=== PATIENT | female | born 1935 | race Caucasian/White ===

== ENCOUNTER → 2021-01-12 | Outpatient (CLI) | payer MEDICARE ==
--- NOTE | 2021-01-12 16:05 | NM ---
EXAMINATION TYPE: NM bone scan whole body DATE OF EXAM: 01/12/2021 COMPARISON: NONE HISTORY: 85-year-old female M2 5.551, right hip pain. TECHNIQUE: Delayed whole-body scanning was performed following the injection of 22.5 mCi Tc 99m MDP. Whole-body anterior and posterior images acquired 3 hours post injection. FINDINGS: Foci of increased tracer activity involving the left superior pubic ramus as well as the right superi or and inferior pubic ramus. Degenerated levoconvex scoliosis of the lumbar spine. Scattered degenera tive tracer activity is present. Slight asymmetric increased activity involving the left sacral alar region on the posterior images. Photopenia related to bilateral total knee arthroplasties. Degenerative tracer activity at the shoulders. Focal activity at the left antecubital fossa likely re lates to injection site. IMPRESSION: 1. Abnormal foci of increased tracer activity within the bilateral pubic rami. These could represent posttraumatic or insufficiency fractures or metastatic disease. Further radiographic or CT assessment recommended. 2. Slight asymmetric increased activity within the right sacral ala may be projectional or could repr esent additional subtle insufficiency fracture or underlying lesion. 3. Degenerative levoconvex scoliosis of the lumbar spine.
== END | disposition home or self-care (01) ==
LOC: RADNMMAIN 10:43
PROVIDERS: ATTEND Orthopaedic Surgery
DX: M41.86 Other forms of scoliosis, lumbar region (principal); R93.7 Abnormal findings on diagnostic imaging of other parts of musculoskeletal system
CPT/HCPCS: 78306; A9503

== ENCOUNTER → 2021-02-13 | Outpatient (CLI) | payer MEDICARE ==
--- NOTE | 2021-02-16 13:22 | PE ---
Nuclear medicine PET/CT HISTORY: Myeloma, initial Patient received 10.6 mCi F-18 FDG intravenously and delayed scanning was performed from the top of t he skull to the knees. An attenuation correction, localization CT scan was also performed. Correlation to nuclear medicine bone scan 01/12/2021 Chest and neck: There is no evident lung mass, no pleural or pericardial effusion. No mediastinal, ax illary, or hilar adenopathy. No cervical or supraclavicular adenopathy, no suspicious uptake. There a re coronary artery calcifications present. ABDOMEN: No evident liver mass. No retroperitoneal adenopathy or suspicious uptake. There is no ascit es. Diverticular change noted in the sigmoid colon. Proximal lower extremity shows a lipoma medially along the thigh. Osseous structures: There are innumerable lytic small foci present to include the calvarium, appendic ular, axial skeleton. There is a larger lytic lesion involving the seventh thoracic vertebral body me asuring approximately 15 mm, sixth thoracic vertebral body measuring 9 mm 10th thoracic vertebral bod y measuring 2.8 cm but without significant associated uptake. The midthoracic spine shows a vertebral body with some uptake, SUV 2.6. There are superior and inferior pubic ramus fractures on the right w hich are obscured on the PET scan due to urinary uptake. IMPRESSION: Findings compatible with multiple myeloma. There are limitations to the PET/CT as describ ed.
== END | disposition home or self-care (01) ==
LOC: RADPETMAIN 16:55
PROVIDERS: ATTEND Internal Medicine Hematology & Oncology
DX: C90.00 Multiple myeloma not having achieved remission (principal)
CPT/HCPCS: 78815; A9552

== ENCOUNTER 2021-03-04 11:06 | Day surgery (SDC) | payer MEDICARE ==
[2021-02-26 14:06] VITALS: BMI 20.9
[2021-03-04] MEDS ORDERED: LIDOCAINE 1% (10MG/ML) FOR IV START INTRADERMA PRN (11:31)
[2021-03-04] MEDS ORDERED: LACTATED RINGERS 1,000 ML IV SCH (11:31)
[2021-03-04 11:37] VITALS: RESP 16; TEMP 97.6
[2021-03-04] MEDS ORDERED: LIDOCAINE 1% INJ 10MG/ML (20 ML MDV) ONE (12:22)
[2021-03-04] MEDS ORDERED: PROPOFOL 10 MG/ML 20 ML VIAL IV ONE (12:22)
[2021-03-04 13:01] VITALS: BP 159/52; PULSE 67
[2021-03-04 13:12] LABS: Basophils % (A) 1 %; Eosinophils % (A) 1 %; HCT 35.5 % (34.0-46.0); HGB 11.8 gm/dL (11.4-16.0); Lymphocytes # (A) 1.8 k/uL (1.0-4.8); Lymphocytes % (A) 42 %; MCH 32.2 pg (25.0-35.0); MCHC 33.2 g/dL (31.0-37.0); Mean Platelet Volume 7.5; Monocytes # (A) 0.3 k/uL (0-1.0); Monocytes % (A) 7 %; Neutrophils % (A) 47 %; Platelet Count 329 k/uL (150-450); RBC 3.66 m/uL (3.80-5.40); RDW 15.7 % (11.5-15.5); WBC 4.3 k/uL (3.8-10.6)
--- NOTE | 2021-03-04 23:46 | PCN ---
PROCEDURE NOTE DATE OF SERVICE: March 04, 2021. PROCEDURE: Bone marrow aspirate and biopsy. INDICATION: Suspected multiple myeloma. DESCRIPTION OF PROCEDURE: After obtaining consent from the patient, the procedure was performed in the endoscopy suite under general anesthesia performed by the Anesthesia Team. The patient was put in the left lateral decubitus position. The right posterior superior iliac crest was localized. Skin was prepped with ChloraPrep. All sterile procedures were followed. 1.1 mL of 1% Xylocaine was used for local anesthetic. Monoject needle was inserted, about 15 mL of aspirate and 1 cm core biopsy was obtained without any difficulties. Pressure applied afterwards. There was negligible blood loss. Patient tolerated procedure very well without any immediate complications. MMODL / IJN: [id number] /
== END 2021-03-04 13:31 | disposition home or self-care (01) ==
LOC: OR 11:06
PROVIDERS: ATTEND Internal Medicine Hematology & Oncology
DX: C90.10 Plasma cell leukemia not having achieved remission (principal); R71.8 Other abnormality of red blood cells; I10 Essential (primary) hypertension; M19.90 Unspecified osteoarthritis, unspecified site; K21.9 Gastro-esophageal reflux disease without esophagitis; E03.9 Hypothyroidism, unspecified; R63.4 Abnormal weight loss; Z97.2 Presence of dental prosthetic device (complete) (partial); Z90.89 Acquired absence of other organs; Z96.653 Presence of artificial knee joint, bilateral; Z98.890 Other specified postprocedural states; E89.0 Postprocedural hypothyroidism; Z80.1 Family history of malignant neoplasm of trachea, bronchus and lung; Z86.19 Personal history of other infectious and parasitic diseases; Z87.891 Personal history of nicotine dependence; Z79.890 Hormone replacement therapy; Z79.899 Other long term (current) drug therapy; Z79.1 Long term (current) use of non-steroidal anti-inflammatories (NSAID); Z88.0 Allergy status to penicillin
CPT/HCPCS: 85025; 85045; 38222; J2001; J2704

== ENCOUNTER 2021-03-22 20:08 | Inpatient (IN) | payer MEDICARE ==
--- NOTE | 2021-03-22 20:18 | ED ---
General Adult HPI - General Chief complaint: Shortness of Breath Stated complaint: Respiratory Distress Time Seen by Provider: 03/22/21 20:12 Source: patient, EMS, RN notes reviewed Mode of arrival: EMS Limitations: no limitations - History of Present Illness Initial comments: Patient is a pleasant 85-year-old female presenting to the emergency Department with respiratory distress. Onset of symptoms was around an hour ago. Patient has been worked up recently for possible congestive heart failure. No history of similar symptoms previously. Patient does have some leg edema, no calf pain. No fevers. No cough. No chest pain. Patient had low oxygen by EMS. Patient did not tolerate CPAP. - Related Data Home Medications Medication Instructions Recorded Confirmed Back And Body 2 tab PO DAILY 02/26/21 03/22/21 Enalapril/Hydrochlorothiazide 2 tab PO DAILY 02/26/21 03/22/21 [Vaseretic 10-25 mg] Levothyroxine Sodium [Synthroid] 50 mcg PO DAILY 02/26/21 03/22/21 Metoprolol Tartrate [Lopressor] 25 mg PO DAILY 02/26/21 03/22/21 Naproxen Sodium [Aleve] 220 mg PO DAILY 02/26/21 03/22/21 Omeprazole 20 mg PO DAILY 02/26/21 03/22/21 amLODIPine [Norvasc] 5 mg PO BID 02/26/21 03/22/21 Multivitamins, Thera [Multivitamin 1 tab PO DAILY 03/22/21 03/22/21 (formulary)] Potassium Chloride ER [K-Dur 20] 20 meq PO DAILY 03/22/21 03/22/21 traMADol HCL 50 mg PO Q6H PRN 03/22/21 03/22/21 Allergies Allergy/AdvReac Type Severity Reaction Status Date / Time Penicillins Allergy Swelling Verified 03/22/21 21:12 Review of Systems ROS Statement: Those systems with pertinent positive or pertinent negative responses have been documented in the HPI. ROS Other: All systems not noted in ROS Statement are negative. Constitutional: Denies: fever Eyes: Denies: eye pain ENT: Denies: ear pain Respiratory: Reports: as per HPI, dyspnea Cardiovascular: Denies: chest pain Endocrine: Denies: fatigue Gastrointestinal: Denies: abdominal pain Genitourinary: Denies: dysuria Musculoskeletal: Denies: back pain Skin: Denies: rash Neurological: Denies: weakness Past Medical History Past Medical History: GERD/Reflux, Hypertension, Osteoarthritis (OA), Thyroid Disorder Additional Past Medical History / Comment(s): UNEXPLAINED WEIGHT LOSS. MULTIPLE MYELOMA- no treatment yet(dr Aden- 03/2021) History of Any Multi-Drug Resistant Organisms: None Reported Past Surgical History: Appendectomy, Joint Replacement, Tonsillectomy Additional Past Surgical History / Comment(s): BILAT TKA. BILAT CARARACTS REMOVED WITH LENS IMPLANTS. 1/2 OF THYROID REMOVED. FATTY TUMOR REMOVED FROM KNEE. COLONOSCOPY Past Anesthesia/Blood Transfusion Reactions: No Reported Reaction Past Psychological History: No Psychological Hx Reported Smoking Status: Former smoker Past Alcohol Use History: None Reported Past Drug Use History: None Reported - Past Family History Mother Family Medical History: Cancer General Exam Limitations: no limitations General appearance: alert Head exam: Present: normocephalic Eye exam: Present: normal appearance Neck exam: Present: normal inspection Respiratory exam: Present: respiratory distress, rales Cardiovascular Exam: Present: tachycardia GI/Abdominal exam: Present: soft. Absent: tenderness Extremities exam: Present: pedal edema. Absent: calf tenderness Neurological exam: Present: alert Psychiatric exam: Present: normal affect, normal mood Skin exam: Present: normal color Course Vital Signs 03/22/21 03/22/21 03/22/21 20:14 20:22 20:31 Temperature 97.5 F L Pulse Rate 109 H 99 96 Respiratory 30 H 24 24 Rate Blood Pressure 164/98 152/86 150/95 O2 Sat by Pulse 86 L 92 L 91 L Oximetry 03/22/21 03/22/21 20:58 21:19 Temperature Pulse Rate 93 93 Respiratory 27 H 25 H Rate Blood Pressure 147/82 151/88 O2 Sat by Pulse 91 L 98 Oximetry - Reevaluation(s) Reevaluation #1: 03/22/21 22:05 Questionable infiltrate. Patient will be covered with antibiotics. Blood culture and lactic acid will also be ordered. EKG Findings - EKG Comments: EKG Findings:: Sinus tachycardia with rate of 108. Her 156. QRS 150. QT 352. QTC 471. Left axis. Left bundle branch block. Nonspecific ST-T. Medical Decision Making - Medical Decision Making Patient reevaluated and significantly improved with BiPAP. Patient family updated on results and plan. Dr. Israel has been paged for admission, covering for Dr. Davalos Juan Case was discussed with Dr. Burton, who will admit - Lab Data Result diagrams: 03/22/21 20:18 03/22/21 20:18 Lab Results 03/22/21 03/22/21 03/22/21 Range/Units 20:18 20:18 20:18 WBC 7.9 (3.8-10.6) k/uL RBC 3.61 L (3.80-5.40) m/uL Hgb 11.8 (11.4-16.0) gm/dL Hct 35.9 (34.0-46.0) % MCV 99.3 (80.0-100.0) fL MCH 32.7 (25.0-35.0) pg MCHC 33.0 (31.0-37.0) g/dL RDW 15.7 H (11.5-15.5) % Plt Count 290 (150-450) k/uL MPV 7.5 Neutrophils % 55 % Lymphocytes % 34 % Monocytes % 5 % Eosinophils % 3 % Basophils % 1 % Neutrophils # 4.3 (1.3-7.7) k/uL Lymphocytes # 2.7 (1.0-4.8) k/uL Monocytes # 0.4 (0-1.0) k/uL Eosinophils # 0.2 (0-0.7) k/uL Basophils # 0.1 (0-0.2) k/uL Macrocytosis Slight PT 10.5 (9.0-12.0) sec INR 1.0 (<1.2) APTT 19.1 L (22.0-30.0) sec Sodium 138 (137-145) mmol/L Potassium 4.5 (3.5-5.1) mmol/L Chloride 104 (98-107) mmol/L Carbon Dioxide 26 (22-30) mmol/L Anion Gap 8 mmol/L BUN 20 H (7-17) mg/dL Creatinine 0.66 (0.52-1.04) mg/dL Est GFR (CKD-EPI)AfAm >90 (>60 ml/min/1.73 sqM) Est GFR (CKD-EPI)NonAf 82 (>60 ml/min/1.73 sqM) Glucose 198 H (74-99) mg/dL POC Glucose (mg/dL) (75-99) mg/dL POC Glu Supplier Development Manager ID Plasma Lactic Acid Mart (0.7-2.0) mmol/L Calcium 10.3 H (8.4-10.2) mg/dL Total Bilirubin 0.5 (0.2-1.3) mg/dL AST 38 H (14-36) U/L ALT 17 (4-34) U/L Alkaline Phosphatase 86 (38-126) U/L Troponin I (0.000-0.034) ng/mL NT-Pro-B Natriuret Pep pg/mL Total Protein 8.6 H (6.3-8.2) g/dL Albumin 4.2 (3.5-5.0) g/dL Coronavirus (PCR) (Not Detectd) 03/22/21 03/22/21 03/22/21 Range/Units 20:18 20:18 20:18 WBC (3.8-10.6) k/uL RBC (3.80-5.40) m/uL Hgb (11.4-16.0) gm/dL Hct (34.0-46.0) % MCV (80.0-100.0) fL MCH (25.0-35.0) pg MCHC (31.0-37.0) g/dL RDW (11.5-15.5) % Plt Count (150-450) k/uL MPV Neutrophils % % Lymphocytes % % Monocytes % % Eosinophils % % Basophils % % Neutrophils # (1.3-7.7) k/uL Lymphocytes # (1.0-4.8) k/uL Monocytes # (0-1.0) k/uL Eosinophils # (0-0.7) k/uL Basophils # (0-0.2) k/uL Macrocytosis PT (9.0-12.0) sec INR (<1.2) APTT (22.0-30.0) sec Sodium (137-145) mmol/L Potassium (3.5-5.1) mmol/L Chloride (98-107) mmol/L Carbon Dioxide (22-30) mmol/L Anion Gap mmol/L BUN (7-17) mg/dL Creatinine (0.52-1.04) mg/dL Est GFR (CKD-EPI)AfAm (>60 ml/min/1.73 sqM) Est GFR (CKD-EPI)NonAf (>60 ml/min/1.73 sqM) Glucose (74-99) mg/dL POC Glucose (mg/dL) (75-99) mg/dL POC Glu Supplier Development Manager ID Plasma Lactic Acid Mart 2.8 H* (0.7-2.0) mmol/L Calcium (8.4-10.2) mg/dL Total Bilirubin (0.2-1.3) mg/dL AST (14-36) U/L ALT (4-34) U/L Alkaline Phosphatase (38-126) U/L Troponin I 0.031 (0.000-0.034) ng/mL NT-Pro-B Natriuret Pep 6370 pg/mL Total Protein (6.3-8.2) g/dL Albumin (3.5-5.0) g/dL Coronavirus (PCR) (Not Detectd) 03/22/21 03/22/21 Range/Units 20:21 20:28 WBC (3.8-10.6) k/uL RBC (3.80-5.40) m/uL Hgb (11.4-16.0) gm/dL Hct (34.0-46.0) % MCV (80.0-100.0) fL MCH (25.0-35.0) pg MCHC (31.0-37.0) g/dL RDW (11.5-15.5) % Plt Count (150-450) k/uL MPV Neutrophils % % Lymphocytes % % Monocytes % % Eosinophils % % Basophils % % Neutrophils # (1.3-7.7) k/uL Lymphocytes # (1.0-4.8) k/uL Monocytes # (0-1.0) k/uL Eosinophils # (0-0.7) k/uL Basophils # (0-0.2) k/uL Macrocytosis PT (9.0-12.0) sec INR (<1.2) APTT (22.0-30.0) sec Sodium (137-145) mmol/L Potassium (3.5-5.1) mmol/L Chloride (98-107) mmol/L Carbon Dioxide (22-30) mmol/L Anion Gap mmol/L BUN (7-17) mg/dL Creatinine (0.52-1.04) mg/dL Est GFR (CKD-EPI)AfAm (>60 ml/min/1.73 sqM) Est GFR (CKD-EPI)NonAf (>60 ml/min/1.73 sqM) Glucose (74-99) mg/dL POC Glucose (mg/dL) 174 H (75-99) mg/dL POC Glu Supplier Development Manager ID Robbie, Juan Plasma Lactic Acid Mart (0.7-2.0) mmol/L Calcium (8.4-10.2) mg/dL Total Bilirubin (0.2-1.3) mg/dL AST (14-36) U/L ALT (4-34) U/L Alkaline Phosphatase (38-126) U/L Troponin I (0.000-0.034) ng/mL NT-Pro-B Natriuret Pep pg/mL Total Protein (6.3-8.2) g/dL Albumin (3.5-5.0) g/dL Coronavirus (PCR) Not Detected (Not Detectd) - Radiology Data Radiology results: image reviewed (Chest x-ray shows pulmonary edema. Cannot exclude infiltrate.) Critical Care Time Critical Care Time: Yes Total Critical Care Time: 33 Disposition Clinical Impression: Congestive heart failure, Acute respiratory failure Disposition: ADMITTED IP TO THIS [facility] Condition: Serious Is patient prescribed a controlled substance at d/c from ED?: No Referrals: None,Stated [REFERRING] - 1-2 days Decision Time: 22:02
[2021-03-22 20:25] LABS: Glucose,Whole Blood 174 mg/dL (75-99)
[2021-03-22 20:30] LABS: Basophils # (A) 0.1 k/uL (0-0.2); Basophils % (A) 1 %; Eosinophils # (A) 0.2 k/uL (0-0.7); Eosinophils % (A) 3 %; HCT 35.9 % (34.0-46.0); HGB 11.8 gm/dL (11.4-16.0); Lymphocytes # (A) 2.7 k/uL (1.0-4.8); Lymphocytes % (A) 34 %; MCH 32.7 pg (25.0-35.0); MCV 99.3 fL (80.0-100.0); Macrocytosis Slight; Mean Platelet Volume 7.5; Monocytes # (A) 0.4 k/uL (0-1.0); Monocytes % (A) 5 %; Neutrophils # (A) 4.3 k/uL (1.3-7.7); Neutrophils % (A) 55 %; Platelet Count 290 k/uL (150-450); RBC 3.61 m/uL (3.80-5.40); RDW 15.7 % (11.5-15.5); WBC 7.9 k/uL (3.8-10.6)
--- NOTE | 2021-03-22 20:30 | XR ---
EXAMINATION TYPE: XR chest 1V portable DATE OF EXAM: 03/22/2021 COMPARISON: NONE HISTORY: Shortness of breath. TECHNIQUE: Single frontal view of the chest is obtained. FINDINGS: There is moderate pulmonary edema bilateral diffuse hazy opacities. No significant pleural effusion, or pneumothorax seen. The cardiac silhouette size is enlarged. The osseous structures a re intact. IMPRESSION: Pulmonary edema with superimposed infiltrates not excluded.
[2021-03-22] MEDS ORDERED: NITROGLYCERIN OINT 1 INCH/GM PACKET TOPICAL STA (20:38)
[2021-03-22] MEDS ORDERED: FUROSEMIDE 10 MG/ML 4 ML VIAL IV STA (20:38)
[2021-03-22 20:47] LABS: ALT 17 U/L (4-34); AST 38 U/L (14-36); African American GFR (CKD) >90 (>60 ml/min/1.73 sqM); Albumin 4.2 g/dL (3.5-5.0); Alkaline Phosphatase 86 U/L (38-126); Anion Gap 8 mmol/L; Blood Urea Nitrogen 20 mg/dL (7-17); Calcium 10.3 mg/dL (8.4-10.2); Carbon Dioxide 26 mmol/L (22-30); Chloride 104 mmol/L (98-107); Glucose 198 mg/dL (74-99); Non-African American GFR(CKD) 82 (>60 ml/min/1.73 sqM); Sodium 138 mmol/L (137-145); Total Bilirubin 0.5 mg/dL (0.2-1.3); Total Protein 8.6 g/dL (6.3-8.2)
[2021-03-22 20:48] LABS: Prothrombin Time 10.5 sec (9.0-12.0)
[2021-03-22 20:55] LABS: Potassium 4.5 mmol/L (3.5-5.1)
[2021-03-22 20:57] LABS: Partial Thromboplastin Time 19.1 sec (22.0-30.0)
[2021-03-22] MEDS ORDERED: ASPIRIN 325 MG TAB PO STA (22:02)
[2021-03-22] MEDS ORDERED: LEVOFLOXACIN 750MG-D5W PMX 750 MG in DEXTROSE/WATER 1 150ML.BAG IVPB STA (22:05)
[2021-03-22] MEDS ORDERED: PNEUMONIA PROTOCOL UTILIZED 1 EACH MISC PO PRN (22:05)
[2021-03-22] MEDS: FUROSEMIDE 10 MG/ML 4 ML VIAL IV SCH (22:31)
[2021-03-23] MEDS ORDERED: traMADol 50 MG TAB PO PRN (00:12)
[2021-03-23] MEDS ORDERED: HEPARIN SOD,PORK IN 0.45% NACL 25,000 UNIT in 0.45% NACL 1 250ML.BAG IV SCH (02:00)
[2021-03-23] MEDS ORDERED: HEPARIN SODIUM 1,000 UN/ML (10ML VL) IV PRN (02:00)
[2021-03-23 02:52] LABS: Partial Thromboplastin Time 20.9 sec (22.0-30.0); Prothrombin Time 10.7 sec (9.0-12.0)
[2021-03-23] MEDS: FUROSEMIDE 10 MG/ML 4 ML VIAL IV SCH (06:10)
--- NOTE | 2021-03-23 08:22 | XR ---
EXAMINATION TYPE: XR chest 1V portable DATE OF EXAM: 03/23/2021 Comparison: 03/22/2021 Clinical History: 85-year-old female CHF Findings: Heart is enlarged. Similar elongation/ectasia of the thoracic aorta. Bony vasculature within normal l imits. Hyperinflation. Minimal patchy density remains at the left base. Otherwise, bilateral airspace opacities have significantly improved. Chronic to subacute left upper rib fracture deformity. Multip le skin folds project over both sides of the chest. Impression: Cardiomegaly, COPD, and near complete resolution of previous pulmonary edema. Minimal patchy changes remain at the left base.
[2021-03-23] MEDS ORDERED: ASPIRIN 325 MG TAB PO SCH (09:00)
[2021-03-23] MEDS: NITROGLYCERIN OINT 1 INCH/GM PACKET TOPICAL SCH ×3 (09:17→18:15)
[2021-03-23] MEDS ORDERED: METOPROLOL TARTRATE 25 MG TAB PO SCH (10:15)
[2021-03-23] MEDS ORDERED: amLODIPine 5 MG TAB PO SCH (10:15)
[2021-03-23] MEDS ORDERED: LISINOPRIL-HCTZ 20-25 MG 1 EACH TAB PO SCH (10:15)
[2021-03-23] MEDS: LEVOTHYROXINE 50 MCG TAB PO SCH (11:18)
[2021-03-23] MEDS: POTASSIUM CHLORIDE ER 20 MEQ TAB.ER PO SCH (11:18)
[2021-03-23] MEDS ORDERED: ATORVASTATIN 80 MG TAB PO STA (11:50)
[2021-03-23] MEDS ORDERED: ALPRAZolam 0.25 MG TAB PO PRN (11:50)
[2021-03-23] MEDS ORDERED: SODIUM CHLORIDE 0.9% 1,000 ML in EMPTY BAG 1 BAG IV ONE (11:50)
[2021-03-23] MEDS ORDERED: ALPRAZolam 0.5 MG TAB PO PRN (11:50)
--- NOTE | 2021-03-23 12:00 | ECHOF ---
Referral Reason:chf MEASUREMENTS -------- HEIGHT: 152.4 cm WEIGHT: 49.9 kg BP: IVSd: 1.1 cm (0.6 - 1.1) LVIDd: 5.6 cm (3.9 - 5.3) LVPWd: 1.1 cm (0.6 - 1.1) IVSs: 1.6 cm LVIDs: 4.4 cm LVPWs: 1.8 cm LA Diam: 3.8 cm (2.7 - 3.8) LAESV Index (A-L): 60.91 ml/m MV EXCURSION: 19.436 mm (> 18.000) MV EF SLOPE: 72 mm/s (70 - 150) EPSS: 2.4 cm AR PHT: 390 ms RAP: 5.00 mmHg RVSP: 34.73 mmHg FINDINGS -------- Sinus rhythm. This was a technically good study. The left ventricular size is normal. There is severe global hypokinesis of LV . Overall left vent ricular systolic function is severely impaired with, an EF between 20 - 25 %. The right ventricle is normal in size. LA is severely dilated >40 ml/m2 The right atrial size is normal. There is mild aortic valve sclerosis. There is mild aortic regurgitation. Mild mitral annular calcification present. Severe mitral regurgitation is present. Mild tricuspid regurgitation present. There is mild pulmonary hypertension. The right ventricular systolic pressure, as measured by Doppler, is 34.73mmHg. Trace/mild (physiologic) pulmonic regurgitation. The aortic root size is normal. There is no pericardial effusion. CONCLUSIONS -------- 1. The left ventricular size is normal. 2. There is severe global hypokinesis of LV . 3. Overall left ventricular systolic function is severely impaired with, an EF between 20 - 25 %. 4. The right ventricle is normal in size. 5. LA is severely dilated >40 ml/m2 6. The right atrial size is normal. 7. There is mild aortic valve sclerosis. 8. There is mild aortic regurgitation. 9. Mild mitral annular calcification present. 10. Severe mitral regurgitation is present. 11. Mild tricuspid regurgitation present. 12. There is mild pulmonary hypertension. 13. The right ventricular systolic pressure, as measured by Doppler, is 34.73mmHg. 14. Trace/mild (physiologic) pulmonic regurgitation. 15. The aortic root size is normal. 16. There is no pericardial effusion. STENCILER: Gabrielle Finch RDCS
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
[2021-03-23] MEDS: ASPIRIN 81 MG PO SCH (12:35)
[2021-03-23] MEDS ORDERED: VERAPAMIL 2.5 MG/ML 2 ML AMP ONE (12:59)
[2021-03-23] MEDS ORDERED: LIDOCAINE 1% INJ 10MG/ML (20 ML MDV) ONE (12:59)
[2021-03-23] MEDS ORDERED: SODIUM CHLORIDE 0.9% 1,000 ML IV ONE (13:11)
[2021-03-23] MEDS ORDERED: MIDAZOLAM 2 MG/2 ML VIAL IV ONE (13:20)
[2021-03-23] MEDS ORDERED: LIDOCAINE 1% INJ 10MG/ML (20 ML MDV) SQ ONE (13:23)
[2021-03-23] MEDS ORDERED: HEPARIN SODIUM 1,000 UN/ML (10ML VL) ONE (13:33)
[2021-03-23] MEDS: VERAPAMIL SYRINGE (5 MG/10 ML) INTRAARTER ONE ×2 (13:35→14:23)
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
[2021-03-23] MEDS ORDERED: IOPAMIDOL-370 100ML BTL INJ ONE ×2 (13:59→14:25)
[2021-03-23] MEDS ORDERED: BIVALIRUDIN BOLUS 250 MG/50 ML IV ONE (14:08)
[2021-03-23] MEDS ORDERED: BIVALIRUDIN 250 MG in SODIUM CHLORIDE 0.9% 50 ML IV ONE (14:09)
[2021-03-23] MEDS ORDERED: NITROGLYCERIN 1000MCG/10ML SYRINGE INTRACORON ONE (14:20)
[2021-03-23] MEDS ORDERED: CLOPIDOGREL 75 MG TAB ONE (14:22)
[2021-03-23] MEDS ORDERED: CLOPIDOGREL 75 MG TAB PO ONE (14:24)
--- NOTE | 2021-03-23 14:38 | P.CONS ---
History of Present Illness - Reason for Consult Consult date: 03/23/21 Multiple Myeloma Requesting physician: Cait Longo - Chief Complaint NSTEMI - History of Present Illness This is a very nice lady who initially presented with left arm pain and weakness,and then developed right hip pain,she was seen by ortho in January/2021,had xray of left shoulder,arm and righ hip which showed mottled appearance and small lesions of her bone. On 01/12/2021,she had a bone scan which showed few sclerotic lesions in pelvic bone. On 01/19/2021,CBC revealed mild leukopenia (total wbc 4.3K),hemoglobin 12.1 gm/dl,platelets counts 309K,CMP revealed globulin of 4 gm/dl,normal serum calcium and creatinine,SPEP revealed M-spike of 1.8gm/dl,serum IgG 2642.1 mg/dl,low serum IgA and IgM levels,urine protein electrophoresis small monoclonal band. On 02/04/2021,SPEP and immunofixation revealed IgGK M-protein 2.35 gm/dl,IgG 2960 mg/dl, On 02/13/2021,PET scan revealed multiple lytic lesions. On 03/04/2021,bone marrow biopsy revealed 60% plasma cells,FISH revealed trisomy 11.Normal cytogenetics. She feels very tired,continues to have significant pain in right hip,lost about 60 pounds within a year,no dysphagia,no cough,no nausea/vomiting,her last leonel mograms were [address] Aden on 03/18/21 had a discussion with the patient and her daughter today. We discussed her diagnosis,prognosis and treatment options. She is not a transplant candidate. We discussed treatment options: We discussed Rd regimen,Lisa+Rd,we also discussed modified RVd regimen. The decided to proceed with RVd lite regimen. We also discussed adding zometa,in view of multiple bone lesions,they agreed to it. She has not started treatment yet, teach is on 04/01/2021. Aida Contacted via [email or web address] however unable to reach her as the message was discontinued and there was no phone number to return call. She was seen and evaluated and recovering from Cath with stent placement. She has not started Regimen yet for new multiple myeloma diagnosis. Will allow recovery and begin within the next 10 to 14 days. Review of Systems All systems: negative Constitutional: Reports as per HPI Past Medical History Past Medical History: GERD/Reflux, Hypertension, Osteoarthritis (OA), Thyroid Disorder Additional Past Medical History / Comment(s): MULTIPLE MYELOMA- no treatment yet(dr Aden- 03/2021) History of Any Multi-Drug Resistant Organisms: None Reported Past Surgical History: Appendectomy, Joint Replacement, Tonsillectomy Additional Past Surgical History / Comment(s): BILAT TKA. BILAT CARARACTS REMOVED WITH LENS IMPLANTS. 1/2 OF THYROID REMOVED. FATTY TUMOR REMOVED FROM KNEE. COLONOSCOPY Past Anesthesia/Blood Transfusion Reactions: No Reported Reaction Past Psychological History: No Psychological Hx Reported Smoking Status: Former smoker Past Alcohol Use History: None Reported Additional Past Alcohol Use History / Comment(s): QUIT SMOKING 1964 Past Drug Use History: None Reported - Past Family History Mother Family Medical History: Cancer Medications and Allergies Home Medications Medication Instructions Recorded Confirmed Type Back And Body 2 tab PO DAILY 02/26/21 03/22/21 History Enalapril/Hydrochlorothiazide 2 tab PO DAILY 02/26/21 03/22/21 History [Vaseretic 10-25 mg] Levothyroxine Sodium [Synthroid] 50 mcg PO DAILY 02/26/21 03/22/21 History Metoprolol Tartrate [Lopressor] 25 mg PO DAILY 02/26/21 03/22/21 History Naproxen Sodium [Aleve] 220 mg PO DAILY 02/26/21 03/22/21 History Omeprazole 20 mg PO DAILY 02/26/21 03/22/21 History amLODIPine [Norvasc] 5 mg PO BID 02/26/21 03/22/21 History Multivitamins, Thera [Multivitamin 1 tab PO DAILY 03/22/21 03/22/21 History (formulary)] Potassium Chloride ER [K-Dur 20] 20 meq PO DAILY 03/22/21 03/22/21 History traMADol HCL 50 mg PO Q6H PRN 03/22/21 03/22/21 History Allergies Allergy/AdvReac Type Severity Reaction Status Date / Time Penicillins Allergy Swelling Verified 03/22/21 21:12 Physical Exam Vitals: Vital Signs Temp Pulse Pulse Resp BP BP Pulse Ox 03/23/21 12:00 97.7 F 74 16 140/71 94 L 03/23/21 08:00 97.1 F L 75 18 131/67 95 03/23/21 03:23 97.5 F L 81 17 139/63 97 03/23/21 02:00 88 18 03/23/21 00:00 97.4 F L 88 18 151/72 97 03/22/21 23:46 87 21 03/22/21 23:28 96.2 F L 87 21 168/74 97 03/22/21 23:01 97.5 F L 03/22/21 22:41 97.6 F 83 20 139/72 96 03/22/21 21:19 93 25 H 151/88 98 03/22/21 20:58 93 27 H 147/82 91 L 03/22/21 20:31 97.5 F L 96 24 150/95 91 L 03/22/21 20:22 99 24 152/86 92 L 03/22/21 20:14 109 H 30 H 164/98 86 L Intake and Output 03/22/21 03/23/21 03/23/21 22:59 06:59 14:59 Intake Total 5.044 58.2 Output Total 700 300 Balance -694.956 -241.8 Intake: Intake, IV Titration 5.044 58.2 Amount Heparin Sod,Pork in 0.45% 5.044 58.2 NaCl 25,000 unit In 0.45 % NaCl 1 250ml.bag @ 12 UNITS/KG/HR 5.82 mls/hr IV .Q24H [facility] Rx#: [id number] Oral 0 Output: Urine 700 300 Other: Voiding Method Bedside Commode # Voids 1 1 Weight 4.536 kg 50 kg - Constitutional General appearance: cooperative, no acute distress - EENT Eyes: EOMI ENT: hard of hearing, NA/AT - Neck Neck: normal ROM - Respiratory Respiratory: bilateral: CTA - Cardiovascular Rhythm: regularly irregular - Gastrointestinal General gastrointestinal: soft - Integumentary Integumentary: pale - Neurologic Neurologic: CNII-XII intact - Musculoskeletal Musculoskeletal: generalized weakness - Psychiatric Psychiatric: A&O x's 3, appropriate affect Results CBC & Chem 7: 03/23/21 15:20 03/23/21 15:20 Labs: Abnormal Lab Results - Last 24 Hours (Table) 03/22/21 03/22/21 03/22/21 Range/Units 20:18 20:18 20:18 RBC 3.61 L (3.80-5.40) m/uL RDW 15.7 H (11.5-15.5) % APTT 19.1 L (22.0-30.0) sec BUN 20 H (7-17) mg/dL Glucose 198 H (74-99) mg/dL POC Glucose (mg/dL) (75-99) mg/dL Plasma Lactic Acid Mart (0.7-2.0) mmol/L Calcium 10.3 H (8.4-10.2) mg/dL AST 38 H (14-36) U/L Troponin I (0.000-0.034) ng/mL Total Protein 8.6 H (6.3-8.2) g/dL TSH (0.350-5.500) uIU/mL 03/22/21 03/22/21 03/22/21 Range/Units 20:18 20:21 23:46 RBC (3.80-5.40) m/uL RDW (11.5-15.5) % APTT (22.0-30.0) sec BUN (7-17) mg/dL Glucose (74-99) mg/dL POC Glucose (mg/dL) 174 H (75-99) mg/dL Plasma Lactic Acid Mart 2.8 H* (0.7-2.0) mmol/L Calcium (8.4-10.2) mg/dL AST (14-36) U/L Troponin I 0.073 H* (0.000-0.034) ng/mL Total Protein (6.3-8.2) g/dL TSH (0.350-5.500) uIU/mL 03/23/21 03/23/21 03/23/21 Range/Units 02:23 02:23 08:23 RBC (3.80-5.40) m/uL RDW (11.5-15.5) % APTT 20.9 L (22.0-30.0) sec BUN (7-17) mg/dL Glucose (74-99) mg/dL POC Glucose (mg/dL) (75-99) mg/dL Plasma Lactic Acid Mart (0.7-2.0) mmol/L Calcium (8.4-10.2) mg/dL AST (14-36) U/L Troponin I 0.116 H* (0.000-0.034) ng/mL Total Protein (6.3-8.2) g/dL TSH 5.540 H (0.350-5.500) uIU/mL Assessment and Plan (1) Multiple myeloma Current Visit: Yes Status: Acute Code(s): C90.00 - MULTIPLE MYELOMA NOT HAVING ACHIEVED REMISSION SNOMED Code(s): 626225109 Plan: Assessment and Recommendations: Multiple Myeloma: - New Diagnosis - PLan to begin triplet therapy under care of Dr. Aden - LEONEL and [place] planned to begin once acute problems and cardiac procedures completed. Admitted with possible NSTEMI: - Cardiac Cath today with stent placement
[2021-03-23] MEDS: SODIUM CHLORIDE 0.9% 1,000 ML IV SCH (15:00)
--- NOTE | 2021-03-23 15:13 | CC ---
CARDIAC CATHETERIZATION REPORT DATE OF SERVICE: 03/23/2021. PROCEDURE: 1. Left heart catheterization and coronary angiography. 2. PTCA and stenting of a mid LAD lesion with a drug-eluting stent. PERFORMED BY: Dr. Grisel Copeland. SEDATION: Moderate conscious sedation time was 60 minutes. Patient was administered Versed. Oxygen saturation, hemodynamics and EKG were monitored closely. CLINICAL INFORMATION: Mrs. Liberty Coles is an 85-year-old frail elderly lady who was admitted to the hospital with chest pain and shortness of breath, was found to be in heart failure. She had a troponin elevation suggestive of non-ST elevation WA. She was comfortable and resting at the time of my evaluation, but she did complain of chest heaviness, pressure, and shortness of breath which seems to have resolved with control of blood pressure and administration of Lasix. She was advised cardiac cath after due discussion. She had a recent diagnosis of multiple myeloma. PROCEDURE NOTE: Under local anesthesia and strict aseptic precautions, a 6-Ukrainian introducer was placed in the right radial artery. I had difficulty with the access and had to advance the wires. Had made 2 punctures. However, good access was secured. Using a JL3.5 and JR4 catheters, I performed coronary angiography. I did not get a good picture of the LAD and there was a very short left main. I used an XB LAD 3.5 guide catheter. With this, I had better visualization. I then proceeded to perform PCI of mid LAD which had a long 70-80 percent lesion. LV pressures were obtained but LV gram was not performed. CARDIAC CATHETERIZATION FINDINGS: Left ventricular end-diastolic pressure was 17 mmHg without any gradient across aortic valve. CORONARY ANGIOGRAPHY FINDINGS: RIGHT CORONARY ARTERY: This is a nondominant vessel, small in caliber and distribution, has minor irregularities and no significant disease. LEFT MAIN CORONARY ARTERY: A very short vessel that immediately bifurcates and best seen when I did injections with XB LAD catheter. No significant disease in the left main. LEFT ANTERIOR DESCENDING CORONARY ARTERY: Good caliber vessel, gives off a small septal and a large diagonal branch and immediately after the large diagonal branch, there is a long area of narrowing of about 70-80 percent, which I believe is a significant lesion and beyond this, the caliber of the vessel improves and it runs all the way to the apex supplying a sizable amount of myocardium. The diagonal vessel at its origin has no significant disease. In the midportion, there is about a 40-50% narrowing supplies a fair amount of myocardium. CIRCUMFLEX CORONARY ARTERY: This is a very dominant vessel, gives off 2 obtuse marginals proximally, the 3rd obtuse marginal and then distally divides into a PDA and PLV, both of which supply a fair amount of myocardium. No significant disease in the dominant circumflex system. LEFT VENTRICULOGRAM was not performed. FINAL IMPRESSION: This patient has a left dominant system. No significant disease in the nondominant RCA or the dominant circumflex, but there is a long lesion in the mid LAD of 70-80 percent. LAD is a good caliber vessel. The lesion is located after the diagonal branch. RECOMMENDATIONS: I recommended PCI of LAD and proceeded to perform this in the same setting. PCI PROCEDURE DETAILS: I had a lot of difficulty getting a good guide catheter to sit in the left main. However, with an XB LAD 3.5, and some manipulation, I got a decent seating. A run- through wire was used to cross the lesion in the LAD. Without predilatation, I deployed a 28 mm long 3.25 caliber Xience stent. Excellent angiographic result was achieved. Patient had mild chest discomfort and significant anterior ST elevation. Excellent angiographic result without complication was achieved. The sheath was then taken out and TR band applied as per protocol. Patient still had some oozing. The distal saturation in the fingers of the right hand was about 90%. Good hemostasis was secured. She was sent to the room in a stable condition. Results were discussed with the patient as well as her family members. Excellent angiographic result without complication was achieved of the LAD. A drug- eluting stent was deployed. I expect the patient to be discharged in the next 48 hours if she remains stable. Heart failure issue also has to be addressed. LV dysfunction is noted and mitral regurgitation is also noted. Results were discussed in detail with the patient as well as her daughter. MMODL / IJN: [id number] /
[2021-03-23 15:52] LABS: Basophils % (A) 1 %; Eosinophils % (A) 1 %; HCT 29.4 % (34.0-46.0); HGB 10.1 gm/dL (11.4-16.0); Lymphocytes # (A) 1.6 k/uL (1.0-4.8); Lymphocytes % (A) 32 %; MCH 33.4 pg (25.0-35.0); MCHC 34.3 g/dL (31.0-37.0); MCV 97.5 fL (80.0-100.0); Mean Platelet Volume 7.2; Monocytes # (A) 0.3 k/uL (0-1.0); Monocytes % (A) 6 %; Neutrophils % (A) 60 %; Platelet Count 194 k/uL (150-450); RBC 3.02 m/uL (3.80-5.40); RDW 15.7 % (11.5-15.5); WBC 5.1 k/uL (3.8-10.6)
[2021-03-23 16:40] LABS: Chol/HDL Ratio 2.4; LDL Cholesterol,Calculated 74.4 mg/dL (0.0-131.0); VLDL Calculation 12.6 mg/dL (5.00-40.00)
[2021-03-23 16:57] LABS: ALT 11 U/L (4-34); AST 25 U/L (14-36); African American GFR (CKD) >90 (>60 ml/min/1.73 sqM); Albumin 3.4 g/dL (3.5-5.0); Alkaline Phosphatase 64 U/L (38-126); Anion Gap 6 mmol/L; Blood Urea Nitrogen 18 mg/dL (7-17); Calcium 10.3 mg/dL (8.4-10.2); Carbon Dioxide 32 mmol/L (22-30); Chloride 99 mmol/L (98-107); Glucose 84 mg/dL (74-99); Magnesium 1.5 mg/dL (1.6-2.3); Non-African American GFR(CKD) 84 (>60 ml/min/1.73 sqM); Potassium 3.4 mmol/L (3.5-5.1); Sodium 137 mmol/L (137-145); Total Bilirubin 0.3 mg/dL (0.2-1.3); Total Protein 6.9 g/dL (6.3-8.2)
[2021-03-23] MEDS: INSULIN ASPART (NovoLOG) 100 UNIT/ML VIAL SQ SCH ×2 (18:14→20:08)
[2021-03-23 20:01] LABS: Glucose,Whole Blood 102 mg/dL (75-99)
[2021-03-23] MEDS: METOPROLOL TARTRATE 25 MG TAB PO SCH (20:47)
[2021-03-23] MEDS ORDERED: LOSARTAN 50 MG TAB PO SCH (21:00)
[2021-03-23] MEDS ORDERED: LEVOFLOXACIN 750 MG TAB PO SCH (21:00)
[2021-03-24 00:57] LABS: Hemoglobin A1C 5.6 % (4.0-6.0)
[2021-03-24 01:02] LABS: Folate, Serum 18.6 ng/mL
[2021-03-24 01:19] LABS: Protein, Total 7.1 g/dL (6.2-8.2)
[2021-03-24 06:14] LABS: Glucose,Whole Blood 86 mg/dL (75-99)
[2021-03-24] MEDS: SODIUM CHLORIDE 0.9% 1,000 ML IV SCH (06:20)
[2021-03-24] MEDS: INSULIN ASPART (NovoLOG) 100 UNIT/ML VIAL SQ SCH ×4 (06:20→21:09)
[2021-03-24] MEDS: PANTOPRAZOLE 40 MG TABLET PO SCH (06:22)
[2021-03-24] MEDS: LEVOTHYROXINE 50 MCG TAB PO SCH (06:22)
[2021-03-24] MEDS ORDERED: HEPARIN SODIUM,PORCINE 2,500 UNIT in SODIUM CHLORIDE 0.9% 250 ML IRRIGATION PRN (07:00)
[2021-03-24] MEDS ORDERED: HEPARIN SODIUM,PORCINE 10,000 UNIT in SODIUM CHLORIDE 0.9% 1,000 ML IRRIGATION PRN (07:00)
[2021-03-24 07:21] LABS: Basophils % (A) 0 %; Eosinophils % (A) 1 %; HCT 29.2 % (34.0-46.0); HGB 9.9 gm/dL (11.4-16.0); Lymphocytes # (A) 1.3 k/uL (1.0-4.8); Lymphocytes % (A) 25 %; MCHC 33.9 g/dL (31.0-37.0); MCV 97.4 fL (80.0-100.0); Mean Platelet Volume 7.4; Monocytes # (A) 0.3 k/uL (0-1.0); Monocytes % (A) 6 %; Neutrophils # (A) 3.5 k/uL (1.3-7.7); Neutrophils % (A) 67 %; Platelet Count 207 k/uL (150-450); RDW 15.7 % (11.5-15.5); WBC 5.3 k/uL (3.8-10.6)
[2021-03-24 07:39] LABS: Prothrombin Time 10.8 sec (9.0-12.0)
[2021-03-24 07:44] LABS: ALT 12 U/L (4-34); AST 26 U/L (14-36); African American GFR (CKD) >90 (>60 ml/min/1.73 sqM); Albumin 3.5 g/dL (3.5-5.0); Alkaline Phosphatase 62 U/L (38-126); Anion Gap 3 mmol/L; Blood Urea Nitrogen 12 mg/dL (7-17); Calcium 10.7 mg/dL (8.4-10.2); Carbon Dioxide 33 mmol/L (22-30); Chloride 103 mmol/L (98-107); Glucose 86 mg/dL (74-99); Non-African American GFR(CKD) 83 (>60 ml/min/1.73 sqM); Potassium 3.3 mmol/L (3.5-5.1); Sodium 139 mmol/L (137-145); Total Bilirubin 0.3 mg/dL (0.2-1.3); Total Protein 7.3 g/dL (6.3-8.2)
[2021-03-24] MEDS: ASPIRIN 81 MG PO SCH (08:40)
[2021-03-24] MEDS: CLOPIDOGREL 75 MG TAB PO SCH (08:40)
[2021-03-24] MEDS: ATORVASTATIN 40 MG TAB PO SCH (08:40)
[2021-03-24] MEDS: FUROSEMIDE 40 MG TAB PO SCH (08:41)
[2021-03-24] MEDS: METOPROLOL TARTRATE 25 MG TAB PO SCH ×2 (08:41→21:37)
[2021-03-24] MEDS: POTASSIUM CHLORIDE ER 20 MEQ TAB.ER PO SCH (08:42)
[2021-03-24] MEDS ORDERED: ASPIRIN 81 MG PO SCH (09:00)
[2021-03-24] MEDS ORDERED: ATORVASTATIN 40 MG TAB PO SCH (09:00)
[2021-03-24] MEDS: LOSARTAN-HCTZ 50-12.5 MG 1 EACH TAB PO SCH (09:43)
[2021-03-24] MEDS ORDERED: Potassium Replacement Protocol 1 EACH MISC MISCELLANE PRN (11:37)
[2021-03-24] MEDS ORDERED: POTASSIUM CHLORIDE ER 20 MEQ TAB.ER PO STA ×2 (11:38→13:48)
[2021-03-24 12:03] LABS: Glucose,Whole Blood 94 mg/dL (75-99)
[2021-03-24 12:37] LABS: Albumin 3.02 g/dL (3.80-4.90); Gamma Globulin 2.46 g/dL (0.70-1.50)
[2021-03-24 13:09] LABS: Immunoglobulin A <25.5 mg/dL (60.0-350.0); Immunoglobulin M <16.9 mg/dL (40.0-280.0)
--- NOTE | 2021-03-24 13:50 | P.PN ---
Subjective This is a pleasant 85-year-old female past medical history significant for hypertension,osteoarthritis, hypothyroidism, recent diagnosis of multiple myeloma follows with Dr. Aden. She does not follow a crm dynamics developer. We have been asked to see in consultation for elevated troponin. Patient presented to the emergency department with shortness of breath and previous episodes of chest pain. Troponin [id number]. EKG reveals sinus tachycardia, heart rate 108, new left bundle branch block. EKG this morning revealed sinus rhythm, heart rate 75, frequent PVCs, new left bundle branch block. No prior EKG to compare Cardiac catheterization was recommended. 03/23: Echocardiogram EF 20-25%, LA severely dilated, mild aortic valve sclerosis, mild aortic regurgitation, severe mitral regurgitation, mild tricuspid regurgitation, mild pulmonary hypertension, RVSP 34mmHg. Patient underwent cardiac catheterization with Dr. Copeland with successful sten ting of the mid LAD. 03/24: Patient seen and examined at bedside, up in the bedside chair, no acute distress. Denies chest pain, shortness of breath, palpitations, leg dizziness, lightheadedness. She is feeling well, has been weaned to room air. She states her breathing is much better. Telemetry tracings indicate sinus mechanism HR 70- 80s. Laboratory reviewed,, WBC 5.3, hemoglobin 9.9, platelets 207, sodium 139, potassium 3.3, BUN 12, serum creatinine 0.6. Patient is currently being maintained on aspirin 81 mg daily, Plavix 75 mg daily, Lasix 40 mg daily, metoprolol tartrate 25 mg twice a day, potassium chloride 20 mEq daily. PHYSICAL EXAMINATION Blood pressure 166/77 heart rate 83 afebrile and maintaining oxygen saturation 95% on room air CONSTITUTIONAL: No apparent distress. States her shortness of breath has improved. HEENT: Head is normocephalic. No JVD. No carotid bruit. CHEST EXAMINATION: Lungs are clear to auscultation. HEART EXAMINATION: Regular rate and rhythm. S1, S2 heard. Systolic ejection murmur at apex noted ABDOMEN: Soft, nontender. Positive bowel sounds. EXTREMITIES: 2+ peripheral pulses, trace bilateral lower extremity edema and no calf tenderness. SKIN: Right radial site clean dry intact 2+ pulses NEUROLOGIC EXAMINATION: Patient is awake, alert and oriented x3. ASSESSMENT Acute hypoxic respiratory failure NSTEMI Ischemic cardiomyopathhy Coronary artery disease s/p PCI mid LAD on 03/23 Hypertension Hypothyroidism Recent diagnosis of multiple myeloma PLAN Replace potassium with K-Dur 20meq x 3 doses today Recheck BMP tonight and repeat BMP tomorrow morning Continue dual antiplatelet therapy with aspirin and plavix Continue atorvastatin 40mg daily, Lasix 40mg daily, metoprolol tartrate 25mg BID We would like to monitor patient for another 24 hours. Further recommendations based on clinical course Nurse Practitioner note has been reviewed, I agree with a documented findings and plan of care. Patient was seen and examined. Objective - Vital Signs Vital signs: Vital Signs Temp 97.8 F 03/24/21 08:29 Pulse 83 03/24/21 08:29 Resp 18 03/24/21 08:29 BP 166/77 03/24/21 08:29 Pulse Ox 93 L 03/24/21 08:29 Intake & Output 03/23/21 03/24/21 03/24/21 18:59 06:59 18:59 Intake Total 501.2 120 Output Total 300 1100 Balance 201.2 -1100 120 Weight 50 kg 45.6 kg Intake: IV 263 Intake, IV Titration 58.2 Amount Heparin Sod,Pork in 0.45% 58.2 NaCl 25,000 unit In 0.45 % NaCl 1 250ml.bag @ 12 UNITS/KG/HR 5.82 mls/hr IV .Q24H [facility] Rx#: [id number] Oral 180 120 Output: Urine 300 1100 Other: Voiding Method Bedside Commode # Voids 2 - Labs CBC & Chem 7: 03/24/21 06:49 03/24/21 06:49 Labs: Abnormal Lab Results - Last 24 Hours (Table) 03/23/21 03/23/21 03/23/21 Range/Units 08:23 08:23 15:20 RBC 3.02 L (3.80-5.40) m/uL Hgb 10.1 L (11.4-16.0) gm/dL Hct 29.4 L (34.0-46.0) % RDW 15.7 H (11.5-15.5) % Potassium (3.5-5.1) mmol/L Carbon Dioxide (22-30) mmol/L BUN (7-17) mg/dL POC Glucose (mg/dL) (75-99) mg/dL Calcium (8.4-10.2) mg/dL Magnesium (1.6-2.3) mg/dL Albumin (3.5-5.0) g/dL HDL Cholesterol 62.0 H (40.0-60.0) mg/dL Homocysteine (4.00-14.00) umol/L TSH 5.540 H (0.350-5.500) uIU/mL 03/23/21 03/23/21 03/23/21 Range/Units 15:20 15:20 20:00 RBC (3.80-5.40) m/uL Hgb (11.4-16.0) gm/dL Hct (34.0-46.0) % RDW (11.5-15.5) % Potassium 3.4 L (3.5-5.1) mmol/L Carbon Dioxide 32 H (22-30) mmol/L BUN 18 H (7-17) mg/dL POC Glucose (mg/dL) 102 H (75-99) mg/dL Calcium 10.3 H (8.4-10.2) mg/dL Magnesium 1.5 L (1.6-2.3) mg/dL Albumin 3.4 L (3.5-5.0) g/dL HDL Cholesterol (40.0-60.0) mg/dL Homocysteine 3.95 L (4.00-14.00) umol/L TSH (0.350-5.500) uIU/mL 03/24/21 03/24/21 Range/Units 06:49 06:49 RBC 3.00 L (3.80-5.40) m/uL Hgb 9.9 L (11.4-16.0) gm/dL Hct 29.2 L (34.0-46.0) % RDW 15.7 H (11.5-15.5) % Potassium 3.3 L (3.5-5.1) mmol/L Carbon Dioxide 33 H (22-30) mmol/L BUN (7-17) mg/dL POC Glucose (mg/dL) (75-99) mg/dL Calcium 10.7 H (8.4-10.2) mg/dL Magnesium (1.6-2.3) mg/dL Albumin (3.5-5.0) g/dL HDL Cholesterol (40.0-60.0) mg/dL Homocysteine (4.00-14.00) umol/L TSH (0.350-5.500) uIU/mL Microbiology - Last 24 Hours (Table) 03/22/21 22:46 Blood Culture - Preliminary Blood No Growth after 24 hours 03/22/21 22:40 Blood Culture - Preliminary Blood No Growth after 24 hours
--- NOTE | 2021-03-24 14:45 | P.PN ---
Subjective Progress Note Date: 03/24/21 HISTORY OF PRESENT ILLNESS This is an 85-year-old female patient of Dr. Zion Davalos with past medical history of hypertension, hypothyroidism, generalized osteoarthritis. Patient was recently diagnosed with multiple myeloma under the care of Dr. Aden. Patient states that since January she has had x-rays, bone scan, PET scan and bone marrow biopsy. She states she is tired all the time was recently diagnosed with anemia and has had weight loss of 50 pounds over the past 6-8 months. She denies having any treatment started for multiple myeloma at this point. Patient states that over the past few months she has had tightness across her chest and stabbing type pains. She was ordered for pain pill from Dr. Cervantes that didn't seem to work. This appears to be tramadol. She states that she has pain and shortness of breath when she goes down to the basement and back up the stairs. She normally has to sit down and rest. She states she occasionally has lower extremity edema in her ankles at the end of the day. Yesterday, patient states that she was in a disagreement with her daughter and B came upset. She states she has episodes where she becomes upset and her heart pounds and she feels short of breath. She was sit down and will go away after 2-3 minutes. Patient presented to [facility] emergency center for evaluation. EKG is a sinus tachycardia with heart rate of 108. She was afebrile, heart rate 109, respiratory rate 30, blood pressure 164/98, pulse ox 86% on 15 L nasal cannula. She continues to be afebrile current heart rate 74, respiratory rate 16, blood pressure 140/71 and pulse ox 94% on 2 L. CBC was unremarkable. INR 1.0. Electrolytes normal. BUN 20 and creatinine 0.66. Blood sugar 198 with no history of diabetes. Lactic acid 2.8 with repeat of 1.0. Calcium 10.3. Total bilirubin 0.5, AST 38, ALT 17, alkaline phosphatase 86. Troponins were 0.031, 0.073 and 0.116. Albumin 4.2. Coronavirus PCR not detected. Pro-calcitonin 0.04. Chest x-ray revealed pulmonary edema with superimposed infiltrates not excluded. Repeat chest x-ray this morning reveals cardiomegaly, COPD and near complete resolution of previous pulmonary edema. Minimal patchy changes remain at the left base. Echocardiogram reveals EF of 2 0-25%, LA is severely dilated greater than 40 mL/M2, mild aortic valve sclerosis, mild aortic regurgitation, severe mitral regurgitation, mild tricuspid regurgitation, mild pulmonary hypertension. Patient admitted to the cardiac stepdown unit, cardiology consult requested with recommendations for h eart catheterization. Patient is requesting that Dr. Aden be involved in her hospitalization. 03/24: Yesterday, patient underwent heart catheterization with Dr. Benitez rate status post stenting of the mid LAD. She is also been seen by oncology with plan for follow-up appointment for education regarding her disease process and start treatment. She has been afebrile, heart rate 67, blood pressure 168/77, pulse ox 91% on room air. Repeat blood work reveals hemoglobin of 9.9, platelet count 207, WBC 5.3. Potassium is 3.3 and has been replaced. Sodium 139, chloride 103, CO2 33, BUN 12 and creatinine 0.65. Hemoglobin A1c 5.6. Patient denies having any chest pain, shortness of breath, lightheadedness or dizziness. Anticipate discharge home tomorrow. REVIEW OF SYSTEMS Constitutional: No fever, no chills, no night sweats. No weight change. No weakness, fatigue or lethargy. No daytime sleepiness. EENT: No headache. No blurred vision or double vision, no loss of vision. No loss of Hearing, no ringing in the ears, no dizziness. No nasal drainage or congestion. No epistaxis. No sore throat. Lungs: Denies shortness of breath, no cough, no sputum production. No wheezing.Reports exertional dyspnea. Cardiovascular: Denies chest pain, no lower extremity edema. No palpitations. No paroxysmal nocturnal dyspnea. No orthopnea. No lightheadedness or dizziness. No syncopal episodes. Abdominal: No abdominal pain. No nausea, vomiting. No diarrhea. No constipation. No bloody or tarry stools.. No loss of appetite. Genitourinary: No dysuria, increased frequency, urgency. No urinary retention. Musculoskeletal: No myalgias. No muscle weakness, no gait dysfunction, no frequent falls. No back pain. No neck pain. Integumentary: No wounds, no lesions. No rash or pruritus. No unusual bruising. No change in hair or nails. Neurologic: No aphasia. No facial droop. No change in mentation. No head injury. No headache. No paralysis. No paresthesia. Psychiatric: No depression. No anxiety. Endocrine: Noted abnormal blood sugars. PHYSICAL EXAMINATION Gen: This is this is an 85-year-old female. Patient is resting in bed and appears to be comfortable and in no acute distress. HEENT: Head is atraumatic, normocephalic. Pupils equal, round. Sclerae is anicteric. NECK: Supple. No JVD. No lymphadenopathy. No thyromegaly. LUNGS: Clear to auscultation. No wheezes or rhonchi. No intercostal retrac tions. HEART: Regular rate and rhythm. Systolic murmur. ABDOMEN: Soft. Bowel sounds are present. No masses. No tenderness. EXTREMITIES:Trace bilateral pedal edema. No calf tenderness. Dorsalis pedis +2 bilaterally. NEUROLOGICAL: Patient is awake, alert and oriented x3. Cranial nerves 2 through 12 are grossly intact. ASSESSMENT AND PLAN 1. Acute hypoxic respiratory failure most likely secondary to coronary artery disease with exertional dyspnea and chest pain. Continue oxygen therapy and as needed. 2. Non-ST elevated myocardial infarction status post heart catheterization and stenting of the LAD. Continue aspirin 81 mg daily, Lipitor 40 mg daily, Plavix 75 mg daily, Lopressor 25 mg twice daily. Consult with cardiology appreciated. 3. Hyperglycemia with no previous legof diabetes. Patient will be placed on NovoLog scale and hemoglobin A1c 5.6. 4. Lactic acidosis most likely secondary to acute respiratory failure. No sign of pneumonia. Levaquin will be discontinued 5. 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 6. Recent diagnosis of multiple myeloma. Consult with oncology appreciated. 7. Hypertension. Amlodipine has been discontinued. Continue Hyzaar 5012 0.5 daily, Lopressor 25 mg daily. 8. Hypothyroidism. Continue levothyroxine 50 g daily. 9. Generalized osteoarthritis, stable. 10. GI prophylaxis. Protonix 40 mg daily. 11. DVT prophylaxis. Patient is on heparin drip. CODE STATUS: NO CODE DISCHARGE PLAN Home on Tuesday. Impression and plan of care have been directed as dictated by the signing physician. Cait Longo nurse practitioner acting as scribe for signing physician. Objective - Vital Signs Vital signs: Vital Signs Temp 97.8 F 03/24/21 08:29 Pulse 83 03/24/21 08:29 Resp 18 03/24/21 08:29 BP 166/77 03/24/21 08:29 Pulse Ox 93 L 03/24/21 08:29 Intake & Output 03/23/21 03/24/21 03/24/21 18:59 06:59 18:59 Intake Total 501.2 120 Output Total 300 1100 Balance 201.2 -1100 120 Weight 50 kg 45.6 kg Intake: IV 263 Intake, IV Titration 58.2 Amount Heparin Sod,Pork in 0.45% 58.2 NaCl 25,000 unit In 0.45 % NaCl 1 250ml.bag @ 12 UNITS/KG/HR 5.82 mls/hr IV .Q24H [facility] Rx#: [id number] Oral 180 120 Output: Urine 300 1100 Other: Voiding Method Bedside Commode # Voids 2 - Labs CBC & Chem 7: 03/24/21 06:49 03/24/21 06:49 Labs: Abnormal Lab Results - Last 24 Hours (Table) 03/23/21 03/23/21 03/23/21 Range/Units 08:23 08:23 15:20 RBC 3.02 L (3.80-5.40) m/uL Hgb 10.1 L (11.4-16.0) gm/dL Hct 29.4 L (34.0-46.0) % RDW 15.7 H (11.5-15.5) % Potassium (3.5-5.1) mmol/L Carbon Dioxide (22-30) mmol/L BUN (7-17) mg/dL POC Glucose (mg/dL) (75-99) mg/dL Calcium (8.4-10.2) mg/dL Magnesium (1.6-2.3) mg/dL Albumin (3.5-5.0) g/dL HDL Cholesterol 62.0 H (40.0-60.0) mg/dL Homocysteine (4.00-14.00) umol/L TSH 5.540 H (0.350-5.500) uIU/mL 03/23/21 03/23/21 03/23/21 Range/Units 15:20 15:20 20:00 RBC (3.80-5.40) m/uL Hgb (11.4-16.0) gm/dL Hct (34.0-46.0) % RDW (11.5-15.5) % Potassium 3.4 L (3.5-5.1) mmol/L Carbon Dioxide 32 H (22-30) mmol/L BUN 18 H (7-17) mg/dL POC Glucose (mg/dL) 102 H (75-99) mg/dL Calcium 10.3 H (8.4-10.2) mg/dL Magnesium 1.5 L (1.6-2.3) mg/dL Albumin 3.4 L (3.5-5.0) g/dL HDL Cholesterol (40.0-60.0) mg/dL Homocysteine 3.95 L (4.00-14.00) umol/L TSH (0.350-5.500) uIU/mL 03/24/21 03/24/21 Range/Units 06:49 06:49 RBC 3.00 L (3.80-5.40) m/uL Hgb 9.9 L (11.4-16.0) gm/dL Hct 29.2 L (34.0-46.0) % RDW 15.7 H (11.5-15.5) % Potassium 3.3 L (3.5-5.1) mmol/L Carbon Dioxide 33 H (22-30) mmol/L BUN (7-17) mg/dL POC Glucose (mg/dL) (75-99) mg/dL Calcium 10.7 H (8.4-10.2) mg/dL Magnesium (1.6-2.3) mg/dL Albumin (3.5-5.0) g/dL HDL Cholesterol (40.0-60.0) mg/dL Homocysteine (4.00-14.00) umol/L TSH (0.350-5.500) uIU/mL Microbiology - Last 24 Hours (Table) 03/22/21 22:46 Blood Culture - Preliminary Blood No Growth after 24 hours 03/22/21 22:40 Blood Culture - Preliminary Blood No Growth after 24 hours
[2021-03-24] MEDS: NITROGLYCERIN SL TABS 0.4 MG TAB SUBLINGUAL PRN ×2 (14:52→14:57)
[2021-03-24 16:50] LABS: Glucose,Whole Blood 86 mg/dL (75-99)
--- NOTE | 2021-03-24 18:44 | P.PN ---
Subjective Progress Note Date: 03/24/21 Principal diagnosis: NSTEMI, Status Post Cath and Stent She is recovering from cardiac stent. Her myeloma panel has worsened and would like to begin a pulse dose steroid, however would need to ensure ok with cardiology. this would be dexamethasone 40mg daily x4 days Objective - Vital Signs Vital signs: Vital Signs Temp 97.6 F 03/24/21 14:49 Pulse 78 03/24/21 14:59 Resp 22 03/24/21 14:49 BP 149/72 03/24/21 14:59 Pulse Ox 96 03/24/21 14:59 Intake & Output 03/23/21 03/24/21 03/24/21 18:59 06:59 18:59 Intake Total 501.2 640 Output Total 300 1100 550 Balance 201.2 -1100 90 Weight 50 kg 45.6 kg Intake: IV 263 Intake, IV Titration 58.2 Amount Heparin Sod,Pork in 0.45% 58.2 NaCl 25,000 unit In 0.45 % NaCl 1 250ml.bag @ 12 UNITS/KG/HR 5.82 mls/hr IV .Q24H [facility] Rx#: [id number] Oral 180 640 Output: Urine 300 1100 550 Other: Voiding Method Bedside Commode # Voids 2 1 - Exam - Constitutional General appearance: Present: average body habitus, cooperative, no acute distress - EENT EENT Comment(s): dry mucus membranes, no thrush or ulcers Eyes: Present: abnormal pupil, edentulous ENT: Present: hearing grossly normal - Respiratory Respiratory: bilateral: CTA - Cardiovascular Rhythm: regular Heart sounds: normal: S1, S2 Abnormal Heart Sounds: Absent: systolic murmur, diastolic murmur, rub, S3 Gallop, S4 Gallop, click, other - Peripheral edema leg Peripheral Edema: bilateral: None - Gastrointestinal General gastrointestinal: Present: normal bowel sounds, soft - Integumentary Integumentary Comment(s): mandible malignant lesion looks less red and swollen today, the ulceration is drying up and scabbing over - Neurologic Neurologic: Present: CNII-XII intact - Musculoskeletal Musculoskeletal: Present: strength equal bilaterally - Psychiatric Psychiatric: Present: A&O x's 3, appropriate affect, intact judgment & insight - Labs CBC & Chem 7: 03/24/21 06:49 03/24/21 06:49 Labs: Abnormal Lab Results - Last 24 Hours (Table) 03/23/21 03/23/21 03/23/21 Range/Units 15:20 15:20 20:00 RBC (3.80-5.40) m/uL Hgb (11.4-16.0) gm/dL Hct (34.0-46.0) % RDW (11.5-15.5) % Potassium (3.5-5.1) mmol/L Carbon Dioxide (22-30) mmol/L POC Glucose (mg/dL) 102 H (75-99) mg/dL Calcium (8.4-10.2) mg/dL Albumin (PEP) 3.02 L (3.80-4.90) g/dL Vsuew-9-Lpayixpiy 0.57 L (0.60-1.00) g/dL Gamma Globulins 2.46 H (0.70-1.50) g/dL Homocysteine 3.95 L (4.00-14.00) umol/L IgG 2700.0 H (700.0-1600.0) mg/dL IgA <25.5 L (60.0-350.0) mg/dL IgM <16.9 L (40.0-280.0) mg/dL Free [place] LC, Quant 51.70 H (0.33-1.94) mg/dL Free Lambda LC, Quant 0.13 L (0.57-2.63) mg/dL 03/24/21 03/24/21 Range/Units 06:49 06:49 RBC 3.00 L (3.80-5.40) m/uL Hgb 9.9 L (11.4-16.0) gm/dL Hct 29.2 L (34.0-46.0) % RDW 15.7 H (11.5-15.5) % Potassium 3.3 L (3.5-5.1) mmol/L Carbon Dioxide 33 H (22-30) mmol/L POC Glucose (mg/dL) (75-99) mg/dL Calcium 10.7 H (8.4-10.2) mg/dL Albumin (PEP) (3.80-4.90) g/dL Fedxw-5-Dpnoxoqpy (0.60-1.00) g/dL Gamma Globulins (0.70-1.50) g/dL Homocysteine (4.00-14.00) umol/L IgG (700.0-1600.0) mg/dL IgA (60.0-350.0) mg/dL IgM (40.0-280.0) mg/dL Free [place] LC, Quant (0.33-1.94) mg/dL Free Lambda LC, Quant (0.57-2.63) mg/dL Microbiology - Last 24 Hours (Table) 03/22/21 22:46 Blood Culture - Preliminary Blood No Growth after 24 hours 03/22/21 22:40 Blood Culture - Preliminary Blood No Growth after 24 hours Assessment and Plan (1) Multiple myeloma Current Visit: Yes Status: Acute Code(s): C90.00 - MULTIPLE MYELOMA NOT HAVING ACHIEVED REMISSION SNOMED Code(s): 470934437 Plan: Assessment and Recommendations: Multiple Myeloma: - New Diagnosis - PLan to begin triplet therapy under care of Dr. Aden - LEONEL and Zometa planned to begin once acute problems and cardiac procedures completed. Admitted with possible NSTEMI: - Status Post Cardiac Cath today with stent placement Plan: - Myeloma markers increasing and treatment has not began. Would like to give pulse dose dexamthasone if ok with cardiology. This would be 40mg po daily x4 days only. - Follow-up within one week of discharge. Will monitor CBC closely
[2021-03-24 19:14] LABS: African American GFR (CKD) >90 (>60 ml/min/1.73 sqM); Anion Gap 3 mmol/L; Blood Urea Nitrogen 14 mg/dL (7-17); Calcium 11.3 mg/dL (8.4-10.2); Carbon Dioxide 34 mmol/L (22-30); Chloride 103 mmol/L (98-107); Glucose 121 mg/dL (74-99); Non-African American GFR(CKD) 82 (>60 ml/min/1.73 sqM); Potassium 3.3 mmol/L (3.5-5.1); Sodium 140 mmol/L (137-145)
[2021-03-24 19:58] LABS: Glucose,Whole Blood 97 mg/dL (75-99)
[2021-03-25 06:11] LABS: Glucose,Whole Blood 90 mg/dL (75-99)
[2021-03-25] MEDS: INSULIN ASPART (NovoLOG) 100 UNIT/ML VIAL SQ SCH ×4 (06:36→20:27)
[2021-03-25] MEDS: LEVOTHYROXINE 50 MCG TAB PO SCH (06:37)
[2021-03-25] MEDS: PANTOPRAZOLE 40 MG TABLET PO SCH (06:37)
[2021-03-25 07:13] LABS: Basophils % (A) 1 %; Eosinophils % (A) 0 %; HCT 31.5 % (34.0-46.0); HGB 10.2 gm/dL (11.4-16.0); Lymphocytes # (A) 1.6 k/uL (1.0-4.8); Lymphocytes % (A) 28 %; MCH 32.1 pg (25.0-35.0); MCHC 32.4 g/dL (31.0-37.0); MCV 99.2 fL (80.0-100.0); Macrocytosis Slight; Mean Platelet Volume 7.1; Monocytes # (A) 0.3 k/uL (0-1.0); Monocytes % (A) 6 %; Neutrophils # (A) 3.5 k/uL (1.3-7.7); Neutrophils % (A) 63 %; Platelet Count 215 k/uL (150-450); RBC 3.17 m/uL (3.80-5.40); RDW 15.9 % (11.5-15.5); WBC 5.6 k/uL (3.8-10.6)
[2021-03-25 07:34] LABS: ALT 12 U/L (4-34); AST 25 U/L (14-36); African American GFR (CKD) >90 (>60 ml/min/1.73 sqM); Albumin 3.4 g/dL (3.5-5.0); Alkaline Phosphatase 61 U/L (38-126); Anion Gap 4 mmol/L; Blood Urea Nitrogen 14 mg/dL (7-17); Calcium 11.2 mg/dL (8.4-10.2); Carbon Dioxide 35 mmol/L (22-30); Chloride 103 mmol/L (98-107); Glucose 88 mg/dL (74-99); Magnesium 1.6 mg/dL (1.6-2.3); Non-African American GFR(CKD) 81 (>60 ml/min/1.73 sqM); Potassium 3.5 mmol/L (3.5-5.1); Sodium 142 mmol/L (137-145); Total Bilirubin 0.2 mg/dL (0.2-1.3); Total Protein 7.2 g/dL (6.3-8.2)
[2021-03-25] MEDS: LOSARTAN-HCTZ 50-12.5 MG 1 EACH TAB PO SCH (07:59)
[2021-03-25] MEDS: ATORVASTATIN 40 MG TAB PO SCH (07:59)
[2021-03-25] MEDS: CLOPIDOGREL 75 MG TAB PO SCH (07:59)
[2021-03-25] MEDS: ASPIRIN 81 MG PO SCH (07:59)
[2021-03-25] MEDS: POTASSIUM CHLORIDE ER 20 MEQ TAB.ER PO SCH (07:59)
[2021-03-25] MEDS: METOPROLOL TARTRATE 25 MG TAB PO SCH ×2 (07:59→20:27)
[2021-03-25] MEDS: FUROSEMIDE 40 MG TAB PO SCH (08:00)
--- NOTE | 2021-03-25 10:50 | P.PN ---
Subjective This is a pleasant 85-year-old female past medical history significant for hypertension,osteoarthritis, hypothyroidism, recent diagnosis of multiple myeloma follows with Dr. Aden. She does not follow a extract wringer. We have been asked to see in consultation for elevated troponin. Patient presented to the emergency department with shortness of breath and previous episodes of chest pain. Troponin [id number]. EKG reveals sinus tachycardia, heart rate 108, new left bundle branch block. EKG this morning revealed sinus rhythm, heart rate 75, frequent PVCs, new left bundle branch block. No prior EKG to compare Cardiac catheterization was recommended. 03/23: Echocardiogram EF 20-25%, LA severely dilated, mild aortic valve sclerosis, mild aortic regurgitation, severe mitral regurgitation, mild tricuspid regurgitation, mild pulmonary hypertension, RVSP 34mmHg. Patient underwent cardiac catheterization with Dr. Copeland with successful sten ting of the mid LAD. 03/25: Patient seen and examined at bedside, up in the bedside chair, no acute distress. Yesterday around 3:00 PM patient episode of chest pain, EKG was obtained which revealed sinus rhythm, heart rate 75, PVCs, left bundle branch block, no significant changes. She was given Nitro and supplemental oxygen and her symptoms improved. Currently at bedside she denies chest pain at this time. Denies shortness of breath, palpitations, leg dizziness, lightheadedness. She is feeling well, no further chest pain. She states her breathing is much better. Telemetry tracings indicate sinus mechanism HR 70-80s. Laboratory reviewed, WBC 5.6, hemoglobin 10.2, platelets 2:15, sodium 142, potassium 3.5, BUN 14, serum creatinine 0.68, magnesium 1.6, repeat troponin 0.3 Patient is currently being maintained on aspirin 81 mg daily, atorvastatin 40 mg daily, Plavix 75 mg daily, Lasix 40 mg daily, metoprolol tartrate 25 mg twice a day, potassium chloride 20 mEq daily. PHYSICAL EXAMINATION Blood pressure 160/74 heart rate 70 afebrile and maintaining oxygen saturation 98% on 2 L nasal cannula CONSTITUTIONAL: No apparent distress. States her shortness of breath has improved. HEENT: Head is normocephalic. No JVD. No carotid bruit. CHEST EXAMINATION: Lungs are clear to auscultation. HEART EXAMINATION: Regular rate and rhythm. S1, S2 heard. Systolic ejection murmur at apex noted ABDOMEN: Soft, nontender. Positive bowel sounds. EXTREMITIES: 2+ peripheral pulses, No bilateral lower extremity edema and no calf tenderness. SKIN: Right radial site clean dry intact 2+ pulses NEUROLOGIC EXAMINATION: Patient is awake, alert and oriented x3. ASSESSMENT Acute hypoxic respiratory failure NSTEMI Ischemic cardiomyopathhy Coronary artery disease s/p PCI mid LAD on 03/23 Hypertension Hypothyroidism Recent diagnosis of multiple myeloma PLAN Repeat troponin elevated 0.33 Continue dual antiplatelet therapy with aspirin and plavix Continue atorvastatin 40mg daily, Lasix 40mg daily, metoprolol tartrate 25mg BID We would like to monitor patient for another 24 hours. This was discussed with the patient. Further recommendations based on clinical course Nurse Practitioner note has been reviewed, I agree with a documented findings and plan of care. Patient was seen and examined. Objective - Vital Signs Vital signs: Vital Signs Temp 98.1 F 03/25/21 07:57 Pulse 78 03/25/21 07:57 Resp 18 03/25/21 08:00 BP 160/74 03/25/21 07:57 Pulse Ox 98 03/25/21 07:57 Intake & Output 03/24/21 03/25/21 03/25/21 18:59 06:59 18:59 Intake Total 640 20 Output Total 550 450 Balance 90 -430 Weight 43.6 kg Intake: IV 20 Invasive Line 1 10 Invasive Line 2 10 Oral 640 Output: Urine 550 450 Other: Voiding Method Toilet # Voids 1 - Labs CBC & Chem 7: 03/25/21 06:31 03/25/21 06:31 Labs: Abnormal Lab Results - Last 24 Hours (Table) 03/23/21 03/23/21 03/23/21 Range/Units 15:20 15:20 15:20 RBC (3.80-5.40) m/uL Hgb (11.4-16.0) gm/dL Hct (34.0-46.0) % RDW (11.5-15.5) % Potassium (3.5-5.1) mmol/L Carbon Dioxide (22-30) mmol/L Glucose (74-99) mg/dL Calcium (8.4-10.2) mg/dL Troponin I (0.000-0.034) ng/mL Albumin (3.5-5.0) g/dL Albumin (PEP) 3.02 L (3.80-4.90) g/dL Bewyl-3-Eifxawini 0.57 L (0.60-1.00) g/dL Gamma Globulins 2.46 H (0.70-1.50) g/dL Methylmalonic Acid 0.74 H (<0.40) umol/L IgG 2700.0 H (700.0-1600.0) mg/dL IgA <25.5 L (60.0-350.0) mg/dL IgM <16.9 L (40.0-280.0) mg/dL Free [place]vin LC, Quant 51.70 H (0.33-1.94) mg/dL Free Lambda LC, Quant 0.13 L (0.57-2.63) mg/dL 03/24/21 03/25/21 03/25/21 Range/Units 18:33 06:31 06:31 RBC 3.17 L (3.80-5.40) m/uL Hgb 10.2 L (11.4-16.0) gm/dL Hct 31.5 L (34.0-46.0) % RDW 15.9 H (11.5-15.5) % Potassium 3.3 L (3.5-5.1) mmol/L Carbon Dioxide 34 H 35 H (22-30) mmol/L Glucose 121 H (74-99) mg/dL Calcium 11.3 H 11.2 H (8.4-10.2) mg/dL Troponin I (0.000-0.034) ng/mL Albumin 3.4 L (3.5-5.0) g/dL Albumin (PEP) (3.80-4.90) g/dL Awgkm-3-Tirsocclc (0.60-1.00) g/dL Gamma Globulins (0.70-1.50) g/dL Methylmalonic Acid (<0.40) umol/L IgG (700.0-1600.0) mg/dL IgA (60.0-350.0) mg/dL IgM (40.0-280.0) mg/dL Free Garvin LC, Quant (0.33-1.94) mg/dL Free Lambda LC, Quant (0.57-2.63) mg/dL 03/25/21 Range/Units 06:31 RBC (3.80-5.40) m/uL Hgb (11.4-16.0) gm/dL Hct (34.0-46.0) % RDW (11.5-15.5) % Potassium (3.5-5.1) mmol/L Carbon Dioxide (22-30) mmol/L Glucose (74-99) mg/dL Calcium (8.4-10.2) mg/dL Troponin I 0.338 H* (0.000-0.034) ng/mL Albumin (3.5-5.0) g/dL Albumin (PEP) (3.80-4.90) g/dL Aiopk-3-Unakhhwaj (0.60-1.00) g/dL Gamma Globulins (0.70-1.50) g/dL Methylmalonic Acid (<0.40) umol/L IgG (700.0-1600.0) mg/dL IgA (60.0-350.0) mg/dL IgM (40.0-280.0) mg/dL Free [place]vin LC, Quant (0.33-1.94) mg/dL Free Lambda LC, Quant (0.57-2.63) mg/dL Microbiology - Last 24 Hours (Table) 03/22/21 22:40 Blood Culture - Preliminary Blood No Growth after 48 hours 03/22/21 22:46 Blood Culture - Preliminary Blood No Growth after 48 hours
[2021-03-25 11:54] LABS: Glucose,Whole Blood 104 mg/dL (75-99)
[2021-03-25] MEDS ORDERED: dexAMETHasone 4 MG TAB PO SCH (12:30)
--- NOTE | 2021-03-25 12:42 | P.PN ---
Subjective Progress Note Date: 03/25/21 Principal diagnosis: NSTEMI, Status Post Cath and Stent Discussed with cardiology who is ok with a round of pulse/tx dex Objective - Vital Signs Vital signs: Vital Signs Temp 98.1 F 03/25/21 07:57 Pulse 78 03/25/21 07:57 Resp 18 03/25/21 08:00 BP 160/74 03/25/21 07:57 Pulse Ox 98 03/25/21 07:57 Intake & Output 03/24/21 03/25/21 03/25/21 18:59 06:59 18:59 Intake Total 640 20 Output Total 550 450 Balance 90 -430 Weight 43.6 kg Intake: IV 20 Invasive Line 1 10 Invasive Line 2 10 Oral 640 Output: Urine 550 450 Other: Voiding Method Toilet # Voids 1 - Exam - Constitutional General appearance: Present: average body habitus, cooperative, no acute distress - EENT EENT Comment(s): dry mucus membranes, no thrush or ulcers Eyes: Present: abnormal pupil, edentulous ENT: Present: hearing grossly normal - Respiratory Respiratory: bilateral: CTA - Cardiovascular Rhythm: regular Heart sounds: normal: S1, S2 Abnormal Heart Sounds: Absent: systolic murmur, diastolic murmur, rub, S3 Gallop, S4 Gallop, click, other - Peripheral edema leg Peripheral Edema: bilateral: None - Gastrointestinal General gastrointestinal: Present: normal bowel sounds, soft - Integumentary Integumentary Comment(s): mandible malignant lesion looks less red and swollen today, the ulceration is drying up and scabbing over - Neurologic Neurologic: Present: CNII-XII intact - Musculoskeletal Musculoskeletal: Present: strength equal bilaterally - Psychiatric Psychiatric: Present: A&O x's 3, appropriate affect, intact judgment & insight - Labs CBC & Chem 7: 03/25/21 06:31 03/25/21 06:31 Labs: Abnormal Lab Results - Last 24 Hours (Table) 03/23/21 03/23/21 03/23/21 Range/Units 15:20 15:20 15:20 RBC (3.80-5.40) m/uL Hgb (11.4-16.0) gm/dL Hct (34.0-46.0) % RDW (11.5-15.5) % Potassium (3.5-5.1) mmol/L Carbon Dioxide (22-30) mmol/L Glucose (74-99) mg/dL POC Glucose (mg/dL) (75-99) mg/dL Calcium (8.4-10.2) mg/dL Troponin I (0.000-0.034) ng/mL Albumin (3.5-5.0) g/dL Albumin (PEP) 3.02 L (3.80-4.90) g/dL Abozo-7-Tavsqaeyd 0.57 L (0.60-1.00) g/dL Gamma Globulins 2.46 H (0.70-1.50) g/dL Methylmalonic Acid 0.74 H (<0.40) umol/L IgG 2700.0 H (700.0-1600.0) mg/dL IgA <25.5 L (60.0-350.0) mg/dL IgM <16.9 L (40.0-280.0) mg/dL 03/24/21 03/25/21 03/25/21 Range/Units 18:33 06:31 06:31 RBC 3.17 L (3.80-5.40) m/uL Hgb 10.2 L (11.4-16.0) gm/dL Hct 31.5 L (34.0-46.0) % RDW 15.9 H (11.5-15.5) % Potassium 3.3 L (3.5-5.1) mmol/L Carbon Dioxide 34 H 35 H (22-30) mmol/L Glucose 121 H (74-99) mg/dL POC Glucose (mg/dL) (75-99) mg/dL Calcium 11.3 H 11.2 H (8.4-10.2) mg/dL Troponin I (0.000-0.034) ng/mL Albumin 3.4 L (3.5-5.0) g/dL Albumin (PEP) (3.80-4.90) g/dL Uifau-2-Pjdrrcliq (0.60-1.00) g/dL Gamma Globulins (0.70-1.50) g/dL Methylmalonic Acid (<0.40) umol/L IgG (700.0-1600.0) mg/dL IgA (60.0-350.0) mg/dL IgM (40.0-280.0) mg/dL 03/25/21 03/25/21 Range/Units 06:31 11:52 RBC (3.80-5.40) m/uL Hgb (11.4-16.0) gm/dL Hct (34.0-46.0) % RDW (11.5-15.5) % Potassium (3.5-5.1) mmol/L Carbon Dioxide (22-30) mmol/L Glucose (74-99) mg/dL POC Glucose (mg/dL) 104 H (75-99) mg/dL Calcium (8.4-10.2) mg/dL Troponin I 0.338 H* (0.000-0.034) ng/mL Albumin (3.5-5.0) g/dL Albumin (PEP) (3.80-4.90) g/dL Lzwox-6-Jgiqpvmho (0.60-1.00) g/dL Gamma Globulins (0.70-1.50) g/dL Methylmalonic Acid (<0.40) umol/L IgG (700.0-1600.0) mg/dL IgA (60.0-350.0) mg/dL IgM (40.0-280.0) mg/dL Microbiology - Last 24 Hours (Table) 03/22/21 22:40 Blood Culture - Preliminary Blood No Growth after 48 hours 03/22/21 22:46 Blood Culture - Preliminary Blood No Growth after 48 hours Assessment and Plan (1) Multiple myeloma Current Visit: Yes Status: Acute Code(s): C90.00 - MULTIPLE MYELOMA NOT HAVING ACHIEVED REMISSION SNOMED Code(s): 772870110 Plan: Assessment and Recommendations: Multiple Myeloma: - New Diagnosis - PLan to begin triplet therapy under care of Dr. Aden - LEONEL and Zorebekah planned to begin once acute problems and cardiac procedures completed. Admitted with possible NSTEMI: - Status Post Cardiac Cath today with stent placement Plan: - Myeloma markers increasing and treatment has not began. Would like to give pulse dose dexamthasone if ok with cardiology. This would be 40mg po daily x4 days only. - Follow-up within one week of discharge. Will monitor CBC closely - Discussed with Cardiology and ok for dexamethasone 20mg po daily x4 days (dose lowered due to patients size, baseline shakey) - Chest xray to assess rib fractures
[2021-03-25] MEDS: FERROUS SULFATE 325 MG TAB PO SCH (16:12)
[2021-03-25] MEDS: dexAMETHasone 4 MG TAB PO SCH (16:19)
[2021-03-25 17:00] LABS: Glucose,Whole Blood 94 mg/dL (75-99)
--- NOTE | 2021-03-25 18:25 | XR ---
EXAMINATION TYPE: XR chest 2V DATE OF EXAM: 03/25/2021 COMPARISON: 03/23/2021 HISTORY: Possible rib fracture. Chest pain TECHNIQUE: FINDINGS: Heart is enlarged. There is no heart failure. Lungs are clear of infiltrate. Thoracic aorta is atheromatous. There are chest leads. There is osteopenia. There is slight loss of height of T6 an d T5 and T4 vertebra. There is slight blunting of the posterior costophrenic angles on the lateral vi ew. I see no displaced rib fracture. IMPRESSION: Very small pleural effusions. Cardiomegaly. No obvious heart failure. No adverse change c ompared to recent exam.
[2021-03-25 20:07] LABS: Glucose,Whole Blood 114 mg/dL (75-99)
[2021-03-26 06:27] LABS: Glucose,Whole Blood 119 mg/dL (75-99)
[2021-03-26] MEDS: INSULIN ASPART (NovoLOG) 100 UNIT/ML VIAL SQ SCH ×2 (06:38→12:52)
[2021-03-26] MEDS: PANTOPRAZOLE 40 MG TABLET PO SCH (06:40)
[2021-03-26] MEDS: LEVOTHYROXINE 50 MCG TAB PO SCH (06:40)
[2021-03-26] MEDS: CLOPIDOGREL 75 MG TAB PO SCH (08:34)
[2021-03-26] MEDS: ASPIRIN 81 MG PO SCH (08:34)
[2021-03-26] MEDS: ATORVASTATIN 40 MG TAB PO SCH (08:34)
[2021-03-26] MEDS: dexAMETHasone 4 MG TAB PO SCH (08:35)
[2021-03-26] MEDS: METOPROLOL TARTRATE 25 MG TAB PO SCH (08:35)
[2021-03-26] MEDS: FUROSEMIDE 40 MG TAB PO SCH (08:35)
[2021-03-26] MEDS: POTASSIUM CHLORIDE ER 20 MEQ TAB.ER PO SCH (08:36)
[2021-03-26 08:42] VITALS: RESP 18; TEMP 98.2
--- NOTE | 2021-03-26 10:04 | P.DS ---
Providers Date of admission: 03/22/21 22:02 Expected date of discharge: 03/26/21 Attending physician: Mathew Wood Consults: 03/22/21 22:02 Consult Physician Routine Consulting Provider: Sotero Lawrence Consult Reason/Comments: chf Do you want consulting provider notified?: Yes 03/23/21 13:04 Consult Physician Routine Consulting Provider: Shruthi Aden Consult Reason/Comments: multiple myeloma, pt request Do you want consulting provider notified?: Yes Primary care physician: Zion Davalos [facility] Course: HISTORY OF PRESENT ILLNESS This is an 85-year-old female patient of Dr. Zion Davalos with past medical history of hypertension, hypothyroidism, generalized osteoarthritis. Patient was recently diagnosed with multiple myeloma under the care of Dr. Aden. Patient states that since January she has had x-rays, bone scan, PET scan and bone marrow biopsy. She states she is tired all the time was recently diagnosed with anemia and has had weight loss of 50 pounds over the past 6-8 months. She denies having any treatment started for multiple myeloma at this point. Patient states that over the past few months she has had tightness across her chest and stabbing type pains. She was ordered for pain pill from Dr. Cervantes that didn't seem to work. This appears to be tramadol. She states that she has pain and shortness of breath when she goes down to the basement and back up the stairs. She normally has to sit down and rest. She states she occasionally has lower extremity edema in her ankles at the end of the day. Yesterday, patient states that she was in a disagreement with her daughter and B came upset. She states she has episodes where she becomes upset and her heart pounds and she feels short of breath. She was sit down and will go away after 2-3 minutes. Patient presented to [facility] emergency center for evaluation. EKG is a sinus tachycardia with heart rate of 108. She was afebrile, heart rate 109, respiratory rate 30, blood pressure 164/98, pulse ox 86% on 15 L nasal cannula. She continues to be afebrile current heart rate 74, respiratory rate 16, blood pressure 140/71 and pulse ox 94% on 2 L. CBC was unremarkable. INR 1.0. Electrolytes normal. BUN 20 and creatinine 0.66. Blood sugar 198 with no history of diabetes. Lactic acid 2.8 with repeat of 1.0. Calcium 10.3. Total bilirubin 0.5, AST 38, ALT 17, alkaline phosphatase 86. Troponins were 0.031, 0.073 and 0.116. Albumin 4.2. Coronavirus PCR not detected. Pro-calcitonin 0.04. Chest x-ray revealed pulmonary edema with superimposed infiltrates not excluded. Repeat chest x-ray this morning reveals cardiomegaly, COPD and near complete resolution of previous pulmonary edema. Minimal patchy changes remain at the left base. Echocardiogram reveals EF of 20-25%, LA is severely dilated greater than 40 mL/M2, mild aortic valve sclerosis, mild aortic regurgitation, severe mitral regurgitation, mild tricuspid regurgitation, mild pulmonary hypertension. Patient admitted to the cardiac stepdown unit, cardiology consult requested with recommendations for heart catheterization. Patient is requesting that Dr. Aden be involved in her hospitalization. 03/24: Yesterday, patient underwent heart catheterization with Dr. Benitez rate status post stenting of the mid LAD. She is also been seen by oncology with plan for follow-up appointment for education regarding her disease process and start treatment. She has been afebrile, heart rate 67, blood pressure 168/77, pulse ox 91% on room air. Repeat blood work reveals hemoglobin of 9.9, platelet count 207, WBC 5.3. Potassium is 3.3 and has been replaced. Sodium 139, chloride 103, CO2 33, BUN 12 and creatinine 0.65. Hemoglobin A1c 5.6. Patient denies having any chest pain, shortness of breath, lightheadedness or dizziness. Anticipate discharge home tomorrow. 03/25: She states that she had an episode of chest pain yesterday evening. She has been seen by cardiology this morning and requesting to hold the patient discharge until tomorrow for monitoring. Patient has been afebrile, heart rate 78, blood pressure 160/74, pulse ox 90% on 2 L nasal cannula. monitoring specialist is a sinus rhythm. Repeat blood work reveals CO2 34, BUN 22 and creatinine 0.66, potassium 3.5. Blood sugars running between 100 1519. Plan is for monitoring overnight and possible discharge home tomorrow. Patient does not have any chest pain at the time of this evaluation. 03/26: Patient has been seen by oncology with recommendations for dexamethasone 20 mg daily for 4 doses. Patient will receive 2 prior to discharge and prescription will be sent for than last 2 doses. She has had no further episodes of chest pain. She has been seen by cardiology this morning clear for discharge. She has been afebrile, heart rate 87, blood pressure 145/78, pulse ox 96% on room air.. ASSESSMENT AND PLAN 1. Acute hypoxic respiratory failure most likely secondary to coronary artery disease with exertional dyspnea and chest pain. 2. Non-ST elevated myocardial infarction status post heart catheterization and stenting of the LAD. 3. Hyperglycemia with no diabetes. A1c 5.6. 4. Lactic acidosis most likely secondary to acute respiratory failure. 5. 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 6. Recent diagnosis of multiple myeloma. 7. Hypertension. 8. Hypothyroidism. 9. Generalized osteoarthritis, stable. DISCHARGE PLAN Home on . Impression and plan of care have been directed as dictated by the signing ph ysician. Cait Longo nurse practitioner acting as scribe for signing physician. Patient Condition at Discharge: Stable Plan - Discharge Summary Discharge Rx Participant: No New Discharge Prescriptions: New Clopidogrel [Plavix] 75 mg PO DAILY #30 tab Aspirin 81 mg PO DAILY chew Losartan-Hctz 50-12.5 mg [Hyzaar 50-12.5] 1 each PO DAILY #30 tab Ferrous Sulfate [Iron (65 MG Elemental)] 325 mg PO W/LUNCH tab Furosemide [Lasix] 40 mg PO DAILY tab Atorvastatin [Lipitor] 40 mg PO DAILY #30 tab Metoprolol Tartrate [Lopressor] 25 mg PO BID #60 tab Nitroglycerin Sl Tabs [Nitrostat] 0.4 mg SUBLINGUAL Q5M PRN #25 tab PRN Reason: Chest Pain dexAMETHasone ORAL [Hexadrol] 20 mg PO DAILY #10 tab Continue Back And Body 2 tab PO DAILY Multivitamins, Thera [Multivitamin (formulary)] 1 tab PO DAILY traMADol HCL 50 mg PO Q6H PRN PRN Reason: Pain Levothyroxine Sodium [Synthroid] 50 mcg PO DAILY Omeprazole 20 mg PO DAILY Potassium Chloride ER [K-Dur 20] 20 meq PO DAILY Discontinued Enalapril/Hydrochlorothiazide [Vaseretic 10-25 mg] 2 tab PO DAILY Naproxen Sodium [Aleve] 220 mg PO DAILY Metoprolol Tartrate [Lopressor] 25 mg PO DAILY amLODIPine [Norvasc] 5 mg PO BID Discharge Medication List Back And Body 2 tab PO DAILY 02/26/21 [History] Levothyroxine Sodium [Synthroid] 50 mcg PO DAILY 02/26/21 [History] Omeprazole 20 mg PO DAILY 02/26/21 [History] Multivitamins, Thera [Multivitamin (formulary)] 1 tab PO DAILY 03/22/21 [History] Potassium Chloride ER [K-Dur 20] 20 meq PO DAILY 03/22/21 [History] traMADol HCL 50 mg PO Q6H PRN 03/22/21 [History] Aspirin 81 mg PO DAILY chew 03/26/21 [Rx] Atorvastatin [Lipitor] 40 mg PO DAILY #30 tab 03/26/21 [Rx] Clopidogrel [Plavix] 75 mg PO DAILY #30 tab 03/26/21 [Rx] Ferrous Sulfate [Iron (65 MG Elemental)] 325 mg PO W/LUNCH tab 03/26/21 [Rx] Furosemide [Lasix] 40 mg PO DAILY tab 03/26/21 [Rx] Losartan-Hctz 50-12.5 mg [Hyzaar 50-12.5] 1 each PO DAILY #30 tab 03/26/21 [Rx] Metoprolol Tartrate [Lopressor] 25 mg PO BID #60 tab 03/26/21 [Rx] Nitroglycerin Sl Tabs [Nitrostat] 0.4 mg SUBLINGUAL Q5M PRN #25 tab 03/26/21 [Rx] dexAMETHasone ORAL [Hexadrol] 20 mg PO DAILY #10 tab 03/26/21 [Rx] Follow up Appointment(s)/Referral(s): Beto Copeland MD [STAFF PHYSICIAN] - 2 Weeks [facility] [NON-STAFF] - Zion Davalos MD [Primary Care Provider] - 1 Week Activity/Diet/Wound Care/Special Instructions: Follow up with Oncology as scheduled. Discharge Disposition: HOME SELF-CARE
[2021-03-26 11:23] LABS: African American GFR (CKD) >90 (>60 ml/min/1.73 sqM); Anion Gap 5 mmol/L; Blood Urea Nitrogen 22 mg/dL (7-17); Calcium 12.4 mg/dL (8.4-10.2); Carbon Dioxide 34 mmol/L (22-30); Chloride 102 mmol/L (98-107); Glucose 119 mg/dL (74-99); Non-African American GFR(CKD) 82 (>60 ml/min/1.73 sqM); Potassium 3.5 mmol/L (3.5-5.1); Sodium 141 mmol/L (137-145)
[2021-03-26 11:47] LABS: Glucose,Whole Blood 115 mg/dL (75-99)
--- NOTE | 2021-03-26 12:02 | PN ---
PROGRESS NOTE This lady has multiple myeloma recently diagnosed under the care of Dr. Workman. She presented with a non STEMI, underwent stenting of LAD, doing well today. Her right radial site is clean and dry. Vital signs stable. No JVD. S1, S2 heard normally. Short systolic murmur. Lungs: Clear. Abdomen and lower extremity exam unchanged. Plan is to continue current medications including dual antiplatelet therapy. Patient can be discharged whenever it is okay by the admitting doctor and Dr. Aden who is seeing her from a multiple myeloma standpoint. I will see the patient in 2 weeks and she will call me if she has any questions, concerns or problem. It is important to continue dual antiplatelet therapy. On physical exam there are no new significant findings. The patient is free of any symptoms. MMODL / IJN: [id number] /
[2021-03-26] MEDS: LOSARTAN-HCTZ 50-12.5 MG 1 EACH TAB PO SCH (12:51)
[2021-03-26] MEDS: FERROUS SULFATE 325 MG TAB PO SCH (12:52)
[2021-03-26 13:13] VITALS: BMI 19.9
--- NOTE | 2021-03-26 13:27 | P.PN ---
Subjective Progress Note Date: 03/25/21 HISTORY OF PRESENT ILLNESS This is an 85-year-old female patient of Dr. Zion Davalos with past medical history of hypertension, hypothyroidism, generalized osteoarthritis. Patient was recently diagnosed with multiple myeloma under the care of Dr. Aedn. Patient states that since January she has had x-rays, bone scan, PET scan and bone marrow biopsy. She states she is tired all the time was recently diagnosed with anemia and has had weight loss of 50 pounds over the past 6-8 months. She denies having any treatment started for multiple myeloma at this point. Patient states that over the past few months she has had tightness across her chest and stabbing type pains. She was ordered for pain pill from Dr. Cervantes that didn't seem to work. This appears to be tramadol. She states that she has pain and shortness of breath when she goes down to the basement and back up the stairs. She normally has to sit down and rest. She states she occasionally has lower extremity edema in her ankles at the end of the day. Yesterday, patient states that she was in a disagreement with her daughter and B came upset. She states she has episodes where she becomes upset and her heart pounds and she feels short of breath. She was sit down and will go away after 2-3 minutes. Patient presented to [facility] emergency center for evaluation. EKG is a sinus tachycardia with heart rate of 108. She was afebrile, heart rate 109, respiratory rate 30, blood pressure 164/98, pulse ox 86% on 15 L nasal cannula. She continues to be afebrile current heart rate 74, respiratory rate 16, blood pressure 140/71 and pulse ox 94% on 2 L. CBC was unremarkable. INR 1.0. Electrolytes normal. BUN 20 and creatinine 0.66. Blood sugar 198 with no history of diabetes. Lactic acid 2.8 with repeat of 1.0. Calcium 10.3. Total bilirubin 0.5, AST 38, ALT 17, alkaline phosphatase 86. Troponins were 0.031, 0.073 and 0.116. Albumin 4.2. Coronavirus PCR not detected. Pro-calcitonin 0.04. Chest x-ray revealed pulmonary edema with superimposed infiltrates not excluded. Repeat chest x-ray this morning reveals cardiomegaly, COPD and near complete resolution of previous pulmonary edema. Minimal patchy changes remain at the left base. Echocardiogram reveals EF of 2 0-25%, LA is severely dilated greater than 40 mL/M2, mild aortic valve sclerosis, mild aortic regurgitation, severe mitral regurgitation, mild tricuspid regurgitation, mild pulmonary hypertension. Patient admitted to the cardiac stepdown unit, cardiology consult requested with recommendations for h eart catheterization. Patient is requesting that Dr. Aden be involved in her hospitalization. 03/24: Yesterday, patient underwent heart catheterization with Dr. Benitez rate status post stenting of the mid LAD. She is also been seen by oncology with plan for follow-up appointment for education regarding her disease process and start treatment. She has been afebrile, heart rate 67, blood pressure 168/77, pulse ox 91% on room air. Repeat blood work reveals hemoglobin of 9.9, platelet count 207, WBC 5.3. Potassium is 3.3 and has been replaced. Sodium 139, chloride 103, CO2 33, BUN 12 and creatinine 0.65. Hemoglobin A1c 5.6. Patient denies having any chest pain, shortness of breath, lightheadedness or dizziness. Anticipate discharge home tomorrow. 03/25: She states that she had an episode of chest pain yesterday evening. She has been seen by cardiology this morning and requesting to hold the patient discharge until tomorrow for monitoring. Patient has been afebrile, heart rate 78, blood pressure 160/74, pulse ox 90% on 2 L nasal cannula. prototyper is a sinus rhythm. Repeat blood work reveals CO2 34, BUN 22 and creatinine 0.66, potassium 3.5. Blood sugars running between 100 1519. Plan is for monitoring overnight and possible discharge home tomorrow. Patient does not have any chest pain at the time of this evaluation. REVIEW OF SYSTEMS Constitutional: No fever, no chills, no night sweats. No weight change. No weakness, fatigue or lethargy. No daytime sleepiness. EENT: No headache. No blurred vision or double vision, no loss of vision. No loss of Hearing, no ringing in the ears, no dizziness. No nasal drainage or congestion. No epistaxis. No sore throat. Lungs: Denies shortness of breath, no cough, no sputum production. No wheezing.Reports exertional dyspnea. Cardiovascular: Denies chest pain, no lower extremity edema. No palpitations. No paroxysmal nocturnal dyspnea. No orthopnea. No lightheadedness or dizz iness. No syncopal episodes. Abdominal: No abdominal pain. No nausea, vomiting. No diarrhea. No constipation. No bloody or tarry stools.. No loss of appetite. Genitourinary: No dysuria, increased frequency, urgency. No urinary retention. Musculoskeletal: No myalgias. No muscle weakness, no gait dysfunction, no frequent falls. No back pain. No neck pain. Integumentary: No wounds, no lesions. No rash or pruritus. No unusual bruising. No change in hair or nails. Neurologic: No aphasia. No facial droop. No change in mentation. No head injury. No headache. No paralysis. No paresthesia. Psychiatric: No depression. No anxiety. Endocrine: Noted abnormal blood sugars. PHYSICAL EXAMINATION Gen: This is this is an 85-year-old female. Patient is resting in bed and appears to be comfortable and in no acute distress. HEENT: Head is atraumatic, normocephalic. Pupils equal, round. Sclerae is anicteric. NECK: Supple. No JVD. No lymphadenopathy. No thyromegaly. LUNGS: Clear to auscultation. No wheezes or rhonchi. No intercostal retractions. HEART: Regular rate and rhythm. Systolic murmur. ABDOMEN: Soft. Bowel sounds are present. No masses. No tenderness. EXTREMITIES:Trace bilateral pedal edema. No calf tenderness. Dorsalis pedis +2 bilaterally. NEUROLOGICAL: Patient is awake, alert and oriented x3. Cranial nerves 2 through 12 are grossly intact. ASSESSMENT AND PLAN 1. Acute hypoxic respiratory failure most likely secondary to coronary artery disease with exertional dyspnea and chest pain. Continue oxygen therapy and as needed. 2. Non-ST elevated myocardial infarction status post heart catheterization and stenting of the LAD. Continue aspirin 81 mg daily, Lipitor 40 mg daily, Plavix 75 mg daily, Lopressor 25 mg twice daily. Consult with cardiology appreciated. 3. Hyperglycemia with no previous legof diabetes. Patient will be placed on NovoLog scale and hemoglobin A1c 5.6. 4. Lactic acidosis most likely secondary to acute respiratory failure. No sign of pneumonia. Levaquin will be discontinued 5. 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 6. Recent diagnosis of multiple myeloma. Consult with oncology appreciated. 7. Hypertension. Amlodipine has been discontinued. Continue Hyzaar 5012 0.5 daily, Lopressor 25 mg daily. 8. Hypothyroidism. Continue levothyroxine 50 g daily. 9. Generalized osteoarthritis, stable. 10. GI prophylaxis. Protonix 40 mg daily. 11. DVT prophylaxis. Patient is on heparin drip. CODE STATUS: NO CODE DISCHARGE PLAN Home on . Impression and plan of care have been directed as dictated by the signing brandan owen. Cait Longo nurse practitioner acting as scribe for signing physician. Objective - Vital Signs Vital signs: Vital Signs Temp 98.1 F 03/25/21 07:57 Pulse 78 03/25/21 07:57 Resp 18 03/25/21 08:00 BP 160/74 03/25/21 07:57 Pulse Ox 98 03/25/21 07:57 Intake & Output 03/24/21 03/25/21 03/25/21 18:59 06:59 18:59 Intake Total 640 20 Output Total 550 450 Balance 90 -430 Weight 43.6 kg Intake: IV 20 Invasive Line 1 10 Invasive Line 2 10 Oral 640 Output: Urine 550 450 Other: Voiding Method Toilet # Voids 1 - Labs CBC & Chem 7: 03/25/21 06:31 03/26/21 06:44 Labs: Abnormal Lab Results - Last 24 Hours (Table) 03/23/21 03/23/21 03/23/21 Range/Units 15:20 15:20 15:20 RBC (3.80-5.40) m/uL Hgb (11.4-16.0) gm/dL Hct (34.0-46.0) % RDW (11.5-15.5) % Potassium (3.5-5.1) mmol/L Carbon Dioxide (22-30) mmol/L Glucose (74-99) mg/dL Calcium (8.4-10.2) mg/dL Troponin I (0.000-0.034) ng/mL Albumin (3.5-5.0) g/dL Albumin (PEP) 3.02 L (3.80-4.90) g/dL Opfhv-3-Yywiwwrlt 0.57 L (0.60-1.00) g/dL Gamma Globulins 2.46 H (0.70-1.50) g/dL Methylmalonic Acid 0.74 H (<0.40) umol/L IgG 2700.0 H (700.0-1600.0) mg/dL IgA <25.5 L (60.0-350.0) mg/dL IgM <16.9 L (40.0-280.0) mg/dL 03/24/21 03/25/21 03/25/21 Range/Units 18:33 06:31 06:31 RBC 3.17 L (3.80-5.40) m/uL Hgb 10.2 L (11.4-16.0) gm/dL Hct 31.5 L (34.0-46.0) % RDW 15.9 H (11.5-15.5) % Potassium 3.3 L (3.5-5.1) mmol/L Carbon Dioxide 34 H 35 H (22-30) mmol/L Glucose 121 H (74-99) mg/dL Calcium 11.3 H 11.2 H (8.4-10.2) mg/dL Troponin I (0.000-0.034) ng/mL Albumin 3.4 L (3.5-5.0) g/dL Albumin (PEP) (3.80-4.90) g/dL Sqkxm-5-Mmazrciam (0.60-1.00) g/dL Gamma Globulins (0.70-1.50) g/dL Methylmalonic Acid (<0.40) umol/L IgG (700.0-1600.0) mg/dL IgA (60.0-350.0) mg/dL IgM (40.0-280.0) mg/dL 03/25/21 Range/Units 06:31 RBC (3.80-5.40) m/uL Hgb (11.4-16.0) gm/dL Hct (34.0-46.0) % RDW (11.5-15.5) % Potassium (3.5-5.1) mmol/L Carbon Dioxide (22-30) mmol/L Glucose (74-99) mg/dL Calcium (8.4-10.2) mg/dL Troponin I 0.338 H* (0.000-0.034) ng/mL Albumin (3.5-5.0) g/dL Albumin (PEP) (3.80-4.90) g/dL Hkatd-0-Ctqdflsvl (0.60-1.00) g/dL Gamma Globulins (0.70-1.50) g/dL Methylmalonic Acid (<0.40) umol/L IgG (700.0-1600.0) mg/dL IgA (60.0-350.0) mg/dL IgM (40.0-280.0) mg/dL Microbiology - Last 24 Hours (Table) 03/22/21 22:40 Blood Culture - Preliminary Blood No Growth after 48 hours 03/22/21 22:46 Blood Culture - Preliminary Blood No Growth after 48 hours
[2021-03-26 17:09] VITALS: BP 150/78; PULSE 84
--- NOTE | 2021-03-26 20:37 | P.PN ---
Subjective Progress Note Date: 03/26/21 Principal diagnosis: NSTEMI, Status Post Cath and Stent Day two of pulse dose dexamethasone, patient has a follow-up on 04/01 with us in office. Maybe going home today. Objective - Vital Signs Vital signs: Vital Signs Temp 98.2 F 03/26/21 16:00 Pulse 84 03/26/21 16:00 Resp 18 03/26/21 16:00 BP 150/78 03/26/21 16:00 Pulse Ox 95 03/26/21 16:00 Intake & Output 03/26/21 03/26/21 03/27/21 06:59 18:59 06:59 Intake Total 10 910 Output Total 550 303 Balance -540 607 Weight 43.2 kg 43.2 kg Intake: IV 10 Invasive Line 1 10 Oral 910 Output: Urine 550 300 Stool 3 Other: Voiding Method Toilet Toilet - Exam - Constitutional General appearance: Present: average body habitus, cooperative, no acute distress - EENT EENT Comment(s): dry mucus membranes, no thrush or ulcers Eyes: Present: abnormal pupil, edentulous ENT: Present: hearing grossly normal - Respiratory Respiratory: bilateral: CTA - Cardiovascular Rhythm: regular Heart sounds: normal: S1, S2 Abnormal Heart Sounds: Absent: systolic murmur, diastolic murmur, rub, S3 Gallop, S4 Gallop, click, other - Peripheral edema leg Peripheral Edema: bilateral: None - Gastrointestinal General gastrointestinal: Present: normal bowel sounds, soft - Integumentary Integumentary Comment(s): mandible malignant lesion looks less red and swollen today, the ulceration is drying up and scabbing over - Neurologic Neurologic: Present: CNII-XII intact - Musculoskeletal Musculoskeletal: Present: strength equal bilaterally - Psychiatric Psychiatric: Present: A&O x's 3, appropriate affect, intact judgment & insight - Labs CBC & Chem 7: 03/25/21 06:31 03/26/21 06:44 Labs: Abnormal Lab Results - Last 24 Hours (Table) 03/26/21 03/26/21 03/26/21 Range/Units 06:25 06:44 11:41 Carbon Dioxide 34 H (22-30) mmol/L BUN 22 H (7-17) mg/dL Glucose 119 H (74-99) mg/dL POC Glucose (mg/dL) 119 H 115 H (75-99) mg/dL Calcium 12.4 H (8.4-10.2) mg/dL Microbiology - Last 24 Hours (Table) 03/22/21 22:40 Blood Culture - Preliminary Blood No Growth after 72 hours 03/22/21 22:46 Blood Culture - Preliminary Blood No Growth after 72 hours Assessment and Plan (1) Multiple myeloma Status: Acute Code(s): C90.00 - MULTIPLE MYELOMA NOT HAVING ACHIEVED REMISSION SNOMED Code(s): 619121374 Plan: Assessment and Recommendations: Multiple Myeloma: - New Diagnosis - PLan to begin triplet therapy under care of Dr. Aden - LEONEL and Zometmadan planned to begin once acute problems and cardiac procedures completed. Admitted with possible NSTEMI: - Status Post Cardiac Cath today with stent placement Plan: - Myeloma markers increasing and treatment has not began. Would like to give pulse dose dexamthasone if ok with cardiology. This would be 40mg po daily x4 days only. - Follow-up within one week of discharge. Will monitor CBC closely - Discussed with Cardiology and ok for dexamethasone 20mg po daily x4 days (dose lowered due to patients size, baseline shakey) - Chest xray - Continuee with Dexamethasone for 3 more days please add PPI at discharge
== END 2021-03-26 17:24 | disposition home or self-care (01) | DRG 246 ==
LOC: SUPCPDRO 20:08 → EC 20:08 → 3SCARD 22:02
PROVIDERS: ADMIT Internal Medicine Geriatric Medicine; ATTEND Internal Medicine Geriatric Medicine
PROC: B2111ZZ Fluoroscopy of Multiple Coronary Arteries using Low Osmolar Contrast (ICD-10-PCS; principal; 2021-03-23 13:00)
PROC: 4A023N7 Measurement of Cardiac Sampling and Pressure, Left Heart, Percutaneous Approach (ICD-10-PCS; principal; 2021-03-23 13:00)
PROC: 027034Z Dilation of Coronary Artery, One Artery with Drug-eluting Intraluminal Device, Percutaneous Approach (ICD-10-PCS; principal; 2021-03-23 13:00)
DX: I21.4 Non-ST elevation (NSTEMI) myocardial infarction (principal); J96.01 Acute respiratory failure with hypoxia; S22.39XA Fracture of one rib, unspecified side, initial encounter for closed fracture; I42.9 Cardiomyopathy, unspecified; C90.00 Multiple myeloma not having achieved remission; E87.2 Acidosis; Z68.1 Body mass index [BMI] 19.9 or less, adult; I11.0 Hypertensive heart disease with heart failure; I27.20 Pulmonary hypertension, unspecified; I44.7 Left bundle-branch block, unspecified; I50.9 Heart failure, unspecified; J44.9 Chronic obstructive pulmonary disease, unspecified; M15.9 Polyosteoarthritis, unspecified; Q92.9 Trisomy and partial trisomy of autosomes, unspecified; Z20.822 Contact with and (suspected) exposure to COVID-19; E89.0 Postprocedural hypothyroidism; I08.3 Combined rheumatic disorders of mitral, aortic and tricuspid valves; R73.9 Hyperglycemia, unspecified; R63.4 Abnormal weight loss; I25.10 Atherosclerotic heart disease of native coronary artery without angina pectoris; Z79.02 Long term (current) use of antithrombotics/antiplatelets; Z79.82 Long term (current) use of aspirin; Z66 Do not resuscitate; Z79.890 Hormone replacement therapy; Z79.899 Other long term (current) drug therapy; Z80.1 Family history of malignant neoplasm of trachea, bronchus and lung; Z82.49 Family history of ischemic heart disease and other diseases of the circulatory system; Z87.891 Personal history of nicotine dependence; Z98.42 Cataract extraction status, left eye; Z98.41 Cataract extraction status, right eye; Z96.1 Presence of intraocular lens; Z88.0 Allergy status to penicillin
CPT/HCPCS: 36415; 71045; 71046; 80048; 80053; 80061; 82306; 82607; 82746; 82784; 83036; 83090; 83605; 83735; 83880; 83883; 83921; 84145; 84165; 84439; 84443; 84484; 85025; 85610; 85730; 86334; 87040; 87635; 93005; 93306; 93458; 94660; 96374; 99291

== ENCOUNTER 2021-04-21 04:37 | Inpatient (IN) | payer MEDICARE ==
[2021-04-21] MEDS ORDERED: IPRATROPIUM-ALBUTEROL 3 ML NEB INHALATION STA (04:52)
[2021-04-21] MEDS ORDERED: methylPREDNISolone SOD SUCCI 125 MG/2 ML VIAL IV STA (04:52)
[2021-04-21] MEDS ORDERED: SODIUM CHLORIDE 0.9% 1,000 ML IV STA (04:52)
[2021-04-21] MEDS ORDERED: MORPHINE SULFATE 2 MG/ML SYRINGE IVP STA (04:53)
--- NOTE | 2021-04-21 04:54 | ED ---
SOB HPI - General Chief Complaint: Chest Pain Stated Complaint: Chest Pain, SOB Time Seen by Provider: 04/21/21 04:39 Source: patient, EMS, RN notes reviewed, old records reviewed Mode of arrival: EMS Limitations: no limitations - History of Present Illness Initial Comments: This is a 85-year-old female is a poor strain secondary to clinical stay coming in for severe shortness of breath presents by EMS was paged for shortness of breath or cough or shortness of. Patient having persistent shortness of breath here in the ER concern over EKG and during transport. Patient hypoxic but improving and breathing treatments and supplemental O2. Patient herself denies chest pain. No recent fevers she does have a hospital admission 1 month ago where she has to placed MD Complaint: shortness of breath, cough, anxiety -: hour(s) Severity: severe Severity scale (1-10): 10 Quality: aching Consistency: constant Improves With: nothing Worsens With: exertion, movement Known History Of: COPD, other (Coronary artery disease) Context: recent URI, recent illness Associated Symptoms: cough, sputum production Treatments Prior to Arrival: oxygen, bronchodilator - Related Data Home Medications Medication Instructions Recorded Confirmed Back And Body 2 tab PO DAILY 02/26/21 04/20/21 Levothyroxine Sodium [Synthroid] 25 mcg PO DAILY 02/26/21 04/20/21 Omeprazole 20 mg PO DAILY 02/26/21 04/20/21 Multivitamins, Thera [Multivitamin 1 tab PO DAILY 03/22/21 04/20/21 (formulary)] Potassium Chloride ER [K-Dur 20] 20 meq PO DAILY 03/22/21 04/20/21 traMADol HCL 50 mg PO Q6H PRN 03/22/21 04/20/21 Furosemide [Lasix] 20 mg PO DIRECTED 04/13/21 04/20/21 Previous Rx's Medication Instructions Recorded Aspirin 81 mg PO DAILY chew 03/26/21 Atorvastatin [Lipitor] 40 mg PO DAILY #30 tab 03/26/21 Clopidogrel [Plavix] 75 mg PO DAILY #30 tab 03/26/21 Ferrous Sulfate [Iron (65 MG 325 mg PO W/LUNCH tab 03/26/21 Elemental)] Losartan-Hctz 50-12.5 mg [Hyzaar 1 each PO DAILY #30 tab 03/26/21 50-12.5] Metoprolol Tartrate [Lopressor] 25 mg PO BID #60 tab 03/26/21 Nitroglycerin Sl Tabs [Nitrostat] 0.4 mg SUBLINGUAL Q5M PRN #25 tab 03/26/21 Allergies Allergy/AdvReac Type Severity Reaction Status Date / Time Penicillins Allergy Swelling Verified 04/20/21 09:42 Review of Systems ROS Statement: Those systems with pertinent positive or pertinent negative responses have been documented in the HPI. ROS Other: All systems not noted in ROS Statement are negative. Past Medical History Past Medical History: Cancer, GERD/Reflux, Hypertension, Osteoarthritis (OA), Thyroid Disorder Additional Past Medical History / Comment(s): MULTIPLE MYELOMA- no treatment yet(dr Aden- 03/2021), Bone Cancer with chemo treatment. History of Any Multi-Drug Resistant Organisms: None Reported Past Surgical History: Appendectomy, Joint Replacement, Tonsillectomy Additional Past Surgical History / Comment(s): BILAT TKA. BILAT CARARACTS RE MOVED WITH LENS IMPLANTS. 1/2 OF THYROID REMOVED. FATTY TUMOR REMOVED FROM KNEE. COLONOSCOPY Past Anesthesia/Blood Transfusion Reactions: No Reported Reaction Past Psychological History: No Psychological Hx Reported Smoking Status: Former smoker - Past Family History Mother Family Medical History: Cancer General Exam Limitations: no limitations General appearance: alert, anxious, in distress Head exam: Present: atraumatic, normocephalic, normal inspection Eye exam: Present: normal appearance, PERRL, EOMI. Absent: scleral icterus, conjunctival injection, periorbital swelling ENT exam: Present: normal exam, mucous membranes moist Neck exam: Present: normal inspection. Absent: tenderness, meningismus, lymphadenopathy Respiratory exam: Present: respiratory distress, wheezes, accessory muscle use, decreased breath sounds, prolonged expiratory. Absent: rales, rhonchi, stridor Cardiovascular Exam: Present: normal rhythm, tachycardia, normal heart sounds. Absent: systolic murmur, diastolic murmur, rubs, gallop, clicks GI/Abdominal exam: Present: soft, normal bowel sounds. Absent: distended, tenderness, guarding, rebound, rigid Extremities exam: Present: normal inspection, full ROM, normal capillary refill. Absent: tenderness, pedal edema, joint swelling, calf tenderness Back exam: Present: normal inspection Neurological exam: Present: alert, oriented X3, CN II-XII intact Psychiatric exam: Present: normal affect, normal mood Skin exam: Present: warm, dry, intact, normal color. Absent: rash Course Vital Signs 04/21/21 04/21/21 04/21/21 04:38 04:48 05:10 Temperature 98.9 F Pulse Rate 117 H 104 H Pulse Rate [ 112 H Propeller Layout Worker ] Respiratory 18 27 H Rate Blood Pressure 159/109 O2 Sat by Pulse 92 L Oximetry 04/21/21 04/21/21 04/21/21 05:31 05:33 06:34 Temperature Pulse Rate 98 100 92 Pulse Rate [ Propeller Layout Worker ] Respiratory 21 18 18 Rate Blood Pressure 135/65 129/56 O2 Sat by Pulse 96 96 Oximetry - Reevaluation(s) Reevaluation #1: 04/21/21 06:39 Medical record is reviewed Reevaluation #2: 04/21/21 06:39 Patient is a DO NOT RESUSCITATE patient Reevaluation #3: 04/21/21 06:39 Patient is improving with breathing treatments and supplemental O2 no need for BiPAP currently - Consultations Consultation #1: edgar Wood who agrees to admit patient Medical Decision Making - Medical Decision Making 85 female DF for evaluation patient Dese for evaluation regards to severe shortness of breath severe COPD exacerbation with hypoxia improved with supplemental O2 and supportive care. Patient be admitted for continued pulmonary cardiology support cardiopulmonary support - Lab Data Result diagrams: 04/21/21 04:56 04/21/21 04:56 Lab Results 04/21/21 04/21/21 04/21/21 Range/Units 04:56 04:56 04:56 WBC 7.3 (3.8-10.6) k/uL RBC 3.56 L (3.80-5.40) m/uL Hgb 11.3 L (11.4-16.0) gm/dL Hct 35.9 (34.0-46.0) % MCV 100.9 H (80.0-100.0) fL MCH 31.6 (25.0-35.0) pg MCHC 31.4 (31.0-37.0) g/dL RDW 16.2 H (11.5-15.5) % Plt Count 149 L (150-450) k/uL MPV 8.6 Neutrophils % 92 % Lymphocytes % 4 % Monocytes % 2 % Eosinophils % 0 % Basophils % 0 % Neutrophils # 6.8 (1.3-7.7) k/uL Lymphocytes # 0.3 L (1.0-4.8) k/uL Monocytes # 0.1 (0-1.0) k/uL Eosinophils # 0.0 (0-0.7) k/uL Basophils # 0.0 (0-0.2) k/uL Anisocytosis Slight Macrocytosis Slight PT 10.5 (9.0-12.0) sec INR 1.0 (<1.2) APTT 21.2 L (22.0-30.0) sec Sodium 139 (137-145) mmol/L Potassium 3.0 L (3.5-5.1) mmol/L Chloride 105 (98-107) mmol/L Carbon Dioxide 25 (22-30) mmol/L Anion Gap 9 mmol/L BUN 17 (7-17) mg/dL Creatinine 0.80 (0.52-1.04) mg/dL Est GFR (CKD-EPI)AfAm 79 (>60 ml/min/1.73 sqM) Est GFR (CKD-EPI)NonAf 69 (>60 ml/min/1.73 sqM) Glucose 138 H (74-99) mg/dL Plasma Lactic Acid Mart (0.7-2.0) mmol/L Calcium 7.7 L (8.4-10.2) mg/dL Magnesium 2.0 (1.6-2.3) mg/dL Total Bilirubin 0.1 L (0.2-1.3) mg/dL AST 50 H (14-36) U/L ALT 27 (4-34) U/L Alkaline Phosphatase 73 (38-126) U/L Creatine Kinase 97 (30-135) U/L Troponin I (0.000-0.034) ng/mL NT-Pro-B Natriuret Pep pg/mL Total Protein 6.9 (6.3-8.2) g/dL Albumin 3.5 (3.5-5.0) g/dL 04/21/21 04/21/21 04/21/21 Range/Units 04:56 04:56 04:56 WBC (3.8-10.6) k/uL RBC (3.80-5.40) m/uL Hgb (11.4-16.0) gm/dL Hct (34.0-46.0) % MCV (80.0-100.0) fL MCH (25.0-35.0) pg MCHC (31.0-37.0) g/dL RDW (11.5-15.5) % Plt Count (150-450) k/uL MPV Neutrophils % % Lymphocytes % % Monocytes % % Eosinophils % % Basophils % % Neutrophils # (1.3-7.7) k/uL Lymphocytes # (1.0-4.8) k/uL Monocytes # (0-1.0) k/uL Eosinophils # (0-0.7) k/uL Basophils # (0-0.2) k/uL Anisocytosis Macrocytosis PT (9.0-12.0) sec INR (<1.2) APTT (22.0-30.0) sec Sodium (137-145) mmol/L Potassium (3.5-5.1) mmol/L Chloride (98-107) mmol/L Carbon Dioxide (22-30) mmol/L Anion Gap mmol/L BUN (7-17) mg/dL Creatinine (0.52-1.04) mg/dL Est GFR (CKD-EPI)AfAm (>60 ml/min/1.73 sqM) Est GFR (CKD-EPI)NonAf (>60 ml/min/1.73 sqM) Glucose (74-99) mg/dL Plasma Lactic Acid Mart 5.0 H* (0.7-2.0) mmol/L Calcium (8.4-10.2) mg/dL Magnesium (1.6-2.3) mg/dL Total Bilirubin (0.2-1.3) mg/dL AST (14-36) U/L ALT (4-34) U/L Alkaline Phosphatase (38-126) U/L Creatine Kinase (30-135) U/L Troponin I 1.010 H* (0.000-0.034) ng/mL NT-Pro-B Natriuret Pep 66038 pg/mL Total Protein (6.3-8.2) g/dL Albumin (3.5-5.0) g/dL - EKG Data -: EKG Interpreted by Me (EKG is sinus tachycardia 115 GA 148 QRS 150 QTC 509) - Radiology Data Radiology results: report reviewed (Chest x-ray does show mild CHF), image reviewed Critical Care Time Critical Care Time: Yes Total Critical Care Time: 31 Disposition Clinical Impression: Congestive heart failure, Acute non-ST elevation myocardial infarction (NST MARIUM), Acute bronchitis with chronic obstructive pulmonary disease (COPD), Hypoxia Disposition: ADMITTED IP TO THIS HOSP Condition: Serious Is patient prescribed a controlled substance at d/c from ED?: No Referrals: Zion Davalos MD [Primary Care Provider] - 1-2 days
[2021-04-21 05:06] LABS: Anisocytosis Slight; Basophils % (A) 0 %; Eosinophils % (A) 0 %; HCT 35.9 % (34.0-46.0); HGB 11.3 gm/dL (11.4-16.0); Lymphocytes # (A) 0.3 k/uL (1.0-4.8); Lymphocytes % (A) 4 %; MCH 31.6 pg (25.0-35.0); MCHC 31.4 g/dL (31.0-37.0); MCV 100.9 fL (80.0-100.0); Macrocytosis Slight; Mean Platelet Volume 8.6; Monocytes # (A) 0.1 k/uL (0-1.0); Monocytes % (A) 2 %; Neutrophils # (A) 6.8 k/uL (1.3-7.7); Neutrophils % (A) 92 %; Platelet Count 149 k/uL (150-450); RBC 3.56 m/uL (3.80-5.40); RDW 16.2 % (11.5-15.5); WBC 7.3 k/uL (3.8-10.6)
--- NOTE | 2021-04-21 05:16 | XR ---
EXAMINATION TYPE: XR chest 1V DATE OF EXAM: 04/21/2021 COMPARISON: 03/25/2021 HISTORY: Difficulty breathing TECHNIQUE: FINDINGS: Heart is enlarged. There is pulmonary interstitial edema. There are chest leads. Thoracic a nell is atheromatous. There is slight blunting of the left costophrenic angle. IMPRESSION: There is some mild pulmonary interstitial edema that could be acute heart failure and is a change compared to last exam.
[2021-04-21 05:24] LABS: Albumin 3.5 g/dL (3.5-5.0); Calcium 7.7 mg/dL (8.4-10.2); Partial Thromboplastin Time 21.2 sec (22.0-30.0); Prothrombin Time 10.5 sec (9.0-12.0); Total Bilirubin 0.1 mg/dL (0.2-1.3); Total Protein 6.9 g/dL (6.3-8.2)
[2021-04-21] MEDS ORDERED: NITROGLYCERIN SL TABS 0.4 MG TAB SUBLINGUAL PRN ×2 (06:35→10:16)
[2021-04-21] MEDS ORDERED: MORPHINE SULFATE 2 MG/ML SYRINGE IVP PRN (06:35)
[2021-04-21] MEDS ORDERED: IPRATROPIUM-ALBUTEROL 3 ML NEB INHALATION PRN (06:35)
[2021-04-21] MEDS: SODIUM CHLORIDE 0.9% 1,000 ML IV SCH ×2 (06:46→15:06)
[2021-04-21] MEDS ORDERED: ALBUTEROL NEBULIZED 2.5 MG/3 ML INHALATION SCH (08:00)
--- NOTE | 2021-04-21 09:26 | P.CNPUL ---
History of Present Illness Consult date: 04/21/21 Requesting physician: Zion Davalos Reason for consult: dyspnea, chest pain, hypoxemia, abnormal CXR/CT Chief complaint: Difficulty breathing. History of present illness: Pulmonary and critical care consultation, dated 04/29/2021. 85-year-old female, who was evaluated in the emergency department, on April 21. She apparently came into the ER complaining of shortness of breath and chest pain. It apparently started the night before she was admitted to the emergency department. She was seen in the ER, and provided with oxygen. Her BNP was elevated. Her troponin was elevated. She was admitted with a diagnosis of non- ST segment elevation myocardial infarction, and congestive heart failure. Currently, she is feeling much better. She is a DO NOT RESUSCITATE patient. He did smoke for some time but many many years back. It was never heavy smoker in likely does not have any underlying COPD. Apparently, she has a history of multiple myeloma, gastroesophageal reflux disease, hypertension, osteoarthritis, and hypothyroidism. Laboratory data includes a white count 7.3, hemoglobin 11.3, hematocrit 35.9, platelet count 149,000. Sodium 139, potassium 3, chlorides 105, CO2 25, anion gap 9, BUN 17, and creatinine 0.80. Initial plasma lactic acid was 5, repeat was 2.3. Troponins were 1.0 104.280, and N-terminal proBNP was elevated at 14,100. Chest x-ray showed a pattern of pulmonary venous hypertension and interstitial edema. Review of Systems REVIEW OF SYSTEMS: CONSTITUTIONAL: [Negative.] NEUROLOGIC: [ Negative.] HEENT: [ Negative.] CARDIAC: Chest pain. PULMONARY: Shortness of breath. GI: [Negative.] : [Negative.] RHEUMATOLOGIC: [ Negative.] IMMUNOLOGIC: [ Negative.] ENDOCRINE: [Negative. ] DERMATOLOGIC: [Negative.] Past Medical History Past Medical History: Cancer, GERD/Reflux, Hypertension, Osteoarthritis (OA), Thyroid Disorder Additional Past Medical History / Comment(s): MULTIPLE MYELOMA- no treatment yet(dr Aden- 03/2021), Bone Cancer with chemo treatment. History of Any Multi-Drug Resistant Organisms: None Reported Past Surgical History: Appendectomy, Joint Replacement, Tonsillectomy Additional Past Surgical History / Comment(s): BILAT TKA. BILAT CARARACTS REMOVED WITH LENS IMPLANTS. 1/2 OF THYROID REMOVED. FATTY TUMOR REMOVED FROM KNEE. COLONOSCOPY Past Anesthesia/Blood Transfusion Reactions: No Reported Reaction Past Psychological History: No Psychological Hx Reported Smoking Status: Former smoker - Past Family History Mother Family Medical History: Cancer Medications and Allergies Home Medications Medication Instructions Recorded Confirmed Type Levothyroxine Sodium [Synthroid] 25 mcg PO DAILY 02/26/21 04/21/21 History Omeprazole 20 mg PO DAILY 02/26/21 04/21/21 History traMADol HCL 50 mg PO Q6H PRN 03/22/21 04/21/21 History Aspirin 81 mg PO DAILY chew 03/26/21 04/21/21 Rx Atorvastatin [Lipitor] 40 mg PO DAILY #30 tab 03/26/21 04/21/21 Rx Clopidogrel [Plavix] 75 mg PO DAILY #30 tab 03/26/21 04/21/21 Rx Acyclovir 400 mg PO BID 04/21/21 04/21/21 History Furosemide [Lasix] 20 mg PO DAILY 04/21/21 04/21/21 History Lenalidomide [Revlimid] 15 mg PO DIRECTED 04/21/21 04/21/21 History Losartan-Hctz 50-12.5 mg [Hyzaar 1 tab PO AC-LUNCH 04/21/21 04/21/21 History 50-12.5] Metoprolol Tartrate [Lopressor] 25 mg PO HS 04/21/21 04/21/21 History Metoprolol Tartrate [Lopressor] 50 mg PO DAILY 04/21/21 04/21/21 History Multivit-Min/FA/Lycopen/Lutein 1 tab PO DAILY 04/21/21 04/21/21 History [Centrum Silver Tablet] Nitroglycerin Sl Tabs [Nitrostat] 0.4 mg SL Q5M PRN 04/21/21 04/21/21 History Potassium Chloride ER [K-Dur 10] 20 meq PO AC-LUNCH 04/21/21 04/21/21 History Sulfamethox-Tmp 400-80Mg [Bactrim 1 tab PO MOWEFR 04/21/21 04/21/21 History SS 400-80 mg] dexAMETHasone [Dexamethasone] 20 mg PO DIRECTED 04/21/21 04/21/21 History Allergies Allergy/AdvReac Type Severity Reaction Status Date / Time Penicillins Allergy Swelling Verified 04/21/21 07:33 Physical Exam Osteopathic Statement: *. No significant issues noted on an osteopathic st ructural exam other than those noted in the History and Physical/Consult. Vitals: Vital Signs Temp Pulse Pulse Resp BP Pulse Ox 04/21/21 07:47 96 04/21/21 07:37 94 04/21/21 06:34 92 18 129/56 96 04/21/21 05:33 100 18 135/65 96 04/21/21 05:31 98 21 04/21/21 05:10 104 H 27 H 04/21/21 04:48 112 H 04/21/21 04:38 98.9 F 117 H 18 159/109 92 L Intake and Output 04/20/21 04/21/21 04/21/21 22:59 06:59 14:59 Other: Weight 41.73 kg No acute distress, oriented 3. Nasal O2 in place at 2 L. HEENT examination is grossly unremarkable. Neck supple. Full range of motion. No adenopathy thyromegaly or neck vein distention. Cardiovascular examination reveals regular rhythm rate. S1-S2 normal. No S3 or S4. No discernible murmur noted. Heart sounds are distant. Heart rate 96 bpm. Lungs reveal mild scattered rhonchi and crackles. No wheezes. Breath sounds are equal bilaterally. Abdomen soft bowel sounds are heard. No masses or tenderness. Extremities are intact. No cyanosis clubbing or edema. Skin is without rash or lesion. Neurologic examination is brief but nonfocal. Results - Laboratory Findings CBC and BMP: 04/21/21 04:56 04/21/21 04:56 PT/INR, D-dimer PT 10.5 sec (9.0-12.0) 04/21/21 04:56 INR 1.0 (<1.2) 04/21/21 04:56 Abnormal lab findings: Abnormal Labs 04/21/21 04/21/21 04/21/21 04:56 04:56 04:56 RBC 3.56 L Hgb 11.3 L MCV 100.9 H RDW 16.2 H Plt Count 149 L Lymphocytes # 0.3 L APTT 21.2 L Potassium 3.0 L Glucose 138 H Plasma Lactic Acid Mart Calcium 7.7 L Total Bilirubin 0.1 L AST 50 H Troponin I 04/21/21 04/21/21 04/21/21 04:56 04:56 07:31 RBC Hgb MCV RDW Plt Count Lymphocytes # APTT Potassium Glucose Plasma Lactic Acid Mart 5.0 H* Calcium Total Bilirubin AST Troponin I 1.010 H* 4.280 H* 04/21/21 07:31 RBC Hgb MCV RDW Plt Count Lymphocytes # APTT Potassium Glucose Plasma Lactic Acid Mart 2.3 H* Calcium Total Bilirubin AST Troponin I - Diagnostic Findings Chest x-ray: image reviewed Assessment and Plan Assessment: Non-ST segment elevation myocardial infarction, with resultant fluid overload. Doubt significant chronic lung disease, this patient smoked for only a few years as a teenager. History of multiple myeloma. History of gastroesophageal reflux disease. History of hypertension. History of hypothyroidism. History of hyperlipidemia. Plan: Plan dated 04/21/2021. The patient was seen in the emergency room. Mom we saw her, she was doing much better. She is being admitted with a diagnosis of non-ST segment elevation myocardial infarction, and mild to moderate CHF. She's on 2 L. She appears to be real comfortable. She's not receiving any IV fluids. The patient does not appear to have any chronic obstructive lung disease. She smoked only for a couple years as a teenager. No history of asthma. We will continue to follow make recommendations where appropriate. Time with Patient: Greater than 30
[2021-04-21] MEDS ORDERED: HEPARIN SODIUM 1,000 UN/ML (10ML VL) IV PRN (09:55)
[2021-04-21] MEDS ORDERED: HEPARIN SODIUM 1,000 UN/ML (10ML VL) IV ONE (09:55)
[2021-04-21] MEDS ORDERED: FUROSEMIDE 20 MG TAB PO SCH (10:00)
[2021-04-21] MEDS ORDERED: HEPARIN SOD,PORK IN 0.45% NACL 25,000 UNIT in 0.45% NACL 1 250ML.BAG IV SCH (10:00)
[2021-04-21] MEDS ORDERED: ALPRAZolam 0.5 MG TAB PO PRN (10:16)
[2021-04-21] MEDS ORDERED: ASPIRIN 325 MG TAB PO STA (10:16)
[2021-04-21] MEDS ORDERED: SODIUM CHLORIDE 0.9% 1,000 ML in EMPTY BAG 1 BAG IV ONE (10:16)
[2021-04-21] MEDS ORDERED: ALPRAZolam 0.25 MG TAB PO PRN (10:16)
[2021-04-21] MEDS ORDERED: traMADol 50 MG TAB PO PRN (10:18)
[2021-04-21] MEDS: ASPIRIN 81 MG PO SCH ×2 (10:39→10:49)
[2021-04-21] MEDS: CLOPIDOGREL 75 MG TAB PO SCH (10:39)
[2021-04-21] MEDS: POTASSIUM CHLORIDE ER 20 MEQ TAB.ER PO SCH ×2 (10:40→14:31)
[2021-04-21] MEDS: ATORVASTATIN 80 MG TAB PO STA ×2 (10:40→10:44)
[2021-04-21] MEDS: ATORVASTATIN 40 MG TAB PO SCH (10:49)
[2021-04-21] MEDS ORDERED: HEPARIN SODIUM 1,000 UN/ML (10ML VL) ONE (11:06)
[2021-04-21] MEDS ORDERED: LIDOCAINE 1% INJ 10MG/ML (20 ML MDV) ONE (11:06)
[2021-04-21] MEDS ORDERED: VERAPAMIL 2.5 MG/ML 2 ML AMP ONE (11:06)
[2021-04-21] MEDS ORDERED: IV FLUID CONTINUATION 400 ML IV ONE (11:20)
--- NOTE | 2021-04-21 11:22 | P.CRDCN ---
History of Present Illness Consult date: 04/21/21 History of present illness: HISTORY OF PRESENT ILLNESS: This is a 85-year-old female with a past medical history significant for coronary artery disease with recent stenting to the LAD last month, congestive heart failure, hypertension, hyperlipidemia, ischemic cardiomyopathy, and recent diagnosis of multiple myeloma. Patient follows in the office with Dr. Copeland. We have been asked to see the patient in consultation for abnormal troponins. Beau russo examined at the bedside. Patient states she started treatment for her multiple myeloma and has had "two injections of chemotherapy so far". She states the last one was yesterday. She reports feeling lousy yesterday but denied shortness of breath. She states that she is considering stopping all treatment for her multiple myeloma. Patient states she woke up about 2:00 this morning with a sudden onset of shortness of breath. She does report some chest discomfort to the upper aspect of her chest. She denies dizziness or lightheadedness. Denies nausea or vomiting. Denies dizziness or li ghtheadedness. EKG reveals sinus mechanism with left bundle branch block. Unchanged from previous EKG. Chest xray there is some mild pulmonary interstitial edema that could be acute heart failure and is a change compared to old exam. Laboratory data: WBC 7.3. Hemoglobin 11.3. Platelet count 149. Sodium 139. Potassium 3.0. BUN 17. Creatinine 0.80. BNP 14,100. Troponin 1.010. 4.280. Current home cardiac medications include metoprolol tartrate 50 mg the morning and 25 mg at night, losartan-hydrochlorothiazide 50-12.5mg daily, Lasix 20 mg daily, Plavix 75 mg daily, Lipitor 40 mg daily, and aspirin 81 mg daily Most recent echocardiogram obtained 03/23/2021 revealed severe global hypoki nesis of LV. Ejection fraction 20-25%. Mild aortic regurgitation. Severe mitral regurgitation. Mild tricuspid regurgitation. Mild pulmonary hypertension. Cardiac catheterization history: 03/23/[address] Copeland with PCI to the mid LAD lesion REVIEW OF SYSTEMS: At the time of my exam: CONSTITUTIONAL: Denies fever or chills. HEENT: Denies blurred vision, vision changes, or eye pain. Denies hemoptysis CARDIOVASCULAR: Denies chest pain. Denies orthopnea. Denies PND. Denies palpitations RESPIRATORY: + shortness of breath. GASTROINTESTINAL: Denies abdominal pain. Denies nausea or vomiting. HEMATOLOGIC: Denies bleeding disorders. GENITOURINARY: Denies any blood in urine. SKIN: Denies pruitis. Denies rash. PHYSICAL EXAM: VITAL SIGNS: Reviewed. GENERAL: Well-developed in no acute distress. HEENT: Head is normocephalic. Pupils are equal, round. Sclerae anicteric. Mucous membranes of the mouth are moist. Neck supple. +JVD. No thyromegaly LUNGS: Respirations even and unlabored. Lungs diminished with mild bibasilar rales HEART: Regular rate and rhythm. S1 and S2 heard. Systolic murmur noted. ABDOMEN: Soft. Nondistended. Nontender. EXTREMITIES: Normal range of motion. No clubbing or cyanosis. Peripheral pulses intact. No lower extremity edema NEUROLOGIC: Awake and alert. Oriented x 3. ASSESSMENT: Non-STEMI Coronary artery disease with previous PCI to LAD, March 2021 Ischemic cardiomyopathy, ejection fraction 20-25% Acute exacerbation of chronic systolic heart failure Severe mitral regurgitation Hypertension Hyperlipidemia Recent diagnosis of multiple myeloma PLAN: No need to repeat echocardiogram as this was performed last month Resume home cardiac medications Begin IV heparin Begin Lasix 20 mg IV every 12 hours Patient to undergo cardiac catheterization today with Dr. Copeland Further recommendations pending patient course Nurse practitioner note has been reviewed by physician. Signing provider agrees with the documented findings, assessment, and plan of care. Past Medical History Past Medical History: Cancer, GERD/Reflux, Hypertension, Osteoarthritis (OA), Thyroid Disorder Additional Past Medical History / Comment(s): MULTIPLE MYELOMA- no treatment yet(dr Aden- 03/2021), Bone Cancer with chemo treatment. History of Any Multi-Drug Resistant Organisms: None Reported Past Surgical History: Appendectomy, Joint Replacement, Tonsillectomy Additional Past Surgical History / Comment(s): BILAT TKA. BILAT CARARACTS REMOVED WITH LENS IMPLANTS. 1/2 OF THYROID REMOVED. FATTY TUMOR REMOVED FROM KNEE. COLONOSCOPY Past Anesthesia/Blood Transfusion Reactions: No Reported Reaction Past Psychological History: No Psychological Hx Reported Smoking Status: Former smoker - Past Family History Mother Family Medical History: Cancer Medications and Allergies Home Medications Medication Instructions Recorded Confirmed Type Levothyroxine Sodium [Synthroid] 25 mcg PO DAILY 02/26/21 04/21/21 History Omeprazole 20 mg PO DAILY 02/26/21 04/21/21 History traMADol HCL 50 mg PO Q6H PRN 03/22/21 04/21/21 History Aspirin 81 mg PO DAILY chew 03/26/21 04/21/21 Rx Atorvastatin [Lipitor] 40 mg PO DAILY #30 tab 03/26/21 04/21/21 Rx Clopidogrel [Plavix] 75 mg PO DAILY #30 tab 03/26/21 04/21/21 Rx Acyclovir 400 mg PO BID 04/21/21 04/21/21 History Furosemide [Lasix] 20 mg PO DAILY 04/21/21 04/21/21 History Lenalidomide [Revlimid] 15 mg PO DIRECTED 04/21/21 04/21/21 History Losartan-Hctz 50-12.5 mg [Hyzaar 1 tab PO AC-LUNCH 04/21/21 04/21/21 History 50-12.5] Metoprolol Tartrate [Lopressor] 25 mg PO HS 04/21/21 04/21/21 History Metoprolol Tartrate [Lopressor] 50 mg PO DAILY 04/21/21 04/21/21 History Multivit-Min/FA/Lycopen/Lutein 1 tab PO DAILY 04/21/21 04/21/21 History [Centrum Silver Tablet] Nitroglycerin Sl Tabs [Nitrostat] 0.4 mg SL Q5M PRN 04/21/21 04/21/21 History Potassium Chloride ER [K-Dur 10] 20 meq PO AC-LUNCH 04/21/21 04/21/21 History Sulfamethox-Tmp 400-80Mg [Bactrim 1 tab PO MOWEFR 04/21/21 04/21/21 History SS 400-80 mg] dexAMETHasone [Dexamethasone] 20 mg PO DIRECTED 04/21/21 04/21/21 History Allergies Allergy/AdvReac Type Severity Reaction Status Date / Time Penicillins Allergy Swelling Verified 04/21/21 07:33 Physical Exam Vitals: Vital Signs Temp Pulse Pulse Resp BP Pulse Ox 04/21/21 11:00 93 18 141/96 97 04/21/21 09:30 88 16 131/67 98 04/21/21 07:47 96 04/21/21 07:37 94 04/21/21 06:34 92 18 129/56 96 04/21/21 05:33 100 18 135/65 96 04/21/21 05:31 98 21 04/21/21 05:10 104 H 27 H 04/21/21 04:48 112 H 04/21/21 04:38 98.9 F 117 H 18 159/109 92 L Intake and Output 04/20/21 04/21/21 04/21/21 22:59 06:59 14:59 Other: Weight 41.73 kg Results 04/21/21 04:56 04/21/21 04:56 Cardiac Enzymes 04/21/21 04/21/21 04/21/21 Range/Units 04:56 04:56 07:31 AST 50 H (14-36) U/L Troponin I 1.010 H* 4.280 H* (0.000-0.034) ng/mL Coagulation 04/21/21 Range/Units 04:56 PT 10.5 (9.0-12.0) sec APTT 21.2 L (22.0-30.0) sec CBC 04/21/21 Range/Units 04:56 WBC 7.3 (3.8-10.6) k/uL RBC 3.56 L (3.80-5.40) m/uL Hgb 11.3 L (11.4-16.0) gm/dL Hct 35.9 (34.0-46.0) % Plt Count 149 L (150-450) k/uL Comprehensive Metabolic Panel 04/21/21 Range/Units 04:56 Sodium 139 (137-145) mmol/L Potassium 3.0 L (3.5-5.1) mmol/L Chloride 105 (98-107) mmol/L Carbon Dioxide 25 (22-30) mmol/L BUN 17 (7-17) mg/dL Creatinine 0.80 (0.52-1.04) mg/dL Glucose 138 H (74-99) mg/dL Calcium 7.7 L (8.4-10.2) mg/dL AST 50 H (14-36) U/L ALT 27 (4-34) U/L Alkaline Phosphatase 73 (38-126) U/L Total Protein 6.9 (6.3-8.2) g/dL Albumin 3.5 (3.5-5.0) g/dL Current Medications Generic Name Dose Route Start Last Admin Trade Name Freq PRN Reason Stop Dose Admin Acyclovir 400 mg 04/21/21 21:00 Acyclovir 200 Mg Cap PO BID DARION Alprazolam 0.25 mg 04/21/21 10:16 Alprazolam 0.25 Mg Tab PO Q6HR PRN Mild Anxiety Alprazolam 0.5 mg 04/21/21 10:16 Alprazolam 0.5 Mg Tab PO Q6HR PRN Moderate Anxiety Aspirin 81 mg 04/21/21 10:00 04/21/21 10:49 Aspirin 81 Mg PO Not Given DAILY DARION Atorvastatin Calcium 40 mg 04/21/21 10:00 04/21/21 10:49 Atorvastatin 40 Mg Tab PO Not Given DAILY DARION Clopidogrel Bisulfate 75 mg 04/21/21 10:00 04/21/21 10:39 Clopidogrel 75 Mg Tab PO 75 mg DAILY DARION Administration Furosemide 20 mg 04/21/21 21:00 Furosemide 10 Mg/Ml 2 Ml Vial IV Q12HR DARION HCTZ/Losartan Potassium 1 each 04/21/21 12:30 Losartan-Hctz 50-12.5 Mg 1 Each Tab PO AC-LUNCH DARION Heparin Sodium (Porcine) 0 unit 04/21/21 09:55 Heparin Sodium 1,000 Un/Ml (10ml Vl) IV PER PROTOCOL PRN Low PTT Protocol Sodium Chloride 1,000 mls @ 100 mls/hr 04/21/21 06:45 04/21/21 06:46 Saline 0.9% IV 100 mls/hr .Q10H DARION Administration Heparin Sodium/Sodium Chloride 250 mls @ 5.008 mls/hr 04/21/21 10:00 04/21/21 10:39 25,000 unit/ Sodium Chloride IV 12 units/kg/hr .Q24H DARION 5.008 mls/hr Administration Protocol 12 UNITS/KG/HR Sodium Chloride 1,000 ml/ IV 1,000 mls @ 41.73 mls/hr 04/21/21 10:16 04/21/21 10:55 Solution IV 04/22/21 10:13 41.73 mls/hr .[id number] ONE Administration 1 ML/KG/HR Heparin Sodium (Porcine) 10, 1,001 mls @ 999 mls/hr 04/22/21 07:00 000 unit/ Sodium Chloride IRRIGATION 04/22/21 23:00 ONCE PRN INTRA-OP Heparin Sodium (Porcine) 2,500 250.5 mls @ 250 mls/hr 04/22/21 07:00 unit/ Sodium Chloride IRRIGATION 04/22/21 23:00 ONCE PRN INTRA-OP Levothyroxine Sodium 25 mcg 04/22/21 06:30 Levothyroxine 25 Mcg Tab PO DAILY@0630 DARION Metoprolol Tartrate 25 mg 04/21/21 21:00 Metoprolol Tartrate 25 Mg Tab PO HS DARION Metoprolol Tartrate 50 mg 04/22/21 09:00 Metoprolol Tartrate 50 Mg Tab PO DAILY DARION Morphine Sulfate 2 mg 04/21/21 06:35 Morphine Sulfate 2 Mg/Ml Syringe IVP Q4H PRN Chest Pain Multivitamins 1 each 04/22/21 09:00 Multivitamins, Thera 1 Each Tab PO DAILY DARION Nitroglycerin 0.4 mg 04/21/21 06:35 Nitroglycerin Sl Tabs 0.4 Mg Tab SUBLINGUAL Q5M PRN Chest Pain Nitroglycerin 0.4 mg 04/21/21 10:16 Nitroglycerin Sl Tabs 0.4 Mg Tab SUBLINGUAL Q5M PRN Chest Pain Pantoprazole Sodium 40 mg 04/22/21 07:30 Pantoprazole 40 Mg Tablet PO AC-BRKFST DARION Potassium Chloride 20 meq 04/21/21 10:00 04/21/21 10:40 Potassium Chloride Er 20 Meq Tab.Er PO 04/21/21 12:01 20 meq Q1HR DARION Administration Potassium Chloride 20 meq 04/21/21 12:30 Potassium Chloride Er 10 Meq Tab.Er.Prt PO AC-LUNCH DARION Tramadol HCl 50 mg 04/21/21 10:18 Tramadol 50 Mg Tab PO Q6H PRN Pain Trimethoprim/Sulfamethoxazole 1 each 04/22/21 09:00 Sulfamethox-Tmp 400-80mg 1 Each Tab PO MOWEFR DARION Intake and Output 04/20/21 04/21/21 04/21/21 22:59 06:59 14:59 Other: Weight 41.73 kg 04/21/21 04:56 04/21/21 04:56
[2021-04-21] MEDS ORDERED: MIDAZOLAM 2 MG/2 ML VIAL IV ONE (11:48)
[2021-04-21] MEDS ORDERED: LIDOCAINE 1% INJ 10MG/ML (20 ML MDV) SQ ONE (11:50)
[2021-04-21] MEDS: VERAPAMIL SYRINGE (5 MG/10 ML) INTRAARTER ONE ×3 (11:51→13:27)
[2021-04-21] MEDS: HEPARIN SODIUM 1,000 UN/ML (10ML VL) IV ONE ×3 (11:54→13:06)
[2021-04-21] MEDS ORDERED: methylPREDNISolone SOD SUCCI 125 MG/2 ML VIAL IV SCH (12:00)
[2021-04-21] MEDS ORDERED: IOPAMIDOL-370 100ML BTL INJ ONE ×3 (12:14→13:19)
--- NOTE | 2021-04-21 12:14 | P.HPIM ---
History of Present Illness H&P Date: 04/21/21 HISTORY OF PRESENT ILLNESS This is an 85-year-old female patient of Dr. Zion Davalos with past medical history of hypertension, hypothyroidism, generalized osteoarthritis. Patient was recently diagnosed with multiple myeloma under the care of Dr. Aden. She states she is tired all the time was recently diagnosed with anemia and has had weight loss of 50 pounds over the past 6-8 months. She is currently on dexamethasone and Revlimid for multiple myeloma. Patient had recent hospitalization March 22 through March 26 which time she was treated for non-ST elevated myocardial infarction status post heart catheterization and stenting of the LAD and was discharged home. Echocardiogram at that time revealed EF of 20- 25% with mild aortic regurgitation, severe mitral regurgitation, mild tricuspid regurgitation, mild pulmonary hypertension. Patient complains of shortness of breath and chest congestion. She states prior to that should not been feeling well for the last couple of days. She denies any chest pain. She denies any cough. She does not use oxygen at home. She denies diagnosis of COPD or asthma. She denies any weight gain. She states she has had a follow-up appointment with Dr. Emmanuel Copeland since her last hospitalization and she has an appointment with Dr. Davalos next week. Patient presented to [facility] emergency center for evaluation. EKG is a sinus rhythm with left bundle branch block unchanged from previous. Chest x-ray shows mild pulmonary interstitial edema that could be acute heart failure and is unchanged. WBC 7.3. Hemoglobin 11.3. Platelet count 149. Sodium 139. Potassium 3.0. BUN 17. Creatinine 0.80. BNP 14,100. Troponin 1.010, 4.280 and 8.740. Lactic acid 5.0, 2.3 and 1.5. Patient was afebrile, initial heart rate 117, blood pressure 159/109, pulse ox 92% on room air. At time of evaluation, heart rate 93 and blood pressure 141/96. Patient states that she has been seen by cardiology and is planned for heart catheterization later today or tomorrow. She is seen today in the ER waiting for a bed on the cardiac stepdown unit. REVIEW OF SYSTEMS Constitutional: No fever, no chills, no night sweats. No weight change. No weakness, fatigue or lethargy. No daytime sleepiness. EENT: No headache. No blurred vision or double vision, no loss of vision. No loss of Hearing, no ringing in the ears, no dizziness. No nasal drainage or congestion. No epistaxis. No sore throat. Lungs:Reports shortness of breath, no cough, no sputum production. No wheezing.Reports exertional dyspnea. Cardiovascular: Denies chest pain, no lower extremity edema. No palpitations. No paroxysmal nocturnal dyspnea. No orthopnea. No lightheadedness or dizziness. No syncopal episodes. Abdominal: No abdominal pain. No nausea, vomiting. No diarrhea. No constipation. No bloody or tarry stools.. No loss of appetite. Genitourinary: No dysuria, increased frequency, urgency. No urinary retention. Musculoskeletal: No myalgias. No muscle weakness, no gait dysfunction, no frequent falls. No back pain. No neck pain. Integumentary: No wounds, no lesions. No rash or pruritus. No unusual bruising. No change in hair or nails. Neurologic: No aphasia. No facial droop. No change in mentation. No head injury. No headache. No paralysis. No paresthesia. Psychiatric: No depression. No anxiety. Endocrine: Noted abnormal blood sugars. SOCIAL HISTORY Patient was a smoker for short period only and quit in 1963. No alcohol use or abuse. She does have a walker to use at home. No recent falls. FAMILY HISTORY Mother is from lung cancer. Father is from massive myocardial infarction. Patient has a brother that had coronary artery disease starting in his 40s. PHYSICAL EXAMINATION Gen: This is this is an 85-year-old female. Patient is resting in bed and appears to be comfortable and in no acute distress. HEENT: Head is atraumatic, normocephalic. Pupils equal, round. Sclerae is anicteric. NECK: Supple. No JVD. No lymphadenopathy. No thyromegaly. LUNGS: Clear to auscultation. No wheezes or rhonchi. No intercostal retractions. HEART: Regular rate and rhythm. Positive S3. Systolic murmur. ABDOMEN: Soft. Bowel sounds are present. No masses. No tenderness. EXTREMITIES:Trace bilateral pedal edema. No calf tenderness. Dorsalis pedis +2 bilaterally. NEUROLOGICAL: Patient is awake, alert and oriented x3. Cranial nerves 2 through 12 are grossly intact. ASSESSMENT AND PLAN 1. Non-ST elevated myocardial infarction. Consult with cardiology appreciated. Patient scheduled for heart catheterization today or tomorrow, patient started on heparin drip, Lasix 20 mg IV every 12 hours., Losartan and hydrochlorothiazi de one daily at lunch, Lopressor 50 mg daily and 25 mg at bedtime. 2. Recent non-ST elevated myocardial infarction status post heart catheterization and stent of the LAD, 03/23. Continue as in #1. 3. Hyperglycemia with no previous diagnoses of diabetes. A1c 5.6. 4. Lactic acidosis most likely secondary to acute myocardial infarction. 5. Ischemic cardiomyopathy with EF 20-25%. Patient has been started on Lasix 20 mg IV every 12 hours, continue Lopressor. 6. Recent diagnosis of multiple myeloma. Dexamethasone and Revlimid on hold. 7. Hypertension. Continue amlodipine 5 mg twice daily, Zestoretic daily, Lopressor 25 mg daily. 8. Hypothyroidism. Continue levothyroxine 50 g daily. 9. Generalized osteoarthritis, stable. 10. GI prophylaxis. Protonix 40 mg daily. 11. DVT prophylaxis. Patient is on heparin drip. Patient will be admitted to the hospital for a minimum of 2 night stay. CODE STATUS: NO CODE DISCHARGE PLAN Home. Impression and plan of care have been directed as dictated by the signing physician. Cait Longo nurse practitioner acting as scribe for signing physician. Past Medical History Past Medical History: Cancer, GERD/Reflux, Hypertension, Osteoarthritis (OA), Thyroid Disorder Additional Past Medical History / Comment(s): MULTIPLE MYELOMA- no treatment yet(dr Aden- 03/2021), Bone Cancer with chemo treatment. History of Any Multi-Drug Resistant Organisms: None Reported Past Surgical History: Appendectomy, Joint Replacement, Tonsillectomy Additional Past Surgical History / Comment(s): BILAT TKA. BILAT CARARACTS REMOVED WITH LENS IMPLANTS. 1/2 OF THYROID REMOVED. FATTY TUMOR REMOVED FROM KNEE. COLONOSCOPY Past Anesthesia/Blood Transfusion Reactions: No Reported Reaction Past Psychological History: No Psychological Hx Reported Smoking Status: Former smoker - Past Family History Mother Family Medical History: Cancer Medications and Allergies Home Medications Medication Instructions Recorded Confirmed Type Levothyroxine Sodium [Synthroid] 25 mcg PO DAILY 02/26/21 04/21/21 History Omeprazole 20 mg PO DAILY 02/26/21 04/21/21 History traMADol HCL 50 mg PO Q6H PRN 03/22/21 04/21/21 History Aspirin 81 mg PO DAILY chew 03/26/21 04/21/21 Rx Atorvastatin [Lipitor] 40 mg PO DAILY #30 tab 03/26/21 04/21/21 Rx Clopidogrel [Plavix] 75 mg PO DAILY #30 tab 03/26/21 04/21/21 Rx Acyclovir 400 mg PO BID 04/21/21 04/21/21 History Furosemide [Lasix] 20 mg PO DAILY 04/21/21 04/21/21 History Lenalidomide [Revlimid] 15 mg PO DIRECTED 04/21/21 04/21/21 History Losartan-Hctz 50-12.5 mg [Hyzaar 1 tab PO AC-LUNCH 04/21/21 04/21/21 History 50-12.5] Metoprolol Tartrate [Lopressor] 25 mg PO HS 04/21/21 04/21/21 History Metoprolol Tartrate [Lopressor] 50 mg PO DAILY 04/21/21 04/21/21 History Multivit-Min/FA/Lycopen/Lutein 1 tab PO DAILY 04/21/21 04/21/21 History [Centrum Silver Tablet] Nitroglycerin Sl Tabs [Nitrostat] 0.4 mg SL Q5M PRN 04/21/21 04/21/21 History Potassium Chloride ER [K-Dur 10] 20 meq PO AC-LUNCH 04/21/21 04/21/21 History Sulfamethox-Tmp 400-80Mg [Bactrim 1 tab PO MOWEFR 04/21/21 04/21/21 History SS 400-80 mg] dexAMETHasone [Dexamethasone] 20 mg PO DIRECTED 04/21/21 04/21/21 History Allergies Allergy/AdvReac Type Severity Reaction Status Date / Time Penicillins Allergy Swelling Verified 04/21/21 07:33 Physical Exam Vitals: Vital Signs Temp Pulse Pulse Resp BP Pulse Ox 04/21/21 09:30 88 16 131/67 98 04/21/21 07:47 96 04/21/21 07:37 94 04/21/21 06:34 92 18 129/56 96 04/21/21 05:33 100 18 135/65 96 04/21/21 05:31 98 21 04/21/21 05:10 104 H 27 H 04/21/21 04:48 112 H 04/21/21 04:38 98.9 F 117 H 18 159/109 92 L Intake and Output 04/20/21 04/21/21 04/21/21 22:59 06:59 14:59 Other: Weight 41.73 kg Results CBC & Chem 7: 04/21/21 04:56 04/21/21 04:56 Labs: Abnormal Lab Results - Last 24 Hours (Table) 04/21/21 04/21/21 04/21/21 Range/Units 04:56 04:56 04:56 RBC 3.56 L (3.80-5.40) m/uL Hgb 11.3 L (11.4-16.0) gm/dL MCV 100.9 H (80.0-100.0) fL RDW 16.2 H (11.5-15.5) % Plt Count 149 L (150-450) k/uL Lymphocytes # 0.3 L (1.0-4.8) k/uL APTT 21.2 L (22.0-30.0) sec Potassium 3.0 L (3.5-5.1) mmol/L Glucose 138 H (74-99) mg/dL Plasma Lactic Acid Mart (0.7-2.0) mmol/L Calcium 7.7 L (8.4-10.2) mg/dL Total Bilirubin 0.1 L (0.2-1.3) mg/dL AST 50 H (14-36) U/L Troponin I (0.000-0.034) ng/mL 04/21/21 04/21/21 04/21/21 Range/Units 04:56 04:56 07:31 RBC (3.80-5.40) m/uL Hgb (11.4-16.0) gm/dL MCV (80.0-100.0) fL RDW (11.5-15.5) % Plt Count (150-450) k/uL Lymphocytes # (1.0-4.8) k/uL APTT (22.0-30.0) sec Potassium (3.5-5.1) mmol/L Glucose (74-99) mg/dL Plasma Lactic Acid Mart 5.0 H* (0.7-2.0) mmol/L Calcium (8.4-10.2) mg/dL Total Bilirubin (0.2-1.3) mg/dL AST (14-36) U/L Troponin I 1.010 H* 4.280 H* (0.000-0.034) ng/mL 04/21/21 Range/Units 07:31 RBC (3.80-5.40) m/uL Hgb (11.4-16.0) gm/dL MCV (80.0-100.0) fL RDW (11.5-15.5) % Plt Count (150-450) k/uL Lymphocytes # (1.0-4.8) k/uL APTT (22.0-30.0) sec Potassium (3.5-5.1) mmol/L Glucose (74-99) mg/dL Plasma Lactic Acid Mart 2.3 H* (0.7-2.0) mmol/L Calcium (8.4-10.2) mg/dL Total Bilirubin (0.2-1.3) mg/dL AST (14-36) U/L Troponin I (0.000-0.034) ng/mL
[2021-04-21] MEDS ORDERED: FUROSEMIDE 10 MG/ML 4 ML VIAL ONE (13:02)
[2021-04-21] MEDS ORDERED: FUROSEMIDE 10 MG/ML 4 ML VIAL IV ONE (13:06)
[2021-04-21] MEDS ORDERED: NITROGLYCERIN 1000MCG/10ML SYRINGE INTRACORON ONE (13:19)
[2021-04-21] MEDS ORDERED: RX INFO: IV CONTRAST WAS GIVEN 1 EACH MISC MISCELLANE PRN (13:30)
[2021-04-21] MEDS ORDERED: MAG HYDROX/AL HYDROX/SIMETH 30 ML CUP PO PRN (13:30)
[2021-04-21] MEDS ORDERED: ZOLPIDEM 5 MG TAB PO PRN (13:30)
[2021-04-21] MEDS ORDERED: SODIUM CHLORIDE 0.9% 1,000 ML IV SCH (13:30)
[2021-04-21] MEDS ORDERED: ATROPINE SULFATE 0.1 MG/ML 10ML SYRINGE IV PRN (13:30)
[2021-04-21] MEDS ORDERED: CLOPIDOGREL 75 MG TAB ONE (13:30)
[2021-04-21] MEDS ORDERED: CLOPIDOGREL 75 MG TAB PO ONE (13:31)
--- NOTE | 2021-04-21 14:21 | PTCA ---
PERCUTANEOUSTRANS CORORONARY ANGIOGRAPHY PTCA REPORT DATE OF SERVICE: 04/21/2021. PROCEDURE: 1. Coronary angiography of left coronary artery system. 2. PTCA and stenting of mid LAD with a drug-eluting stent. PERFORMED BY: Dr. Grisel Copeland. Moderate conscious sedation time was 87 minutes. CLINICAL INFORMATION: Mrs. Liberty Coles is an 85-year-old frail elderly lady who was seen by me with a for non ST elevation NE and I performed stenting of mid LAD in the on March 23, 2021. However, she came back to the hospital with shortness of breath and had a troponin elevation. Repeat cardiac cath was advised and possible INSURANCE HEALTHCARE CONSULTANT. She also has multiple comorbid conditions in the form of CHF, mitral regurgitation that is severe, and multiple myeloma. PROCEDURE NOTE: Under local anesthesia and strict aseptic precautions, a 6-Bruneian introducer was placed in the right radial artery. The right coronary artery small and nondominant, and therefore I did not do an injection. I used initially an XB LAD 3.5 guide cathete, with this I got decent injection and I noted that the stented area was widely patent, but distal to the stent there was an area of haziness, but flow was very good. After some deliberation, I decided to deploy another additional stent distal to the previous stent. I had a lot of difficulty with guide support. Multiple guide catheters were used. Eventually with a JL3.0 guide catheter, I was able to get a decent guide support and a Whisper wire was advanced and positioned distally. Without predilatation, a 3.0 caliber, 12 mm Xience stent was deployed telescoping into the distal aspect of the previous stent. Patient had mild chest discomfort and EKG changes were pretty much unchanged. Excellent angiographic result was achieved. The sheath was taken out and TR band applied as per protocol. Saturation the fingers of the right hand was 92%. Patient received heparin intravenously a total of 4000 units and her ACT was kept between 250 and 300. Patient was already on aspirin and Plavix. Excellent angiographic result was achieved. Results were discussed with the patient's friend in the waiting room and I will also try and communicate with her son who is in [place]. Excellent angiographic result was achieved without complication, but technically this was difficult procedure trying to get a decent guide support because of a very short left main. MMODL / IJN: [id number] /
[2021-04-21] MEDS: POTASSIUM CHLORIDE ER 10 MEQ TAB.ER.PRT PO SCH (14:32)
[2021-04-21] MEDS: LOSARTAN-HCTZ 50-12.5 MG 1 EACH TAB PO SCH (14:53)
[2021-04-21] MEDS: METOPROLOL TARTRATE 25 MG TAB PO SCH (21:22)
[2021-04-21] MEDS: ACYCLOVIR 200 MG CAP PO SCH (21:22)
[2021-04-21] MEDS: FUROSEMIDE 10 MG/ML 2 ML VIAL IV SCH (21:22)
[2021-04-22] MEDS: SODIUM CHLORIDE 0.9% 1,000 ML IV SCH ×3 (03:51→21:02)
[2021-04-22] MEDS: PANTOPRAZOLE 40 MG TABLET PO SCH (06:18)
[2021-04-22] MEDS: LEVOTHYROXINE 25 MCG TAB PO SCH (06:19)
[2021-04-22] MEDS ORDERED: HEPARIN SODIUM,PORCINE 2,500 UNIT in SODIUM CHLORIDE 0.9% 250 ML IRRIGATION PRN (07:00)
[2021-04-22] MEDS ORDERED: HEPARIN SODIUM,PORCINE 10,000 UNIT in SODIUM CHLORIDE 0.9% 1,000 ML IRRIGATION PRN (07:00)
[2021-04-22 07:10] LABS: Anisocytosis Slight; Basophils % (A) 0 %; Eosinophils % (A) 0 %; Lymphocytes # (A) 0.5 k/uL (1.0-4.8); Lymphocytes % (A) 17 %; MCH 32.7 pg (25.0-35.0); MCHC 31.9 g/dL (31.0-37.0); MCV 102.7 fL (80.0-100.0); Macrocytosis Moderate; Mean Platelet Volume 8.5; Monocytes # (A) 0.2 k/uL (0-1.0); Monocytes % (A) 5 %; Neutrophils # (A) 2.4 k/uL (1.3-7.7); Neutrophils % (A) 74 %; Platelet Count 114 k/uL (150-450); RBC 2.93 m/uL (3.80-5.40); RDW 16.4 % (11.5-15.5); WBC 3.3 k/uL (3.8-10.6)
[2021-04-22 07:11] LABS: African American GFR (CKD) >90 (>60 ml/min/1.73 sqM); Anion Gap 3 mmol/L; Blood Urea Nitrogen 16 mg/dL (7-17); Calcium 7.1 mg/dL (8.4-10.2); Carbon Dioxide 27 mmol/L (22-30); Chloride 109 mmol/L (98-107); Glucose 95 mg/dL (74-99); Non-African American GFR(CKD) 83 (>60 ml/min/1.73 sqM); Sodium 139 mmol/L (137-145)
[2021-04-22 07:16] LABS: HGB 9.6 gm/dL (11.4-16.0)
[2021-04-22 07:17] LABS: Prothrombin Time 10.7 sec (9.0-12.0)
[2021-04-22] MEDS: ACYCLOVIR 200 MG CAP PO SCH ×2 (07:34→20:12)
[2021-04-22] MEDS: CLOPIDOGREL 75 MG TAB PO SCH (07:35)
[2021-04-22] MEDS: ATORVASTATIN 40 MG TAB PO SCH (07:35)
[2021-04-22] MEDS: ASPIRIN 81 MG PO SCH (07:35)
[2021-04-22] MEDS: SULFAMETHOX-TMP 400-80MG 1 EACH TAB PO SCH (07:36)
[2021-04-22] MEDS: FUROSEMIDE 10 MG/ML 2 ML VIAL IV SCH ×3 (07:36→23:19)
[2021-04-22] MEDS: MULTIVITAMINS, THERA 1 EACH TAB PO SCH (07:36)
[2021-04-22] MEDS: METOPROLOL TARTRATE 50 MG TAB PO SCH (07:36)
--- NOTE | 2021-04-22 11:02 | P.PN ---
Subjective Progress Note Date: 04/22/21 Principal diagnosis: Coronary artery disease 85-year-old female, who was evaluated in the emergency department, on April 21. She apparently came into the ER complaining of shortness of breath and chest pain. It apparently started the night before she was admitted to the emergency department. She was seen in the ER, and provided with oxygen. Her BNP was elevated. Her troponin was elevated. She was admitted with a diagnosis of non- ST segment elevation myocardial infarction, and congestive heart failure. Currently, she is feeling much better. She is a DO NOT RESUSCITATE patient. He did smoke for some time but many many years back. It was never heavy smoker in likely does not have any underlying COPD. Apparently, she has a history of multiple myeloma, gastroesophageal reflux disease, hypertension, osteoarthritis, and hypothyroidism. Laboratory data includes a white count 7.3, hemoglobin 11.3, hematocrit 35.9, platelet count 149,000. Sodium 139, potassium 3, chlorides 105, CO2 25, anion gap 9, BUN 17, and creatinine 0.80. Initial plasma lactic acid was 5, repeat was 2.3. Troponins were 1.0 104.280, and N-terminal proBNP was elevated at 14,100. Chest x-ray showed a pattern of pulmonary venous hypertension and interstitial edema. The patient is seen today 04/22/2021 in follow-up on the selective care unit. She is currently resting comfortably in bed. Awake and alert in no acute distress. She is maintaining O2 saturations in the 90s on room air. She's been afebrile. She did undergo stenting of the mid LAD yesterday. Denies any chest pain or worsening shortness of breath today. White count 3.3. Hemoglobin 9.6. Platelets 114,000. INR 1.0. Sodium 139. Potassium 3.0. Creatinine 0.63. She remains on IV diuretics. Objective - Vital Signs Vital signs: Vital Signs Temp 97.7 F 04/22/21 07:43 Pulse 86 04/22/21 07:46 Resp 16 04/22/21 07:46 BP 172/77 04/22/21 07:43 Pulse Ox 93 L 04/22/21 07:43 Intake & Output 04/21/21 04/22/21 04/22/21 18:59 06:59 18:59 Intake Total 150 350 120 Output Total 600 620 Balance -450 -270 120 Weight 41.8 kg 42.6 kg Intake: IV 150 Intake, IV Titration 250 Amount Sodium Chloride 0.9% 1, 250 000 ml @ 50 mls/hr IV . Q20H [facility] Rx#:[id number] Oral 0 100 120 Output: Urine 600 620 Other: Voiding Method Toilet Toilet # Voids 1 2 - Exam No acute distress, oriented 3. 85-year-old female. On room air. HEENT examination is grossly unremarkable. Neck supple. Full range of motion. No adenopathy thyromegaly or neck vein distention. Cardiovascular examination reveals regular rhythm rate. S1-S2 normal. No S3 or S4. No discernible murmur noted. Heart sounds are distant. Heart rate 96 bpm. Lungs reveal mild scattered crackles. No wheezes. Breath sounds are equal bilaterally. Abdomen soft bowel sounds are heard. No masses or tenderness. Extremities are intact. No cyanosis clubbing or edema. Skin is without rash or lesion. Neurologic examination is brief but nonfocal. - Labs CBC & Chem 7: 04/22/21 06:07 04/22/21 06:07 Labs: Abnormal Lab Results - Last 24 Hours (Table) 04/21/21 04/21/21 04/22/21 Range/Units 10:51 16:33 06:07 WBC 3.3 L (3.8-10.6) k/uL RBC 2.93 L (3.80-5.40) m/uL Hgb 9.6 L D (11.4-16.0) gm/dL Hct 30.0 L (34.0-46.0) % MCV 102.7 H (80.0-100.0) fL RDW 16.4 H (11.5-15.5) % Plt Count 114 L (150-450) k/uL Lymphocytes # 0.5 L (1.0-4.8) k/uL APTT 62.2 H (22.0-30.0) sec Potassium (3.5-5.1) mmol/L Chloride (98-107) mmol/L Calcium (8.4-10.2) mg/dL Troponin I 8.740 H* (0.000-0.034) ng/mL 04/22/21 Range/Units 06:07 WBC (3.8-10.6) k/uL RBC (3.80-5.40) m/uL Hgb (11.4-16.0) gm/dL Hct (34.0-46.0) % MCV (80.0-100.0) fL RDW (11.5-15.5) % Plt Count (150-450) k/uL Lymphocytes # (1.0-4.8) k/uL APTT (22.0-30.0) sec Potassium 3.0 L (3.5-5.1) mmol/L Chloride 109 H (98-107) mmol/L Calcium 7.1 L (8.4-10.2) mg/dL Troponin I (0.000-0.034) ng/mL Assessment and Plan Assessment: Non-ST segment elevation myocardial infarction, with resultant fluid overload. Status post stenting to the LAD 2 Doubt significant chronic lung disease, this patient smoked for only a few years as a teenager. History of multiple myeloma. History of gastroesophageal reflux disease. History of hypertension. History of hypothyroidism. History of hyperlipidemia. Plan: The patient was seen and evaluated by Dr. Mir Remains on IV diuretics Stable from the pulmonary standpoint Currently on room air We will see as needed I, the cosigning physician, performed a history & physical examination of the patient. Lungs sounds faint crackles in the posterior bases. Maintaining good O2 saturations in the 90s on room air. I discussed the assessment and plan of care with my nurse practitioner, Rose Hercules. I attest to the above note as dictated by her.
[2021-04-22] MEDS: SPIRONOLACTONE 25 MG TAB PO SCH (11:06)
--- NOTE | 2021-04-22 11:12 | PN ---
PROGRESS NOTE HISTORY: Mrs. Coles is an 85-year-old female known history of colon disease, history of severe ischemic cardiomyopathy and mitral regurgitation, who was found to have significant obstructive disease involving the LAD. She underwent stenting by Dr. Copeland recently. Came back to the hospital with symptoms of acute dyspnea with troponin elevation up to 8. She underwent repeat cardiac catheterization yesterday, was found to have haziness in the LAD distal to the stent, underwent placement of a new stent distal to it. She continues to be dyspneic today, although better. She denies any chest pain. She denies any dizziness. She denies any palpitations. Her echocardiogram at the end of March showed an ejection fraction of 20 to 25% with severe mitral regurgitation. MEDICATIONS: She continues to be at this time on aspirin once a day Lipitor 40 mg daily, Plavix 75 mg daily, losartan 50-12.5 mg daily, metoprolol tartrate 50 in the morning, 25 in the afternoon. PHYSICAL EXAMINATION: Blood pressure running in the 130s to 170s with a heart rate in the 80s. NECK: Increased jugular venous pressure. LUNGS: Few crackles at the bases. HEART: Regular rate and rhythm. S1, S2, plus S3. A holosystolic murmur in the apex radiating to the axilla. ABDOMEN: Soft nontender. EXTREMITIES: No edema. Right radial pulse intact. LAB DATA: Potassium 3.0, BUN and creatinine 16 and 0.63, hemoglobin of 9.6. IMPRESSION: 1. Status post stenting of the LAD in a setting of non STEMI. 2. Severe ischemic cardiomyopathy with congestive heart failure. 3. Severe mitral regurgitation. 4. Multiple myeloma. The patient is electing not to proceed with any further treatment. 5. Hyperlipidemia. RECOMMENDATIONS: From the cardiac standpoint, I will start her on Aldactone as well as continue IV diuresis for 24 hours and then switch her to oral diuresis. Will replace her potassium. Follow her renal function. Increase her activity gradually. Unfortunately, the prognosis is guarded. MMODL / IJN: [id number] /
[2021-04-22] MEDS ORDERED: POTASSIUM CHLORIDE ER 10 MEQ TAB.ER.PRT PO STA (11:46)
[2021-04-22] MEDS: POTASSIUM CHLORIDE ER 10 MEQ TAB.ER.PRT PO SCH (11:57)
[2021-04-22] MEDS: LOSARTAN-HCTZ 50-12.5 MG 1 EACH TAB PO SCH (11:57)
[2021-04-22] MEDS: DULoxetine HCL 20 MG CAPSULE.DR PO SCH (12:47)
--- NOTE | 2021-04-22 13:24 | P.PN ---
Subjective Progress Note Date: 04/22/21 HISTORY OF PRESENT ILLNESS This is an 85-year-old female patient of Dr. Zion Davalos with past medical history of hypertension, hypothyroidism, generalized osteoarthritis. Patient was recently diagnosed with multiple myeloma under the care of Dr. Aden. She states she is tired all the time was recently diagnosed with anemia and has had weight loss of 50 pounds over the past 6-8 months. She is currently on dexamethasone and Revlimid for multiple myeloma. Patient had recent hospitalization March 22 through March 26 which time she was treated for non-ST elevated myocardial infarction status post heart catheterization and stenting of the LAD and was discharged home. Echocardiogram at that time revealed EF of 20- 25% with mild aortic regurgitation, severe mitral regurgitation, mild tricuspid regurgitation, mild pulmonary hypertension. Patient complains of shortness of breath and chest congestion. She states prior to that should not been feeling well for the last couple of days. She denies any chest pain. She denies any cough. She does not use oxygen at home. She denies diagnosis of COPD or asthma. She denies any weight gain. She states she has had a follow-up appointment with Dr. Emmanuel Copeland since her last hospitalization and she has an appointment with Dr. Davalos next week. Patient presented to [facility] emergency center for ev aluation. EKG is a sinus rhythm with left bundle branch block unchanged from previous. Chest x-ray shows mild pulmonary interstitial edema that could be acute heart failure and is unchanged. WBC 7.3. Hemoglobin 11.3. Platelet count 149. Sodium 139. Potassium 3.0. BUN 17. Creatinine 0.80. BNP 14,100. Troponin 1.010, 4.280 and 8.740. Lactic acid 5.0, 2.3 and 1.5. Patient was afebrile, initial heart rate 117, blood pressure 159/109, pulse ox 92% on room air. At time of evaluation, heart rate 93 and blood pressure 141/96. Patient states that she has been seen by cardiology and is planned for heart catheterization later today or tomorrow. She is seen today in the ER waiting for a bed on the cardiac stepdown unit. 04/22: Patient underwent heart catheterization yesterday and PTCA and stenting of the mid LAD with Dr. RUBY Copeland. Patient denies having any shortness of breath, chest pain this morning. She denies any lightheadedness or dizziness. Cardiology has started the patient on Aldactone plan to continue IV Lasix for another 24 hours. Patient verbalized to the nurse of depression and thinking that she is going to be dying. We will start the patient on Cymbalta and asked for psychiatric evaluation. Patient has been afebrile, heart rate 86, blood pressure 172/77, pulse ox 93% on 2 L nasal cannula. Repeat blood work reveals WBC 3.3, hemoglobin 9.6, platelet count 114. Sodium 139, potassium 3.0, chloride 109, CO2 27, creatinine 0.63. Cardiology had ordered potassium replacement the patient had refused because of the size of the pills. We will try to order 10 mEq tablets instead to see if patient will tolerate. REVIEW OF SYSTEMS Constitutional: No fever, no chills, no night sweats. No weight change. No weakness, fatigue or lethargy. No daytime sleepiness. EENT: No headache. No blurred vision or double vision, no loss of vision. No loss of Hearing, no ringing in the ears, no dizziness. No nasal drainage or congestion. No epistaxis. No sore throat. Lungs:Reports shortness of breath, no cough, no sputum production. No wheezing.Reports exertional dyspnea. Cardiovascular: Denies chest pain, no lower extremity edema. No palpitations. No paroxysmal nocturnal dyspnea. No orthopnea. No lightheadedness or dizzines s. No syncopal episodes. Abdominal: No abdominal pain. No nausea, vomiting. No diarrhea. No cons tipation. No bloody or tarry stools.. No loss of appetite. Genitourinary: No dysuria, increased frequency, urgency. No urinary retention. Musculoskeletal: No myalgias. No muscle weakness, no gait dysfunction, no frequent falls. No back pain. No neck pain. Integumentary: No wounds, no lesions. No rash or pruritus. No unusual bruising. No change in hair or nails. Neurologic: No aphasia. No facial droop. No change in mentation. No head injury. No headache. No paralysis. No paresthesia. Psychiatric: No depression. No anxiety. Endocrine: Noted abnormal blood sugars. PHYSICAL EXAMINATION Gen: This is this is an 85-year-old female. Patient is resting in bed and appears to be comfortable and in no acute distress. HEENT: Head is atraumatic, normocephalic. Pupils equal, round. Sclerae is anicteric. NECK: Supple. No JVD. No lymphadenopathy. No thyromegaly. LUNGS: Clear to auscultation. No wheezes or rhonchi. No intercostal retractions. HEART: Regular rate and rhythm. Positive S3. Systolic murmur. ABDOMEN: Soft. Bowel sounds are present. No masses. No tenderness. EXTREMITIES:Trace bilateral pedal edema. No calf tenderness. Dorsalis pedis +2 bilaterally. NEUROLOGICAL: Patient is awake, alert and oriented x3. Cranial nerves 2 through 12 are grossly intact. ASSESSMENT AND PLAN 1. Non-ST elevated myocardial infarction status post heart catheterization and PTCA and stenting of the mid LAD on 04/[address] RUBY Copeland. Consult with cardiology appreciated. Patient is off heparin drip, continue aspirin 81 mg daily, Lipitor 40 mg daily, Plavix 75 mg daily, Lasix 20 mg IV every 8 hours, Lopressor was increased to 50 mg daily starting today, spironolactone 25 mg daily started by cardiology today 2. Recent non-ST elevated myocardial infarction status post heart catheterization and stent of the LAD, 03/23. Continue as in #1. 3. Hyperglycemia with no previous diagnoses of diabetes. A1c 5.6. 4. Lactic acidosis most likely secondary to acute myocardial infarction. 5. Ischemic cardiomyopathy with EF 20-25%. Patient has been started on Lasix 20 mg IV every 12 hours, continue Lopressor. 6. Recent diagnosis of multiple myeloma. Dexamethasone and Revlimid on hold. 7. Hypertension. Continue amlodipine 5 mg twice daily, Zestoretic daily, Lopressor 25 mg daily. 8. Hypothyroidism. Continue levothyroxine 50 g daily. 9. Generalized osteoarthritis, stable. 10. GI prophylaxis. Protonix 40 mg daily. 11. DVT prophylaxis. Patient is on heparin drip. 12. Situational depression. Patient started on Cymbalta 20 mg daily, psychiatric consult requested. 13. Multiple myeloma. Patient is opting for no treatment at this point. 14. Possible chronic hypoxic respiratory failure. Patient may require home oxygen therapy. Plan for assessment prior to discharge. CODE STATUS: NO CODE DISCHARGE PLAN Home. Impression and plan of care have been directed as dictated by the signing physician. Cait Longo nurse practitioner acting as scribe for signing physician. Objective - Vital Signs Vital signs: Vital Signs Temp 97.7 F 04/22/21 07:43 Pulse 86 04/22/21 07:46 Resp 16 04/22/21 07:46 BP 172/77 04/22/21 07:43 Pulse Ox 93 L 04/22/21 07:43 Intake & Output 04/21/21 04/22/21 04/22/21 18:59 06:59 18:59 Intake Total 150 350 120 Output Total 600 620 Balance -450 -270 120 Weight 41.8 kg 42.6 kg 42.6 kg Intake: IV 150 Intake, IV Titration 250 Amount Sodium Chloride 0.9% 1, 250 000 ml @ 50 mls/hr IV . Q20H [facility] Rx#:[id number] Oral 0 100 120 Output: Urine 600 620 Other: Voiding Method Toilet Toilet # Voids 1 2 - Labs CBC & Chem 7: 04/22/21 06:07 04/22/21 06:07 Labs: Abnormal Lab Results - Last 24 Hours (Table) 04/21/21 04/22/21 04/22/21 Range/Units 16:33 06:07 06:07 WBC 3.3 L (3.8-10.6) k/uL RBC 2.93 L (3.80-5.40) m/uL Hgb 9.6 L D (11.4-16.0) gm/dL Hct 30.0 L (34.0-46.0) % MCV 102.7 H (80.0-100.0) fL RDW 16.4 H (11.5-15.5) % Plt Count 114 L (150-450) k/uL Lymphocytes # 0.5 L (1.0-4.8) k/uL APTT 62.2 H (22.0-30.0) sec Potassium 3.0 L (3.5-5.1) mmol/L Chloride 109 H (98-107) mmol/L Calcium 7.1 L (8.4-10.2) mg/dL
--- NOTE | 2021-04-22 14:11 | P.CN ---
Psychiatric Consult - . Consult date: 04/22/21 Consult:: 04/22/21 14:05 IDENTIFYING DATA: This patient is a 85-year-old female currently lives with her and house has 3 kids. REASON FOR REFERRAL: Psychiatry was consulted for "depression" HISTORY OF PRESENT ILLNESS: The patient presented to the hospital initially for complaints of shortness of breath cough by EMS. Apparently patient had a COPD exacerbation and in an NSTEMI as her troponins were elevated. She underwent stenting yesterday. Patient's nurse claims the patient has been depressed earlier and was worried about caring for herself and her at home. Patient was started on Cymbalta 20 mg earlier today by her primary care physician. Patient was seen today at the bedside and was agreeable to speak to machine sign writer. She claims that she is doing better overall with regards to her shortness of breath and her medical problems. She states that she [facility] for "congestive heart failure". She states that she feels it is under better control now. She states that she is feeling depressed "yesterday and this morning" and states that it was mainly because her is at home and she feels that she can't take care of him and her. She states that she is not having any anxiety today. She claims that her mood is "a bit depressed". She states that her son has it will be coming from [place] to help them out. She also states that she has been sleeping poorly and nighttime due to having and starting Lasix. She denies any guns in the house. She claims her appetite has been poor. At this time patient denies any suicidal or homical ideations, intent or plan. Patient denies any auditory, visual hallucinations and denies any paranoia or delusions. Patients admits to using no recreational drugs or cigarettes PAST PSYCHIATRIC HISTORY: Patient has no known psychiatric history. Patient denies being on any psychiatric medications. Patient denies any previous psychiatric hospitalizations. Patient denies any psychiatric outpatient follow- up. Patient denies any history of suicide attempts in the past. PAST MEDICAL HISTORY: Coronary artery disease, hyperlipidemia, hypertension, GERD, thyroid disorder, austere arthritis, COPD, multiple myeloma. ALLERGIES: as per EMR. CHEMICAL DEPENDENCY HISTORY: as per HPI. FAMILY PSYCHIATRIC/SUBSTANCE USE HISTORY: denies SOCIAL HISTORY: Patient was born and raised in [facility]. She states that she now lives in [place]. She claims that she completed up to the 12th grade of school. 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 She denies any legal problems. She states that she visited her houses 3 kids. MENTAL STATUS EXAM: General Appearance: Patient appears to be elderly and thin, stated age is alert, and cooperative. Patient appears to have fair hygiene and grooming wearing hospital gown with fair eye contact. Behavior: Patient is calmly lying in bed without any agitated behavior. Speech: Patient's speech is fluent and nonpressured. Mood/Affect: Patient reports their mood is "a bit depressed", affect is congruent Suicidality/Homicidality: Patient denies having any suicidal or homicidal ideation intent or plan. Perceptions: Patient denies any visual hallucinations and denies any auditory hallucinations Though content/process: There is no evidence of any delusional thought content and thought process is linear and goal-directed. Focused on her stressors Memory and concentration: AOX3, grossly intact for the purposes of this session. Can spell "WORLD" backwards Judgment and insight: fair IMPRESSIONS: Major depressive disorder, mild PLAN: -At this time patient DOES NOT meet criteria for inpatient psychiatric admission. -Delirium precautions recommended with patient including - avoiding use of narcotics and DEPORTATION EXAMINER sedatives, limit anticholinergic medications when possible, frequent re-orientation, minimize use of restraints, open window shades during the day and close them at night -Would recommend the following medication changes/additions: Added Remeron 7.5 mg daily at bedtime for insomnia/appetite/mood. Continue Cymbalta 20 mg daily for mood/anxiety. Discontinued all benzodiazepines as this may cause patient to have a fall or precipitate delirium. -flat screen worker to provide patient with outpatient mental health/psychiatry resources for appropriate follow up upon discharge -Will continue to follow along -Please contact with any questions.
[2021-04-22 15:26] LABS: Chol/HDL Ratio 2.67; Cholesterol 112 mg/dL (0-200); LDL Cholesterol,Calculated 43.6 mg/dL (0.0-131.0)
[2021-04-22] MEDS: METOPROLOL TARTRATE 25 MG TAB PO SCH (20:12)
[2021-04-22] MEDS: MIRTAZAPINE 15 MG TAB PO SCH (20:12)
[2021-04-23] MEDS: PANTOPRAZOLE 40 MG TABLET PO SCH (06:24)
[2021-04-23] MEDS: LEVOTHYROXINE 25 MCG TAB PO SCH (06:24)
[2021-04-23] MEDS: SODIUM CHLORIDE 0.9% 1,000 ML IV SCH ×3 (08:24→22:36)
[2021-04-23] MEDS: CLOPIDOGREL 75 MG TAB PO SCH (08:28)
[2021-04-23] MEDS: ATORVASTATIN 40 MG TAB PO SCH (08:28)
[2021-04-23] MEDS: MULTIVITAMINS, THERA 1 EACH TAB PO SCH (08:28)
[2021-04-23] MEDS: METOPROLOL TARTRATE 50 MG TAB PO SCH ×2 (08:28→20:17)
[2021-04-23] MEDS: ASPIRIN 81 MG PO SCH (08:28)
[2021-04-23] MEDS: FUROSEMIDE 10 MG/ML 2 ML VIAL IV SCH (08:29)
[2021-04-23] MEDS: ACYCLOVIR 200 MG CAP PO SCH ×2 (08:29→20:17)
[2021-04-23] MEDS: SPIRONOLACTONE 25 MG TAB PO SCH (08:29)
[2021-04-23] MEDS: DULoxetine HCL 20 MG CAPSULE.DR PO SCH (08:29)
[2021-04-23 10:00] LABS: African American GFR (CKD) >90 (>60 ml/min/1.73 sqM); Anion Gap 5 mmol/L; Blood Urea Nitrogen 21 mg/dL (7-17); Calcium 6.9 mg/dL (8.4-10.2); Carbon Dioxide 26 mmol/L (22-30); Chloride 108 mmol/L (98-107); Glucose 101 mg/dL (74-99); Non-African American GFR(CKD) 82 (>60 ml/min/1.73 sqM); Potassium 3.4 mmol/L (3.5-5.1); Sodium 139 mmol/L (137-145)
[2021-04-23] MEDS: POTASSIUM CHLORIDE ER 20 MEQ TAB.ER PO SCH (12:33)
[2021-04-23] MEDS: LOSARTAN-HCTZ 50-12.5 MG 1 EACH TAB PO SCH (12:33)
--- NOTE | 2021-04-23 13:43 | P.PN ---
Progress Note - Text Progress Note Date: 04/23/21 Interval History: Patient was seen today for psychiatric follow-up regarding her depression. Beau russo was seen today at the bedside after speaking with patient's nurse. Patient's nurse has no complaints about patient states that she's been doing well. The plan will be to send her to rehab upon discharge before going home. Patient was in the room with her and her sister and was agreeable to speak to auto service writer. She appears to be more pleasant today and more communicative. She states that her mood and anxiety have improved since yesterday. She states that she is further getting her strength back and her breathing has improved. She claims that she realizes how important her Lasix are to help her with breathing. She claims that she was able to sleep better last night with the Remeron and has mild improvement in her appetite. At this time patient denies any suicidal or homical ideations, intent or plan. Patient denies any auditory, visual hallucinations and denies any paranoia or delusions. Patient denies any side effects from the medications and has been compliant with meds. Mental Status Exam: General Appearance: Patient appears to be elderly and thin, stated age is alert, and cooperative. Patient appears to have fair hygiene and grooming wearing hospital gown with fair eye contact. Behavior: Patient is calmly lying in bed without any agitated behavior. Speech: Patient's speech is fluent and nonpressured. Mood/Affect: Patient reports their mood is "better", affect is congruent Suicidality/Homicidality: Patient denies having any suicidal or homicidal ideation intent or plan. Perceptions: Patient denies any visual hallucinations and denies any auditory peter llucinations Though content/process: There is no evidence of any delusional thought content and thought process is linear and goal-directed. future oriented. Memory and concentration: AOX3, grossly intact for the purposes of this session. Judgment and insight: fair Assessment Major depressive disorder, mild Plan: -At this time patient DOES NOT meet criteria for inpatient psychiatric admission . -Delirium precautions recommended with patient including - avoiding use of narcotics and MELT ROOM OPERATOR sedatives, limit anticholinergic medications when possible, frequent re-orientation, minimize use of restraints, open window shades during the day and close them at night -Would recommend the following medication changes/additions: Remeron 7.5 mg daily at bedtime for insomnia/appetite/mood. Continue Cymbalta 20 mg daily for mood/anxiety. -stock worker to provide patient with outpatient mental health/psychiatry resources for appropriate follow up upon discharge -At this time psychiatry will sign off. -Patient will be discharged to rehab today prior to going home. -Please contact with any questions.
--- NOTE | 2021-04-23 13:55 | P.PN ---
Subjective This is a 85-year-old female with a past medical history significant for coronary artery disease with recent stenting to the LAD last month, congestive heart failure, hypertension, hyperlipidemia, ischemic cardiomyopathy, and recent diagnosis of multiple myeloma. Patient follows in the office with Dr. Copeland. We have been asked to see the patient in consultation for abnormal troponins. Patient admitted to the hospital with acute dyspnea troponin elevation up to 8. Patient underwent cardiac catheterization on 04/21/2021 Dr. Copeland underwent sten ting to the mid LAD. She seen and examined at bedside, no acute distress. Her breathing has much improved. She denies any chest pain, lightheadedness, dizziness, palpitations. Her echocardiogram at the end of 03/22/2025 percent with severe mitral regurgitation. Blood pressure 150/67, heart rate 62, afebrile, maintaining oxygen saturations 99% on 2 L nasal cannula. She is currently maintained on aspirin 81 mg daily, atorvastatin 40 mg daily, Plavix 75 mg daily, IV Lasix, losartanhydrochlorothiazide, Toprol titrate 50 mg twice a day, spironolactone 25 mg daily. Laboratory reviewed sodium 139, potassium 3.4, BUN 21, stroke in 0.6, magnesium 1.8 PHYSICAL EXAM: VITAL SIGNS: Reviewed. GENERAL: Well-developed in no acute distress. HEENT: Head is normocephalic. Neck Supple LUNGS: Respirations even and unlabored. Lungs are clear bilaterally HEART: Regular rate and rhythm. S1 and S2 heard. Systolic murmur noted. ABDOMEN: Soft. Nondistended. Nontender. EXTREMITIES: Normal range of motion. No clubbing or cyanosis. Peripheral pulses intact. No lower extremity edema NEUROLOGIC: Awake and alert. Oriented x 3. ASSESSMENT: Non-STEMI s/p PCI to LAD Coronary artery disease with previous PCI to LAD, March 2021 Ischemic cardiomyopathy, ejection fraction 20-25% Acute exacerbation of chronic systolic heart failure Severe mitral regurgitation Hypertension Hyperlipidemia Recent diagnosis of multiple myeloma PLAN: We will transition to PO Lasix Continue dual antiplatelet therapy Continue patient's current cardiac medications From cardiology perspective, patient is stable to be discharged, follow up cl osely in outpatient office with Dr. Copeland Nurse practitioner note has been reviewed by physician. Signing provider agrees with the documented findings, assessment, and plan of care. Objective - Vital Signs Vital signs: Vital Signs Temp 97.8 F 04/23/21 12:34 Pulse 62 04/23/21 12:34 Resp 20 04/23/21 12:34 BP 150/67 04/23/21 12:34 Pulse Ox 99 04/23/21 12:34 Intake & Output 04/22/21 04/23/21 04/23/21 18:59 06:59 18:59 Intake Total 600 240 Output Total 800 800 Balance 600 -800 -560 Weight 42.6 kg Intake: Oral 600 240 Output: Urine 800 800 Other: Voiding Method Toilet Toilet # Voids 1 2 - Labs CBC & Chem 7: 04/22/21 06:07 04/23/21 08:48 Labs: Abnormal Lab Results - Last 24 Hours (Table) 04/23/21 Range/Units 08:48 Potassium 3.4 L (3.5-5.1) mmol/L Chloride 108 H (98-107) mmol/L BUN 21 H (7-17) mg/dL Glucose 101 H (74-99) mg/dL Calcium 6.9 L (8.4-10.2) mg/dL
--- NOTE | 2021-04-23 14:08 | P.DS ---
Providers Date of admission: 04/21/21 06:35 Expected date of discharge: 04/23/21 Attending physician: Mathew Wood Consults: 04/21/21 06:35 Consult Physician Routine Consulting Provider: Raphael Barajas Consult Reason/Comments: copd Do you want consulting provider notified?: Yes Consult Physician Urgent Consulting Provider: Sotero Lawrence Consult Reason/Comments: nstemi Do you want consulting provider notified?: Yes 04/21/21 13:31 Consult Physician Routine Consulting Provider: [facility] Consult Reason/Comments: Post Interventional patient Do you want consulting provider notified?: Already Contacted 04/22/21 11:50 Consult Physician Routine Consulting Provider: Andrey Yu Consult Reason/Comments: depression Do you want consulting provider notified?: Yes Primary care physician: Zion [facility] Course: HISTORY OF PRESENT ILLNESS This is an 85-year-old female patient of Dr. Zion Davalos with past medical history of hypertension, hypothyroidism, generalized osteoarthritis. Patient was recently diagnosed with multiple myeloma under the care of Dr. Aden. She states she is tired all the time was recently diagnosed with anemia and has had weight loss of 50 pounds over the past 6-8 months. She is currently on dexamethasone and Revlimid for multiple myeloma. Patient had recent hospitalization March 22 through March 26 which time she was treated for non-ST elevated myocardial infarction status post heart catheterization and stenting of the LAD and was discharged home. Echocardiogram at that time revealed EF of 20- 25% with mild aortic regurgitation, severe mitral regurgitation, mild tricuspid regurgitation, mild pulmonary hypertension. Patient complains of shortness of breath and chest congestion. She states prior to that should not been feeling well for the last couple of days. She denies any chest pain. She denies any cough. She does not use oxygen at home. She denies diagnosis of COPD or asthma. She denies any weight gain. She states she has had a follow-up appointment with Dr. Emmanuel Copeland since her last hospitalization and she has an appointment with Dr. Davalos next week. Patient presented to [facility] emergency center for evaluation. EKG is a sinus rhythm with left bundle branch block unchanged from previous. Chest x-ray shows mild pulmonary interstitial edema that could be acute heart failure and is unchanged. WBC 7.3. Hemoglobin 11.3. Platelet count 149. Sodium 139. Potassium 3.0. BUN 17. Creatinine 0.80. BNP 14,100. Troponin 1.010, 4.280 and 8.740. Lactic acid 5.0, 2.3 and 1.5. Patient was afebrile, initial heart rate 117, blood pressure 159/109, pulse ox 92% on room air. At time of evaluation, heart rate 93 and blood pressure 141/96. Patient states that she has been seen by cardiology and is planned for heart catheterization later today or tomorrow. She is seen today in the ER waiting for a bed on the cardiac stepdown unit. 04/22: Patient underwent heart catheterization yesterday and PTCA and stenting of the mid LAD with Dr. RUBY Copeland. Patient denies having any shortness of breath, chest pain this morning. She denies any lightheadedness or dizziness. Cardiology has started the patient on Aldactone plan to continue IV Lasix for another 24 hours. Patient verbalized to the nurse of depression and thinking th at she is going to be dying. We will start the patient on Cymbalta and asked for psychiatric evaluation. Patient has been afebrile, heart rate 86, blood pressure 172/77, pulse ox 93% on 2 L nasal cannula. Repeat blood work reveals WBC 3.3, hemoglobin 9.6, platelet count 114. Sodium 139, potassium 3.0, chloride 109, CO2 27, creatinine 0.63. Cardiology had ordered potassium replacement the patient had refused because of the size of the pills. We will try to order 10 mEq tablets instead to see if patient will tolerate. 04/23: Patient has been seen by psychiatry and recommendations to continue Cymbalta which we started yesterday and also added in Remeron. Patient was reassessed for this morning with no other changes. Patient is to have resources as an outpatient to follow-up. Patient has been seen and followed by cardiology and cleared for discharge. IV Lasix transition to oral. Patient has been afebrile, blood pressure 150/67, heart rate 62, pulse ox 99% on 2 L nasal cannula. Patient denies any complaints today. No chest pain or shortness of breath. Patient will be discharged to order one today in stable condition. ASSESSMENT AND PLAN 1. Non-ST elevated myocardial infarction status post heart catheterization and PTCA and stenting of the mid LAD on 04/[address] RUBY Copeland. 2. Recent non-ST elevated myocardial infarction status post heart cat heterization and stent of the LAD, 03/23. 3. Hyperglycemia with no previous diagnoses of diabetes. A1c 5.6. 4. Lactic acidosis most likely secondary to acute myocardial infarction. 5. Ischemic cardiomyopathy with EF 20-25%. 6. Recent diagnosis of multiple myeloma. Patient will not be on any treatment including Revlimid for multiple myeloma as she has decided she is opting for no treatment at this point. 7. Hypertension. 8. Hypothyroidism. 9. Generalized osteoarthritis, stable. 10. Situational depression. 11. Possible chronic hypoxic respiratory failure. DISCHARGE PLAN [facility] for subacute rehab. Impression and plan of care have been directed as dictated by the signing physician. Cait Longo nurse practitioner acting as scribe for signing physician. Patient Condition at Discharge: Good Plan - Discharge Summary Discharge Rx Participant: No New Discharge Prescriptions: New Furosemide [Lasix] 40 mg PO 0900,1800 tab Mirtazapine [Remeron] 7.5 mg PO HS tab Spironolactone [Aldactone] 25 mg PO DAILY tab Aspirin 81 mg PO DAILY chew DULoxetine HCL [Cymbalta] 20 mg PO DAILY capsule. Continue Clopidogrel [Plavix] 75 mg PO DAILY #30 tab Sulfamethox-Tmp 400-80Mg [Bactrim SS 400-80 mg] 1 tab PO MOWEFR Metoprolol Tartrate [Lopressor] 50 mg PO DAILY Losartan-Hctz 50-12.5 mg [Hyzaar 50-12.5] 1 tab PO AC-LUNCH traMADol HCL 50 mg PO Q6H PRN #12 tab PRN Reason: Pain Levothyroxine Sodium [Synthroid] 25 mcg PO DAILY Omeprazole 20 mg PO DAILY Aspirin 81 mg PO DAILY chew Atorvastatin [Lipitor] 40 mg PO DAILY #30 tab Potassium Chloride ER [K-Dur 10] 20 meq PO AC-LUNCH Nitroglycerin Sl Tabs [Nitrostat] 0.4 mg SL Q5M PRN PRN Reason: Chest Pain Multivit-Min/FA/Lycopen/Lutein [Centrum Silver Tablet] 1 tab PO DAILY Acyclovir 400 mg PO BID Discontinued Lenalidomide [Revlimid] 15 mg PO DIRECTED Furosemide [Lasix] 20 mg PO DAILY Metoprolol Tartrate [Lopressor] 25 mg PO HS dexAMETHasone [Dexamethasone] 20 mg PO DIRECTED Discharge Medication List Levothyroxine Sodium [Synthroid] 25 mcg PO DAILY 02/26/21 [History] Omeprazole 20 mg PO DAILY 02/26/21 [History] Aspirin 81 mg PO DAILY chew 03/26/21 [Rx] Atorvastatin [Lipitor] 40 mg PO DAILY #30 tab 03/26/21 [Rx] Clopidogrel [Plavix] 75 mg PO DAILY #30 tab 03/26/21 [Rx] Acyclovir 400 mg PO BID 04/21/21 [History] Losartan-Hctz 50-12.5 mg [Hyzaar 50-12.5] 1 tab PO AC-LUNCH 04/21/21 [History] Metoprolol Tartrate [Lopressor] 50 mg PO DAILY 04/21/21 [History] Multivit-Min/FA/Lycopen/Lutein [Centrum Silver Tablet] 1 tab PO DAILY 04/21/21 [History] Nitroglycerin Sl Tabs [Nitrostat] 0.4 mg SL Q5M PRN 04/21/21 [History] Potassium Chloride ER [K-Dur 10] 20 meq PO AC-LUNCH 04/21/21 [History] Sulfamethox-Tmp 400-80Mg [Bactrim SS 400-80 mg] 1 tab PO MOWEFR 04/21/21 [History] Aspirin 81 mg PO DAILY chew 04/23/21 [Rx] DULoxetine HCL [Cymbalta] 20 mg PO DAILY capsule. 04/23/21 [Rx] Furosemide [Lasix] 40 mg PO 0900,1800 tab 04/23/21 [Rx] Mirtazapine [Remeron] 7.5 mg PO HS tab 04/23/21 [Rx] Spironolactone [Aldactone] 25 mg PO DAILY tab 04/23/21 [Rx] traMADol HCL 50 mg PO Q6H PRN #12 tab 04/23/21 [Rx] Follow up Appointment(s)/Referral(s): Beto Copeland MD [STAFF PHYSICIAN] - 2 Weeks Zion Davalos MD [Primary Care Provider] - 1 Week (After discharge from [facility])
--- NOTE | 2021-04-23 15:28 | P.PN ---
Subjective Progress Note Date: 04/23/21 HISTORY OF PRESENT ILLNESS This is an 85-year-old female patient of Dr. Zion Davalos with past medical history of hypertension, hypothyroidism, generalized osteoarthritis. Patient was recently diagnosed with multiple myeloma under the care of Dr. Aden. She states she is tired all the time was recently diagnosed with anemia and has had weight loss of 50 pounds over the past 6-8 months. She is currently on dexamethasone and Revlimid for multiple myeloma. Patient had recent hospitalization March 22 through March 26 which time she was treated for non-ST elevated myocardial infarction status post heart catheterization and stenting of the LAD and was discharged home. Echocardiogram at that time revealed EF of 20- 25% with mild aortic regurgitation, severe mitral regurgitation, mild tricuspid regurgitation, mild pulmonary hypertension. Patient complains of shortness of breath and chest congestion. She states prior to that should not been feeling well for the last couple of days. She denies any chest pain. She denies any cough. She does not use oxygen at home. She denies diagnosis of COPD or asthma. She denies any weight gain. She states she has had a follow-up appointment with Dr. Emmanuel Copeland since her last hospitalization and she has an appointment with Dr. Davalos next week. Patient presented to [facility] emergency center for ev aluation. EKG is a sinus rhythm with left bundle branch block unchanged from previous. Chest x-ray shows mild pulmonary interstitial edema that could be acute heart failure and is unchanged. WBC 7.3. Hemoglobin 11.3. Platelet count 149. Sodium 139. Potassium 3.0. BUN 17. Creatinine 0.80. BNP 14,100. Troponin 1.010, 4.280 and 8.740. Lactic acid 5.0, 2.3 and 1.5. Patient was afebrile, initial heart rate 117, blood pressure 159/109, pulse ox 92% on room air. At time of evaluation, heart rate 93 and blood pressure 141/96. Patient states that she has been seen by cardiology and is planned for heart catheterization later today or tomorrow. She is seen today in the ER waiting for a bed on the cardiac stepdown unit. 04/22: Patient underwent heart catheterization yesterday and PTCA and stenting of the mid LAD with Dr. RUBY Copeland. Patient denies having any shortness of breath, chest pain this morning. She denies any lightheadedness or dizziness. Cardiology has started the patient on Aldactone plan to continue IV Lasix for another 24 hours. Patient verbalized to the nurse of depression and thinking that she is going to be dying. We will start the patient on Cymbalta and asked for psychiatric evaluation. Patient has been afebrile, heart rate 86, blood pressure 172/77, pulse ox 93% on 2 L nasal cannula. Repeat blood work reveals WBC 3.3, hemoglobin 9.6, platelet count 114. Sodium 139, potassium 3.0, chloride 109, CO2 27, creatinine 0.63. Cardiology had ordered potassium replacement the patient had refused because of the size of the pills. We will try to order 10 mEq tablets instead to see if patient will tolerate. 04/23: Patient has been seen by psychiatry and recommendations to continue Cymbalta which we started yesterday and also added in Remeron. Patient was reassessed for this morning with no other changes. Patient is to have resources as an outpatient to follow-up. Patient has been seen and followed by cardiology and cleared for discharge. IV Lasix transition to oral. Patient has been afebrile, blood pressure 150/67, heart rate 62, pulse ox 99% on 2 L nasal cannula. Patient denies any complaints today. No chest pain or shortness of breath. Patient will be discharged to order one today in stable condition. Patient was prepared for discharge to subacute rehab but when social work called the family to update them, they stated that patient was not going to [facility] and they wanted the patient to go home with hospice care. Patient will be discharged to home with hospice care in stable condition. Arrangements for home will be delayed by a day and thus discharge will be held until tomorrow. REVIEW OF SYSTEMS Constitutional: No fever, no chills, no night sweats. No weight change. No weakness, fatigue or lethargy. No daytime sleepiness. EENT: No headache. No blurred vision or double vision, no loss of vision. No loss of Hearing, no ringing in the ears, no dizziness. No nasal drainage or congestion. No epistaxis. No sore throat. Lungs:Reports shortness of breath, no cough, no sputum production. No wheezing.Reports exertional dyspnea. Cardiovascular: Denies chest pain, no lower extremity edema. No palpitations. No paroxysmal nocturnal dyspnea. No orthopnea. No lightheadedness or di zziness. No syncopal episodes. Abdominal: No abdominal pain. No nausea, vomiting. No diarrhea. No constipation. No bloody or tarry stools.. No loss of appetite. Genitourinary: No dysuria, increased frequency, urgency. No urinary retention. Musculoskeletal: No myalgias. No muscle weakness, no gait dysfunction, no frequent falls. No back pain. No neck pain. Integumentary: No wounds, no lesions. No rash or pruritus. No unusual bruising. No change in hair or nails. Neurologic: No aphasia. No facial droop. No change in mentation. No head injury. No headache. No paralysis. No paresthesia. Psychiatric: Reports depression. No anxiety. Endocrine: Noted abnormal blood sugars. PHYSICAL EXAMINATION Gen: This is this is an 85-year-old female. Patient is resting in bed and appears to be comfortable and in no acute distress. HEENT: Head is atraumatic, normocephalic. Pupils equal, round. Sclerae is anicteric. NECK: Supple. No JVD. No lymphadenopathy. No thyromegaly. LUNGS: Clear to auscultation. No wheezes or rhonchi. No intercostal retra ctions. HEART: Regular rate and rhythm. Positive S3. Systolic murmur. ABDOMEN: Soft. Bowel sounds are present. No masses. No tenderness. EXTREMITIES:Trace bilateral pedal edema. No calf tenderness. Dorsalis pedis +2 bilaterally. NEUROLOGICAL: Patient is awake, alert and oriented x3. Cranial nerves 2 through 12 are grossly intact. ASSESSMENT AND PLAN 1. Non-ST elevated myocardial infarction status post heart catheterization and PTCA and stenting of the mid LAD on 04/[address] RUBY Copeland. Consult with cardiology appreciated. Patient is off heparin drip, continue aspirin 81 mg daily, Lipitor 40 mg daily, Plavix 75 mg daily, Lasix 20 mg IV every 8 hours, Lopressor was increased to 50 mg daily starting today, spironolactone 25 mg daily. 2. Recent non-ST elevated myocardial infarction status post heart catheterization and stent of the LAD, 03/23. Continue as in #1. 3. Hyperglycemia with no previous diagnoses of diabetes. A1c 5.6. 4. Lactic acidosis most likely secondary to acute myocardial infarction. 5. Ischemic cardiomyopathy with EF 20-25%. Patient has been started on Lasix 40 mg oral twice daily, continue Lopressor. 6. Recent diagnosis of multiple myeloma. Dexamethasone and Revlimid on hold. 7. Hypertension. Continue amlodipine 5 mg twice daily, Zestoretic daily, Lopressor increased to 50 mg daily. 8. Hypothyroidism. Continue levothyroxine 50 g daily. 9. Generalized osteoarthritis, stable. 10. GI prophylaxis. Protonix 40 mg daily. 11. DVT prophylaxis. 12. Situational depression. Patient started on Cymbalta 20 mg daily, psychiatric consult requested. 13. Multiple myeloma. Patient is opting for no treatment at this point. 14. Possible chronic hypoxic respiratory failure. Patient may require home ox ygen therapy. Plan for assessment prior to discharge. CODE STATUS: NO CODE DISCHARGE PLAN Home with [facility]. Impression and plan of care have been directed as dictated by the signing physician. Cait Longo nurse practitioner acting as scribe for signing physician. Objective - Vital Signs Vital signs: Vital Signs Temp 97.2 F L 04/23/21 08:00 Pulse 73 04/23/21 08:00 Resp 20 04/23/21 08:00 BP 145/65 04/23/21 08:00 Pulse Ox 98 04/23/21 08:00 Intake & Output 04/22/21 04/23/21 04/23/21 18:59 06:59 18:59 Intake Total 600 240 Output Total 800 300 Balance 600 -800 -60 Weight 42.6 kg Intake: Oral 600 240 Output: Urine 800 300 Other: Voiding Method Toilet Toilet # Voids 1 2 - Labs CBC & Chem 7: 04/22/21 06:07 04/23/21 08:48
[2021-04-23] MEDS: FUROSEMIDE 40 MG TAB PO SCH (17:12)
[2021-04-23] MEDS: MIRTAZAPINE 15 MG TAB PO SCH (20:17)
[2021-04-24 04:43] VITALS: RESP 18
[2021-04-24] MEDS: LEVOTHYROXINE 25 MCG TAB PO SCH (06:11)
[2021-04-24] MEDS: PANTOPRAZOLE 40 MG TABLET PO SCH (06:11)
[2021-04-24] MEDS: ASPIRIN 81 MG PO SCH (08:30)
[2021-04-24] MEDS: SPIRONOLACTONE 25 MG TAB PO SCH (08:31)
[2021-04-24] MEDS: ATORVASTATIN 40 MG TAB PO SCH (08:31)
[2021-04-24] MEDS: METOPROLOL TARTRATE 50 MG TAB PO SCH (08:31)
[2021-04-24] MEDS: CLOPIDOGREL 75 MG TAB PO SCH (08:31)
[2021-04-24] MEDS: SULFAMETHOX-TMP 400-80MG 1 EACH TAB PO SCH (08:32)
[2021-04-24 08:46] LABS: African American GFR (CKD) >90 (>60 ml/min/1.73 sqM); Anion Gap 4 mmol/L; Blood Urea Nitrogen 20 mg/dL (7-17); Calcium 7.3 mg/dL (8.4-10.2); Carbon Dioxide 28 mmol/L (22-30); Chloride 108 mmol/L (98-107); Glucose 87 mg/dL (74-99); Non-African American GFR(CKD) 81 (>60 ml/min/1.73 sqM); Potassium 2.9 mmol/L (3.5-5.1); Sodium 140 mmol/L (137-145)
[2021-04-24] MEDS: DULoxetine HCL 20 MG CAPSULE.DR PO SCH (09:00)
[2021-04-24] MEDS: FUROSEMIDE 40 MG TAB PO SCH (09:00)
[2021-04-24] MEDS: MULTIVITAMINS, THERA 1 EACH TAB PO SCH (09:00)
[2021-04-24] MEDS: ACYCLOVIR 200 MG CAP PO SCH (09:00)
[2021-04-24] MEDS ORDERED: POTASSIUM CHLORIDE ER 20 MEQ TAB.ER PO SCH (10:45)
[2021-04-24] MEDS: POTASSIUM CHLORIDE ER 20 MEQ TAB.ER PO SCH (11:59)
[2021-04-24] MEDS: LOSARTAN-HCTZ 50-12.5 MG 1 EACH TAB PO SCH (12:30)
[2021-04-24 12:37] VITALS: BMI 18.2
--- NOTE | 2021-04-24 14:45 | PN ---
PROGRESS NOTE Mrs. Coles is am 85-year-old female who has a known history of coronary artery disease, history of severe cardiomyopathy, history of mitral regurgitation, who presented with non STEMI, underwent cardiac catheterization and stenting of the LAD by Dr. Copeland. She is feeling better overall. Her breathing is stable. She denies any dizziness. She denies any palpitation. She continues to have some dyspnea although stable. She is continued on aspirin once a day, Lipitor 40 mg daily, Plavix 75 mg daily, Lasix 40 mg twice a day, losartan 50-12.5 mg daily, metoprolol tartrate 50 mg twice a day, spironolactone 25 mg daily. PHYSICAL EXAMINATION: Blood pressure 129/60 with a heart rate in the 70s. LUNGS: Clear. HEART: Regular rate and rhythm, S1, S2. No S3 with a holosystolic murmur in the apex radiating to the axilla. ABDOMEN: Soft, nontender. Positive bowel sounds. No organomegaly. EXTREMITIES: No edema. LAB DATA: Lab data revealed a potassium of 2.9. BUN and creatinine 20 and 0.69. Sodium 140. IMPRESSION: 1. Non ST-segment elevation myocardial infarction status post stenting of the LAD. 2. Severe cardiomyopathy. 3. Severe mitral regurgitation. 4. Congestive heart failure with systolic dysfunction. 5. History of hypertension. 6. Hyperlipidemia. 7. Hypokalemia. 8. History of multiple myeloma. RECOMMENDATION: The patient will be started on oral potassium. She should be able to be transferred today and followed as an outpatient with Dr. Grisel Copeland. MMODL / CINDYN: [id number] /
[2021-04-24] MEDS: SODIUM CHLORIDE 0.9% 1,000 ML IV SCH (16:29)
[2021-04-24 17:52] VITALS: BP 127/65; PULSE 74; TEMP 98
== END 2021-04-24 17:04 | disposition home health service (06) | DRG 246 ==
LOC: EC 04:37 → 3SCARD 06:35
PROVIDERS: ADMIT Internal Medicine Geriatric Medicine; ATTEND Internal Medicine Geriatric Medicine
PROC: B2111ZZ Fluoroscopy of Multiple Coronary Arteries using Low Osmolar Contrast (ICD-10-PCS; principal; 2021-04-21 12:30)
PROC: 027034Z Dilation of Coronary Artery, One Artery with Drug-eluting Intraluminal Device, Percutaneous Approach (ICD-10-PCS; principal; 2021-04-21 12:30)
PROC: 4A023N7 Measurement of Cardiac Sampling and Pressure, Left Heart, Percutaneous Approach (ICD-10-PCS; principal; 2021-04-21 12:30)
DX: I22.2 Subsequent non-ST elevation (NSTEMI) myocardial infarction (principal); I50.23 Acute on chronic systolic (congestive) heart failure; C90.00 Multiple myeloma not having achieved remission; E87.2 Acidosis; J44.0 Chronic obstructive pulmonary disease with (acute) lower respiratory infection; J44.1 Chronic obstructive pulmonary disease with (acute) exacerbation; Z68.1 Body mass index [BMI] 19.9 or less, adult; J96.11 Chronic respiratory failure with hypoxia; I21.4 Non-ST elevation (NSTEMI) myocardial infarction; Z87.891 Personal history of nicotine dependence; E89.0 Postprocedural hypothyroidism; Z66 Do not resuscitate; Z51.5 Encounter for palliative care; E78.5 Hyperlipidemia, unspecified; E87.6 Hypokalemia; F41.9 Anxiety disorder, unspecified; F43.21 Adjustment disorder with depressed mood; I11.0 Hypertensive heart disease with heart failure; R63.4 Abnormal weight loss; I08.0 Rheumatic disorders of both mitral and aortic valves; I27.20 Pulmonary hypertension, unspecified; I25.10 Atherosclerotic heart disease of native coronary artery without angina pectoris; I25.2 Old myocardial infarction; I25.5 Ischemic cardiomyopathy; I44.7 Left bundle-branch block, unspecified; R73.9 Hyperglycemia, unspecified; K21.9 Gastro-esophageal reflux disease without esophagitis; J20.9 Acute bronchitis, unspecified; M15.9 Polyosteoarthritis, unspecified; Z79.02 Long term (current) use of antithrombotics/antiplatelets; Z79.82 Long term (current) use of aspirin; Z79.890 Hormone replacement therapy; Z79.899 Other long term (current) drug therapy; Z80.1 Family history of malignant neoplasm of trachea, bronchus and lung; Z82.49 Family history of ischemic heart disease and other diseases of the circulatory system; Z90.89 Acquired absence of other organs; Z98.42 Cataract extraction status, left eye; Z98.41 Cataract extraction status, right eye; Z96.1 Presence of intraocular lens; Z96.653 Presence of artificial knee joint, bilateral; Z98.890 Other specified postprocedural states; Z88.0 Allergy status to penicillin; Z71.3 Dietary counseling and surveillance
CPT/HCPCS: 36415; 71045; 80048; 80053; 80061; 82550; 83605; 83735; 83880; 84484; 85025; 85610; 85730; 93005; 93454; 94640; 96361; 96374; 99291

== ENCOUNTER 2021-12-14 09:14 | Emergency (ER) | payer MEDICARE ==
[2021-12-14 09:28] VITALS: RESP 18; TEMP 98
[2021-12-14] MEDS ORDERED: HYDROmorphone 0.5 MG/0.5 ML SYRINGE IVP STA (09:48)
[2021-12-14 10:11] VITALS: BP 142/71; PULSE 69
--- NOTE | 2021-12-14 10:41 | XR ---
EXAMINATION TYPE: XR elbow limited LT DATE OF EXAM: 12/14/2021 COMPARISON: NONE HISTORY: 86-year-old female with pain after fall today, obvious deformity TECHNIQUE: 2 views FINDINGS: There is a transverse fracture through the distal humerus along the supracondylar level, through the proximal aspect of the olecranon fossa. Associated comminution, medial displacement by approximately 2.0 cm, and slight posterior angulation. Associated soft tissue swelling. The radiocapitellar ulnotro chlear joints appear grossly intact. IMPRESSION: Transverse supracondylar fracture of the distal humerus through the superior aspect of the olecranon fossa. 2 cm of medial displacement and slight posterior angulation. Associated mild comminution. Soft tissue swelling.
--- NOTE | 2021-12-14 11:49 | ED ---
Upper Extremity HPI - General Chief Complaint: Extremity Injury, Upper Stated Complaint: Fall Time Seen by Provider: 12/14/21 09:30 Source: patient, EMS Mode of arrival: EMS Limitations: no limitations - History of Present Illness Initial Comments: 86-year-old female presents emergency Department with chief complaint of fall, left elbow injury. Patient states she tripped over a cord found her left elbow. She had no other injuries no head injury no loss conscious. Patient states that there is a deformity, swelling her left elbow states it is very painful she has movement of her fingers, no discoloration - Related Data Home Medications Medication Instructions Recorded Confirmed Omeprazole 20 mg PO DAILY 02/26/21 12/14/21 Losartan-Hctz 50-12.5 mg [Hyzaar 1 tab PO AC-SUPPER 04/21/21 12/14/21 50-12.5] Metoprolol Tartrate [Lopressor] 50 mg PO DAILY 04/21/21 12/14/21 Potassium Chloride ER [K-Dur 10] 20 meq PO BID@1200,2100 04/21/21 12/14/21 Clopidogrel [Plavix] 75 mg PO DAILY@1200 12/14/21 12/14/21 Furosemide [Lasix] 40 mg PO BID@0700,1200 12/14/21 12/14/21 Levothyroxine Sodium [Synthroid] 25 mcg PO DAILY 12/14/21 12/14/21 Metoprolol Tartrate [Lopressor] 25 mg PO HS 12/14/21 12/14/21 Previous Rx's Medication Instructions Recorded Spironolactone [Aldactone] 25 mg PO DAILY #30 tablet 04/23/21 Allergies Allergy/AdvReac Type Severity Reaction Status Date / Time Penicillins Allergy Swelling Verified 12/14/21 11:31 of entire body shellfish derived [Shellfish] AdvReac Nausea & Verified 12/14/21 11:31 Vomiting Review of Systems ROS Statement: Those systems with pertinent positive or pertinent negative responses have been documented in the HPI. ROS Other: All systems not noted in ROS Statement are negative. Past Medical History Past Medical History: Cancer, GERD/Reflux, Hypertension, Osteoarthritis (OA), Thyroid Disorder Additional Past Medical History / Comment(s): MULTIPLE MYELOMA- diagnosed in march 2021, two iv chem treatments so far, last treatment was 04/20/2021, Bone Cancer currently History of Any Multi-Drug Resistant Organisms: None Reported Past Surgical History: Appendectomy, Joint Replacement, Tonsillectomy Additional Past Surgical History / Comment(s): BILAT TKA. BILAT CARARACTS REMOVED WITH LENS IMPLANTS. 1/2 OF THYROID REMOVED. FATTY TUMOR REMOVED FROM KNEE. COLONOSCOPY Past Anesthesia/Blood Transfusion Reactions: No Reported Reaction Past Psychological History: No Psychological Hx Reported Smoking Status: Former smoker Past Alcohol Use History: None Reported Past Drug Use History: None Reported - Past Family History Mother Family Medical History: Cancer General Exam Limitations: no limitations General appearance: alert, in no apparent distress Head exam: Present: atraumatic, normocephalic, normal inspection Neck exam: Present: normal inspection. Absent: tenderness, meningismus, lymphadenopathy Respiratory exam: Present: normal lung sounds bilaterally. Absent: respiratory distress, wheezes, rales, rhonchi, stridor Cardiovascular Exam: Present: regular rate, normal rhythm, normal heart sounds. Absent: systolic murmur, diastolic murmur, rubs, gallop, clicks Extremities exam: Present: other (Left elbow obvious deformity, radial pulses are equal bilaterally, cap refill less than 2 seconds. Patient does have full sensation no tenderness proximal or distal) Course Vital Signs 12/14/21 12/14/21 09:23 10:11 Temperature 98 F Pulse Rate 70 69 Respiratory 18 18 Rate Blood Pressure 171/72 142/71 O2 Sat by Pulse 98 97 Oximetry Procedures - Orthopedic Splinting/Casting Injury #1 Side: left Upper Extremity Injury Location: long arm, elbow Upper Extremity Immobilizer: sling/shoulder immobilizer, posterior splint, synthetic pre-padded splint Medical Decision Making - Medical Decision Making Dr. Mendo[facility] reviewed the case, recommends patient to be transferred as concern for pathological fracture. [facility] discussed with [facility] who accepts transfer. Case discussed with Dr. Keila [facility] Disposition Clinical Impression: Supracondylar fracture of left humerus Disposition: OTHER INSTITUTION NOT DEFINED Condition: Stable Referrals: Zion Davalos MD [Primary Care Provider] - 1-2 days Time of Disposition: 11:49 - Out of Hospital Transfer - Req. Specs Out of Hospital Transfer - Requested Specifics: Other Emergency Center ([facility])
== END 2021-12-14 12:40 | disposition other institution (70) ==
LOC: EC 09:14
DX: S42.412A Displaced simple supracondylar fracture without intercondylar fracture of left humerus, initial encounter for closed fracture (principal); I10 Essential (primary) hypertension; K21.9 Gastro-esophageal reflux disease without esophagitis; M19.90 Unspecified osteoarthritis, unspecified site; Z87.891 Personal history of nicotine dependence; Z79.02 Long term (current) use of antithrombotics/antiplatelets; Z79.890 Hormone replacement therapy; Z79.899 Other long term (current) drug therapy; W01.0XXA Fall on same level from slipping, tripping and stumbling without subsequent striking against object, initial encounter
CPT/HCPCS: 99285 ×2; 96374 ×2; 73070; J1170

== ENCOUNTER 2022-03-03 11:50 | Inpatient (IN) | payer MEDICARE ==
[2022-03-03] MEDS ORDERED: SODIUM CHLORIDE 0.9% 1,000 ML IV STA ×2 (11:57→13:08)
--- NOTE | 2022-03-03 12:11 | ED ---
General Adult HPI - General Chief complaint: Recheck/Abnormal Lab/Rx Stated complaint: Abd labs Time Seen by Provider: 03/03/22 11:57 Source: patient, RN notes reviewed Mode of arrival: ambulatory Limitations: no limitations - History of Present Illness Initial comments: Patient is a pleasant 86-year-old female presenting to the emergency department with reported hypercalcemia. Patient states otherwise she feels fine. Patient does have some fatigue and occasional palpitations however those are chronic and unchanged. Patient is unclear how high her calcium level was. Patient states blood work was done yesterday. Patient received a call today advising her to come to the hospital. Patient does have history of multiple myeloma and is on radiation therapy. There is potential further therapy starting in the next few days. - Related Data Home Medications Medication Instructions Recorded Confirmed Omeprazole 20 mg PO DAILY 02/26/21 03/03/22 Losartan-Hctz 50-12.5 mg [Hyzaar 1 tab PO DAILY 04/21/21 03/03/22 50-12.5] Metoprolol Tartrate [Lopressor] 50 mg PO DAILY 04/21/21 03/03/22 Potassium Chloride ER [K-Dur 10] 10 meq PO BID 04/21/21 03/03/22 Clopidogrel [Plavix] 75 mg PO DAILY 12/14/21 03/03/22 Levothyroxine Sodium [Synthroid] 25 mcg PO DAILY 12/14/21 03/03/22 Metoprolol Tartrate [Lopressor] 25 mg PO HS 12/14/21 03/03/22 Aspirin EC [Ecotrin Low Dose] 81 mg PO DAILY 03/03/22 03/03/22 Furosemide [Lasix] 20 mg PO BID 03/03/22 03/03/22 Lenalidomide [Revlimid] 15 mg PO DIRECTED 03/03/22 03/03/22 Sertraline [Zoloft] 25 mg PO DAILY 03/03/22 03/03/22 Previous Rx's Medication Instructions Recorded Spironolactone [Aldactone] 25 mg PO DAILY #30 tablet 04/23/21 Allergies Allergy/AdvReac Type Severity Reaction Status Date / Time Penicillins Allergy Swelling Verified 03/03/22 14:03 of entire body shellfish derived [Shellfish] AdvReac Nausea & Verified 03/03/22 14:03 Vomiting Review of Systems ROS Statement: Those systems with pertinent positive or pertinent negative responses have been documented in the HPI. ROS Other: All systems not noted in ROS Statement are negative. Constitutional: Denies: fever Eyes: Denies: eye pain ENT: Denies: ear pain Respiratory: Denies: cough Cardiovascular: Reports: palpitations Endocrine: Reports: fatigue Gastrointestinal: Denies: abdominal pain Genitourinary: Denies: dysuria Musculoskeletal: Denies: back pain Skin: Denies: rash Neurological: Denies: weakness Past Medical History Past Medical History: Cancer, GERD/Reflux, Hypertension, Osteoarthritis (OA), Thyroid Disorder Additional Past Medical History / Comment(s): MULTIPLE MYELOMA- diagnosed in march 2021, two iv chem treatments so far, last treatment was 04/20/2021, Bone Ca ncer currently History of Any Multi-Drug Resistant Organisms: None Reported Past Surgical History: Appendectomy, Joint Replacement, Tonsillectomy Additional Past Surgical History / Comment(s): BILAT TKA. BILAT CARARACTS UMA ANSELMO WITH LENS IMPLANTS. 1/2 OF THYROID REMOVED. FATTY TUMOR REMOVED FROM KNEE. COLONOSCOPY Past Anesthesia/Blood Transfusion Reactions: No Reported Reaction Past Psychological History: No Psychological Hx Reported Smoking Status: Former smoker Past Alcohol Use History: None Reported Past Drug Use History: None Reported - Past Family History Mother Family Medical History: Cancer General Exam Limitations: no limitations General appearance: alert, in no apparent distress Head exam: Present: normocephalic Eye exam: Present: normal appearance Neck exam: Present: normal inspection Respiratory exam: Present: normal lung sounds bilaterally Cardiovascular Exam: Present: regular rate, normal rhythm GI/Abdominal exam: Present: soft. Absent: tenderness Neurological exam: Present: alert. Absent: motor sensory deficit Psychiatric exam: Present: normal affect, normal mood Skin exam: Present: normal color Course Vital Signs 03/03/22 03/03/22 11:53 13:20 Temperature 97.7 F Pulse Rate 62 62 Respiratory 20 16 Rate Blood Pressure 143/73 138/70 O2 Sat by Pulse 99 95 Oximetry - Reevaluation(s) Reevaluation #1: 03/03/22 13:[address] Wood, who will admit covering Dr. Davalos, time. He does recommend discussing case with oncology prior to further treatment for hypercalcemia. 03/03/22 14:45 Oncology has been paged multiple times including calling the office and overhead. Patient will be given a dose of calcitonin pending oncology consult. EKG Findings - EKG Comments: EKG Findings:: Sinus rhythm with a rate of 61. First-degree AV block with a AL of 220. QRS 172. QT 414. QTC 418. Left axis. Left bundle branch block. Medical Decision Making - Medical Decision Making Patient reevaluated and updated - Lab Data Result diagrams: 03/03/22 12:15 03/03/22 12:15 Lab Results 03/03/22 03/03/22 Range/Units 12:15 12:15 WBC 6.0 (3.8-10.6) k/uL RBC 3.28 L (3.80-5.40) m/uL Hgb 10.4 L (11.4-16.0) gm/dL Hct 31.7 L (34.0-46.0) % MCV 96.5 (80.0-100.0) fL MCH 31.8 (25.0-35.0) pg MCHC 33.0 (31.0-37.0) g/dL RDW 14.4 (11.5-15.5) % Plt Count 259 (150-450) k/uL MPV 7.7 Neutrophils % 73 % Lymphocytes % 19 % Monocytes % 5 % Eosinophils % 0 % Basophils % 1 % Neutrophils # 4.4 (1.3-7.7) k/uL Lymphocytes # 1.1 (1.0-4.8) k/uL Monocytes # 0.3 (0-1.0) k/uL Eosinophils # 0.0 (0-0.7) k/uL Basophils # 0.0 (0-0.2) k/uL Sodium 134 L (137-145) mmol/L Potassium 3.5 (3.5-5.1) mmol/L Chloride 100 (98-107) mmol/L Carbon Dioxide 27 (22-30) mmol/L Anion Gap 7 mmol/L BUN 58 H (7-17) mg/dL Creatinine 1.34 H (0.52-1.04) mg/dL Est GFR (CKD-EPI)AfAm 42 (>60 ml/min/1.73 sqM) Est GFR (CKD-EPI)NonAf 37 (>60 ml/min/1.73 sqM) Glucose 98 (74-99) mg/dL Calcium 14.8 H* (8.4-10.2) mg/dL Ionized Calcium Arian 8.3 H* (4.5-5.3) mg/dL Phosphorus 4.1 (2.5-4.5) mg/dL Magnesium 1.6 (1.6-2.3) mg/dL Total Bilirubin 0.3 (0.2-1.3) mg/dL AST 25 (14-36) U/L ALT 11 (4-34) U/L Alkaline Phosphatase 66 (38-126) U/L Total Protein 8.9 H (6.3-8.2) g/dL Albumin 4.0 (3.5-5.0) g/dL Disposition Clinical Impression: Hypercalcemia Disposition: ADMITTED IP TO THIS HOSP Is patient prescribed a controlled substance at d/c from ED?: No Referrals: Zion Davalos MD [Primary Care Provider] - 1-2 days Time of Disposition: 14:48
[2022-03-03 12:31] LABS: Basophils % (A) 1 %; Eosinophils % (A) 0 %; HCT 31.7 % (34.0-46.0); HGB 10.4 gm/dL (11.4-16.0); Lymphocytes # (A) 1.1 k/uL (1.0-4.8); Lymphocytes % (A) 19 %; MCH 31.8 pg (25.0-35.0); MCV 96.5 fL (80.0-100.0); Mean Platelet Volume 7.7; Monocytes # (A) 0.3 k/uL (0-1.0); Monocytes % (A) 5 %; Neutrophils # (A) 4.4 k/uL (1.3-7.7); Neutrophils % (A) 73 %; Platelet Count 259 k/uL (150-450); RBC 3.28 m/uL (3.80-5.40); RDW 14.4 % (11.5-15.5)
[2022-03-03 12:47] LABS: Magnesium 1.6 mg/dL (1.6-2.3); Phosphorus 4.1 mg/dL (2.5-4.5); Potassium 3.5 mmol/L (3.5-5.1); Total Bilirubin 0.3 mg/dL (0.2-1.3); Total Protein 8.9 g/dL (6.3-8.2)
[2022-03-03 12:57] LABS: Calcium 14.8 mg/dL (8.4-10.2)
[2022-03-03 12:58] LABS: Ionized Calcium 8.3 mg/dL (4.5-5.3)
[2022-03-03] MEDS ORDERED: NALOXONE 0.4 MG/ML 1 ML VIAL IV PRN (14:52)
[2022-03-03] MEDS ORDERED: CALCITONIN INJ 200 UNIT/ML (MDV) VIAL SQ ONE (15:15)
[2022-03-03] MEDS ORDERED: SODIUM CHLORIDE 0.9% 1,000 ML IV SCH (17:30)
[2022-03-03] MEDS: SODIUM CHLORIDE 0.9% 1,000 ML IV SCH (17:48)
[2022-03-03] MEDS: METOPROLOL TARTRATE 25 MG TAB PO SCH (22:03)
[2022-03-03] MEDS: MELATONIN 5 MG TABLET PO SCH (22:03)
--- NOTE | 2022-03-04 00:19 | P.HPIM ---
History of Present Illness H&P Date: 03/03/22 HISTORY OF PRESENT ILLNESS 86-year-old female one of Dr. Zion Davalos's patient with known from previous admission was known to have history of CAD post angioplasty and stent placement in April 2021 who seen cardiology regular basis was at the time diagnosed with multiple myeloma who apparently had started treatment with her oncologist since. Patient has not felt well last week was in to see her oncologist 2 days earlier blood drawn was done at the time her calcium came back at 15.6. Patient was contacted by her oncologist artillery meteorological man today to inform her that her calcium level was very high and she must come to the emergency department for hydration and admission. Patient apparently has been having significant tired fatigue weakness and generalized GI symptoms including nausea constipation lightheadedness and mild confusion. she was seen and evaluated the emergency department her hemoglobin was 10.4 with normal CBC, sodium was 154 her potassium was 3.5 creatinine 1.34 with acute kidney injury compared to her baseline been around 0.7. Calcium level was 14.8 with ionized of 8.3. Patient was giving 1 dose of Miacalcin 160 mg subcutaneous and was kept on IV hydration at 200 mL an hour. Was admitted to the hospital will consult nephrology and oncology continue hydration repeat her labs in the morning. Most of her medication were held at the time with acute kidney injury and hypercalcemia 40 about further injury. Has not been on well antiplatelet agent since morning. REVIEW OF SYSTEMS Constitutional: No fever, no chills, no night sweats. No weight change. No weakness, fatigue or lethargy. No daytime sleepiness. EENT: No headache. No blurred vision or double vision, no loss of vision. No loss of Hearing, no ringing in the ears, no dizziness. No nasal drainage or congestion. No epistaxis. No sore throat. Lungs:Reports shortness of breath, no cough, no sputum production. No wheezing.Reports exertional dyspnea. Cardiovascular: Denies chest pain, no lower extremity edema. No palpitations. No paroxysmal nocturnal dyspnea. No orthopnea. No lightheadedness or dizziness. No syncopal episodes. Abdominal: positive abdominal pain, nausea no vomiting has constipation with slight increase abdominal discomfort and significant lack of appetite but no bloody bowel movement and no tarry stool. Genitourinary: No dysuria, Decrease urine output with no retention.. Musculoskeletal: No myalgias. No muscle weakness, no gait dysfunction, no frequent falls. No back pain. No neck pain. Integumentary: No wounds, no lesions. No rash or pruritus. No unusual bruising. No change in hair or nails. Neurologic: No aphasia. No facial droop. No change in mentation. No head injury. No headache. No paralysis. No paresthesia.mild confusion. Psychiatric: No depression. No anxiety. Endocrine: Noted abnormal blood sugars. SOCIAL HISTORY Patient was a smoker for short period only and quit in 1963. No alcohol use or abuse. She does have a walker to use at home. No recent falls. FAMILY HISTORY Mother is from lung cancer. Father is from massive myocardial infarction. Patient has a brother that had coronary artery disease starting in his 40s. PHYSICAL EXAMINATION Gen: This is this is an 85-year-old female. Patient is resting in bed and appears to be comfortable and in no acute distress. HEENT: Head is atraumatic, normocephalic. Pupils equal, round. Sclerae is anicteric. NECK: Supple. No JVD. No lymphadenopathy. No thyromegaly. LUNGS: Clear to auscultation. No wheezes or rhonchi. No intercostal retractions. HEART: Regular rate and rhythm. Positive S3. Systolic murmur. ABDOMEN: Soft. Bowel sounds are present. No masses. No tenderness. EXTREMITIES:Trace bilateral pedal edema. No calf tenderness. Dorsalis pedis +2 bilaterally. NEUROLOGICAL: Patient is awake, alert and oriented x3. Cranial nerves 2 through 12 are grossly intact. ASSESSMENT AND PLAN 1 acute hypercalcemia: Most likely from multiple myeloma and the effect of chemotherapy, will continue patient on hydration, calcitonin was giving we will watch her creatinine and calcium in the next 24 hours. 2 acute kidney injury with most likely acute tubular necrosis specially with her current complaint with hypercalcemia and decrease urine output, continue hydration watch her urine output ultrasound of the kidney might be order nephrology consultation be done as well. 3 history of atherosclerotic heart disease non-ST FL back in March 2021 patient has been on medical management, statin, beta sidney and dual antiplatelet agent will be continue. 4 hypertension: The hold off on her losartan and spironolactone for 24 hours. 5 hyperlipidemia: Resume her higher potency statin with atorvastatin or resume a statin in the next 24 hours. 6 hypothyroidism: Continue patient on levothyroxine at 25 g daily. 7 severe ischemic cardiomyopathy: With ejection fraction was 25% which patient has been taking losartan HCTZ, metoprolol, furosemide and spironolactone. 8 generalized weakness and GI symptoms: Mostly secondary to hypercalcemia will treat underlying disease. 9 GI prophylaxis: Patient be continue on omeprazole. 10 DVT prophylaxis: Early mobilization, knee-high JARRED hose and if possible start patient on heparin subcutaneous. CODE STATUS: Full code. Admit patient to the inpatient service for more than 2 night stay. Past Medical History Past Medical History: Cancer, GERD/Reflux, Hypertension, Osteoarthritis (OA), Thyroid Disorder Additional Past Medical History / Comment(s): MULTIPLE MYELOMA- diagnosed in march 2021, two iv chem treatments so far, last treatment was 04/20/2021, Bone Cancer currently History of Any Multi-Drug Resistant Organisms: None Reported Past Surgical History: Appendectomy, Joint Replacement, Tonsillectomy Additional Past Surgical History / Comment(s): BILAT TKA. BILAT CARARACTS REMOVED WITH LENS IMPLANTS. 1/2 OF THYROID REMOVED. FATTY TUMOR REMOVED FROM KNEE. COLONOSCOPY Past Anesthesia/Blood Transfusion Reactions: No Reported Reaction Past Psychological History: No Psychological Hx Reported Smoking Status: Former smoker Past Alcohol Use History: None Reported Additional Past Alcohol Use History / Comment(s): QUIT SMOKING 1964 Past Drug Use History: None Reported - Past Family History Mother Family Medical History: Cancer Medications and Allergies Home Medications Medication Instructions Recorded Confirmed Type Omeprazole 20 mg PO DAILY 02/26/21 03/03/22 History Losartan-Hctz 50-12.5 mg [Hyzaar 1 tab PO DAILY 04/21/21 03/03/22 History 50-12.5] Metoprolol Tartrate [Lopressor] 50 mg PO DAILY 04/21/21 03/03/22 History Potassium Chloride ER [K-Dur 10] 10 meq PO BID 04/21/21 03/03/22 History Spironolactone [Aldactone] 25 mg PO DAILY #30 tablet 04/23/21 03/03/22 Rx Clopidogrel [Plavix] 75 mg PO DAILY 12/14/21 03/03/22 History Levothyroxine Sodium [Synthroid] 25 mcg PO DAILY 12/14/21 03/03/22 History Metoprolol Tartrate [Lopressor] 25 mg PO HS 12/14/21 03/03/22 History Aspirin EC [Ecotrin Low Dose] 81 mg PO DAILY 03/03/22 03/03/22 History Furosemide [Lasix] 20 mg PO BID 03/03/22 03/03/22 History Lenalidomide [Revlimid] 15 mg PO DIRECTED 03/03/22 03/03/22 History Sertraline [Zoloft] 25 mg PO DAILY 03/03/22 03/03/22 History Allergies Allergy/AdvReac Type Severity Reaction Status Date / Time Penicillins Allergy Swelling Verified 03/03/22 14:03 of entire body shellfish derived [Shellfish] AdvReac Nausea & Verified 03/03/22 14:03 Vomiting Physical Exam Vitals: Vital Signs Temp Pulse Pulse Resp BP BP Pulse Ox 03/03/22 16:41 98.0 F 74 18 157/89 98 03/03/22 16:40 64 16 153/72 95 03/03/22 13:20 62 16 138/70 95 03/03/22 11:53 97.7 F 62 20 143/73 99 Intake and Output 03/03/22 03/03/22 03/03/22 06:59 14:59 22:59 Intake Total 0 Balance 0 Intake: Oral 0 Other: # Voids 0 Weight 40.823 kg 40.823 kg Results CBC & Chem 7: 03/03/22 12:15 03/03/22 12:15 Labs: Abnormal Lab Results - Last 24 Hours (Table) 03/03/22 03/03/22 Range/Units 12:15 12:15 RBC 3.28 L (3.80-5.40) m/uL Hgb 10.4 L (11.4-16.0) gm/dL Hct 31.7 L (34.0-46.0) % Sodium 134 L (137-145) mmol/L BUN 58 H (7-17) mg/dL Creatinine 1.34 H (0.52-1.04) mg/dL Calcium 14.8 H* (8.4-10.2) mg/dL Ionized Calcium Arian 8.3 H* (4.5-5.3) mg/dL Total Protein 8.9 H (6.3-8.2) g/dL Thrombosis Risk Factor Assmnt - Choose All That Apply Each Risk Factor Represents 3 Points: Age 75 years or older Thrombosis Risk Factor Assessment Total Risk Factor Score: 3 Thrombosis Risk Factor Assessment Level: Moderate Risk
[2022-03-04 04:48] LABS: Appearance,Urine Clear (Clear); Bilirubin,Urine Negative (Negative); Blood,Urine Negative (Negative); Color,Urine Light Yellow; Glucose,Urine (UA) Negative (Negative); Ketones,Urine Trace (Negative); Leukocyte Esterase,Urine Negative (Negative); Nitrite,Urine Negative (Negative); PH, Urine 5.5 (5.0-8.0); Protein,Urine Trace (Negative); Specific Gravity,Urine 1.012 (1.001-1.035); Urobilinogen,Urine <2.0 mg/dL (<2.0)
[2022-03-04] MEDS: LEVOTHYROXINE 25 MCG TAB PO SCH (08:33)
[2022-03-04] MEDS: PANTOPRAZOLE 40 MG TABLET PO SCH (08:33)
[2022-03-04] MEDS: ASPIRIN 81 MG PO SCH (08:33)
[2022-03-04] MEDS: CLOPIDOGREL 75 MG TAB PO SCH (08:33)
[2022-03-04] MEDS: METOPROLOL TARTRATE 50 MG TAB PO SCH (08:33)
[2022-03-04] MEDS: SERTRALINE 25 MG TAB PO SCH (08:33)
[2022-03-04] MEDS: SODIUM CHLORIDE 0.9% 1,000 ML IV SCH ×3 (08:33→19:01)
[2022-03-04 08:56] LABS: Basophils % (A) 0 %; Eosinophils % (A) 0 %; HCT 29.4 % (34.0-46.0); HGB 9.6 gm/dL (11.4-16.0); Lymphocytes # (A) 0.9 k/uL (1.0-4.8); Lymphocytes % (A) 18 %; MCH 32.2 pg (25.0-35.0); MCHC 32.6 g/dL (31.0-37.0); MCV 98.6 fL (80.0-100.0); Macrocytosis Slight; Mean Platelet Volume 7.5; Monocytes # (A) 0.2 k/uL (0-1.0); Monocytes % (A) 4 %; Neutrophils # (A) 3.7 k/uL (1.3-7.7); Neutrophils % (A) 75 %; Platelet Count 267 k/uL (150-450); RBC 2.98 m/uL (3.80-5.40); RDW 15.2 % (11.5-15.5); WBC 4.9 k/uL (3.8-10.6)
[2022-03-04 09:28] LABS: Albumin 3.4 g/dL (3.5-5.0); Calcium 12.3 mg/dL (8.4-10.2); Potassium 3.5 mmol/L (3.5-5.1); Total Bilirubin 0.2 mg/dL (0.2-1.3); Total Protein 8.1 g/dL (6.3-8.2)
--- NOTE | 2022-03-04 11:54 | P.PN ---
Subjective Progress Note Date: 03/04/22 HISTORY OF PRESENT ILLNESS 86-year-old female one of Dr. Zion Davalos's patient with known from previous admission was known to have history of CAD post angioplasty and stent placement in April 2021 who seen cardiology regular basis was at the time diagnosed with multiple myeloma who apparently had started treatment with her oncologist since. Patient has not felt well last week was in to see her oncologist 2 days earlier blood drawn was done at the time her calcium came back at 15.6. Patient was contacted by her oncologist early childhood special educator today to inform her that her calcium level was very high and she must come to the emergency department for hydration and admission. Patient apparently has been having significant tired fatigue weakness and generalized GI symptoms including nausea constipation lightheadedness and mild confusion. she was seen and evaluated the emergency department her hemoglobin was 10.4 with normal CBC, sodium was 154 her potassium was 3.5 creatinine 1.34 with acute kidney injury compared to her baseline been around 0.7. Calcium level was 14.8 with ionized of 8.3. Patient was giving 1 dose of Miacalcin 160 mg subcutaneous and was kept on IV hydration at 200 mL an hour. Was admitted to the hospital will consult nephrology and oncology continue hydration repeat her labs in the morning. Most of her medication were held at the time with acute kidney injury and hypercalcemia 40 about further injury. Has not been on well antiplatelet agent since morning. 03/03: The patient was transferred out of the intensive care unit and is seen today on the cardiac stepdown unit. Patient is urinating significant amount. She is on IV fluids at 125 mL per hour. Consult with oncology, renal ultrasound are pending. Repeat blood work reveals calcium of 12.3. Hemoglobin is 9.6. Patient has been afebrile, heart rate 72, blood pressure 141/63, pulse ox 90% on room air. REVIEW OF SYSTEMS Constitutional: No fever, no chills, no night sweats. No weight change. No weakness, fatigue or lethargy. No daytime sleepiness. EENT: No headache. No blurred vision or double vision, no loss of vision. No loss of Hearing, no ringing in the ears, no dizziness. No nasal drainage or congestion. No epistaxis. No sore throat. Lungs:Reports shortness of breath, no cough, no sputum production. No wheezing.Reports exertional dyspnea. Cardiovascular: Denies chest pain, no lower extremity edema. No palpitations. No paroxysmal nocturnal dyspnea. No orthopnea. No lightheadedness or dizziness. No syncopal episodes. Abdominal: positive abdominal pain, nausea no vomiting has constipation with slight increase abdominal discomfort and significant lack of appetite but no bloody bowel movement and no tarry stool. Genitourinary: No dysuria, Decrease urine output with no retention.. Musculoskeletal: No myalgias. No muscle weakness, no gait dysfunction, no frequent falls. No back pain. No neck pain. Integumentary: No wounds, no lesions. No rash or pruritus. No unusual bruising. No change in hair or nails. Neurologic: No aphasia. No facial droop. No change in mentation. No head injury. No headache. No paralysis. No paresthesia.mild confusion. Psychiatric: No depression. No anxiety. Endocrine: Noted abnormal blood sugars. PHYSICAL EXAMINATION Gen: This is this is an 85-year-old female. Patient is resting in bed and appears to be comfortable and in no acute distress. HEENT: Head is atraumatic, normocephalic. Pupils equal, round. Sclerae is anicteric. NECK: Supple. No JVD. No lymphadenopathy. No thyromegaly. LUNGS: Clear to auscultation. No wheezes or rhonchi. No intercostal retractions. HEART: Regular rate and rhythm. Positive S3. Systolic murmur. ABDOMEN: Soft. Bowel sounds are present. No masses. No tenderness. EXTREMITIES:Trace bilateral pedal edema. No calf tenderness. Dorsalis pedis +2 bilaterally. NEUROLOGICAL: Patient is awake, alert and oriented x3. Cranial nerves 2 through 12 are grossly intact. ASSESSMENT AND PLAN 1 acute hypercalcemia: Most likely from multiple myeloma and the effect of chemotherapy, will continue patient on hydration, calcitonin was giving we will watch her creatinine and calcium in the next 24 hours. 2 acute kidney injury with most likely acute tubular necrosis specially with her current complaint with hypercalcemia and decrease urine output, continue hydration, monitor her urine output, ultrasound of the kidney is pending, nephrology consultation be done as well. 3 history of atherosclerotic heart disease non-ST [place] back in March 2021 patient has been on medical management, statin, beta sidney and dual antiplatelet agent will be continue. 4 hypertension: The hold off on her losartan and spironolactone for 24 hours. 5 hyperlipidemia: Resume her higher potency statin with atorvastatin or resume a statin in the next 24 hours. 6 hypothyroidism: Continue patient on levothyroxine at 25 g daily. 7 severe ischemic cardiomyopathy: With ejection fraction was 25% which patient has been taking losartan HCTZ, metoprolol, furosemide and spironolactone. 8 generalized weakness and GI symptoms: Mostly secondary to hypercalcemia will treat underlying disease. 9 GI prophylaxis: Patient be continue on omeprazole. 10 DVT prophylaxis: Early mobilization, knee-high JARRED hose and if possible start patient on heparin subcutaneous. CODE STATUS: Full code. DISCHARGE PLAN Most likely return home, PT and OT consults. Impression and plan of care have been directed as dictated by the signing physician. Cait Longo nurse practitioner acting as scribe for signing physician. Objective - Vital Signs Vital signs: Vital Signs Temp 97.4 F L 03/04/22 06:27 Pulse 64 03/04/22 06:27 Resp 16 03/04/22 06:27 BP 141/63 03/04/22 06:27 Pulse Ox 98 03/04/22 06:27 FiO2 Intake & Output 03/03/22 03/04/22 03/04/22 18:59 06:59 18:59 Intake Total 0 Output Total 400 Balance 0 -400 Weight 40.823 kg 39.8 kg Intake: Oral 0 Output: Urine 400 Other: Voiding Method Bedside Commode # Voids 0 - Labs CBC & Chem 7: 03/04/22 08:03 03/04/22 08:03 Labs: Abnormal Lab Results - Last 24 Hours (Table) 03/03/22 03/03/22 03/03/22 Range/Units 11:57 12:15 12:15 RBC 3.28 L (3.80-5.40) m/uL Hgb 10.4 L (11.4-16.0) gm/dL Hct 31.7 L (34.0-46.0) % Sodium 134 L (137-145) mmol/L BUN 58 H (7-17) mg/dL Creatinine 1.34 H (0.52-1.04) mg/dL Calcium 14.8 H* (8.4-10.2) mg/dL Ionized Calcium Airan 8.3 H* (4.5-5.3) mg/dL Total Protein 8.9 H (6.3-8.2) g/dL Urine Protein Trace H (Negative) Urine Ketones Trace H (Negative)
--- NOTE | 2022-03-04 15:42 | US ---
EXAMINATION TYPE: US kidneys/renal and bladder DATE OF EXAM: 03/04/2022 COMPARISON: NONE CLINICAL HISTORY: 86-year-old female with RONNY TECHNIQUE: Multiple sonographic images of the kidneys and bladder are obtained. FINDINGS: EXAM MEASUREMENTS: Right Kidney: 10.1 x 4.2 x 4.4 cm Left Kidney: 9.4 x 4.5 x 4.5 cm No hydronephrosis on either side. Right Kidney: Appeared wnl Left Kidney: Appeared wnl though there appears to be trace perinephric edema. Bladder: wnl Bilateral Jets seen: Radio Division Officer notes: No, too many peristalsing bowel loops causing motion artifa ct IMPRESSION: 1. No hydronephrosis. 2. Nonspecific trace perinephric edema adjacent to the left kidney could be a sequela of the patient' s acute kidney injury.
[2022-03-04 18:20] LABS: Protein, Total 7.9 g/dL (6.2-8.2)
[2022-03-04 18:51] LABS: Immunoglobulin A 7.1 mg/dL (60.0-350.0)
[2022-03-04] MEDS: METOPROLOL TARTRATE 25 MG TAB PO SCH (20:38)
[2022-03-04] MEDS: MELATONIN 5 MG TABLET PO SCH (20:38)
[2022-03-04] MEDS ORDERED: ZOLEDRONIC ACID 4 MG in SODIUM CHLORIDE 0.9% 100 ML IV ONE (21:15)
--- NOTE | 2022-03-04 21:20 | P.CONS ---
History of Present Illness - Reason for Consult Consult date: 03/04/22 hypercalcemia Requesting physician: Porfirio Aguilera - History of Present Illness This is a very nice lady who initially presented with left arm pain and weakness,and then developed right hip pain,she was seen by ortho in January/2021,had xray of left shoulder,arm and righ hip which showed mottled appearance and small lesions of her bone. On 01/12/2021,she had a bone scan which showed few sclerotic lesions in pelvic bone. On 01/19/2021,CBC revealed mild leukopenia (total wbc 4.3K),hemoglobin 12.1 gm/d l,platelets counts 309K,CMP revealed globulin of 4 gm/dl,normal serum calcium and creatinine,SPEP revealed M-spike of 1.8gm/dl,serum IgG 2642.1 mg/dl,low serum IgA and IgM levels,urine protein electrophoresis small monoclonal band. On 02/04/2021,SPEP and immunofixation revealed IgGK M-protein 2.35 gm/dl,IgG 2960 mg/dl, On 02/13/2021,PET scan revealed multiple lytic lesions. On 03/04/2021,bone marrow biopsy revealed 60% plasma cells,FISH revealed trisomy 11.Normal cytogenetics. Right after her diagnosis,she had a heart attack,she recovered from it but decided not to pursue treatment at that time and did not follow up. In January/2022,she had a fracture of left arm,required surgery,felt to be secondary to her multiple myeloma. She feels very tired,continues to have significant pain in right hip and back,ambulates in a wheelchair,lost almost additional 9 pounds since I last saw her ,no dysphagia,no cough,no nausea/vomiting. She was to receive zometa monthly but this was stopped with recent cardiac event. Review of Systems All systems: negative Constitutional: Reports as per HPI Past Medical History Past Medical History: Cancer, GERD/Reflux, Hypertension, Osteoarthritis (OA), Thyroid Disorder Additional Past Medical History / Comment(s): MULTIPLE MYELOMA- diagnosed in march 2021, two iv chem treatments so far, last treatment was 04/20/2021, Bone Cancer currently History of Any Multi-Drug Resistant Organisms: None Reported Past Surgical History: Appendectomy, Joint Replacement, Tonsillectomy Additional Past Surgical History / Comment(s): BILAT TKA. BILAT CARARACTS REMOVED WITH LENS IMPLANTS. 1/2 OF THYROID REMOVED. FATTY TUMOR REMOVED FROM KNEE. COLONOSCOPY. Heart cath with stent 2020, CHF Past Anesthesia/Blood Transfusion Reactions: No Reported Reaction Past Psychological History: No Psychological Hx Reported Smoking Status: Former smoker Past Alcohol Use History: None Reported Additional Past Alcohol Use History / Comment(s): QUIT SMOKING 1964 Past Drug Use History: None Reported - Past Family History Mother Family Medical History: Cancer Medications and Allergies Home Medications Medication Instructions Recorded Confirmed Type Omeprazole 20 mg PO DAILY 02/26/21 03/03/22 History Losartan-Hctz 50-12.5 mg [Hyzaar 1 tab PO DAILY 04/21/21 03/03/22 History 50-12.5] Metoprolol Tartrate [Lopressor] 50 mg PO DAILY 04/21/21 03/03/22 History Potassium Chloride ER [K-Dur 10] 10 meq PO BID 04/21/21 03/03/22 History Spironolactone [Aldactone] 25 mg PO DAILY #30 tablet 04/23/21 03/03/22 Rx Clopidogrel [Plavix] 75 mg PO DAILY 12/14/21 03/03/22 History Levothyroxine Sodium [Synthroid] 25 mcg PO DAILY 12/14/21 03/03/22 History Metoprolol Tartrate [Lopressor] 25 mg PO HS 12/14/21 03/03/22 History Aspirin EC [Ecotrin Low Dose] 81 mg PO DAILY 03/03/22 03/03/22 History Furosemide [Lasix] 20 mg PO BID 03/03/22 03/03/22 History Lenalidomide [Revlimid] 15 mg PO DIRECTED 03/03/22 03/03/22 History Sertraline [Zoloft] 25 mg PO DAILY 03/03/22 03/03/22 History Allergies Allergy/AdvReac Type Severity Reaction Status Date / Time Penicillins Allergy Swelling Verified 03/03/22 14:03 of entire body shellfish derived [Shellfish] AdvReac Nausea & Verified 03/03/22 14:03 Vomiting Physical Exam Vitals: Vital Signs Temp Pulse Pulse Resp BP BP Pulse Ox 03/04/22 11:25 63 16 169/76 94 L 03/04/22 08:25 72 16 03/04/22 06:27 97.4 F L 64 16 141/63 98 03/04/22 04:00 97.8 F 65 12 153/68 95 03/04/22 00:00 98.0 F 61 15 164/75 96 03/03/22 21:21 98.0 F 67 14 165/79 96 03/03/22 16:41 98.0 F 74 18 157/89 98 03/03/22 16:40 64 16 153/72 95 03/03/22 13:20 62 16 138/70 95 Intake and Output 03/03/22 03/04/22 03/04/22 22:59 06:59 14:59 Intake Total 0 Output Total 400 Balance 0 -400 Intake: Oral 0 Output: Urine 400 Other: Voiding Method Bedside Commode Bedside Commode # Voids 0 1 Weight 40.823 kg 39.8 kg - Constitutional General appearance: cooperative, thin - EENT Eyes: EOMI ENT: NA/AT, normal oropharynx - Neck Neck: lymphadenopathy, normal ROM - Respiratory Respiratory: bilateral: CTA - Cardiovascular Rhythm: regularly irregular - Gastrointestinal General gastrointestinal: soft - Integumentary Integumentary: pale - Neurologic Neurologic: CNII-XII intact - Musculoskeletal Musculoskeletal: generalized weakness, strength equal bilaterally - Psychiatric Psychiatric: A&O x's 3, appropriate affect, intact judgment & insight Results CBC & Chem 7: 03/04/22 08:03 03/04/22 08:03 Labs: Abnormal Lab Results - Last 24 Hours (Table) 03/03/22 03/03/22 03/03/22 Range/Units 11:57 12:15 12:15 RBC 3.28 L (3.80-5.40) m/uL Hgb 10.4 L (11.4-16.0) gm/dL Hct 31.7 L (34.0-46.0) % Lymphocytes # (1.0-4.8) k/uL Sodium 134 L (137-145) mmol/L Chloride (98-107) mmol/L BUN 58 H (7-17) mg/dL Creatinine 1.34 H (0.52-1.04) mg/dL Calcium 14.8 H* (8.4-10.2) mg/dL Ionized Calcium Arian 8.3 H* (4.5-5.3) mg/dL Total Protein 8.9 H (6.3-8.2) g/dL Albumin (3.5-5.0) g/dL Urine Protein Trace H (Negative) Urine Ketones Trace H (Negative) 03/04/22 03/04/22 Range/Units 08:03 08:03 RBC 2.98 L (3.80-5.40) m/uL Hgb 9.6 L (11.4-16.0) gm/dL Hct 29.4 L (34.0-46.0) % Lymphocytes # 0.9 L (1.0-4.8) k/uL Sodium (137-145) mmol/L Chloride 110 H (98-107) mmol/L BUN 34 H (7-17) mg/dL Creatinine (0.52-1.04) mg/dL Calcium 12.3 H (8.4-10.2) mg/dL Ionized Calcium Arian (4.5-5.3) mg/dL Total Protein (6.3-8.2) g/dL Albumin 3.4 L (3.5-5.0) g/dL Urine Protein (Negative) Urine Ketones (Negative) Assessment and Plan (1) Hypercalcemia Narrative/Plan: Status post calcitonin Secondary to myeloma, possible progression and dehydration Zometa ordered Current Visit: Yes Status: Acute Code(s): E83.52 - HYPERCALCEMIA SNOMED Code(s): 94911136 (2) Multiple myeloma Narrative/Plan: Restaging and myeloma panel ordered Current Visit: No Status: Acute Code(s): C90.00 - MULTIPLE MYELOMA NOT HAVING ACHIEVED REMISSION SNOMED Code(s): 169520358 Plan: Dr. Drake: I have completed tthe full history and physical and devloped the above impression and plan, agree with dictation, dictated as ascribe
[2022-03-05 02:55] VITALS: RESP 18
[2022-03-05] MEDS: LEVOTHYROXINE 25 MCG TAB PO SCH (05:30)
[2022-03-05] MEDS: PANTOPRAZOLE 40 MG TABLET PO SCH (05:31)
[2022-03-05] MEDS: SODIUM CHLORIDE 0.9% 1,000 ML IV SCH ×2 (06:03→11:51)
[2022-03-05 06:57] LABS: ALT 10 U/L (4-34); AST 20 U/L (14-36); African American GFR (CKD) 82 (>60 ml/min/1.73 sqM); Albumin 3.2 g/dL (3.5-5.0); Alkaline Phosphatase 52 U/L (38-126); Anion Gap 4 mmol/L; Blood Urea Nitrogen 21 mg/dL (7-17); Calcium 11.5 mg/dL (8.4-10.2); Carbon Dioxide 25 mmol/L (22-30); Chloride 111 mmol/L (98-107); Glucose 94 mg/dL (74-99); Non-African American GFR(CKD) 71 (>60 ml/min/1.73 sqM); Potassium 3.1 mmol/L (3.5-5.1); Sodium 140 mmol/L (137-145); Total Bilirubin <0.1 mg/dL (0.2-1.3); Total Protein 7.5 g/dL (6.3-8.2)
[2022-03-05] MEDS: METOPROLOL TARTRATE 50 MG TAB PO SCH (08:31)
[2022-03-05] MEDS: CLOPIDOGREL 75 MG TAB PO SCH (08:31)
[2022-03-05] MEDS: SERTRALINE 25 MG TAB PO SCH (08:31)
[2022-03-05] MEDS: ASPIRIN 81 MG PO SCH (08:33)
[2022-03-05] MEDS ORDERED: POTASSIUM CHLORIDE ER 20 MEQ TAB.ER PO STA (09:01)
--- NOTE | 2022-03-05 09:02 | P.DS ---
Providers Date of admission: 03/03/22 14:53 Expected date of discharge: 03/05/22 Attending physician: Mathew Wood Consults: 03/03/22 14:54 Consult Physician Urgent Consulting Provider: Wilman Harvey Consult Reason/Comments: Hypercalcemia Do you want consulting provider notified?: Yes Primary care physician: Zion Huffndevita [facility] Hospital Course: HISTORY OF PRESENT ILLNESS 86-year-old female one of Dr. Zion Davalos's patient with known from previous admission was known to have history of CAD post angioplasty and stent placement in April 2021 who seen cardiology regular basis was at the time diagnosed with multiple myeloma who apparently had started treatment with her oncologist since. Patient has not felt well last week was in to see her oncologist 2 days earlier blood drawn was done at the time her calcium came back at 15.6. Patient was contacted by her oncologist roll forming machine operator today to inform her that her calcium level was very high and she must come to the emergency department for hydration and admission. Patient apparently has been having significant tired fatigue weakness and generalized GI symptoms including nausea constipation lighthead edness and mild confusion. she was seen and evaluated the emergency department her hemoglobin was 10.4 with normal CBC, sodium was 154 her potassium was 3.5 creatinine 1.34 with acute kidney injury compared to her baseline been around 0.7. Calcium level was 14.8 with ionized of 8.3. Patient was giving 1 dose of Miacalcin 160 mg subcutaneous and was kept on IV hydration at 200 mL an hour. Was admitted to the hospital will consult nephrology and oncology continue hydration repeat her labs in the morning. Most of her medication were held at the time with acute kidney injury and hypercalcemia 40 about further injury. Has not been on well antiplatelet agent since morning. 03/04: The patient was transferred out of the intensive care unit and is seen today on the cardiac stepdown unit. Patient is urinating significant amount. She is on IV fluids at 125 mL per hour. Consult with oncology, renal ultrasound are pending. Repeat blood work reveals calcium of 12.3. Hemoglobin is 9.6. Patient has been afebrile, heart rate 72, blood pressure 141/63, pulse ox 90% on room air. 03/05: Patient has been seen by oncology for hypercalcemia secondary to myeloma with possible progression and dehydration. Patient is status post calcitonin, Zometa ordered. Repeat calcium is 11.5. Therapy has recommended home with home care. In the hospital, patient has been off Aldactone, losartan and hydro chlorothiazide Lasix and potassium. We will resume Lasix and potassium and once daily dosing and hold Hyzaar and Aldactone until patient is rechecked by PCP. Patient will be discharged home today in stable condition. DISCHARGE DIAGNOSES 1 acute hypercalcemia secondary to multiple myeloma. 2 acute kidney injury with most likely acute tubular necrosis. 3 history of atherosclerotic heart disease non-ST [place] back in March 2021. 4 hypertension. 5 hyperlipidemia. 6 hypothyroidism. 7 severe ischemic cardiomyopathy: With ejection fraction was 25%. 8 generalized weakness . DISCHARGE PLAN Home Greater than 35 minutes was utilized and coordinating patient's discharge. Impression and plan of care have been directed as dictated by the signing physi cian. Cait Longo nurse practitioner acting as scribe for signing physician. Patient Condition at Discharge: Good Plan - Discharge Summary Discharge Rx Participant: No New Discharge Prescriptions: New Melatonin 5 mg PO HS tab Continue Metoprolol Tartrate [Lopressor] 50 mg PO DAILY Levothyroxine Sodium [Synthroid] 25 mcg PO DAILY Clopidogrel [Plavix] 75 mg PO DAILY Aspirin EC [Ecotrin Low Dose] 81 mg PO DAILY Sertraline [Zoloft] 25 mg PO DAILY Lenalidomide [Revlimid] 15 mg PO DIRECTED Omeprazole 20 mg PO DAILY Metoprolol Tartrate [Lopressor] 25 mg PO HS Changed Potassium Chloride ER [K-Dur 10] 10 meq PO DAILY #0 Furosemide [Lasix] 20 mg PO DAILY #0 Discontinued Losartan-Hctz 50-12.5 mg [Hyzaar 50-12.5] 1 tab PO DAILY Spironolactone [Aldactone] 25 mg PO DAILY #30 tablet Discharge Medication List Omeprazole 20 mg PO DAILY 02/26/21 [History] Metoprolol Tartrate [Lopressor] 50 mg PO DAILY 04/21/21 [History] Clopidogrel [Plavix] 75 mg PO DAILY 12/14/21 [History] Levothyroxine Sodium [Synthroid] 25 mcg PO DAILY 12/14/21 [History] Metoprolol Tartrate [Lopressor] 25 mg PO HS 12/14/21 [History] Aspirin EC [Ecotrin Low Dose] 81 mg PO DAILY 03/03/22 [History] Lenalidomide [Revlimid] 15 mg PO DIRECTED 03/03/22 [History] Sertraline [Zoloft] 25 mg PO DAILY 03/03/22 [History] Furosemide [Lasix] 20 mg PO DAILY #0 03/05/22 [Rx] Melatonin 5 mg PO HS tab 03/05/22 [Rx] Potassium Chloride ER [K-Dur 10] 10 meq PO DAILY #0 03/05/22 [Rx] Follow up Appointment(s)/Referral(s): [facility], [NON-STAFF] - Zion Davalos MD [Primary Care Provider] - 3 Days
[2022-03-05 12:34] LABS: Free Kappa Lt Chain Qnt, Serum 112.38 mg/dL (0.33-1.94); Free Lambda Lt Chain Qnt, Seru <0.15 mg/dL (0.57-2.63)
[2022-03-05 16:51] VITALS: BP 145/71; PULSE 75; TEMP 97.6
[2022-03-07 18:52] LABS: Albumin 3.15 g/dL (3.80-4.90); Gamma Globulin 3.33 g/dL (0.70-1.50)
== END 2022-03-05 17:54 | disposition home health service (06) | DRG 640 ==
LOC: EC 11:50 → 3SCARD 14:53 → 2SICU 19:05 → 3SCARD 03-04 06:29
PROVIDERS: ADMIT Internal Medicine Geriatric Medicine; ATTEND Internal Medicine Geriatric Medicine
DX: E83.52 Hypercalcemia (principal); N17.0 Acute kidney failure with tubular necrosis; C90.00 Multiple myeloma not having achieved remission; I11.0 Hypertensive heart disease with heart failure; I50.9 Heart failure, unspecified; E86.0 Dehydration; E78.5 Hyperlipidemia, unspecified; E89.0 Postprocedural hypothyroidism; I25.5 Ischemic cardiomyopathy; I25.10 Atherosclerotic heart disease of native coronary artery without angina pectoris; I25.2 Old myocardial infarction; K21.9 Gastro-esophageal reflux disease without esophagitis; K59.00 Constipation, unspecified; M19.90 Unspecified osteoarthritis, unspecified site; Z79.82 Long term (current) use of aspirin; Z79.02 Long term (current) use of antithrombotics/antiplatelets; Z79.890 Hormone replacement therapy; Z79.899 Other long term (current) drug therapy; Z90.89 Acquired absence of other organs; Z90.49 Acquired absence of other specified parts of digestive tract; Z87.19 Personal history of other diseases of the digestive system; Z87.891 Personal history of nicotine dependence; Z96.653 Presence of artificial knee joint, bilateral; Z96.1 Presence of intraocular lens; Z98.42 Cataract extraction status, left eye; Z98.41 Cataract extraction status, right eye; Z95.5 Presence of coronary angioplasty implant and graft; Z87.311 Personal history of (healed) other pathological fracture; Z98.890 Other specified postprocedural states; Z88.0 Allergy status to penicillin; Z91.013 Allergy to seafood; Z80.1 Family history of malignant neoplasm of trachea, bronchus and lung; Z82.49 Family history of ischemic heart disease and other diseases of the circulatory system
CPT/HCPCS: 36415; 76770; 80053; 81003; 82306; 82330; 82652; 82784; 83735; 83883; 83970; 84100; 84165; 84443; 85025; 86334; 93005; 96360; 96361; 96372; 99285

== ENCOUNTER 2022-04-14 23:07 | Inpatient (IN) | payer MEDICARE ==
[2022-04-14] MEDS ORDERED: NITROGLYCERIN OINT 1 INCH/GM PACKET TOPICAL STA (23:15)
[2022-04-14] MEDS ORDERED: NITROGLYCERIN SL TABS 0.4 MG TAB SUBLINGUAL STA (23:16)
--- NOTE | 2022-04-14 23:24 | ED ---
SOB HPI - General Stated Complaint: SOB Time Seen by Provider: 04/14/22 23:15 Source: patient, EMS Mode of arrival: EMS Limitations: no limitations - History of Present Illness Initial Comments: This patient is an 86-year-old woman who presents to have evaluation for acute onset of shortness of breath tonight. The patient activated EMS who gave her nebulized albuterol, they gave Solu-Medrol, and they placed her on CPAP. The patient does states she is feeling markedly improved since EMS arrived and started treatment. The patient denied having fever or chills. No productive cough. She denies any cough at all. No chest pain. The patient does note she has had bilateral ankle edema. No leg pain. No change in urination or bowel movements. Patient has never been a smoker. She does have history of previous OH * 2. EMS adds that the patient was in tripod position, diaphoretic, very tachypneic impending respiratory failure. MD Complaint: shortness of breath -: hour(s) Severity scale (1-10): 0 Consistency: constant Improves With: oxygen, upright position, medication Associated Symptoms: other (Leg edema) Treatments Prior to Arrival: oxygen, bronchodilator, NIPPV - Related Data Home Oxygen Therapy: No Home Medications Medication Instructions Recorded Confirmed Omeprazole 20 mg PO DAILY@0800 02/26/21 04/15/22 Clopidogrel [Plavix] 75 mg PO DAILY@1200 12/14/21 04/15/22 Levothyroxine Sodium [Synthroid] 25 mcg PO DAILY@0800 12/14/21 04/15/22 Aspirin EC [Ecotrin Low Dose] 81 mg PO DAILY 03/03/22 04/15/22 Sertraline [Zoloft] 25 mg PO DAILY@1700 03/03/22 04/15/22 Cholecalciferol [Vitamin D3 (25 25 mcg PO DAILY@1200 04/15/22 04/15/22 Mcg = 1000 Iu)] Furosemide [Lasix] 20 mg PO BID@0800,1200 04/15/22 04/15/22 Previous Rx's Medication Instructions Recorded Atorvastatin [Lipitor] 40 mg PO DAILY #30 tab 04/20/22 Furosemide [Lasix] 40 mg PO DAILY #30 tab 04/20/22 Metoprolol Succinate (ER) [Toprol 25 mg PO DAILY #30 tab 04/20/22 XL] Potassium Chloride ER [K-Dur 10] 20 meq PO BID #60 tab 04/20/22 Sacubitril/Valsartan [Entresto 24 1 each PO BID #60 tab 04/20/22 mg-26 mg Tablet] Allergies Allergy/AdvReac Type Severity Reaction Status Date / Time Penicillins Allergy Swelling Verified 04/15/22 07:54 of entire body shellfish derived [Shellfish] AdvReac Nausea & Verified 04/15/22 07:54 Vomiting Review of Systems ROS Statement: Those systems with pertinent positive or pertinent negative responses have been documented in the HPI. ROS Other: All systems not noted in ROS Statement are negative. Constitutional: Denies: fever, chills Respiratory: Reports: dyspnea. Denies: cough, wheezes, hemoptysis Cardiovascular: Reports: orthopnea, edema. Denies: chest pain, palpitations, syncope Gastrointestinal: Denies: abdominal pain, vomiting, diarrhea Genitourinary: Denies: dysuria, hematuria Musculoskeletal: Denies: back pain Skin: Denies: rash Neurological: Denies: headache Past Medical History Past Medical History: Cancer, GERD/Reflux, Hypertension, Osteoarthritis (OA), Thyroid Disorder Additional Past Medical History / Comment(s): MULTIPLE MYELOMA- diagnosed in march 2021, two iv chem treatments so far, last treatment was 04/20/2021, Bone Cancer currently History of Any Multi-Drug Resistant Organisms: None Reported Past Surgical History: Appendectomy, Joint Replacement, Tonsillectomy Additional Past Surgical History / Comment(s): BILAT TKA. BILAT CARARACTS REMOVED WITH LENS IMPLANTS. 1/2 OF THYROID REMOVED. FATTY TUMOR REMOVED FROM KNEE. COLONOSCOPY. Heart cath with stent 2020, CHF Past Anesthesia/Blood Transfusion Reactions: No Reported Reaction Past Psychological History: No Psychological Hx Reported Smoking Status: Former smoker Past Alcohol Use History: None Reported Additional Past Alcohol Use History / Comment(s): QUIT SMOKING 1964 Past Drug Use History: None Reported - Past Family History Mother Family Medical History: Cancer General Exam General appearance: alert, in no apparent distress Head exam: Present: atraumatic, normocephalic Eye exam: Present: normal appearance. Absent: scleral icterus, conjunctival injection Neck exam: Present: normal inspection Respiratory exam: Present: rales. Absent: respiratory distress, wheezes, rhonchi, stridor, accessory muscle use, decreased breath sounds Cardiovascular Exam: Present: regular rate, normal rhythm, normal heart sounds. Absent: systolic murmur, diastolic murmur, rubs, gallop GI/Abdominal exam: Present: soft. Absent: distended, tenderness, guarding, rebound, rigid, mass Extremities exam: Present: normal inspection, normal capillary refill, pedal edema. Absent: calf tenderness Back exam: Present: normal inspection. Absent: CVA tenderness (R), CVA tenderness (L) Neurological exam: Present: alert Skin exam: Present: warm, dry, intact, normal color. Absent: rash Course Vital Signs 04/14/22 04/14/22 04/14/22 23:15 23:40 23:45 Temperature Pulse Rate 82 82 80 Pulse Rate [ Pulse Oximetery ] Respiratory 26 H Rate Blood Pressure 163/100 132/79 138/80 Blood Pressure [Left Arm] O2 Sat by Pulse 97 95 98 Oximetry Fraction of 45 Inspired Oxygen (FIO2) 04/15/22 04/15/22 04/15/22 00:00 00:15 00:30 Temperature Pulse Rate 82 80 72 Pulse Rate [ Pulse Oximetery ] Respiratory Rate Blood Pressure 143/70 148/73 151/69 Blood Pressure [Left Arm] O2 Sat by Pulse 98 99 99 Oximetry Fraction of Inspired Oxygen (FIO2) 04/15/22 04/15/22 04/15/22 00:45 01:00 01:15 Temperature Pulse Rate 82 82 79 Pulse Rate [ Pulse Oximetery ] Respiratory 18 Rate Blood Pressure 148/66 151/73 150/74 Blood Pressure [Left Arm] O2 Sat by Pulse 100 99 100 Oximetry Fraction of Inspired Oxygen (FIO2) 04/15/22 04/15/22 04/15/22 01:30 01:45 02:00 Temperature Pulse Rate 84 84 Pulse Rate [ Pulse Oximetery ] Respiratory 16 16 Rate Blood Pressure 154/73 153/76 Blood Pressure [Left Arm] O2 Sat by Pulse 99 98 Oximetry Fraction of Inspired Oxygen (FIO2) 04/15/22 04/15/22 04/15/22 02:15 02:30 02:45 Temperature Pulse Rate 77 76 78 Pulse Rate [ Pulse Oximetery ] Respiratory Rate Blood Pressure 161/80 158/73 155/74 Blood Pressure [Left Arm] O2 Sat by Pulse 99 99 99 Oximetry Fraction of Inspired Oxygen (FIO2) 04/15/22 04/15/22 04/15/22 03:00 03:15 03:30 Temperature Pulse Rate 74 77 76 Pulse Rate [ Pulse Oximetery ] Respiratory Rate Blood Pressure 153/69 157/73 144/76 Blood Pressure [Left Arm] O2 Sat by Pulse 99 99 99 Oximetry Fraction of Inspired Oxygen (FIO2) 04/15/22 04/15/22 04/15/22 03:45 04:00 04:15 Temperature Pulse Rate 82 75 81 Pulse Rate [ Pulse Oximetery ] Respiratory 16 Rate Blood Pressure 150/71 150/79 155/74 Blood Pressure [Left Arm] O2 Sat by Pulse 99 99 99 Oximetry Fraction of Inspired Oxygen (FIO2) 04/15/22 04/15/22 04:30 05:42 Temperature 97.8 F Pulse Rate 81 Pulse Rate [ 92 Pulse Oximetery ] Respiratory 18 Rate Blood Pressure 151/81 Blood Pressure 154/78 [Left Arm] O2 Sat by Pulse 99 99 Oximetry Fraction of Inspired Oxygen (FIO2) Medical Decision Making - Lab Data Result diagrams: 04/19/22 10:03 04/19/22 10:03 Lab Results 04/14/22 04/14/22 04/14/22 Range/Units 23:27 23:27 23:27 WBC 9.4 (3.8-10.6) k/uL RBC 2.44 L (3.80-5.40) m/uL Hgb 7.9 L D (11.4-16.0) gm/dL Hct 25.3 L (34.0-46.0) % MCV 103.6 H D (80.0-100.0) fL MCH 32.2 (25.0-35.0) pg MCHC 31.1 (31.0-37.0) g/dL RDW 17.3 H (11.5-15.5) % Plt Count 262 (150-450) k/uL MPV 7.7 Neutrophils % 82 % Lymphocytes % 13 % Monocytes % 3 % Eosinophils % 1 % Basophils % 0 % Neutrophils # 7.6 (1.3-7.7) k/uL Lymphocytes # 1.2 (1.0-4.8) k/uL Monocytes # 0.3 (0-1.0) k/uL Eosinophils # 0.1 (0-0.7) k/uL Basophils # 0.0 (0-0.2) k/uL Hypochromasia Slight Anisocytosis Slight Macrocytosis Moderate PT 10.4 (9.0-12.0) sec INR 1.0 (<1.2) APTT 16.2 L (22.0-30.0) sec D-Dimer 8.36 H (<0.60) mg/L FEU Sodium 137 (137-145) mmol/L Potassium 3.6 (3.5-5.1) mmol/L Chloride 106 (98-107) mmol/L Carbon Dioxide 25 (22-30) mmol/L Anion Gap 6 mmol/L BUN 16 (7-17) mg/dL Creatinine 0.83 (0.52-1.04) mg/dL Est GFR (CKD-EPI)AfAm 75 (>60 ml/min/1.73 sqM) Est GFR (CKD-EPI)NonAf 65 (>60 ml/min/1.73 sqM) Glucose 152 H (74-99) mg/dL Lactic Ac Sepsis Rflx Plasma Lactic Acid Mart (0.7-2.0) mmol/L Calcium 9.5 (8.4-10.2) mg/dL Total Bilirubin 0.2 (0.2-1.3) mg/dL AST 26 (14-36) U/L ALT 12 (4-34) U/L Alkaline Phosphatase 95 (38-126) U/L Troponin I (0.000-0.034) ng/mL NT-Pro-B Natriuret Pep pg/mL Total Protein 7.7 (6.3-8.2) g/dL Albumin 3.5 (3.5-5.0) g/dL 04/14/22 04/14/22 04/14/22 Range/Units 23:27 23:27 23:27 WBC (3.8-10.6) k/uL RBC (3.80-5.40) m/uL Hgb (11.4-16.0) gm/dL Hct (34.0-46.0) % MCV (80.0-100.0) fL MCH (25.0-35.0) pg MCHC (31.0-37.0) g/dL RDW (11.5-15.5) % Plt Count (150-450) k/uL MPV Neutrophils % % Lymphocytes % % Monocytes % % Eosinophils % % Basophils % % Neutrophils # (1.3-7.7) k/uL Lymphocytes # (1.0-4.8) k/uL Monocytes # (0-1.0) k/uL Eosinophils # (0-0.7) k/uL Basophils # (0-0.2) k/uL Hypochromasia Anisocytosis Macrocytosis PT (9.0-12.0) sec INR (<1.2) APTT (22.0-30.0) sec D-Dimer (<0.60) mg/L FEU Sodium (137-145) mmol/L Potassium (3.5-5.1) mmol/L Chloride (98-107) mmol/L Carbon Dioxide (22-30) mmol/L Anion Gap mmol/L BUN (7-17) mg/dL Creatinine (0.52-1.04) mg/dL Est GFR (CKD-EPI)AfAm (>60 ml/min/1.73 sqM) Est GFR (CKD-EPI)NonAf (>60 ml/min/1.73 sqM) Glucose (74-99) mg/dL Lactic Ac Sepsis Rflx Plasma Lactic Acid Mart 3.9 H* (0.7-2.0) mmol/L Calcium (8.4-10.2) mg/dL Total Bilirubin (0.2-1.3) mg/dL AST (14-36) U/L ALT (4-34) U/L Alkaline Phosphatase (38-126) U/L Troponin I 0.032 (0.000-0.034) ng/mL NT-Pro-B Natriuret Pep 07946 pg/mL Total Protein (6.3-8.2) g/dL Albumin (3.5-5.0) g/dL 04/15/22 04/15/22 Range/Units 00:21 02:54 WBC (3.8-10.6) k/uL RBC (3.80-5.40) m/uL Hgb (11.4-16.0) gm/dL Hct (34.0-46.0) % MCV (80.0-100.0) fL MCH (25.0-35.0) pg MCHC (31.0-37.0) g/dL RDW (11.5-15.5) % Plt Count (150-450) k/uL MPV Neutrophils % % Lymphocytes % % Monocytes % % Eosinophils % % Basophils % % Neutrophils # (1.3-7.7) k/uL Lymphocytes # (1.0-4.8) k/uL Monocytes # (0-1.0) k/uL Eosinophils # (0-0.7) k/uL Basophils # (0-0.2) k/uL Hypochromasia Anisocytosis Macrocytosis PT (9.0-12.0) sec INR (<1.2) APTT (22.0-30.0) sec D-Dimer (<0.60) mg/L FEU Sodium (137-145) mmol/L Potassium (3.5-5.1) mmol/L Chloride (98-107) mmol/L Carbon Dioxide (22-30) mmol/L Anion Gap mmol/L BUN (7-17) mg/dL Creatinine (0.52-1.04) mg/dL Est GFR (CKD-EPI)AfAm (>60 ml/min/1.73 sqM) Est GFR (CKD-EPI)NonAf (>60 ml/min/1.73 sqM) Glucose (74-99) mg/dL Lactic Ac Sepsis Rflx Y Plasma Lactic Acid Mart 1.1 (0.7-2.0) mmol/L Calcium (8.4-10.2) mg/dL Total Bilirubin (0.2-1.3) mg/dL AST (14-36) U/L ALT (4-34) U/L Alkaline Phosphatase (38-126) U/L Troponin I (0.000-0.034) ng/mL NT-Pro-B Natriuret Pep pg/mL Total Protein (6.3-8.2) g/dL Albumin (3.5-5.0) g/dL - EKG Data -: EKG Interpreted by Ms EKG shows normal: sinus rhythm, axis (Left axis deviation), intervals (QRS duration 150 ms, prolonged consistent with the left bundle-branch block. WA interval 185 ms QTC 444 ms, both normal), QRS complexes (Left bundle-branch block) Rate: normal (Rate 84 bpm) Critical Care Time Critical Care Time: Yes (40 minutes) Disposition Clinical Impression: Congestive heart failure, Acute bronchitis with chronic obstructive pulmonary disease (COPD), Hypoxia, Hypertension Disposition: ADMITTED IP TO THIS HOSP Condition: Serious Is patient prescribed a controlled substance at d/c from ED?: No
--- NOTE | 2022-04-14 23:36 | XR ---
EXAMINATION TYPE: XR chest 1V portable DATE OF EXAM: 04/14/2022 COMPARISON: 04/21/2021 HISTORY: Short of breath TECHNIQUE: Single view FINDINGS: There is coarse pulmonary interstitial density. There is blunting of the costophrenic angle s. Heart is top normal in size. Bony thorax appears intact. IMPRESSION: Pulmonary interstitial infiltrates could relate to pulmonary fibrosis. Heart failure also likely. Right pleural effusion increased compared to old exam.
[2022-04-15 00:03] LABS: Anisocytosis Slight; Basophils % (A) 0 %; Eosinophils # (A) 0.1 k/uL (0-0.7); Eosinophils % (A) 1 %; HCT 25.3 % (34.0-46.0); Hypochromasia Slight; Lymphocytes # (A) 1.2 k/uL (1.0-4.8); Lymphocytes % (A) 13 %; MCH 32.2 pg (25.0-35.0); MCHC 31.1 g/dL (31.0-37.0); Macrocytosis Moderate; Mean Platelet Volume 7.7; Monocytes # (A) 0.3 k/uL (0-1.0); Monocytes % (A) 3 %; Neutrophils # (A) 7.6 k/uL (1.3-7.7); Neutrophils % (A) 82 %; Platelet Count 262 k/uL (150-450); RBC 2.44 m/uL (3.80-5.40); RDW 17.3 % (11.5-15.5); WBC 9.4 k/uL (3.8-10.6)
[2022-04-15 00:10] LABS: HGB 7.9 gm/dL (11.4-16.0)
[2022-04-15 00:11] LABS: MCV 103.6 fL (80.0-100.0)
[2022-04-15 00:14] LABS: Albumin 3.5 g/dL (3.5-5.0); Calcium 9.5 mg/dL (8.4-10.2); Potassium 3.6 mmol/L (3.5-5.1); Total Bilirubin 0.2 mg/dL (0.2-1.3); Total Protein 7.7 g/dL (6.3-8.2)
[2022-04-15 00:38] LABS: Prothrombin Time 10.4 sec (9.0-12.0)
[2022-04-15 00:51] LABS: Partial Thromboplastin Time 16.2 sec (22.0-30.0)
--- NOTE | 2022-04-15 01:53 | CT ---
EXAMINATION TYPE: CT chest angio for PE DATE OF EXAM: 04/15/2022 COMPARISON: None HISTORY: Elevated D-dimer. CT DLP: 201 mGycm Automated exposure control for dose reduction was used. CONTRAST: Performed with IV Contrast, patient injected with 70ml mL of Isovue 370. There are 3-D postprocess images. There is some patchy moderate groundglass pulmonary interstitial infiltrates in both lungs in the upp er and lower lobes. There is mild bilateral pleural effusion. Heart is enlarged. Thoracic aorta is at heromatous. Ascending aorta measures 3.5 cm. No aneurysm or dissection. There are no hilar masses. No mediastinal adenopathy. There is no evidence of filling defect in the pulmonary arteries. There are large pulmonary arteries. There is extensive osteolytic changes in the thoracic spine. There is anterior subluxation of T1 in relation to T2. There is T6 compression deformity almost 50%. There is significant deformity of the i nferior sternum related to old fracture. IMPRESSION: No evidence of pulmonary embolism. This probably some pulmonary hypertension. Bilateral pleural effusions and pulmonary interstitial edema could be some chronic congestive heart f ailure. Pleural fluid is new compared to a PET/CT scan. Cardiomegaly. Extensive bony changes consistent with multiple myeloma that appeared to be progressive compared to P ET/CT scan of 02/13/2021. Displaced sternal fracture is new compared to old PET CT scan. T1-T2 subluxa tion deformity also present on old exam.
[2022-04-15] MEDS: FUROSEMIDE 10 MG/ML 4 ML VIAL IV SCH ×2 (04:46→16:50)
[2022-04-15] MEDS: PANTOPRAZOLE 40 MG TABLET PO SCH (06:05)
[2022-04-15] MEDS: LEVOTHYROXINE 25 MCG TAB PO SCH (06:05)
[2022-04-15] MEDS: NON FORMULARY DRUG (Lenalidomide [Revlimid] 15 MG Capsule) PO SCH (06:05)
[2022-04-15] MEDS: POTASSIUM CHLORIDE ER 10 MEQ TAB.ER.PRT PO SCH (08:21)
[2022-04-15] MEDS: ASPIRIN 81 MG PO SCH (08:22)
[2022-04-15] MEDS ORDERED: NITROGLYCERIN OINT 1 INCH/GM PACKET TOPICAL SCH (09:00)
[2022-04-15] MEDS ORDERED: METOPROLOL TARTRATE 50 MG TAB PO SCH (09:00)
[2022-04-15] MEDS ORDERED: CLOPIDOGREL 75 MG TAB PO SCH (09:00)
--- NOTE | 2022-04-15 10:02 | P.CRDCN ---
History of Present Illness History of present illness: This is a 85-year-old female with a past medical history significant for coronary artery disease with PCI mid LAD in 03/2021 and PCI mid distal LAD, ischemic cardiomyopathy, congestive heart failure, hypertension, hyperlipidemia, and multiple myeloma. Patient follows in the office with Dr. Copeland. We have been asked to see the patient in consultation for congestive heart failure. Patient presents emergency department with worsening shortness of breath. She states at home she has noticed her breathing progressively getting worse, worsening bilateral LE edema, palpitations, and orthopnea. EMS was called, and was noted to be tachypneic, diaphoretic, difficulty breathing, patient was placed on CPAP and brought patient to the emergency department. She denies any chest pain, dizziness, lightheadedness, or syncope. Denies any nausea, vomiting, diarrhea, fever, cough or chills, or abdominal pain. Patient was started on IV Lasix DIAGNOSTICS * EKG reveals sinus rhythm, heart rate 84, left bundle branch block. Prior EKG was similar findings * Recent echocardiogram obtained in the office 01/2022 revealed an EF 30%, global decrease in contractility, moderate aortic and mitral regurgitation, no pulmonary hypertension * Chest xray pulmonary interstitial infiltrates, pulmonary venous congestion noted. Right pleural effusion increased compared to old exam * CTA of chest revealed no evidence of pulmonary embolism, bilateral pleural effusions and pulmonary interstitial edema, extensive bony changes consistent with multiple myeloma that appear to be progressive compared to PET/computed tomography scan in 01/2021 * Laboratory data: Troponin 0.03, 0.062, proBNP 15,100, d-dimer 8.36, WBC 9.4, hemoglobin 7.9, platelets 262, sodium 137, potassium 3.6, BUN 16, serum creatinine 0.8 * Current home cardiac medications include metoprolol tartrate 50 mg the morning and 25 mg at night, losartan-hydrochlorothiazide 50-12.5mg daily, Lasix 20 mg daily, Plavix 75 mg daily, Lipitor 40 mg daily, and aspirin 81 mg daily * Cardiac catheterization history: * ong lesion the mid LAD of 7080 percent, patient underwent PCI of the mid LAD, no significant disease in the circumflex, disease in RCA, no significant disease in the left main * atient not to have haziness distal to the stent, previous stented area widely patent, patient underwent PCI to mid LAD distal to the previous stent REVIEW OF SYSTEMS: At the time of my exam: CONSTITUTIONAL: Denies fever or chills. HEENT: Denies blurred vision, vision changes, or eye pain. Denies hemoptysis CARDIOVASCULAR: Denies chest pain. + orthopnea. Denies PND. Denies palpitations RESPIRATORY: + shortness of breath. GASTROINTESTINAL: Denies abdominal pain. Denies nausea or vomiting. HEMATOLOGIC: Denies bleeding disorders. GENITOURINARY: Denies any blood in urine. SKIN: Denies pruitis. Denies rash. PHYSICAL EXAM: VITAL SIGNS: Reviewed. GENERAL: Well-developed in no acute distress. HEENT: Head is normocephalic. Pupils are equal, round. Sclerae anicteric. Mucous membranes of the mouth are moist. Neck supple. +JVD LUNGS: Respirations even and unlabored. Lungs crackles in bilateral bases HEART: Regular rate and rhythm. S1 and S2 heard. S3 heard. Systolic ejection murmur noted. ABDOMEN: Soft. Nondistended. Nontender. EXTREMITIES: Normal range of motion. No clubbing or cyanosis. Peripheral pulses intact. 2+ bilateral lower extremity edema, greater in her ankles bilaterally NEUROLOGIC: Awake and alert. Oriented x 3. ASSESSMENT: Acute on chronic heart failure with reduced ejection fraction 30% Elevated troponin, likely related to heart failure Coronary artery disease with previous PCI to LAD 03/2021 and PCI mid LAD 04/2021 Ischemic cardiomyopathy Severe mitral regurgitation Hypertension Hyperlipidemia Multiple myeloma Extensive bony changes consistent with multiple myeloma that appear to be progr essive compared to PET/CT scan in 01/[address] chest Displaced sternal fracture reported on CT chest Anemia Elevated D-dimer, PE ruled out PLAN: No need to repeat Echo with recent one completed in the office as noted above IV Lasix 40mg BID MOnitor I/Os, daily weights Monitor renal function Start Entresto 24mg-26mg Transition to Coreg 6.25mg BID, discontinue metoprolol tartrate Continue aspirin and statin Stop Plavix, given patient with stent was placed 1 year ago and worsening anemia Further recommendations pending patient course Nurse practitioner note has been reviewed by physician. Signing provider agrees with the documented findings, assessment, and plan of care. Past Medical History Past Medical History: Cancer, Heart Failure, GERD/Reflux, Hypertension, Myocardial Infarction (ND), Osteoarthritis (OA), Thyroid Disorder Additional Past Medical History / Comment(s): MULTIPLE MYELOMA- diagnosed in j une 2020, two iv chem treatments so far, last treatment was 04/20/2021, Bone Cancer currently, ND in 03/23 and 04/22 Last Myocardial Infarction Date:: 04/21/2021 History of Any Multi-Drug Resistant Organisms: None Reported Past Surgical History: Appendectomy, Joint Replacement, Tonsillectomy Additional Past Surgical History / Comment(s): BILAT TKA. BILAT CARARACTS REMOVED WITH LENS IMPLANTS. 1/2 OF THYROID REMOVED. FATTY TUMOR REMOVED FROM KNEE. COLONOSCOPY. Heart cath with stent 2020, CHF Past Anesthesia/Blood Transfusion Reactions: No Reported Reaction Past Psychological History: No Psychological Hx Reported Smoking Status: Former smoker Past Alcohol Use History: None Reported Additional Past Alcohol Use History / Comment(s): QUIT SMOKING 1964 Past Drug Use History: None Reported - Past Family History Mother Family Medical History: Cancer Medications and Allergies Home Medications Medication Instructions Recorded Confirmed Type Omeprazole 20 mg PO DAILY@0800 02/26/21 04/15/22 History Metoprolol Tartrate [Lopressor] 50 mg PO DAILY@0800 04/21/21 04/15/22 History Clopidogrel [Plavix] 75 mg PO DAILY@1200 12/14/21 04/15/22 History Levothyroxine Sodium [Synthroid] 25 mcg PO DAILY@0800 12/14/21 04/15/22 History Metoprolol Tartrate [Lopressor] 25 mg PO HS@1700 12/14/21 04/15/22 History Aspirin EC [Ecotrin Low Dose] 81 mg PO DAILY 03/03/22 04/15/22 History Sertraline [Zoloft] 25 mg PO DAILY@1700 03/03/22 04/15/22 History Cholecalciferol [Vitamin D3 (25 25 mcg PO DAILY@1200 04/15/22 04/15/22 History Mcg = 1000 Iu)] Furosemide [Lasix] 20 mg PO BID@0800,1200 04/15/22 04/15/22 History Potassium Chloride ER [K-Dur 10] 10 meq PO BID@1200,1700 04/15/22 04/15/22 History Allergies Allergy/AdvReac Type Severity Reaction Status Date / Time Penicillins Allergy Swelling Verified 04/15/22 07:54 of entire body shellfish derived [Shellfish] AdvReac Nausea & Verified 04/15/22 07:54 Vomiting Physical Exam Vitals: Vital Signs Temp Pulse Pulse Resp BP BP Pulse Ox 04/15/22 05:42 97.8 F 92 18 154/78 99 04/15/22 04:30 81 151/81 99 04/15/22 04:15 81 155/74 99 04/15/22 04:00 75 16 150/79 99 04/15/22 03:45 82 150/71 99 04/15/22 03:30 76 144/76 99 04/15/22 03:15 77 157/73 99 04/15/22 03:00 74 153/69 99 04/15/22 02:45 78 155/74 99 04/15/22 02:30 76 158/73 99 04/15/22 02:15 77 161/80 99 04/15/22 02:00 84 16 153/76 98 04/15/22 01:45 84 99 04/15/22 01:30 16 154/73 04/15/22 01:15 79 150/74 100 04/15/22 01:00 82 18 151/73 99 04/15/22 00:45 82 148/66 100 04/15/22 00:30 72 151/69 99 04/15/22 00:15 80 148/73 99 04/15/22 00:00 82 143/70 98 04/14/22 23:45 80 138/80 98 04/14/22 23:40 82 132/79 95 04/14/22 23:15 82 26 H 163/100 97 FiO2 04/15/22 05:42 04/15/22 04:30 04/15/22 04:15 04/15/22 04:00 04/15/22 03:45 04/15/22 03:30 04/15/22 03:15 04/15/22 03:00 04/15/22 02:45 04/15/22 02:30 04/15/22 02:15 04/15/22 02:00 04/15/22 01:45 04/15/22 01:30 04/15/22 01:15 04/15/22 01:00 04/15/22 00:45 04/15/22 00:30 04/15/22 00:15 04/15/22 00:00 04/14/22 23:45 04/14/22 23:40 04/14/22 23:15 45 Intake and Output 04/14/22 04/15/22 04/15/22 22:59 06:59 14:59 Output Total 500 Balance -500 Output: Urine 500 Other: # Voids 1 Weight 43.5 kg Results 04/14/22 23:27 04/14/22 23:27 Cardiac Enzymes 04/14/22 04/14/22 04/15/22 Range/Units 23:27 23:27 04:53 AST 26 (14-36) U/L Troponin I 0.032 0.066 H* (0.000-0.034) ng/mL Coagulation 04/14/22 Range/Units 23:27 PT 10.4 (9.0-12.0) sec APTT 16.2 L (22.0-30.0) sec CBC 04/14/22 Range/Units 23:27 WBC 9.4 (3.8-10.6) k/uL RBC 2.44 L (3.80-5.40) m/uL Hgb 7.9 L D (11.4-16.0) gm/dL Hct 25.3 L (34.0-46.0) % Plt Count 262 (150-450) k/uL Comprehensive Metabolic Panel 04/14/22 Range/Units 23:27 Sodium 137 (137-145) mmol/L Potassium 3.6 (3.5-5.1) mmol/L Chloride 106 (98-107) mmol/L Carbon Dioxide 25 (22-30) mmol/L BUN 16 (7-17) mg/dL Creatinine 0.83 (0.52-1.04) mg/dL Glucose 152 H (74-99) mg/dL Calcium 9.5 (8.4-10.2) mg/dL AST 26 (14-36) U/L ALT 12 (4-34) U/L Alkaline Phosphatase 95 (38-126) U/L Total Protein 7.7 (6.3-8.2) g/dL Albumin 3.5 (3.5-5.0) g/dL Current Medications Generic Name Dose Route Start Last Admin Trade Name Freq PRN Reason Stop Dose Admin Aspirin 81 mg 04/15/22 09:00 Aspirin 81 Mg PO DAILY [facility]ION Clopidogrel Bisulfate 75 mg 04/15/22 09:00 Clopidogrel 75 Mg Tab PO DAILY [facility] Furosemide 40 mg 04/15/22 04:00 04/15/22 04:46 Furosemide 10 Mg/Ml 4 Ml Vial IV 40 mg Q12H [facility] Administration Levothyroxine Sodium 25 mcg 04/15/22 06:30 04/15/22 06:05 Levothyroxine 25 Mcg Tab PO 25 mcg DAILY@0630 [facility] Administration Melatonin 5 mg 04/15/22 21:00 Melatonin 5 Mg Tablet PO HS [facility] Metoprolol Tartrate 50 mg 04/15/22 09:00 Metoprolol Tartrate 50 Mg Tab PO DAILY [facility] Metoprolol Tartrate 25 mg 04/15/22 21:00 Metoprolol Tartrate 25 Mg Tab PO HS [facility] Nitroglycerin 0.5 inch 04/15/22 09:00 Nitroglycerin Oint 1 Inch/Gm Packet TOPICAL QID [facility] Non-Formulary Medication 15 mg 04/15/22 04:00 04/15/22 06:05 Lenalidomide [Revlimid] PO Not Given DIRECTED [facility] Pantoprazole Sodium 40 mg 04/15/22 07:30 04/15/22 06:05 Pantoprazole 40 Mg Tablet PO 40 mg [id number] [facility] Administration Potassium Chloride 10 meq 04/15/22 09:00 Potassium Chloride Er 10 Meq Tab.Er.Prt PO DAILY [facility] Sodium Chloride 10 ml 04/15/22 09:00 Sodium Chloride 0.9% Flush 10 Ml Syringe IV BID [facility] Intake and Output 04/14/22 04/15/22 04/15/22 22:59 06:59 14:59 Output Total 500 Balance -500 Output: Urine 500 Other: # Voids 1 Weight 43.5 kg 04/14/22 23:27 04/14/22 23:27
[2022-04-15] MEDS: ATORVASTATIN 40 MG TAB PO SCH (10:09)
[2022-04-15] MEDS: SACUBITRIL/VALSARTAN 24 MG-26 MG TABLET PO SCH ×2 (10:09→20:47)
[2022-04-15] MEDS: carvediloL 6.25 MG TAB PO SCH ×2 (10:09→16:50)
--- NOTE | 2022-04-15 11:40 | P.HPIM ---
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 Patient complains of sudden onset of shortness of breath started last evening. She called 911 and EMS brought her into the hospital for further evaluation. She was given nebulizer treatment, Solu-Medrol and place her on a CPAP with improvement of her breathing. Heart rate was 82, respiratory rate 26, blood pressure initially 163/100 and repeat 132/79, pulse ox 97% on BiPAP with FiO2 45%. EKG sinus rhythm, left bundle branch block. WBC 9.4, hemoglobin 7.9, platelet count 262. INR 1.0. D-dimer 8.36. Electrolytes and renal function were normal. Glucose 152. Lactic acid 3.9 and repeat 1.1. Liver function tests were normal. Troponin 0.032, 0.066 and 0.061. ProBNP 15,100. Albumin 3.5. Chest x-ray reveals pulmonary interstitial infiltrates could relate to pulmonary fibrosis. Heart failure also likely. Right pleural effusion increased. CT angiogram of the chest revealed no evidence of pulmonary embolism. Probably some pulmonary hypertension. Bilateral pleural effusions and pulmonary interstitial edema could be some chronic heart failure. Pleural fluid is new. Cardiomegaly. Extensive bony changes consistent with multiple myeloma and appears to be progressive compared to PET scan 02/13/2021. Displaced sternal fracture is new. T1-T2 subluxation deformity present on old exam. Patient is status post sublingual nitroglycerin, [facility] ointment, [facility] and cardiology consult added. REVIEW OF SYSTEMS Constitutional: No fever, no chills, no night sweats. No weight change. No weakness, fatigue or lethargy. No daytime sleepiness. EENT: No headache. No blurred vision or double vision, no loss of vision. No loss of Hearing, no ringing in the ears, no dizziness. No nasal drainage or congestion. No epistaxis. No sore throat. Lungs:Reports shortness of breath, no cough, no sputum production. No wheezing.Reports exertional dyspnea. Cardiovascular: Denies chest pain, no lower extremity edema. No palpitations. No paroxysmal nocturnal dyspnea. No orthopnea. No lightheadedness or dizziness. No syncopal episodes. Abdominal: positive abdominal pain, nausea no vomiting has constipation with slight increase abdominal discomfort and significant lack of appetite but no bloody bowel movement and no tarry stool. Genitourinary: No dysuria, Decrease urine output with no retention.. Musculoskeletal: No myalgias. No muscle weakness, no gait dysfunction, no frequent falls. No back pain. No neck pain. Integumentary: No wounds, no lesions. No rash or pruritus. No unusual bruising. No change in hair or nails. Neurologic: No aphasia. No facial droop. No change in mentation. No head injury. No headache. No paralysis. No paresthesia.mild confusion. Psychiatric: No depression. No anxiety. Endocrine: Noted abnormal blood sugars. SOCIAL HISTORY Patient was a smoker for short period only and quit in 1963. No alcohol use or abuse. She does have a walker to use at home. No recent falls. FAMILY HISTORY Mother is from lung cancer. Father is from massive myocardial infarction. Patient has a brother that had coronary artery disease starting in his 40s. PHYSICAL EXAMINATION Gen: This is this is an 86-year-old female. Patient is resting in bed and appears to be comfortable and in no acute distress. HEENT: Head is atraumatic, normocephalic. Pupils equal, round. Sclerae is anicteric. NECK: Supple. No JVD. No lymphadenopathy. No thyromegaly. LUNGS: Crackles bilat bases. No intercostal retractions. HEART: Regular rate and rhythm. Positive S3. Systolic murmur. ABDOMEN: Soft. Bowel sounds are present. No masses. No tenderness. EXTREMITIES:Trace bilateral pedal edema. No calf tenderness. Dorsalis pedis +2 bilaterally. NEUROLOGICAL: Patient is awake, alert and oriented x3. Cranial nerves 2 through 12 are grossly intact. ASSESSMENT AND PLAN acute on chronic systolic heart failure.with ischemic cardiomyopathy. Continue Lasix 40 mg IV every 12 hours, Coreg 6.25 mg twice daily, Entresto 2426 milligrams one twice daily. Elevated troponin. Consult with cardiology. Elevated d-dimer with negative CTA for pulmonary embolism. History of coronary artery disease with previous PCI to LAD 03/2021 and PCI mid LAD 04/2021.continue aspirin 81 mg daily, Lipitor, Coreg Ischemic cardiomyopathy with EF of 20%. Valvular heart disease with severe mitral regurgitation. Hypertension. Continue Coreg and Entresto. Patient has not been on lopressor for 1.5 months and will be discontinued. Hyperlipidemia. Continue atorvastatin. Multiple myeloma with progression, patient chose not to do chemotherapy. Hypothyroidism. Continue Levotyroxine 25 mcg daily. GI prophylaxis. DVT prophylaxis CODE STATUS: Full code. Admit patient to the inpatient service for more than 2 night stay. DISCHARGE PLAN Home with possible home care. Impression and plan of care have been directed as dictated by the signing physician. Cait Longo nurse practitioner acting as scribe for signing physician. Past Medical History Past Medical History: Cancer, Heart Failure, GERD/Reflux, Hypertension, Myocardial Infarction (OR), Osteoarthritis (OA), Thyroid Disorder Additional Past Medical History / Comment(s): MULTIPLE MYELOMA- diagnosed in march 2021, two iv chem treatments so far, last treatment was 04/20/2021, Bone Cancer currently, OR in 03/23 and 04/22 Last Myocardial Infarction Date:: 04/21/2021 History of Any Multi-Drug Resistant Organisms: None Reported Past Surgical History: Appendectomy, Joint Replacement, Tonsillectomy Additional Past Surgical History / Comment(s): BILAT TKA. BILAT CARARACTS REMOVED WITH LENS IMPLANTS. 1/2 OF THYROID REMOVED. FATTY TUMOR REMOVED FROM KNEE. COLONOSCOPY. Heart cath with stent 2020, CHF Past Anesthesia/Blood Transfusion Reactions: No Reported Reaction Past Psychological History: No Psychological Hx Reported Smoking Status: Former smoker Past Alcohol Use History: None Reported Additional Past Alcohol Use History / Comment(s): QUIT SMOKING 1964 Past Drug Use History: None Reported - Past Family History Mother Family Medical History: Cancer Medications and Allergies Home Medications Medication Instructions Recorded Confirmed Type Omeprazole 20 mg PO DAILY@0800 02/26/21 04/15/22 History Metoprolol Tartrate [Lopressor] 50 mg PO DAILY@0800 04/21/21 04/15/22 History Clopidogrel [Plavix] 75 mg PO DAILY@1200 12/14/21 04/15/22 History Levothyroxine Sodium [Synthroid] 25 mcg PO DAILY@0800 12/14/21 04/15/22 History Metoprolol Tartrate [Lopressor] 25 mg PO HS@1700 12/14/21 04/15/22 History Aspirin EC [Ecotrin Low Dose] 81 mg PO DAILY 03/03/22 04/15/22 History Sertraline [Zoloft] 25 mg PO DAILY@1700 03/03/22 04/15/22 History Cholecalciferol [Vitamin D3 (25 25 mcg PO DAILY@1200 04/15/22 04/15/22 History Mcg = 1000 Iu)] Furosemide [Lasix] 20 mg PO BID@0800,1200 04/15/22 04/15/22 History Potassium Chloride ER [K-Dur 10] 10 meq PO BID@1200,1700 04/15/22 04/15/22 History Allergies Allergy/AdvReac Type Severity Reaction Status Date / Time Penicillins Allergy Swelling Verified 04/15/22 07:54 of entire body shellfish derived [Shellfish] AdvReac Nausea & Verified 04/15/22 07:54 Vomiting Physical Exam Vitals: Vital Signs Temp Pulse Pulse Resp BP BP Pulse Ox 04/15/22 07:55 98.2 F 90 17 145/66 95 04/15/22 05:42 97.8 F 92 18 154/78 99 04/15/22 04:30 81 151/81 99 04/15/22 04:15 81 155/74 99 04/15/22 04:00 75 16 150/79 99 04/15/22 03:45 82 150/71 99 04/15/22 03:30 76 144/76 99 04/15/22 03:15 77 157/73 99 04/15/22 03:00 74 153/69 99 04/15/22 02:45 78 155/74 99 04/15/22 02:30 76 158/73 99 04/15/22 02:15 77 161/80 99 04/15/22 02:00 84 16 153/76 98 04/15/22 01:45 84 99 04/15/22 01:30 16 154/73 04/15/22 01:15 79 150/74 100 04/15/22 01:00 82 18 151/73 99 04/15/22 00:45 82 148/66 100 04/15/22 00:30 72 151/69 99 04/15/22 00:15 80 148/73 99 04/15/22 00:00 82 143/70 98 04/14/22 23:45 80 138/80 98 04/14/22 23:40 82 132/79 95 04/14/22 23:15 82 26 H 163/100 97 FiO2 04/15/22 07:55 04/15/22 05:42 04/15/22 04:30 04/15/22 04:15 04/15/22 04:00 04/15/22 03:45 04/15/22 03:30 04/15/22 03:15 04/15/22 03:00 04/15/22 02:45 04/15/22 02:30 04/15/22 02:15 04/15/22 02:00 04/15/22 01:45 04/15/22 01:30 04/15/22 01:15 04/15/22 01:00 04/15/22 00:45 04/15/22 00:30 04/15/22 00:15 04/15/22 00:00 04/14/22 23:45 04/14/22 23:40 04/14/22 23:15 45 Intake and Output 04/14/22 04/15/22 04/15/22 22:59 06:59 14:59 Output Total 500 Balance -500 Output: Urine 500 Other: # Voids 1 Weight 43.5 kg Results CBC & Chem 7: 04/14/22 23:27 04/14/22 23:27 Labs: Abnormal Lab Results - Last 24 Hours (Table) 04/14/22 04/14/22 04/14/22 Range/Units 23:27 23:27 23:27 RBC 2.44 L (3.80-5.40) m/uL Hgb 7.9 L D (11.4-16.0) gm/dL Hct 25.3 L (34.0-46.0) % MCV 103.6 H D (80.0-100.0) fL RDW 17.3 H (11.5-15.5) % APTT 16.2 L (22.0-30.0) sec D-Dimer 8.36 H (<0.60) mg/L FEU Glucose 152 H (74-99) mg/dL Plasma Lactic Acid Mart (0.7-2.0) mmol/L Troponin I (0.000-0.034) ng/mL 04/14/22 04/15/22 Range/Units 23:27 04:53 RBC (3.80-5.40) m/uL Hgb (11.4-16.0) gm/dL Hct (34.0-46.0) % MCV (80.0-100.0) fL RDW (11.5-15.5) % APTT (22.0-30.0) sec D-Dimer (<0.60) mg/L FEU Glucose (74-99) mg/dL Plasma Lactic Acid Mart 3.9 H* (0.7-2.0) mmol/L Troponin I 0.066 H* (0.000-0.034) ng/mL
[2022-04-15 13:12] VITALS: BMI 23.1
[2022-04-15] MEDS: SERTRALINE 25 MG TAB PO SCH (16:50)
[2022-04-15] MEDS: MELATONIN 5 MG TABLET PO SCH (20:47)
[2022-04-15] MEDS ORDERED: METOPROLOL TARTRATE 25 MG TAB PO SCH (21:00)
[2022-04-16] MEDS: NON FORMULARY DRUG (Lenalidomide [Revlimid] 15 MG Capsule) PO SCH (04:26)
[2022-04-16] MEDS: FUROSEMIDE 10 MG/ML 4 ML VIAL IV SCH ×2 (04:26→16:04)
[2022-04-16] MEDS: LEVOTHYROXINE 25 MCG TAB PO SCH (06:32)
[2022-04-16] MEDS: carvediloL 6.25 MG TAB PO SCH ×2 (06:32→16:05)
[2022-04-16] MEDS: PANTOPRAZOLE 40 MG TABLET PO SCH (06:32)
[2022-04-16 08:04] LABS: Calcium 8.8 mg/dL (8.4-10.2); Potassium 3.3 mmol/L (3.5-5.1)
[2022-04-16] MEDS: POTASSIUM CHLORIDE ER 10 MEQ TAB.ER.PRT PO SCH ×2 (09:15→21:08)
[2022-04-16] MEDS: ASPIRIN 81 MG PO SCH (09:15)
[2022-04-16] MEDS ORDERED: POTASSIUM CHLORIDE ER 20 MEQ TAB.ER PO STA (09:20)
[2022-04-16] MEDS: SACUBITRIL/VALSARTAN 24 MG-26 MG TABLET PO SCH ×2 (09:23→21:08)
[2022-04-16 09:44] LABS: Anisocytosis Slight; HCT 27.1 % (34.0-46.0); HGB 8.7 gm/dL (11.4-16.0); Hypochromasia Slight; MCH 33.5 pg (25.0-35.0); MCHC 32.2 g/dL (31.0-37.0); MCV 104.1 fL (80.0-100.0); Macrocytosis Moderate; Mean Platelet Volume 7.6; Platelet Count 195 k/uL (150-450); RDW 17.2 % (11.5-15.5); WBC 6.1 k/uL (3.8-10.6)
--- NOTE | 2022-04-16 10:55 | CDI ---
Documentation Clarification Form Date: 04/16/2022 10:43:47 AM From: Yazmin Schulz CCS, CCDS Admit Date: 04/15/2022 03:52:00 AM Patient Name: Liberty Coles Visit Number: [id number] Discharge Date: ATTENTION: The Clinical Documentation Specialists (CDI) and [facility] Coding Staff appreciate your assistance in clarifying documentation. Please respond to the clarification below the line at the bottom and electronically sign. The CDI & [facility] Coding staff will review the response and follow-up if needed. Please note: Queries are made part of the Legal Health Record. If you have any questions, please contact the author of this message via ITS. Dr. Sotero Lawrence: The following is documented in the 04/15 Cardiology Consult: Anemia. Stop Plavix, given patient with stent was placed 1 year ago and worsening anemia. Additional specificity regarding the Type & Acuity of Anemia is requested. History/Risk Factors per the 04/15 H/P: CAD & NE status post stent 04/2021, Multiple Myeloma, no on chemotherapy; Ischemic Cardiomyopathy w/EF 20%, Valvular heart disease with severe mitral regurgitation, Hypertension, Hyperlipidemia, hypothyroidism, Former smoker. Clinical indicators: Presented to the ED via EMS on 04/14 with SOB. Bilateral ankle edema. Diaphoretic, very tachypneic, impending respiratory failure. Admit with Hypertensive Emergency and CHF Hemoglobin 04/14: 7.9, 04/16: 8.7 Hematocrit 04/14: 25.3, 04/16 27.1 Treatment 04/14: O2 2Lnc - BiPAP, Nitropaste, Nitro sl. 04/15: Telemetry, Daily weights, CHF clinical Protocol, I&Os, Galindo catheter insertion, Heart healthy Diet, IV Lasix 40 mg q12H, po Plavix 75 mg Daily Please clarify the Type & Acuity of Anemia: [ ] Chronic blood loss anemia [ ] Hemolytic anemia [ ] Drug induced anemia [ ] Anemia due to malignancy [ ] Anemia of chronic disease [ ] Unable to determine [ ] Other, please specify refer to PCP (Template Last Revised: November 2020) MTDD
--- NOTE | 2022-04-16 11:30 | P.PN ---
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 Patient complains of sudden onset of shortness of breath started last evening. She called 911 and EMS brought her into the hospital for further evaluation. She was given nebulizer treatment, Solu-Medrol and place her on a CPAP with improvement of her breathing. Heart rate was 82, respiratory rate 26, blood pressure initially 163/100 and repeat 132/79, pulse ox 97% on BiPAP with FiO2 45%. EKG sinus rhythm, left bundle branch block. WBC 9.4, hemoglobin 7.9, platelet count 262. INR 1.0. D-dimer 8.36. Electrolytes and renal function were normal. Glucose 152. Lactic acid 3.9 and repeat 1.1. Liver function tests were normal. Troponin 0.032, 0.066 and 0.061. ProBNP 15,100. Albumin 3.5. Chest x-ray reveals pulmonary interstitial infiltrates could relate to pulmonary fibrosis. Heart failure also likely. Right pleural effusion increased. CT angiogram of the chest revealed no evidence of pulmonary embolism. Probably some pulmonary hypertension. Bilateral pleural effusions and pulmonary interstitial edema could be some chronic heart failure. Pleural fluid is new. Cardiomegaly. Extensive bony changes consistent with multiple myeloma and appears to be progressive compared to PET scan 02/13/2021. Displaced sternal fracture is new. T1-T2 subluxation deformity present on old exam. Patient is status post sublingual nitroglycerin, [facility] ointment, admitted to the [facility] floor and cardiology consult added. 04/16: Patient is seen today on the cardiac stepdown unit. Patient has been seen by cardiology with recommendations continue IV Lasix 40 mg twice daily, monitor I&O and daily weights, continue aspirin and statin, discontinue Plavix, transition Lopressor to Coreg and patient started on Entresto. Patient has been afebrile, heart rate in 89, blood pressure 156/69, pulse ox 93% -98% on 2 L nasa l cannula. monitor tech has been sinus rhythm. Repeat blood work reveals WBC 6.1, hemoglobin 8.7 platelet count 195. Sodium 138, potassium 3.3 and replaced, chloride 104, CO2 33, BUN 16 creatinine 0.97. REVIEW OF SYSTEMS Constitutional: No fever, no chills, no night sweats. No weight change. No weakness, fatigue or lethargy. No daytime sleepiness. EENT: No headache. No blurred vision or double vision, no loss of vision. No loss of Hearing, no ringing in the ears, no dizziness. No nasal drainage or congestion. No epistaxis. No sore throat. Lungs:Reports shortness of breath, no cough, no sputum production. No wheezing.Reports exertional dyspnea. Cardiovascular: Denies chest pain, no lower extremity edema. No palpitations. No paroxysmal nocturnal dyspnea. No orthopnea. No lightheadedness or dizziness. No syncopal episodes. Abdominal: positive abdominal pain, nausea no vomiting has constipation with slight increase abdominal discomfort and significant lack of appetite but no bloody bowel movement and no tarry stool. Genitourinary: No dysuria, Decrease urine output with no retention.. Musculoskeletal: No myalgias. No muscle weakness, no gait dysfunction, no frequent falls. No back pain. No neck pain. Integumentary: No wounds, no lesions. No rash or pruritus. No unusual bruising. No change in hair or nails. Neurologic: No aphasia. No facial droop. No change in mentation. No head injury. No headache. No paralysis. No paresthesia.mild confusion. Psychiatric: No depression. No anxiety. Endocrine: Noted abnormal blood sugars. PHYSICAL EXAMINATION Gen: This is this is an 86-year-old female. Patient is resting in bed and appears to be comfortable and in no acute distress. HEENT: Head is atraumatic, normocephalic. Pupils equal, round. Sclerae is anicteric. NECK: Supple. No JVD. No lymphadenopathy. No thyromegaly. LUNGS: Crackles bilat bases. No intercostal retractions. HEART: Regular rate and rhythm. Positive S3. Systolic murmur. ABDOMEN: Soft. Bowel sounds are present. No masses. No tenderness. EXTREMITIES:Trace bilateral pedal edema. No calf tenderness. Dorsalis pedis +2 bilaterally. NEUROLOGICAL: Patient is awake, alert and oriented x3. Cranial nerves 2 through 12 are grossly intact. ASSESSMENT AND PLAN acute on chronic systolic heart failure.with ischemic cardiomyopathy. Continue Lasix 40 mg IV every 12 hours, Coreg 6.25 mg twice daily, Entresto 2426 milligrams one twice daily. Cardiology consult appreciated. Monitor I&O, daily weights, electrolytes and renal function. Elevated troponin. Consult with cardiology appreciated. Elevated d-dimer with negative CTA for pulmonary embolism. History of coronary artery disease with previous PCI to LAD 03/2021 and PCI mid LAD 04/2021.continue aspirin 81 mg daily, Lipitor, Coreg Ischemic cardiomyopathy with EF of 20%. Valvular heart disease with severe mitral regurgitation. Hypertension. Continue Coreg and Entresto. Patient has not been on lopressor for 1.5 months and will be discontinued. Hyperlipidemia. Continue atorvastatin. Multiple myeloma with progression, patient chose not to do chemotherapy. Hypothyroidism. Continue Levotyroxine 25 mcg daily. GI prophylaxis. DVT prophylaxis CODE STATUS: Full code. DISCHARGE PLAN Home with [facility] on Tuesday. Impression and plan of care have been directed as dictated by the signing physician. Cait Longo nurse practitioner acting as scribe for signing physician. Objective - Vital Signs Vital signs: Vital Signs Temp 97.9 F 04/16/22 04:00 Pulse 89 04/16/22 04:00 Resp 18 04/16/22 04:00 BP 156/69 04/16/22 04:00 Pulse Ox 93 L 04/16/22 04:00 FiO2 45 04/14/22 23:15 Intake & Output 04/15/22 04/16/22 04/16/22 18:59 06:59 18:59 Intake Total 420 180 Output Total 1200 Balance 420 -1200 180 Weight 43.5 kg 41.8 kg Intake: Oral 420 180 Output: Urine 1200 Other: Voiding Method Bedside Commode Diaper - Labs CBC & Chem 7: 04/16/22 08:46 04/16/22 07:07 Labs: Abnormal Lab Results - Last 24 Hours (Table) 04/15/22 04/16/22 Range/Units 07:39 07:07 Potassium 3.3 L (3.5-5.1) mmol/L Carbon Dioxide 33 H (22-30) mmol/L Troponin I 0.061 H* (0.000-0.034) ng/mL
[2022-04-16] MEDS: SERTRALINE 25 MG TAB PO SCH (16:05)
--- NOTE | 2022-04-16 19:40 | PN ---
PROGRESS NOTE Mrs. Coles is a lady with CAD, multiple myeloma. She is in sinus rhythm with left bundle. She is comfortable resting. Denies any chest pain. Vitals are stable. S1-S2 heard normally. Short systolic murmur noted. Lungs reveal decent air entry. Abdomen is soft, nontender. Lower extremities reveal normal pulses. No edema. Central nervous system is normal. Patient is stable from a cardiac standpoint. We will continue to see her as needed. She has had previous PCI, but no overt anginal symptoms, and her multiple myeloma seems to have progressed. MMODL / IJN: [id number] /
[2022-04-16] MEDS: MELATONIN 5 MG TABLET PO SCH (21:08)
[2022-04-17] MEDS: NON FORMULARY DRUG (Lenalidomide [Revlimid] 15 MG Capsule) PO SCH (05:15)
[2022-04-17] MEDS: FUROSEMIDE 10 MG/ML 4 ML VIAL IV SCH (05:23)
[2022-04-17] MEDS: LEVOTHYROXINE 25 MCG TAB PO SCH (06:01)
[2022-04-17] MEDS: carvediloL 6.25 MG TAB PO SCH ×2 (06:01→15:35)
[2022-04-17] MEDS: PANTOPRAZOLE 40 MG TABLET PO SCH (06:01)
[2022-04-17 07:47] LABS: Calcium 9.1 mg/dL (8.4-10.2); Potassium 4.3 mmol/L (3.5-5.1)
[2022-04-17] MEDS: ATORVASTATIN 40 MG TAB PO SCH (08:19)
[2022-04-17] MEDS: POTASSIUM CHLORIDE ER 10 MEQ TAB.ER.PRT PO SCH ×2 (08:19→20:53)
[2022-04-17] MEDS: SACUBITRIL/VALSARTAN 24 MG-26 MG TABLET PO SCH ×2 (08:19→20:54)
[2022-04-17] MEDS: ASPIRIN 81 MG PO SCH (08:19)
--- NOTE | 2022-04-17 11:45 | P.PN ---
Subjective Progress Note Date: 04/17/22 Principal diagnosis: CHF Patient continued to be hemodynamically stable currently alert and oriented 4 wondering if she can go home. Patient is denying chest pain shortness breath and thinks that she's much better and at least 75% back at baseline Objective - Vital Signs Vital signs: Vital Signs Temp 98.2 F 04/17/22 08:17 Pulse 78 04/17/22 08:17 Resp 14 04/17/22 08:17 BP 120/66 04/17/22 08:17 Pulse Ox 95 04/17/22 08:17 FiO2 45 04/14/22 23:15 Intake & Output 04/16/22 04/17/22 04/17/22 18:59 06:59 18:59 Intake Total 710 480 240 Output Total 600 600 Balance 110 -120 240 Weight 40.8 kg Intake: IV 50 Invasive Line 2 10 Invasive Line 3 40 Oral 660 480 240 Output: Urine 600 600 Other: Voiding Method Bedside Commode Toilet Toilet Diaper # Voids 3 # Bowel Movements 1 - Exam Gen.: in stated age, no acute distress Heart: Normal S1-S2 Lungs: Clear to auscultation bilaterally Abdomen: Soft, no tenderness, positive bowel sounds in all 4 quadrant no guarding or rebound Skin: No new rash Psych: Alert and oriented 3 Neuro: No focal deficit Lower extremity 1+ edema bilaterally - Labs CBC & Chem 7: 04/16/22 08:46 04/17/22 07:15 Labs: Abnormal Lab Results - Last 24 Hours (Table) 04/17/22 Range/Units 07:15 Carbon Dioxide 36 H (22-30) mmol/L Assessment and Plan Assessment: 1. Acute CHF exacerbation, systolic with known ejection fraction 20%. 2. Recent elevated troponin. 3. Dyspnea on the session. 4. Severe mitral regurgitation. 5. Hypertension. 6. Hyperlipidemia. 7. Multiple myeloma. 8. Hypothyroidism. Plan discussed with nursing staff patient where we would like to have patient's on by mouth diuretics. Patient received 40 mg of Bumex twice daily takes 20 mg twice daily at home orally and I would like to have patient's on 40 mg twice daily orally once she is in the hospital ensure improvement over the next 24 hours and consider discharge based on clinical progress. We'll continue cardioprotective medication. Follow-up with cardiology recommendation. Patient follow-up with hematology oncology an outpatient basis
--- NOTE | 2022-04-17 13:27 | P.PN ---
Subjective Progress Note Date: 04/17/22 The patient was interviewed and examined lying comfortably in bed. She states she did well overnight. She has been up ambulating around her room without any shortness of breath, chest discomfort, or dizziness. She is tolerating her new medication regimen well. Review reviewed her adjustment in medications as she is now on carvedilol and Entresto. GENERAL: Well-appearing and in no acute distress. NECK: Supple without JVD or thyromegaly. LUNGS: Breath sounds clear to auscultation bilaterally. Respiration equal and unlabored. No wheezes, rales or rhonchi. HEART: Regular rate and rhythm. Systolic murmur. No rubs or gallops. S1 and S2 heard. EXTREMITIES: Normal range of motion, no edema. No clubbing or cyanosis. Peripheral pulses intact and strong. 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 Copeland I am dictating on behalf of Dr Davie Christianson's history/physical and assessment/plan. Objective - Vital Signs Vital signs: Vital Signs Temp 98.2 F 04/17/22 08:17 Pulse 78 04/17/22 08:17 Resp 14 04/17/22 08:17 BP 120/66 04/17/22 08:17 Pulse Ox 95 04/17/22 08:17 FiO2 45 04/14/22 23:15 Intake & Output 04/16/22 04/17/22 04/17/22 18:59 06:59 18:59 Intake Total 710 480 240 Output Total 600 600 Balance 110 -120 240 Weight 40.8 kg Intake: IV 50 Invasive Line 2 10 Invasive Line 3 40 Oral 660 480 240 Output: Urine 600 600 Other: Voiding Method Bedside Commode Toilet Toilet Diaper # Voids 3 # Bowel Movements 1 - Labs CBC & Chem 7: 04/16/22 08:46 07/16/22 07:15 Labs: Abnormal Lab Results - Last 24 Hours (Table) 04/16/22 04/17/22 Range/Units 08:46 07:15 RBC 2.60 L (3.80-5.40) m/uL Hgb 8.7 L (11.4-16.0) gm/dL Hct 27.1 L (34.0-46.0) % MCV 104.1 H (80.0-100.0) fL RDW 17.2 H (11.5-15.5) % Carbon Dioxide 36 H (22-30) mmol/L
[2022-04-17] MEDS: SERTRALINE 25 MG TAB PO SCH (15:35)
[2022-04-17] MEDS: FUROSEMIDE 40 MG TAB PO SCH (15:35)
[2022-04-17] MEDS: MELATONIN 5 MG TABLET PO SCH (20:54)
[2022-04-18] MEDS: NON FORMULARY DRUG (Lenalidomide [Revlimid] 15 MG Capsule) PO SCH (02:07)
[2022-04-18] MEDS: PANTOPRAZOLE 40 MG TABLET PO SCH (06:28)
[2022-04-18] MEDS: LEVOTHYROXINE 25 MCG TAB PO SCH (06:28)
[2022-04-18] MEDS: carvediloL 6.25 MG TAB PO SCH ×2 (06:28→16:39)
[2022-04-18 07:37] LABS: Albumin 3.2 g/dL (3.5-5.0); Magnesium 1.4 mg/dL (1.6-2.3); Potassium 4.6 mmol/L (3.5-5.1); Total Bilirubin 0.3 mg/dL (0.2-1.3); Total Protein 7.5 g/dL (6.3-8.2)
[2022-04-18] MEDS: SACUBITRIL/VALSARTAN 24 MG-26 MG TABLET PO SCH ×2 (08:31→21:20)
[2022-04-18] MEDS: ATORVASTATIN 40 MG TAB PO SCH (08:32)
[2022-04-18] MEDS: ASPIRIN 81 MG PO SCH (08:32)
[2022-04-18] MEDS: POTASSIUM CHLORIDE ER 10 MEQ TAB.ER.PRT PO SCH ×2 (08:32→21:20)
[2022-04-18] MEDS: FUROSEMIDE 40 MG TAB PO SCH ×2 (08:32→16:39)
[2022-04-18] MEDS ORDERED: Magnesium Replacement Protocol 1 EACH MISC MISCELLANE PRN (08:45)
--- NOTE | 2022-04-18 09:52 | P.PN ---
Subjective Progress Note Date: 04/18/22 Principal diagnosis: CHF Patient was started yesterday on oral diuretics and stated that her urine output has not significantly compared when she was on IV Lasix. Patient currently sitting up in chair tolerating diet speaking full sentences in no acute distress denying chest pain shortness breath nausea vomiting about pain dizziness lightheadedness or blurry vision Objective - Vital Signs Vital signs: Vital Signs Temp 99.4 F 04/18/22 08:00 Pulse 93 04/18/22 08:00 Resp 18 04/18/22 08:00 BP 125/68 04/18/22 08:00 Pulse Ox 93 L 04/18/22 08:00 FiO2 45 04/14/22 23:15 Intake & Output 04/17/22 04/18/22 04/18/22 18:59 06:59 18:59 Intake Total 500 480 Balance 500 480 Weight 40.5 kg Intake: IV 20 Invasive Line 3 20 Oral 480 480 Other: Voiding Method Toilet Toilet # Voids 1 3 - Exam Gen.: in stated age, no acute distress Heart: Normal S1-S2 Lungs: Clear to auscultation bilaterally Abdomen: Soft, no tenderness, positive bowel sounds in all 4 quadrant no guarding or rebound Skin: No new rash Psych: Alert and oriented 3 Neuro: No focal deficit Lower extremity 1+ edema bilaterally - Labs CBC & Chem 7: 04/16/22 08:46 04/18/22 06:26 Labs: Abnormal Lab Results - Last 24 Hours (Table) 04/18/22 Range/Units 06:26 Sodium 135 L (137-145) mmol/L Magnesium 1.4 L (1.6-2.3) mg/dL Albumin 3.2 L (3.5-5.0) g/dL Assessment and Plan Assessment: 1. Acute CHF exacerbation, systolic with known ejection fraction 20%. 2. Recent elevated troponin. 3. Dyspnea on the session. 4. Severe mitral regurgitation. 5. Hypertension. 6. Hyperlipidemia. 7. Multiple myeloma. 8. Hypothyroidism. Patient is concerned about the drop in urine output after switching to oral diuretics and I explained to her that she received only one dose yesterday evening and I would like to continue with 40 mg twice daily which is increasing the dose from home dose 20 twice a day and we would like to monitor her kidney function replace electrolytes and repeat in the morning. Lung examination revealed improvement over the last 24 hours with improvement and lower extremity edema. I would like to continue monitoring closely and consider discharge based on clinical progress
[2022-04-18] MEDS: MAGNESIUM SULFATE-D5W PMX 1 GM in DEXTROSE/WATER 1 100ML.BAG IVPB SCH ×3 (11:00→13:58)
[2022-04-18] MEDS: SERTRALINE 25 MG TAB PO SCH (16:39)
[2022-04-18] MEDS: MELATONIN 5 MG TABLET PO SCH (21:20)
[2022-04-19] MEDS: NON FORMULARY DRUG (Lenalidomide [Revlimid] 15 MG Capsule) PO SCH (04:52)
[2022-04-19] MEDS: carvediloL 6.25 MG TAB PO SCH (07:05)
[2022-04-19] MEDS: PANTOPRAZOLE 40 MG TABLET PO SCH (07:05)
[2022-04-19] MEDS: LEVOTHYROXINE 25 MCG TAB PO SCH (07:05)
[2022-04-19] MEDS ORDERED: MIDODRINE 5 MG TAB PO PRN (09:04)
[2022-04-19] MEDS: ASPIRIN 81 MG PO SCH (09:09)
[2022-04-19] MEDS: ATORVASTATIN 40 MG TAB PO SCH (09:09)
[2022-04-19] MEDS: POTASSIUM CHLORIDE ER 10 MEQ TAB.ER.PRT PO SCH ×2 (09:09→21:06)
--- NOTE | 2022-04-19 09:41 | CDI ---
Documentation Clarification Form Date: 04/16/2022 10:43:00 AM From: Yazmin Schulz CCS, CCDS Admit Date: 04/15/2022 03:52:00 AM Patient Name: Liberty Coles Visit Number: [id number] Discharge Date: ATTENTION: The Clinical Documentation Specialists (CDI) and [facility] Coding Staff appreciate your assistance in clarifying documentation. Please respond to the clarification below the line at the bottom and electronically sign. The CDI & [facility] Coding staff will review the response and follow-up if needed. Please note: Queries are made part of the Legal Health Record. If you have any questions, please contact the author of this message via ITS. Dr. Mathew Wood: The following is documented in the 04/15 Cardiology Consult: Anemia. Stop Plavix, given patient with stent was placed 1 year ago and worsening anemia. Additional specificity regarding the Type & Acuity of Anemia is requested. History/Risk Factors per the 04/15 H/P: CAD & ND status post stent 04/2021, Multiple Myeloma, no on chemotherapy; Ischemic Cardiomyopathy w/EF 20%, Valvular heart disease with severe mitral regurgitation, Hypertension, Hyperlipidemia, hypothyroidism, Former smoker. Clinical indicators: Presented to the ED via EMS on 04/14 with SOB. Bilateral ankle edema. Diaphoretic, very tachypneic, impending respiratory failure. Admit with Hypertensive Emergency and CHF Hemoglobin 04/14: 7.9, 04/16: 8.7 Hematocrit 04/14: 25.3, 04/16 27.1 Treatment 04/14: O2 2Lnc - BiPAP, Nitropaste, Nitro sl. 04/15: Telemetry, Daily weights, CHF clinical Protocol, I&Os, Galindo catheter insertion, Heart healthy Diet, IV Lasix 40 mg q12H, po Plavix 75 mg Daily Please clarify the Type & Acuity of Anemia: [ ] Chronic blood loss anemia [ ] Hemolytic anemia [ ] Drug induced anemia [ ] Anemia due to malignancy [ xx ] Anemia of chronic disease [ ] Unable to determine [ ] Other, please specify (Template Last Revised: November 2020) MTDD
[2022-04-19 10:43] LABS: Anisocytosis Slight; HCT 29.2 % (34.0-46.0); HGB 9.2 gm/dL (11.4-16.0); Hypochromasia Slight; MCH 32.5 pg (25.0-35.0); MCHC 31.4 g/dL (31.0-37.0); MCV 103.4 fL (80.0-100.0); Macrocytosis Moderate; Mean Platelet Volume 7.8; Platelet Count 196 k/uL (150-450); RBC 2.83 m/uL (3.80-5.40); RDW 16.6 % (11.5-15.5); WBC 2.8 k/uL (3.8-10.6)
[2022-04-19 10:56] LABS: ALT 8 U/L (4-34); AST 19 U/L (14-36); African American GFR (CKD) 59 (>60 ml/min/1.73 sqM); Albumin 2.8 g/dL (3.5-5.0); Alkaline Phosphatase 64 U/L (38-126); Anion Gap 2 mmol/L; Blood Urea Nitrogen 17 mg/dL (7-17); Calcium 8.6 mg/dL (8.4-10.2); Carbon Dioxide 30 mmol/L (22-30); Chloride 99 mmol/L (98-107); Glucose 105 mg/dL (74-99); Non-African American GFR(CKD) 51 (>60 ml/min/1.73 sqM); Potassium 4.6 mmol/L (3.5-5.1); Sodium 131 mmol/L (137-145); Total Bilirubin <0.1 mg/dL (0.2-1.3); Total Protein 6.6 g/dL (6.3-8.2)
[2022-04-19] MEDS ORDERED: MIDODRINE 5 MG TAB PO SCH (12:30)
[2022-04-19] MEDS: FUROSEMIDE 40 MG TAB PO SCH (12:37)
[2022-04-19] MEDS: SACUBITRIL/VALSARTAN 24 MG-26 MG TABLET PO SCH ×2 (12:37→22:07)
--- NOTE | 2022-04-19 13:33 | P.PN ---
Subjective Progress Note Date: 04/19/22 HISTORY OF PRESENT ILLNESS: Cardiology was asked to re-evaluate patient secondary to hypotension. Patient had a documented blood pressure of 73/42 and 78/44 this morning. At 3:00 in the morning if patients blood pressure was recorded at 136/79. The patient denies any chest pain or pressure. She denies any shortness of breath. The patient states she has been up ambulating to the bathroom without any difficulty. She denies any dizziness or lightheadedness. PHYSICAL EXAM: VITAL SIGNS: Reviewed. GENERAL: Well-developed in no acute distress. NECK: Supple. No JVD or thyromegaly LUNGS: Respirations even and unlabored. Lungs essentially clear to auscultation bilaterally. HEART: Regular rate and rhythm. S1 and S2 heard. Systolic murmur. EXTREMITIES: Normal range of motion. No clubbing or cyanosis. Peripheral pulses intact. No lower extremity edema ASSESSMENT: Uncontrolled hypertension Acute on chronic heart failure with reduced EF Ischemic cardiomyopathy Coronary artery disease Severe mitral regurgitation History of multiple myeloma Hypotension, asymptomatic, resolved PLAN: Discontinue PRN Midodrine Patient with 1 isolated documentation of hypotension. She is asymptomatic. Recommend obtaining manual blood pressures. Continue lasix. Decrease dose to 40mg daily Continue Entresto Discontinue Coreg. Begin metoprolol 25mg daily starting tomorrow at noon Continue to monitor blood pressure Further recommendations pending patient course Nurse practitioner note has been reviewed by physician. Signing provider agrees with the documented findings, assessment, and plan of care. Objective - Vital Signs Vital signs: Vital Signs Temp 97.8 F 04/19/22 12:15 Pulse 77 04/19/22 12:15 Resp 18 04/19/22 12:15 BP 118/63 04/19/22 12:15 Pulse Ox 97 04/19/22 12:15 FiO2 45 04/14/22 23:15 Intake & Output 04/18/22 04/19/22 04/19/22 18:59 06:59 18:59 Intake Total 840 118 Output Total 850 Balance -10 118 Weight 40.5 kg 40.9 kg Intake: IV 340 Invasive Line 3 20 Invasive Line 4 20 Magnesium Sulfate-D5w Pmx 300 1 gm In Dextrose/Water 1 100ml.bag @ 100 mls/hr IVPB Q1H [facility] Rx#: [id number] Oral 500 118 Output: Urine 850 Other: Voiding Method Toilet Toilet # Voids 1 1 # Bowel Movements 1 - Labs CBC & Chem 7: 04/19/22 10:03 04/19/22 10:03 Labs: Abnormal Lab Results - Last 24 Hours (Table) 04/19/22 04/19/22 Range/Units 10:03 10:03 WBC 2.8 L (3.8-10.6) k/uL RBC 2.83 L (3.80-5.40) m/uL Hgb 9.2 L (11.4-16.0) gm/dL Hct 29.2 L (34.0-46.0) % MCV 103.4 H (80.0-100.0) fL RDW 16.6 H (11.5-15.5) % Sodium 131 L (137-145) mmol/L Glucose 105 H (74-99) mg/dL Total Bilirubin <0.1 L (0.2-1.3) mg/dL Albumin 2.8 L (3.5-5.0) g/dL
--- NOTE | 2022-04-19 14:24 | P.PN ---
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 Patient complains of sudden onset of shortness of breath started last evening. She called 911 and EMS brought her into the hospital for further evaluation. She was given nebulizer treatment, Solu-Medrol and place her on a CPAP with improvement of her breathing. Heart rate was 82, respiratory rate 26, blood pressure initially 163/100 and repeat 132/79, pulse ox 97% on BiPAP with FiO2 45%. EKG sinus rhythm, left bundle branch block. WBC 9.4, hemoglobin 7.9, platelet count 262. INR 1.0. D-dimer 8.36. Electrolytes and renal function were normal. Glucose 152. Lactic acid 3.9 and repeat 1.1. Liver function tests were normal. Troponin 0.032, 0.066 and 0.061. ProBNP 15,100. Albumin 3.5. Chest x-ray reveals pulmonary interstitial infiltrates could relate to pulmonary fibrosis. Heart failure also likely. Right pleural effusion increased. CT angiogram of the chest revealed no evidence of pulmonary embolism. Probably some pulmonary hypertension. Bilateral pleural effusions and pulmonary interstitial edema could be some chronic heart failure. Pleural fluid is new. Cardiomegaly. Extensive bony changes consistent with multiple myeloma and appears to be progressive compared to PET scan 02/13/2021. Displaced sternal fracture is new. T1-T2 subluxation deformity present on old exam. Patient is status post sublingual nitroglycerin, [facility] ointment, admitted to the [facility] floor and cardiology consult added. 04/16: Patient is seen today on the cardiac stepdown unit. Patient has been seen by cardiology with recommendations continue IV Lasix 40 mg twice daily, monitor I&O and daily weights, continue aspirin and statin, discontinue Plavix, transition Lopressor to Coreg and patient started on Entresto. Patient has been afebrile, heart rate in 89, blood pressure 156/69, pulse ox 93% -98% on 2 L nasa l cannula. 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 Repeat blood work reveals WBC 6.1, hemoglobin 8.7 platelet count 195. Sodium 138, potassium 3.3 and replaced, chloride 104, CO2 33, BUN 16 creatinine 0.97. 04/19: Patient has been stable over the weekend but this morning her blood pressure was low with a systolic in the 70s. Cardiology was asked to reevaluate patient with recommendations to continue Entresto, discontinue Coreg and start metoprolol 25 mg starting tomorrow, decrease Lasix to 40 mg daily and discontinue midodrine. Patient denies any new concerns today. Repeat blood work reveals WBC 2.8, hemoglobin 9.2 and platelet count 196. Sodium 131, potassium 4.6, chloride 99, CO2 30, BUN 17 and creatinine 1.02. Blood sugar 105. Total bilirubin less than 1. Liver function tests normal. Troponin negative. Discharge home tomorrow. REVIEW OF SYSTEMS Constitutional: No fever, no chills, no night sweats. No weight change. No weakness, fatigue or lethargy. No daytime sleepiness. EENT: No headache. No blurred vision or double vision, no loss of vision. No loss of Hearing, no ringing in the ears, no dizziness. No nasal drainage or congestion. No epistaxis. No sore throat. Lungs: Denies shortness of breath, no cough, no sputum production. No wheezing.Reports exertional dyspnea. Cardiovascular: Denies chest pain, no lower extremity edema. No palpitations. No paroxysmal nocturnal dyspnea. No orthopnea. No lightheadedness or dizziness . No syncopal episodes. Abdominal: positive abdominal pain, nausea no vomiting has constipation with slight increase abdominal discomfort and significant lack of appetite but no bloody bowel movement and no tarry stool. Genitourinary: No dysuria, Decrease urine output with no retention.. Musculoskeletal: No myalgias. No muscle weakness, no gait dysfunction, no frequent falls. No back pain. No neck pain. Integumentary: No wounds, no lesions. No rash or pruritus. No unusual bruising. No change in hair or nails. Neurologic: No aphasia. No facial droop. No change in mentation. No head injury. No headache. No paralysis. No paresthesia.mild confusion. Psychiatric: No depression. No anxiety. Endocrine: Noted abnormal blood sugars. PHYSICAL EXAMINATION Gen: This is this is an 86-year-old female. Patient is resting in bed and appears to be comfortable and in no acute distress. HEENT: Head is atraumatic, normocephalic. Pupils equal, round. Sclerae is anicteric. NECK: Supple. No JVD. No lymphadenopathy. No thyromegaly. LUNGS: Crackles bilat bases. No intercostal retractions. HEART: Regular rate and rhythm. Positive S3. Systolic murmur. ABDOMEN: Soft. Bowel sounds are present. No masses. No tenderness. EXTREMITIES:Trace bilateral pedal edema. No calf tenderness. Dorsalis pedis +2 bilaterally. NEUROLOGICAL: Patient is awake, alert and oriented x3. Cranial nerves 2 through 12 are grossly intact. ASSESSMENT AND PLAN acute on chronic systolic heart failure.with ischemic cardiomyopathy. Continue Lasix 40 mg oral daily, Coreg switched to Toprol-XL 25 mg daily starting tomorrow at noon, continue Entresto 2426 milligrams one twice daily. Cardiology consult appreciated. Monitor I&O, daily weights, electrolytes and renal function. Elevated troponin. Consult with cardiology appreciated. Elevated d-dimer with negative CTA for pulmonary embolism. History of coronary artery disease with previous PCI to LAD 03/2021 and PCI mid LAD 04/2021.continue aspirin 81 mg daily, Lipitor, Coreg Ischemic cardiomyopathy with EF of 20%. Valvular heart disease with severe mitral regurgitation. Hypertension. Continue Entresto. Coreg changed to Toprol-XL.. Hyperlipidemia. Continue atorvastatin. Multiple myeloma with progression, patient chose not to do chemotherapy. Hypothyroidism. Continue Levotyroxine 25 mcg daily. GI prophylaxis. DVT prophylaxis CODE STATUS: Full code. DISCHARGE PLAN Home with [facility] on Tuesday. Impression and plan of care have been directed as dictated by the signing physician. Cait Longo nurse practitioner acting as scribe for signing physician. Objective - Vital Signs Vital signs: Vital Signs Temp 98.3 F 04/19/22 03:05 Pulse 91 04/19/22 03:05 Resp 18 04/19/22 08:00 BP 73/42 04/19/22 08:46 Pulse Ox 94 L 04/19/22 08:28 FiO2 45 04/14/22 23:15 Intake & Output 04/18/22 04/19/22 04/19/22 18:59 06:59 18:59 Intake Total 840 118 Output Total 850 Balance -10 118 Weight 40.5 kg 40.9 kg Intake: IV 340 Invasive Line 3 20 Invasive Line 4 20 Magnesium Sulfate-D5w Pmx 300 1 gm In Dextrose/Water 1 100ml.bag @ 100 mls/hr IVPB Q1H [facility] Rx#: [id number] Oral 500 118 Output: Urine 850 Other: Voiding Method Toilet Toilet # Voids 1 1 # Bowel Movements 1 - Labs CBC & Chem 7: 04/19/22 10:03 04/19/22 10:03
[2022-04-19] MEDS: SERTRALINE 25 MG TAB PO SCH (17:41)
[2022-04-19] MEDS: MELATONIN 5 MG TABLET PO SCH (21:06)
[2022-04-20] MEDS: NON FORMULARY DRUG (Lenalidomide [Revlimid] 15 MG Capsule) PO SCH (05:06)
[2022-04-20] MEDS: LEVOTHYROXINE 25 MCG TAB PO SCH (06:36)
[2022-04-20] MEDS: PANTOPRAZOLE 40 MG TABLET PO SCH (06:36)
[2022-04-20 08:14] VITALS: TEMP 97.8
[2022-04-20] MEDS: ATORVASTATIN 40 MG TAB PO SCH (08:38)
[2022-04-20] MEDS: POTASSIUM CHLORIDE ER 10 MEQ TAB.ER.PRT PO SCH (08:38)
[2022-04-20] MEDS: ASPIRIN 81 MG PO SCH (08:38)
[2022-04-20] MEDS: SACUBITRIL/VALSARTAN 24 MG-26 MG TABLET PO SCH (08:38)
[2022-04-20] MEDS ORDERED: FUROSEMIDE 40 MG TAB PO SCH (09:00)
--- NOTE | 2022-04-20 09:39 | P.DS ---
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 Patient complains of sudden onset of shortness of breath started last evening. She called 911 and EMS brought her into the hospital for further evaluation. She was given nebulizer treatment, Solu-Medrol and place her on a CPAP with improvement of her breathing. Heart rate was 82, respiratory rate 26, blood pressure initially 163/100 and repeat 132/79, pulse ox 97% on BiPAP with FiO2 45%. EKG sinus rhythm, left bundle branch block. WBC 9.4, hemoglobin 7.9, platelet count 262. INR 1.0. D-dimer 8.36. Electrolytes and renal function were normal. Glucose 152. Lactic acid 3.9 and repeat 1.1. Liver function tests were normal. Troponin 0.032, 0.066 and 0.061. ProBNP 15,100. Albumin 3.5. Chest x-ray reveals pulmonary interstitial infiltrates could relate to pulmonary fibrosis. Heart failure also likely. Right pleural effusion increased. CT angiogram of the chest revealed no evidence of pulmonary embolism. Probably some pulmonary hypertension. Bilateral pleural effusions and pulmonary interstitial edema could be some chronic heart failure. Pleural fluid is new. Cardiomegaly. Extensive bony changes consistent with multiple myeloma and appears to be progressive compared to PET scan 02/13/2021. Displaced sternal fracture is new. T1-T2 subluxation deformity present on old exam. Patient is status post sublingual nitroglycerin, [facility] ointment, admitted to the [facility] floor and cardiology consult added. 04/16: Patient is seen today on the cardiac stepdown unit. Patient has been seen by cardiology with recommendations continue IV Lasix 40 mg twice daily, monitor I&O and daily weights, continue aspirin and statin, discontinue Plavix, transition Lopressor to Coreg and patient started on Entresto. Patient has been afebrile, heart rate in 89, blood pressure 156/69, pulse ox 93% -98% on 2 L nasal cannula. 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 Repeat blood work reveals WBC 6.1, hemoglobin 8.7 platelet count 195. Sodium 138, potassium 3.3 and replaced, chloride 104, CO2 33, BUN 16 creatinine 0.97. 04/19: Patient has been stable over the weekend but this morning her blood pressure was low with a systolic in the 70s. Cardiology was asked to reevaluate patient with recommendations to continue Entresto, discontinue Coreg and start metoprolol 25 mg starting tomorrow, decrease Lasix to 40 mg daily and discontinue midodrine. Patient denies any new concerns today. Repeat blood work reveals WBC 2.8, hemoglobin 9.2 and platelet count 196. Sodium 131, potassium 4.6, chloride 99, CO2 30, BUN 17 and creatinine 1.02. Blood sugar 105. Total bilirubin less than 1. Liver function tests normal. Troponin negative. Discharge home tomorrow. 04/20: Blood pressure is much better today, patient is tolerating Entresto very well, her metoprolol was switched to metoprolol succinate 25 mg a day and doing well better than Coreg. Blood pressure stable today patient is able to ambulate on her own. She is clear from cardiology for discharge today patient be discharged today follow-up with cardiology and primary care in the next few days. REVIEW OF SYSTEMS Constitutional: No fever, no chills, no night sweats. No weight change. No weakness, fatigue or lethargy. No daytime sleepiness. EENT: No headache. No blurred vision or double vision, no loss of vision. No loss of Hearing, no ringing in the ears, no dizziness. No nasal drainage or congestion. No epistaxis. No sore throat. Lungs: Denies shortness of breath, no cough, no sputum production. No wheezing.Reports exertional dyspnea. Cardiovascular: Denies chest pain, no lower extremity edema. No palpitations. No paroxysmal nocturnal dyspnea. No orthopnea. No lightheadedness or dizziness. No syncopal episodes. Abdominal: positive abdominal pain, nausea no vomiting has constipation with slight increase abdominal discomfort and significant lack of appetite but no bloody bowel movement and no tarry stool. Genitourinary: No dysuria, Decrease urine output with no retention.. Musculoskeletal: No myalgias. No muscle weakness, no gait dysfunction, no frequent falls. No back pain. No neck pain. Integumentary: No wounds, no lesions. No rash or pruritus. No unusual bruising. No change in hair or nails. Neurologic: No aphasia. No facial droop. No change in mentation. No head injury. No headache. No paralysis. No paresthesia.mild confusion. Psychiatric: No depression. No anxiety. Endocrine: Noted abnormal blood sugars. PHYSICAL EXAMINATION Gen: This is this is an 86-year-old female. Patient is resting in bed and appears to be comfortable and in no acute distress. HEENT: Head is atraumatic, normocephalic. Pupils equal, round. Sclerae is anicteric. NECK: Supple. No JVD. No lymphadenopathy. No thyromegaly. LUNGS: Crackles bilat bases. No intercostal retractions. HEART: Regular rate and rhythm. Positive S3. Systolic murmur. ABDOMEN: Soft. Bowel sounds are present. No masses. No tenderness. EXTREMITIES:Trace bilateral pedal edema. No calf tenderness. Dorsalis pedis +2 bilaterally. NEUROLOGICAL: Patient is awake, alert and oriented x3. Cranial nerves 2 through 12 are grossly intact. ASSESSMENT AND PLAN acute on chronic systolic heart failure.with ischemic cardiomyopathy. Continue Lasix 40 mg oral daily, Coreg switched to Toprol-XL 25 mg daily starting tomorrow at noon, continue Entresto 2426 milligrams one twice daily. Able at this point and clear of going home from cardiology standpoint. Elevated troponin. Consult with cardiology appreciated. Elevated d-dimer with negative CTA for pulmonary embolism. History of coronary artery disease with previous PCI to LAD 03/2021 and PCI mid LAD 04/2021.continue aspirin 81 mg daily, Lipitor, Coreg Ischemic cardiomyopathy with EF of 20%. Valvular heart disease with severe mitral regurgitation. Hypertension. Continue Entresto. Coreg changed to Toprol-XL.. Hyperlipidemia. Continue atorvastatin. Multiple myeloma with progression, patient chose not to do chemotherapy. Hypothyroidism. Continue Levotyroxine 25 mcg daily. GI prophylaxis. DVT prophylaxis CODE STATUS: Full code. DISCHARGE PLAN Home with [facility] on Tuesday. Plan - Discharge Summary Discharge Rx Participant: Yes New Discharge Prescriptions: New Sacubitril/Valsartan [Entresto 24 mg-26 mg Tablet] 1 each PO BID #60 tab Potassium Chloride ER [K-Dur 10] 20 meq PO BID #60 tab Furosemide [Lasix] 40 mg PO DAILY #30 tab Atorvastatin [Lipitor] 40 mg PO DAILY #30 tab Metoprolol Succinate (ER) [Toprol XL] 25 mg PO DAILY #30 tab Continue Levothyroxine Sodium [Synthroid] 25 mcg PO DAILY@0800 Clopidogrel [Plavix] 75 mg PO DAILY@1200 Aspirin EC [Ecotrin Low Dose] 81 mg PO DAILY Sertraline [Zoloft] 25 mg PO DAILY@1700 Omeprazole 20 mg PO DAILY@0800 Cholecalciferol [Vitamin D3 (25 Mcg = 1000 Iu)] 25 mcg PO DAILY@1200 Furosemide [Lasix] 20 mg PO BID@0800,1200 Discontinued Metoprolol Tartrate [Lopressor] 50 mg PO DAILY@0800 Potassium Chloride ER [K-Dur 10] 10 meq PO BID@1200,1700 Metoprolol Tartrate [Lopressor] 25 mg PO HS@1700 Discharge Medication List Omeprazole 20 mg PO DAILY@0800 02/26/21 [History] Clopidogrel [Plavix] 75 mg PO DAILY@1200 12/14/21 [History] Levothyroxine Sodium [Synthroid] 25 mcg PO DAILY@0800 12/14/21 [History] Aspirin EC [Ecotrin Low Dose] 81 mg PO DAILY 03/03/22 [History] Sertraline [Zoloft] 25 mg PO DAILY@1700 03/03/22 [History] Cholecalciferol [Vitamin D3 (25 Mcg = 1000 Iu)] 25 mcg PO DAILY@1200 04/15/22 [History] Furosemide [Lasix] 20 mg PO BID@0800,1200 04/15/22 [History] Atorvastatin [Lipitor] 40 mg PO DAILY #30 tab 04/20/22 [Rx] Furosemide [Lasix] 40 mg PO DAILY #30 tab 04/20/22 [Rx] Metoprolol Succinate (ER) [Toprol XL] 25 mg PO DAILY #30 tab 04/20/22 [Rx] Potassium Chloride ER [K-Dur 10] 20 meq PO BID #60 tab 04/20/22 [Rx] Sacubitril/Valsartan [Entresto 24 mg-26 mg Tablet] 1 each PO BID #60 tab 04/20/22 [Rx] Follow up Appointment(s)/Referral(s): Beto Copeland MD [STAFF PHYSICIAN] - 1 Week [facility], [NON-STAFF] - As Needed Zion Davalos MD [Primary Care Provider] - 1-2 Days Patient Instructions/Handouts: Heart Failure (ER), Seasoning Without Salt (GEN), Hyponatremia (GEN), Hypokalemia (ED), DASH Eating Plan (ED), Low-Sodium Diet (ED), Hypertensive Crisis (DC), Mediterranean Diet (DC) Discharge Disposition: HOME WITH HOME HEALTH SERVICES
[2022-04-20] MEDS ORDERED: METOPROLOL SUCCINATE (ER) 25 MG TAB.ER.24H PO SCH (12:00)
--- NOTE | 2022-04-20 12:22 | P.PN ---
Subjective Patient's blood pressure is much better controlled with metoprolol succinate along with entrance to Yesterday we had stopped Coreg after we saw the significant fluctuation in her blood pressure Mendoza was discontinued From a cardiac standpoint she looks well in stable Objective - Vital Signs Vital signs: Vital Signs Temp 97.8 F 04/20/22 08:00 Pulse 81 04/20/22 08:00 Resp 17 04/20/22 08:00 BP 112/54 04/20/22 08:00 Pulse Ox 94 L 04/20/22 08:00 FiO2 45 04/14/22 23:15 Intake & Output 04/19/22 04/20/22 04/20/22 18:59 06:59 18:59 Intake Total 476 180 Output Total 200 Balance 476 -20 Weight 40.8 kg Intake: Oral 476 180 Output: Urine 200 Other: Voiding Method Toilet Toilet # Voids 2 1 # Bowel Movements 1 1 1 - Labs CBC & Chem 7: 04/19/22 10:03 04/19/22 10:03
[2022-04-20 12:43] VITALS: BP 130/70; PULSE 90; RESP 18
== END 2022-04-20 17:52 | disposition home health service (06) | DRG 291 ==
LOC: EC 23:07 → 4SSUR 04-15 03:52 → 3SCARD 04-15 15:25
PROVIDERS: ADMIT Internal Medicine Geriatric Medicine; ATTEND Internal Medicine Geriatric Medicine
DX: I11.0 Hypertensive heart disease with heart failure (principal); I50.23 Acute on chronic systolic (congestive) heart failure; I16.1 Hypertensive emergency; S22.20XA Unspecified fracture of sternum, initial encounter for closed fracture; C90.00 Multiple myeloma not having achieved remission; D63.8 Anemia in other chronic diseases classified elsewhere; I25.10 Atherosclerotic heart disease of native coronary artery without angina pectoris; I25.2 Old myocardial infarction; I25.5 Ischemic cardiomyopathy; I27.20 Pulmonary hypertension, unspecified; R77.8 Other specified abnormalities of plasma proteins; R79.1 Abnormal coagulation profile; I44.7 Left bundle-branch block, unspecified; J84.10 Pulmonary fibrosis, unspecified; I08.0 Rheumatic disorders of both mitral and aortic valves; I95.9 Hypotension, unspecified; E78.5 Hyperlipidemia, unspecified; E89.0 Postprocedural hypothyroidism; Z79.02 Long term (current) use of antithrombotics/antiplatelets; Z79.82 Long term (current) use of aspirin; Z79.890 Hormone replacement therapy; Z79.899 Other long term (current) drug therapy; Z80.1 Family history of malignant neoplasm of trachea, bronchus and lung; Z82.49 Family history of ischemic heart disease and other diseases of the circulatory system; Z87.891 Personal history of nicotine dependence; Z95.5 Presence of coronary angioplasty implant and graft; Z88.0 Allergy status to penicillin; Z28.21 Immunization not carried out because of patient refusal
CPT/HCPCS: 36415; 71045; 71275; 80048; 80053; 83605; 83735; 83880; 84484; 85025; 85027; 85379; 85610; 85730; 93005; 94660; 94760; 96374; 99285

== ENCOUNTER 2022-07-26 12:37 | Inpatient (IN) | payer MEDICARE ==
[2022-07-26 13:15] LABS: Basophils % (A) 1 %; Eosinophils # (A) 0.1 k/uL (0-0.7); Eosinophils % (A) 1 %; HCT 32.9 % (34.0-46.0); HGB 10.9 gm/dL (11.4-16.0); Hypochromasia Slight; Lymphocytes % (A) 18 %; MCHC 33.2 g/dL (31.0-37.0); MCV 99.4 fL (80.0-100.0); Macrocytosis Slight; Mean Platelet Volume 8.4; Monocytes # (A) 0.3 k/uL (0-1.0); Monocytes % (A) 6 %; Neutrophils # (A) 3.9 k/uL (1.3-7.7); Neutrophils % (A) 74 %; Platelet Count 212 k/uL (150-450); RBC 3.31 m/uL (3.80-5.40); RDW 15.3 % (11.5-15.5); WBC 5.3 k/uL (3.8-10.6)
--- NOTE | 2022-07-26 13:25 | ED ---
General Adult HPI - General Chief complaint: Shortness of Breath Stated complaint: sob Time Seen by Provider: 07/26/22 13:09 Source: patient, EMS, RN notes reviewed, old records reviewed Mode of arrival: EMS Limitations: no limitations - History of Present Illness Initial comments: This is an 87-year-old female with past medical history significant for multiple myeloma as well as congestive heart failure and a cardiac stent in the past. Patient comes in today because last night she started having some shortness of breath in or shortness of breath got worse today as well as swelling in her legs got worse today. Patient denies any fever chills or cough. Patient denies any palpitations. Patient denies any chest pain. Patient denies lightheadedness dizziness. Patient denies any headache patient with numbness weakness per patient denies abdominal pain patient denies nausea vomiting or diarrhea. - Related Data Home Medications Medication Instructions Recorded Confirmed Omeprazole 20 mg PO DAILY 02/26/21 07/26/22 Levothyroxine Sodium [Synthroid] 25 mcg PO DAILY 12/14/21 07/26/22 Aspirin EC [Ecotrin Low Dose] 81 mg PO DAILY 03/03/22 07/26/22 Sertraline [Zoloft] 25 mg PO W/SUPPER 03/03/22 07/26/22 Furosemide [Lasix] 20 mg PO BID@0800,1200 04/15/22 07/26/22 Sacubitril/Valsartan [Entresto 24 1 tab PO BID 05/19/22 07/26/22 mg-26 mg Tablet] Cyanocobalamin [Vitamin B-12] 1,000 mcg PO DAILY@1200 07/26/22 07/26/22 Metoprolol Tartrate [Lopressor] 25 mg PO BID 07/26/22 07/26/22 Potassium Chloride ER [K-Dur 10] 10 meq PO BID@1200,1800 07/26/22 07/26/22 bisacodyL [Dulcolax] 5 mg PO BID 07/26/22 07/26/22 oxyCODONE-APAP 7.5-325MG [Percocet 1 tab PO Q4H PRN 07/26/22 07/26/22 7.5-325 mg] Allergies Allergy/AdvReac Type Severity Reaction Status Date / Time Penicillins Allergy Swelling Verified 07/26/22 14:24 of entire body shellfish derived [Shellfish] AdvReac Nausea & Verified 07/26/22 14:24 Vomiting Review of Systems ROS Statement: Those systems with pertinent positive or pertinent negative responses have been documented in the HPI. ROS Other: All systems not noted in ROS Statement are negative. Past Medical History Past Medical History: Cancer, GERD/Reflux, Hypertension, Osteoarthritis (OA), Thyroid Disorder Additional Past Medical History / Comment(s): MULTIPLE MYELOMA- diagnosed in march 2021, two iv chem treatments so far, last treatment was 04/20/2021, Bone Cancer currently Last Myocardial Infarction Date:: 04/21/2021 History of Any Multi-Drug Resistant Organisms: None Reported Past Surgical History: Appendectomy, Joint Replacement, Tonsillectomy Additional Past Surgical History / Comment(s): BILAT TKA. BILAT CARARACTS REMOVED WITH LENS IMPLANTS. 1/2 OF THYROID REMOVED. FATTY TUMOR REMOVED FROM KNEE. COLONOSCOPY. Heart cath with stent 2020, CHF Past Anesthesia/Blood Transfusion Reactions: No Reported Reaction Past Psychological History: No Psychological Hx Reported Smoking Status: Former smoker Past Alcohol Use History: None Reported Past Drug Use History: None Reported - Past Family History Mother Family Medical History: Cancer General Exam - General Exam Comments Initial Comments: GENERAL: Patient is well-developed and well-nourished. Patient is nontoxic and well- hydrated and is in mild distress. ENT: Neck is soft and supple. No significant lymphadenopathy is noted. Oropharynx is clear. Moist mucous membranes. Neck has full range of motion without eliciting any pain. EYES: The sclera were anicteric and conjunctiva were pink and moist. Extraocular movements were intact and pupils were equal round and reactive to light. Eyelids were unremarkable. PULMONARY: Patient has diminished breath sounds in the left base as well as crackles in the left lung. CARDIOVASCULAR: There is a regular rate and rhythm without any murmurs gallops or rubs. ABDOMEN: Soft and nontender with normal bowel sounds. SKIN: Skin is clear with no lesions or rashes and otherwise unremarkable NEUROLOGIC: Patient is alert and oriented x3. Cranial nerves II through XII are grossly intact. Motor and sensory are also intact. Normal speech, volume and content. Symmetrical smile. MUSCULOSKELETAL: Normal extremities with adequate strength and full range of motion. Patient has 2+ edema bilaterally LYMPHATICS: No significant lymphadenopathy is noted PSYCHIATRIC: Normal psychiatric evaluation. Limitations: no limitations Course Vital Signs 07/26/22 12:40 Temperature 98.1 F Pulse Rate 63 Respiratory 16 Rate Blood Pressure 164/88 O2 Sat by Pulse 99 Oximetry Medical Decision Making - Medical Decision Making EKG shows sinus rhythm at 60 bpm IA interval is 203 QRS is 151 Q-T intervals 432 QTC is 432. Patient's left bundle branch block. Chest x-ray shows cardiomegaly pleural effusions and slight increased vasculature consistent with possibly pulmonary edema. Patient's that edema bilateral legs which she states is increased. I spoke with the [facility] agreed to admit the patient admitted the patient wrote admitting orders. Patient was started on Lasix in the urine it was continued on the floor. - Lab Data Result diagrams: 07/26/22 12:52 07/26/22 12:52 Lab Results 07/26/22 07/26/22 07/26/22 Range/Units 12:52 12:52 12:52 WBC 5.3 (3.8-10.6) k/uL RBC 3.31 L (3.80-5.40) m/uL Hgb 10.9 L (11.4-16.0) gm/dL Hct 32.9 L (34.0-46.0) % MCV 99.4 (80.0-100.0) fL MCH 33.0 (25.0-35.0) pg MCHC 33.2 (31.0-37.0) g/dL RDW 15.3 (11.5-15.5) % Plt Count 212 (150-450) k/uL MPV 8.4 Neutrophils % 74 % Lymphocytes % 18 % Monocytes % 6 % Eosinophils % 1 % Basophils % 1 % Neutrophils # 3.9 (1.3-7.7) k/uL Lymphocytes # 1.0 (1.0-4.8) k/uL Monocytes # 0.3 (0-1.0) k/uL Eosinophils # 0.1 (0-0.7) k/uL Basophils # 0.0 (0-0.2) k/uL Hypochromasia Slight Macrocytosis Slight PT 10.3 (9.0-12.0) sec INR 0.9 (<1.2) APTT 19.1 L (22.0-30.0) sec Sodium 138 (137-145) mmol/L Potassium 4.6 (3.5-5.1) mmol/L Chloride 101 (98-107) mmol/L Carbon Dioxide 29 (22-30) mmol/L Anion Gap 8 mmol/L BUN 17 (7-17) mg/dL Creatinine 0.81 (0.52-1.04) mg/dL Est GFR (CKD-EPI)AfAm 77 (>60 ml/min/1.73 sqM) Est GFR (CKD-EPI)NonAf 67 (>60 ml/min/1.73 sqM) Glucose 103 H (74-99) mg/dL Calcium 9.6 (8.4-10.2) mg/dL Magnesium 1.8 (1.6-2.3) mg/dL Total Bilirubin 0.4 (0.2-1.3) mg/dL AST 30 (14-36) U/L ALT 22 (4-34) U/L Alkaline Phosphatase 154 H (38-126) U/L Troponin I (0.000-0.034) ng/mL NT-Pro-B Natriuret Pep pg/mL Total Protein 8.3 H (6.3-8.2) g/dL Albumin 3.7 (3.5-5.0) g/dL 07/26/22 07/26/22 Range/Units 12:52 12:52 WBC (3.8-10.6) k/uL RBC (3.80-5.40) m/uL Hgb (11.4-16.0) gm/dL Hct (34.0-46.0) % MCV (80.0-100.0) fL MCH (25.0-35.0) pg MCHC (31.0-37.0) g/dL RDW (11.5-15.5) % Plt Count (150-450) k/uL MPV Neutrophils % % Lymphocytes % % Monocytes % % Eosinophils % % Basophils % % Neutrophils # (1.3-7.7) k/uL Lymphocytes # (1.0-4.8) k/uL Monocytes # (0-1.0) k/uL Eosinophils # (0-0.7) k/uL Basophils # (0-0.2) k/uL Hypochromasia Macrocytosis PT (9.0-12.0) sec INR (<1.2) APTT (22.0-30.0) sec Sodium (137-145) mmol/L Potassium (3.5-5.1) mmol/L Chloride (98-107) mmol/L Carbon Dioxide (22-30) mmol/L Anion Gap mmol/L BUN (7-17) mg/dL Creatinine (0.52-1.04) mg/dL Est GFR (CKD-EPI)AfAm (>60 ml/min/1.73 sqM) Est GFR (CKD-EPI)NonAf (>60 ml/min/1.73 sqM) Glucose (74-99) mg/dL Calcium (8.4-10.2) mg/dL Magnesium (1.6-2.3) mg/dL Total Bilirubin (0.2-1.3) mg/dL AST (14-36) U/L ALT (4-34) U/L Alkaline Phosphatase (38-126) U/L Troponin I 0.022 (0.000-0.034) ng/mL NT-Pro-B Natriuret Pep 64684 pg/mL Total Protein (6.3-8.2) g/dL Albumin (3.5-5.0) g/dL Disposition Clinical Impression: Acute pulmonary edema Disposition: ADMITTED IP TO THIS HOSP Referrals: Zion Davalos MD [Primary Care Provider] - 1-2 days Time of Disposition: 14:45
[2022-07-26 13:29] LABS: Albumin 3.7 g/dL (3.5-5.0); Calcium 9.6 mg/dL (8.4-10.2); Magnesium 1.8 mg/dL (1.6-2.3); Potassium 4.6 mmol/L (3.5-5.1); Total Bilirubin 0.4 mg/dL (0.2-1.3); Total Protein 8.3 g/dL (6.3-8.2)
[2022-07-26 13:40] LABS: INR 0.9 (<1.2); Prothrombin Time 10.3 sec (9.0-12.0)
[2022-07-26 13:46] LABS: Partial Thromboplastin Time 19.1 sec (22.0-30.0)
--- NOTE | 2022-07-26 13:48 | XR ---
EXAMINATION TYPE: XR chest 2V DATE OF EXAM: 07/26/2022 COMPARISON: 05/23/22 HISTORY: Shortness of breath TECHNIQUE: Frontal and lateral views of the chest are obtained. FINDINGS: Scattered senescent parenchymal changes noted. Hyperinflation compatible with COPD. Small left-sided and tiny right-sided pleural effusion. No evidence for infiltrate. No evidence for atelectasis. Heart size is stable. Mediastinal structures are stable and grossly unremarkable. No evidence for hilar prominence. Degenerative changes dorsal spine. IMPRESSION: 1. No evidence for acute pulmonary disease.
[2022-07-26] MEDS ORDERED: HYDROmorphone 0.5 MG/0.5 ML SYRINGE IVP STA (14:52)
[2022-07-26] MEDS: FUROSEMIDE 10 MG/ML 4 ML VIAL IV SCH ×2 (15:00→22:07)
--- NOTE | 2022-07-26 16:19 | P.HPIM ---
History of Present Illness 87-year-old pleasant female came in with complaints of bilateral leg swelling, doesn't use any oxygen at home requiring 2 L of oxygen was complaining of orthopnea, patient does have history of condition or failure chronic systolic dy sfunction enough of around 30%. Patient does have elevated JVD chest x-ray did not show any significant pulmonary edema but the her BNP is elevated to around 14,000 with previous BNP during her last auscultation and she was in heart failure exacerbation was 22,000. Patient does have bilateral lower extremity edema. REVIEW OF SYSTEMS: CONSTITUTIONAL: No fever, no malaise, no fatigue. HEENT: No recent visual problems or hearing problems. Denied any sore throat. CARDIOVASCULAR: No chest pain,no palpitations, no syncope. PULMONARY: no cough, no hemoptysis. GASTROINTESTINAL: No diarrhea, no nausea, no vomiting, no abdominal pain. NEUROLOGICAL: No headaches, no weakness, no numbness. HEMATOLOGICAL: Denies any bleeding or petechiae. GENITOURINARY: Denies any burning micturition, frequency, or urgency. MUSCULOSKELETAL/RHEUMATOLOGICAL: Denies any joint pain,or any muscle pain. ENDOCRINE: Denies any polyuria or polydipsia. The rest of the 14-point review of systems is negative. PHYSICAL EXAMINATION: GENERAL: The patient is alert and oriented x3, not in any acute distress. Well developed, well nourished. HEENT: Pupils are round and equally reacting to light. EOMI. No scleral icterus. No conjunctival pallor. Normocephalic, atraumatic. No pharyngeal erythema. No thyromegaly. CARDIOVASCULAR: S1 and S2 present. No murmurs, rubs, or gallops. She does have elevated JVD PULMONARY: Chest is clear to auscultation, no wheezing or crackles. ABDOMEN: Soft, nontender, nondistended, normoactive bowel sounds. No palpable organomegaly. MUSCULOSKELETAL: No joint swelling or deformity. EXTREMITIES: No cyanosis, clubbing, lower extremity edema extending up to midshin area NEUROLOGICAL: Gross neurological examination did not reveal any focal deficits. SKIN: No rashes. Assessment and plan Encouraged his heart failure chronic systolic dysfunction with acute exacerbation patient has EF of around 30%: Patient will be started on IV Lasix 40 mg twice a day twice a day. -Coronary artery disease history of stent placement in the past. -Ischemic cardiomyopathy -Hypertension hypothyroidism -Gastroesophageal reflux disease DVT prophylaxis: Low dose Lovenox Past Medical History Past Medical History: Cancer, GERD/Reflux, Hypertension, Osteoarthritis (OA), Thyroid Disorder Additional Past Medical History / Comment(s): MULTIPLE MYELOMA- diagnosed in march 2021, two iv chem treatments so far, last treatment was 04/20/2021, Bone Cancer currently Last Myocardial Infarction Date:: 04/21/2021 History of Any Multi-Drug Resistant Organisms: None Reported Past Surgical History: Appendectomy, Joint Replacement, Tonsillectomy Additional Past Surgical History / Comment(s): BILAT TKA. BILAT CARARACTS REMOVED WITH LENS IMPLANTS. 1/2 OF THYROID REMOVED. FATTY TUMOR REMOVED FROM KNEE. COLONOSCOPY. Heart cath with stent 2020, CHF Past Anesthesia/Blood Transfusion Reactions: No Reported Reaction Past Psychological History: No Psychological Hx Reported Smoking Status: Former smoker Past Alcohol Use History: None Reported Past Drug Use History: None Reported - Past Family History Mother Family Medical History: Cancer Medications and Allergies Home Medications Medication Instructions Recorded Confirmed Type Omeprazole 20 mg PO DAILY 02/26/21 07/26/22 History Levothyroxine Sodium [Synthroid] 25 mcg PO DAILY 12/14/21 07/26/22 History Aspirin EC [Ecotrin Low Dose] 81 mg PO DAILY 03/03/22 07/26/22 History Sertraline [Zoloft] 25 mg PO W/SUPPER 03/03/22 07/26/22 History Furosemide [Lasix] 20 mg PO BID@0800,1200 04/15/22 07/26/22 History Sacubitril/Valsartan [Entresto 24 1 tab PO BID 05/19/22 07/26/22 History mg-26 mg Tablet] Cyanocobalamin [Vitamin B-12] 1,000 mcg PO DAILY@1200 07/26/22 07/26/22 History Metoprolol Tartrate [Lopressor] 25 mg PO BID 07/26/22 07/26/22 History Potassium Chloride ER [K-Dur 10] 10 meq PO BID@1200,1800 07/26/22 07/26/22 History bisacodyL [Dulcolax] 5 mg PO BID 07/26/22 07/26/22 History oxyCODONE-APAP 7.5-325MG [Percocet 1 tab PO Q4H PRN 07/26/22 07/26/22 History 7.5-325 mg] Allergies Allergy/AdvReac Type Severity Reaction Status Date / Time Penicillins Allergy Swelling Verified 07/26/22 14:24 of entire body shellfish derived [Shellfish] AdvReac Nausea & Verified 07/26/22 14:24 Vomiting Physical Exam Vitals: Vital Signs Temp Pulse Resp BP Pulse Ox 07/26/22 15:30 68 14 161/84 99 07/26/22 15:00 67 13 158/77 100 07/26/22 14:30 64 17 163/80 100 07/26/22 14:00 64 14 153/81 100 07/26/22 13:16 57 L 15 164/88 100 07/26/22 12:40 98.1 F 63 16 164/88 99 Intake and Output 07/26/22 07/26/22 07/26/22 06:59 14:59 22:59 Other: Weight 42.184 kg Results CBC & Chem 7: 07/26/22 12:52 07/26/22 12:52 Labs: Abnormal Lab Results - Last 24 Hours (Table) 07/26/22 07/26/22 07/26/22 Range/Units 12:52 12:52 12:52 RBC 3.31 L (3.80-5.40) m/uL Hgb 10.9 L (11.4-16.0) gm/dL Hct 32.9 L (34.0-46.0) % APTT 19.1 L (22.0-30.0) sec Glucose 103 H (74-99) mg/dL Alkaline Phosphatase 154 H (38-126) U/L Total Protein 8.3 H (6.3-8.2) g/dL
[2022-07-26] MEDS: SERTRALINE 25 MG TAB PO SCH (17:50)
[2022-07-26] MEDS: POTASSIUM CHLORIDE ER 10 MEQ TAB.ER.PRT PO SCH (17:53)
[2022-07-26] MEDS ORDERED: METOPROLOL TARTRATE 25 MG TAB PO SCH (21:00)
[2022-07-26] MEDS: SACUBITRIL/VALSARTAN 24 MG-26 MG TABLET PO SCH (21:47)
[2022-07-26] MEDS: bisacodyL 5 MG TABLET.DR PO SCH (21:47)
[2022-07-26] MEDS: HYDROcodone/APAP 5-325MG 1 EACH TAB PO PRN (22:15)
[2022-07-27] MEDS: LEVOTHYROXINE 25 MCG TAB PO SCH (06:09)
[2022-07-27] MEDS: HYDROcodone/APAP 5-325MG 1 EACH TAB PO PRN ×2 (06:14→15:50)
[2022-07-27 09:28] LABS: African American GFR (CKD) 91.6 (60.0-200.0); Anion Gap 1.3 mmol/L (10.00-18.00); BUN/Creat Ratio 21.86 Ratio (12.00-20.00); Blood Urea Nitrogen 15.3 mg/dL (9.0-27.0); Calcium 9.2 mg/dL (8.7-10.3); Carbon Dioxide 31.7 mmol/L (20.0-27.5); Magnesium 1.9 mg/dL (1.5-2.4); Potassium 3.4 mmol/L (3.5-5.5)
[2022-07-27] MEDS ORDERED: POTASSIUM CHLORIDE ER 20 MEQ TAB.ER PO STA (09:40)
[2022-07-27] MEDS: bisacodyL 5 MG TABLET.DR PO SCH ×2 (10:16→21:11)
[2022-07-27] MEDS: SACUBITRIL/VALSARTAN 24 MG-26 MG TABLET PO SCH ×2 (10:16→21:11)
[2022-07-27] MEDS: ASPIRIN 81 MG PO SCH (10:16)
[2022-07-27] MEDS: FUROSEMIDE 40 MG TAB PO SCH ×2 (10:16→15:50)
[2022-07-27] MEDS: carvediloL 3.125 MG TAB PO SCH ×2 (10:16→17:43)
[2022-07-27] MEDS: PANTOPRAZOLE 40 MG TABLET PO SCH (10:16)
--- NOTE | 2022-07-27 11:13 | P.CRDCN ---
History of Present Illness Consult date: 07/27/22 History of present illness: HISTORY OF PRESENT ILLNESS: This is a 87-year-old female with a past medical history significant for with multiple myeloma, coronary artery disease with previous stenting of the LAD, cardiomyopathy, and valvular heart disease. Patient follows in the office with Dr. Copeland. We have been asked to see the patient in consultation for CHF. Patient examined at the bedside. Patient presented to the hospital for chief complaint of shortness of breath. Patient states that sure shortness of breath has improved. She does report continued shortness of breath if she is not wearing her oxygen. She denies chest pain or pressure. The patient is currently on IV Lasix. Blood pressure slightly elevated today with a systolic in the 150s to 160s. * EKG reveals sinus mechanism with left bundle branch block. * Chest xray negative for acute process * Laboratory data: WBC 5.3. Hemoglobin 10.9. Platelet count 212. Sodium 134. Potassium 3.4. BUN 15. Creatinine 0.7. ProBNP 13,200. Troponin negative 1. * Current home cardiac medications include metoprolol tartrate 25 mg twice a day, Entresto 24-26mg BID, Lasix 20 mg twice a day, aspirin 81 mg daily * Most recent echocardiogram obtained in January 2022 revealed ejection fraction 30%, moderate mitral regurgitation, trace to mild tricuspid regurgitation, moderate aortic regurgitation * Cardiac catheterization history: March 2021 with mid LAD lesion of 80%. Patient underwent stenting of mid LAD. REVIEW OF SYSTEMS: At the time of my exam: CONSTITUTIONAL: Denies fever or chills. HEENT: Denies blurred vision, vision changes, or eye pain. Denies hemoptysis CARDIOVASCULAR: Denies chest pain. Denies orthopnea. Denies PND. Denies palpitat ions RESPIRATORY: Denies shortness of breath. GASTROINTESTINAL: Denies abdominal pain. Denies nausea or vomiting. HEMATOLOGIC: Denies bleeding disorders. GENITOURINARY: Denies any blood in urine. SKIN: Denies pruitis. Denies rash. PHYSICAL EXAM: VITAL SIGNS: Reviewed. GENERAL: Well-developed in no acute distress. HEENT: Head is normocephalic. Pupils are equal, round. Sclerae anicteric. Mucous membranes of the mouth are moist. Neck supple. No JVD or thyromegaly LUNGS: Respirations even and unlabored. Lungs essentially clear to auscultation bilaterally. HEART: Regular rate and rhythm. S1 and S2 heard. Systolic murmur noted ABDOMEN: Soft. Nondistended. Nontender. EXTREMITIES: Normal range of motion. No clubbing or cyanosis. Peripheral pulses intact. No lower extremity edema NEUROLOGIC: Awake and alert. Oriented x 3. ASSESSMENT: Shortness of breath Acute on chronic heart failure with reduced ejection fraction Coronary artery disease with previous stenting of the LAD Ischemic cardiomyopathy, declining AICD Multiple myeloma Valvular heart disease PLAN: Continue IV Lasix. Begin oral Lasix 40 mg twice a day. Discontinue metoprolol. Add carvedilol 3.125mg for optimal blood pressure control Continue additional cardiac medications Further recommendations pending patient's course Nurse practitioner note has been reviewed by physician. Signing provider agrees with the documented findings, assessment, and plan of care. Past Medical History Past Medical History: Cancer, GERD/Reflux, Hypertension, Osteoarthritis (OA), Thyroid Disorder Additional Past Medical History / Comment(s): MULTIPLE MYELOMA- diagnosed in march 2021, two iv chem treatments so far, last treatment was 04/20/2021, Bone Cancer currently Last Myocardial Infarction Date:: 04/21/2021 History of Any Multi-Drug Resistant Organisms: None Reported Past Surgical History: Appendectomy, Joint Replacement, Tonsillectomy Additional Past Surgical History / Comment(s): BILAT TKA. BILAT CARARACTS REMOVED WITH LENS IMPLANTS. 1/2 OF THYROID REMOVED. FATTY TUMOR REMOVED FROM KNEE. COLONOSCOPY. Heart cath with stent 2020, CHF Past Anesthesia/Blood Transfusion Reactions: No Reported Reaction Past Psychological History: No Psychological Hx Reported Smoking Status: Former smoker Past Alcohol Use History: None Reported Additional Past Alcohol Use History / Comment(s): QUIT SMOKING 1964 Past Drug Use History: None Reported - Past Family History Mother Family Medical History: Cancer Medications and Allergies Home Medications Medication Instructions Recorded Confirmed Type Omeprazole 20 mg PO DAILY 02/26/21 07/26/22 History Levothyroxine Sodium [Synthroid] 25 mcg PO DAILY 12/14/21 07/26/22 History Aspirin EC [Ecotrin Low Dose] 81 mg PO DAILY 03/03/22 07/26/22 History Sertraline [Zoloft] 25 mg PO W/SUPPER 03/03/22 07/26/22 History Furosemide [Lasix] 20 mg PO BID@0800,1200 04/15/22 07/26/22 History Sacubitril/Valsartan [Entresto 24 1 tab PO BID 05/19/22 07/26/22 History mg-26 mg Tablet] Cyanocobalamin [Vitamin B-12] 1,000 mcg PO DAILY@1200 07/26/22 07/26/22 History Metoprolol Tartrate [Lopressor] 25 mg PO BID 07/26/22 07/26/22 History Potassium Chloride ER [K-Dur 10] 10 meq PO BID@1200,1800 07/26/22 07/26/22 History bisacodyL [Dulcolax] 5 mg PO BID 07/26/22 07/26/22 History oxyCODONE-APAP 7.5-325MG [Percocet 1 tab PO Q4H PRN 07/26/22 07/26/22 History 7.5-325 mg] Allergies Allergy/AdvReac Type Severity Reaction Status Date / Time Penicillins Allergy Swelling Verified 07/26/22 14:24 of entire body shellfish derived [Shellfish] AdvReac Nausea & Verified 07/26/22 14:24 Vomiting Physical Exam Vitals: Vital Signs Temp Pulse Pulse Resp BP BP Pulse Ox 07/27/22 07:22 97.8 F 67 18 152/76 97 07/27/22 02:53 97.6 F 68 16 156/68 100 07/26/22 21:32 97.9 F 78 17 163/81 99 07/26/22 19:00 80 14 161/83 100 07/26/22 18:30 82 15 159/88 100 07/26/22 18:00 79 15 153/85 98 07/26/22 17:30 76 13 150/82 99 07/26/22 16:30 94 20 150/88 07/26/22 16:00 73 13 166/82 07/26/22 15:30 68 14 161/84 99 07/26/22 15:00 67 13 158/77 100 07/26/22 14:30 64 17 163/80 100 07/26/22 14:00 64 14 153/81 100 07/26/22 13:16 57 L 15 164/88 100 07/26/22 12:40 98.1 F 63 16 164/88 99 Intake and Output 07/26/22 07/27/22 07/27/22 22:59 06:59 14:59 Intake Total 200 118 Output Total 700 400 Balance 200 -700 -282 Intake: Oral 200 118 Output: Urine 700 400 Other: Voiding Method External Catheter External Catheter # Voids 0 1 Weight 42.184 kg Results 07/26/22 12:52 07/27/22 05:29 Cardiac Enzymes 07/26/22 07/26/22 Range/Units 12:52 12:52 AST 30 (14-36) U/L Troponin I 0.022 (0.000-0.034) ng/mL Coagulation 07/26/22 Range/Units 12:52 PT 10.3 (9.0-12.0) sec APTT 19.1 L (22.0-30.0) sec CBC 07/26/22 Range/Units 12:52 WBC 5.3 (3.8-10.6) k/uL RBC 3.31 L (3.80-5.40) m/uL Hgb 10.9 L (11.4-16.0) gm/dL Hct 32.9 L (34.0-46.0) % Plt Count 212 (150-450) k/uL Comprehensive Metabolic Panel 07/26/22 07/27/22 Range/Units 12:52 05:29 Sodium 138 134 L (137-145) mmol/L Potassium 4.6 3.4 L (3.5-5.1) mmol/L Chloride 101 101 (98-107) mmol/L Carbon Dioxide 29 31.7 H (22-30) mmol/L BUN 17 15.3 (7-17) mg/dL Creatinine 0.81 0.7 (0.52-1.04) mg/dL Glucose 103 H 86 (74-99) mg/dL Calcium 9.6 9.2 (8.4-10.2) mg/dL AST 30 (14-36) U/L ALT 22 (4-34) U/L Alkaline Phosphatase 154 H (38-126) U/L Total Protein 8.3 H (6.3-8.2) g/dL Albumin 3.7 (3.5-5.0) g/dL Current Medications Generic Name Dose Route Start Last Admin Trade Name Freq PRN Reason Stop Dose Admin Hydrocodone Bitart/Acetaminophen 1 each 07/26/22 16:11 07/27/22 06:14 Hydrocodone/Apap 5-325mg 1 Each Tab PO 1 each Q6HR PRN Administration Pain Aspirin 81 mg 07/27/22 09:00 07/27/22 10:16 Aspirin 81 Mg PO 81 mg DAILY DARION Administration Bisacodyl 5 mg 07/26/22 21:00 07/27/22 10:16 Bisacodyl 5 Mg Tablet.Dr PO 5 mg BID DARION Administration Carvedilol 3.125 mg 07/27/22 09:00 07/27/22 10:16 Carvedilol 3.125 Mg Tab PO 3.125 mg BID-W/MEALS DARION Administration Cyanocobalamin 1,000 mcg 07/27/22 12:00 Cyanocobalamin 500 Mcg Tab PO DAILY@1200 DARION Furosemide 40 mg 07/27/22 09:00 07/27/22 10:16 Furosemide 40 Mg Tab PO 40 mg BID@0900,1600 DARION Administration Levothyroxine Sodium 25 mcg 07/27/22 06:30 07/27/22 06:09 Levothyroxine 25 Mcg Tab PO 25 mcg 0630 DARION Administration Pantoprazole Sodium 40 mg 07/27/22 09:00 07/27/22 10:16 Pantoprazole 40 Mg Tablet PO 40 mg DAILY DARION Administration Potassium Chloride 10 meq 07/26/22 18:00 07/26/22 17:53 Potassium Chloride Er 10 Meq Tab.Er.Prt PO Not Given BID@1200,1800 DARION Sacubitril/Valsartan 1 each 07/26/22 21:00 07/27/22 10:16 Sacubitril/Valsartan 24 Mg-26 Mg Tablet PO 1 each BID DARION Administration Sertraline HCl 25 mg 07/26/22 17:30 07/26/22 17:50 Sertraline 25 Mg Tab PO 25 mg W/SUPPER DARION Administration Intake and Output 07/26/22 07/27/22 07/27/22 22:59 06:59 14:59 Intake Total 200 118 Output Total 700 400 Balance 200 -700 -282 Intake: Oral 200 118 Output: Urine 700 400 Other: Voiding Method External Catheter External Catheter # Voids 0 1 Weight 42.184 kg 07/26/22 12:52 07/27/22 05:29
[2022-07-27] MEDS ORDERED: Potassium Replacement Protocol 1 EACH MISC MISCELLANE PRN (11:39)
--- NOTE | 2022-07-27 11:42 | P.PN ---
Subjective Progress Note Date: 07/27/22 87-year-old pleasant female came in with complaints of bilateral leg swelling, doesn't use any oxygen at home requiring 2 L of oxygen was complaining of orthopnea, patient does have history of condition or failure chronic systolic dysfunction enough of around 30%. Patient does have elevated JVD chest x-ray did not show any significant pulmonary edema but the her BNP is elevated to around 14,000 with previous BNP during her last auscultation and she was in heart failure exacerbation was 22,000. Patient does have bilateral lower extremity edema. 07/27/2022 Patient evaluated today resting in bed. Ambulated today with oxygen support, still requiring 2L nasal cannula. She continues to report exertional dyspnea. Bilateral pitting edema 2 + continues as well. Patient is transitioned to oral lasix. Potassium today is 3.4 which patient will receive oral supplement. Cardiac medications have been adjusted today. Pending PT evaluation. Review of Systems Constitutional: Denied any fatigue denied any fever. Cardio vascular: denied any chest pain, palpitations Gastrointestinal: denied any nausea, vomiting, diarrhea Pulmonary: Reports shortness of breath with exertion, no cough Neurologic denied any new focal deficits All inpatient medications were reviewed and appropriate changes in these medic ations as dictated in the interval history and assessment and plan. PHYSICAL EXAMINATION: GENERAL: The patient is alert and oriented x3, not in any acute distress. Well developed, well nourished. HEENT: Pupils are round and equally reacting to light. EOMI. No scleral icterus. No conjunctival pallor. Normocephalic, atraumatic. No pharyngeal erythema. No thyromegaly. CARDIOVASCULAR: S1 and S2 present. No murmurs, rubs, or gallops. She does have elevated JVD PULMONARY: Chest is clear to auscultation, no wheezing or crackles. ABDOMEN: Soft, nontender, nondistended, normoactive bowel sounds. No palpable organomegaly. MUSCULOSKELETAL: No joint swelling or deformity. EXTREMITIES: No cyanosis, clubbing, lower extremity edema extending up to midshin area +2 continues Gross neurological examination did not reveal any focal deficits. SKIN: No rashes. Assessment and plan -Congestive heart failure chronic systolic dysfunction with acute exacerbation patient has EF of around 30% -Coronary artery disease history of stent placement in the past. -Ischemic cardiomyopathy -Hypertension -hypothyroidism -Gastroesophageal reflux disease GI prophylaxis: Protonix DVT prophylaxis: Low dose Lovenox Plan Patient has been transitioned to oral lasix Cardiology started carvedilol today, stopped metoprolol Replace potassium Repeat BMP in AM Pending PT evaluation Strict intake and output The impression and plan of care has been dictated by Ama Lemus, Nurse Prac titioner as directed. Dr. Elmira MD I have performed a history and physical examination and medical decision making of this patient, discussed the same with the dictator, and agree with the dictators assessment and plan as written, documented as a scribe. Based on total visit time, I have performed more than 50% of this visit. Objective - Vital Signs Vital signs: Vital Signs Temp 97.8 F 07/27/22 07:22 Pulse 67 07/27/22 07:22 Resp 18 07/27/22 07:22 BP 152/76 07/27/22 07:22 Pulse Ox 97 07/27/22 07:22 FiO2 Intake & Output 07/26/22 07/27/22 07/27/22 18:59 06:59 18:59 Intake Total 200 118 Output Total 700 400 Balance -500 -282 Weight 42.184 kg 42.184 kg Intake: Oral 200 118 Output: Urine 700 400 Other: Voiding Method External Catheter # Voids 1 - Labs CBC & Chem 7: 07/26/22 12:52 07/27/22 05:29 Labs: Abnormal Lab Results - Last 24 Hours (Table) 07/26/22 07/26/22 07/26/22 Range/Units 12:52 12:52 12:52 RBC 3.31 L (3.80-5.40) m/uL Hgb 10.9 L (11.4-16.0) gm/dL Hct 32.9 L (34.0-46.0) % APTT 19.1 L (22.0-30.0) sec Sodium (135-145) mmol/L Potassium (3.5-5.5) mmol/L Carbon Dioxide (20.0-27.5) mmol/L Anion Gap (10.00-18.00) mmol/L BUN/Creatinine Ratio (12.00-20.00) Ratio Glucose 103 H (74-99) mg/dL Alkaline Phosphatase 154 H (38-126) U/L Total Protein 8.3 H (6.3-8.2) g/dL 07/27/22 Range/Units 05:29 RBC (3.80-5.40) m/uL Hgb (11.4-16.0) gm/dL Hct (34.0-46.0) % APTT (22.0-30.0) sec Sodium 134 L (135-145) mmol/L Potassium 3.4 L (3.5-5.5) mmol/L Carbon Dioxide 31.7 H (20.0-27.5) mmol/L Anion Gap 1.30 L (10.00-18.00) mmol/L BUN/Creatinine Ratio 21.86 H (12.00-20.00) Ratio Glucose (74-99) mg/dL Alkaline Phosphatase (38-126) U/L Total Protein (6.3-8.2) g/dL Assessment and Plan Time with Patient: Less than 30
[2022-07-27] MEDS: POTASSIUM CHLORIDE ER 10 MEQ TAB.ER.PRT PO SCH ×2 (12:59→18:23)
[2022-07-27] MEDS: POTASSIUM BICARBONATE/CIT AC 20 MEQ TABLET.EFF PO SCH ×2 (13:04→14:48)
[2022-07-27] MEDS: CYANOCOBALAMIN 500 MCG TAB PO SCH (13:04)
[2022-07-27 13:56] VITALS: BMI 18.6
[2022-07-27] MEDS: POTASSIUM CHLORIDE 10 MEQ in WATER FOR INJECTION 1 100ML.BAG IVPB SCH ×2 (15:59→17:36)
[2022-07-27] MEDS: SERTRALINE 25 MG TAB PO SCH (17:42)
[2022-07-28] MEDS: HYDROcodone/APAP 5-325MG 1 EACH TAB PO PRN (04:22)
[2022-07-28 09:14] LABS: African American GFR (CKD) 83.7 (60.0-200.0); Anion Gap 7.6 mmol/L (10.00-18.00); BUN/Creat Ratio 22.81 Ratio (12.00-20.00); Blood Urea Nitrogen 17.2 mg/dL (9.0-27.0); Calcium 9.3 mg/dL (8.7-10.3); Carbon Dioxide 30.2 mmol/L (20.0-27.5); Non-African American GFR(CKD) 72.2 (60.0-200.0); Potassium 3.5 mmol/L (3.5-5.5)
[2022-07-28] MEDS: FUROSEMIDE 40 MG TAB PO SCH ×2 (09:38→17:48)
[2022-07-28] MEDS: SACUBITRIL/VALSARTAN 24 MG-26 MG TABLET PO SCH ×2 (09:38→20:50)
[2022-07-28] MEDS: PANTOPRAZOLE 40 MG TABLET PO SCH (09:38)
[2022-07-28] MEDS: LEVOTHYROXINE 25 MCG TAB PO SCH (09:38)
[2022-07-28] MEDS: ASPIRIN 81 MG PO SCH (09:38)
[2022-07-28] MEDS: bisacodyL 5 MG TABLET.DR PO SCH (09:38)
[2022-07-28] MEDS: carvediloL 3.125 MG TAB PO SCH (10:16)
[2022-07-28] MEDS: carvediloL 6.25 MG TAB PO SCH ×2 (10:21→17:48)
[2022-07-28] MEDS: SPIRONOLACTONE 25 MG TAB PO SCH (10:21)
--- NOTE | 2022-07-28 10:28 | P.PN ---
Subjective Progress Note Date: 07/28/22 HISTORY OF PRESENT ILLNESS: This is a 87-year-old female with a past medical history significant for with multiple myeloma, coronary artery disease with previous stenting of the LAD, cardiomyopathy, and valvular heart disease. Patient follows in the office with Dr. Copeland. We have been asked to see the patient in consultation for CHF. Patient examined at the bedside. Patient presented to the hospital for chief complaint of shortness of breath. Patient states that sure shortness of breath has improved. She does report continued shortness of breath if she is not wearing her oxygen. She denies chest pain or pressure. The patient is currently on IV Lasix. Blood pressure slightly elevated today with a systolic in the 150s to 160s. * EKG reveals sinus mechanism with left bundle branch block. * Chest xray negative for acute process * Laboratory data: WBC 5.3. Hemoglobin 10.9. Platelet count 212. Sodium 134. Potassium 3.4. BUN 15. Creatinine 0.7. ProBNP 13,200. Troponin negative 1. * Current home cardiac medications include metoprolol tartrate 25 mg twice a day, Entresto 24-26mg BID, Lasix 20 mg twice a day, aspirin 81 mg daily * Most recent echocardiogram obtained in January 2022 revealed ejection fraction 30%, moderate mitral regurgitation, trace to mild tricuspid regurgitation, moderate aortic regurgitation * Cardiac catheterization history: March 2021 with mid LAD lesion of 80%. Patient underwent stenting of mid LAD. 07/28/2022 Patient examined this morning. She denies chest pain or pressure. She denies SOB if she is wearing oxygen. She remains on oral lasix. Vital signs are stable. SBP 150s PHYSICAL EXAM: VITAL SIGNS: Reviewed. GENERAL: Well-developed in no acute distress. HEENT: Head is normocephalic. Pupils are equal, round. Sclerae anicteric. Mucous membranes of the mouth are moist. Neck supple. No JVD or thyromegaly LUNGS: Respirations even and unlabored. Lungs with crackles at the bases. HEART: Regular rate and rhythm. S1 and S2 heard. Systolic murmur noted ABDOMEN: Soft. Nondistended. Nontender. EXTREMITIES: Normal range of motion. No clubbing or cyanosis. Peripheral pulses intact. No lower extremity edema NEUROLOGIC: Awake and alert. Oriented x 3. ASSESSMENT: Shortness of breath Acute on chronic heart failure with reduced ejection fraction Coronary artery disease with previous stenting of the LAD Ischemic cardiomyopathy, declining AICD Multiple myeloma Valvular heart disease PLAN: Continue oral Lasix 40 mg twice a day Increase carvedilol to 6.25 mg twice a day Add Aldactone 25 mg daily Wean oxygen as tolerated Recommend monitoring patient for an additional 24 hours Further recommendations pending patient's course Nurse practitioner note has been reviewed by physician. Signing provider agrees with the documented findings, assessment, and plan of care. Objective - Vital Signs Vital signs: Vital Signs Temp 98.0 F 07/28/22 05:58 Pulse 89 07/28/22 10:20 Resp 17 07/28/22 10:22 BP 156/86 07/28/22 10:20 Pulse Ox 97 07/28/22 10:22 FiO2 Intake & Output 07/27/22 07/28/22 07/28/22 18:59 06:59 18:59 Intake Total 236 Output Total 900 400 Balance -664 -400 Weight 40.5 kg Intake: Oral 236 Output: Urine 900 400 Other: # Voids 1 # Bowel Movements 1 - Labs CBC & Chem 7: 07/26/22 12:52 07/28/22 04:58 Labs: Abnormal Lab Results - Last 24 Hours (Table) 07/28/22 Range/Units 04:58 Carbon Dioxide 30.2 H (20.0-27.5) mmol/L Anion Gap 7.60 L (10.00-18.00) mmol/L BUN/Creatinine Ratio 22.81 H (12.00-20.00) Ratio
[2022-07-28] MEDS: CYANOCOBALAMIN 500 MCG TAB PO SCH (12:48)
[2022-07-28 14:34] LABS: ALT 31 U/L (8-44); AST 35 U/L (13-35); Alkaline Phosphatase 189 U/L (41-126)
--- NOTE | 2022-07-28 16:35 | P.PN ---
Subjective Progress Note Date: 07/28/22 87-year-old pleasant female came in with complaints of bilateral leg swelling, doesn't use any oxygen at home requiring 2 L of oxygen was complaining of orthopnea, patient does have history of condition or failure chronic systolic dysfunction enough of around 30%. Patient does have elevated JVD chest x-ray did not show any significant pulmonary edema but the her BNP is elevated to around 14,000 with previous BNP during her last auscultation and she was in heart failure exacerbation was 22,000. Patient does have bilateral lower extremity edema. 07/27/2022 Patient evaluated today resting in bed. Ambulated today with oxygen support, still requiring 2L nasal cannula. She continues to report exertional dyspnea. Bilateral pitting edema 2 + continues as well. Patient is transitioned to oral lasix. Potassium today is 3.4 which patient will receive oral supplement. Cardiac medications have been adjusted today. Pending PT evaluation. 07/28/2022 Patient was monitor overnight due to failing oxygen assessment. Her pulse ox drops to 84% with activity and 88% while resting. She is continued on 2L nasal cannula, no shortness of breath at rest. Cardiology re-evaluated patient today, aldactone was added and also carvedilol increased. Patient will be monitored overnight. She would like to speak with social work case manager about sub acute rehab she would be possibly open to [facility] on discharge. Today sodium 136, potassium 3.5. Review of Systems Constitutional: Denied any fatigue denied any fever. Cardio vascular: denied any chest pain, palpitations Gastrointestinal: denied any nausea, vomiting, diarrhea Pulmonary: Reports shortness of breath with exertion, no cough Neurologic denied any new focal deficits All inpatient medications were reviewed and appropriate changes in these medications as dictated in the interval history and assessment and plan. PHYSICAL EXAMINATION: GENERAL: The patient is alert and oriented x3, not in any acute distress. Well developed, well nourished. HEENT: Pupils are round and equally reacting to light. EOMI. No scleral icterus. No conjunctival pallor. Normocephalic, atraumatic. No pharyngeal erythema. No thyromegaly. CARDIOVASCULAR: S1 and S2 present. No murmurs, rubs, or gallops. She does have elevated JVD PULMONARY: Chest is clear to auscultation, no wheezing or crackles. ABDOMEN: Soft, nontender, nondistended, normoactive bowel sounds. No palpable organomegaly. MUSCULOSKELETAL: No joint swelling or deformity. EXTREMITIES: No cyanosis, clubbing, lower extremity edema extending up to midshin area +2 continues Gross neurological examination did not reveal any focal deficits. SKIN: No rashes. Assessment and plan -Congestive heart failure chronic systolic dysfunction with acute exacerbation patient has EF of around 30% -Coronary artery disease history of stent placement in the past. -Ischemic cardiomyopathy -Hypertension -hypothyroidism -Gastroesophageal reflux disease -Generalized weakness GI prophylaxis: Protonix DVT prophylaxis: Low dose Lovenox Plan Patient has been transitioned to oral lasix Medications adjusted by cardiology PT recommending subacute rehab on discharge which patient initially refused but would like to speak with CM about rehab. Currently homecare on discharge is set up. Monitor overnight on medication changes. Will need repeat home oxygen assessment prior to discharge. Dulcolax discontinued The impression and plan of care has been dictated by Ama Lemus, Nurse Practitioner as directed. Dr. Elmira MD I have performed a history and physical examination and medical decision making of this patient, discussed the same with the dictator, and agree with the dictators assessment and plan as written, documented as a scribe. Based on total visit time, I have performed more than 50% of this visit. Objective - Vital Signs Vital signs: Vital Signs Temp 98.1 F 07/28/22 15:00 Pulse 73 07/28/22 15:00 Resp 16 07/28/22 15:00 BP 169/80 07/28/22 15:00 Pulse Ox 99 07/28/22 15:00 FiO2 Intake & Output 07/27/22 07/28/22 07/28/22 18:59 06:59 18:59 Intake Total 236 Output Total 900 400 Balance -664 -400 Weight 40.5 kg Intake: Oral 236 Output: Urine 900 400 Other: # Voids 1 # Bowel Movements 1 - Labs CBC & Chem 7: 07/26/22 12:52 07/28/22 04:58 Labs: Abnormal Lab Results - Last 24 Hours (Table) 07/28/22 07/28/22 Range/Units 04:58 04:58 Carbon Dioxide 30.2 H (20.0-27.5) mmol/L Anion Gap 7.60 L (10.00-18.00) mmol/L BUN/Creatinine Ratio 22.81 H (12.00-20.00) Ratio Alkaline Phosphatase 189 H (41-126) U/L
[2022-07-28] MEDS: SERTRALINE 25 MG TAB PO SCH (17:48)
[2022-07-29] MEDS: LEVOTHYROXINE 25 MCG TAB PO SCH (06:23)
[2022-07-29] MEDS: carvediloL 6.25 MG TAB PO SCH (06:23)
--- NOTE | 2022-07-29 10:13 | P.PN ---
Subjective Progress Note Date: 07/29/22 HISTORY OF PRESENT ILLNESS: This is a 87-year-old female with a past medical history significant for with multiple myeloma, coronary artery disease with previous stenting of the LAD, cardiomyopathy, and valvular heart disease. Patient follows in the office with Dr. Copeland. We have been asked to see the patient in consultation for CHF. Patient examined at the bedside. Patient presented to the hospital for chief complaint of shortness of breath. Patient states that sure shortness of breath has improved. She does report continued shortness of breath if she is not wearing her oxygen. She denies chest pain or pressure. The patient is currently on IV Lasix. Blood pressure slightly elevated today with a systolic in the 150s to 160s. * EKG reveals sinus mechanism with left bundle branch block. * Chest xray negative for acute process * Laboratory data: WBC 5.3. Hemoglobin 10.9. Platelet count 212. Sodium 134. Potassium 3.4. BUN 15. Creatinine 0.7. ProBNP 13,200. Troponin negative 1. * Current home cardiac medications include metoprolol tartrate 25 mg twice a day, Entresto 24-26mg BID, Lasix 20 mg twice a day, aspirin 81 mg daily * Most recent echocardiogram obtained in January 2022 revealed ejection fraction 30%, moderate mitral regurgitation, trace to mild tricuspid regurgitation, moderate aortic regurgitation * Cardiac catheterization history: March 2021 with mid LAD lesion of 80%. Patient underwent stenting of mid LAD. 07/28/2022 Patient examined this morning. She denies chest pain or pressure. She denies SOB if she is wearing oxygen. She remains on oral lasix. Vital signs are stable. SBP 150s 07/29/2022 Patient examined this morning the bedside. Patient denies chest pain or pressure. She denies shortness of breath. She is still requiring oxygen therapy to maintain oxygen saturations greater than 92%. PHYSICAL EXAM: VITAL SIGNS: Reviewed. GENERAL: Well-developed in no acute distress. HEENT: Head is normocephalic. Pupils are equal, round. Sclerae anicteric. Mucous membranes of the mouth are moist. Neck supple. No JVD or thyromegaly LUNGS: Respirations even and unlabored. Lungs with crackles at the bases. HEART: Regular rate and rhythm. S1 and S2 heard. Systolic murmur noted ABDOMEN: Soft. Nondistended. Nontender. EXTREMITIES: Normal range of motion. No clubbing or cyanosis. Peripheral pul ses intact. No lower extremity edema NEUROLOGIC: Awake and alert. Oriented x 3. ASSESSMENT: Shortness of breath Acute on chronic heart failure with reduced ejection fraction Coronary artery disease with previous stenting of the LAD Ischemic cardiomyopathy, declining AICD Multiple myeloma Valvular heart disease PLAN: Continue current cardiac medications Recommend home oxygen at discharge Patient may be discharged home today from a cardiac standpoint and follow up on an outpatient basis Nurse practitioner note has been reviewed by physician. Signing provider agrees with the documented findings, assessment, and plan of care. Objective - Vital Signs Vital signs: Vital Signs Temp 97.9 F 07/29/22 06:21 Pulse 73 07/29/22 06:21 Resp 16 07/29/22 06:21 BP 163/78 07/29/22 06:21 Pulse Ox 99 07/29/22 06:21 FiO2 Intake & Output 07/28/22 07/29/22 07/29/22 18:59 06:59 18:59 Intake Total 440 Output Total 400 Balance 40 Weight 40.3 kg Intake: Oral 440 Output: Urine 400 Other: Voiding Method Bedside Commode External Catheter # Voids 1 1 # Bowel Movements 1 - Labs CBC & Chem 7: 07/26/22 12:52 07/28/22 04:58 Labs: Abnormal Lab Results - Last 24 Hours (Table) 07/28/22 Range/Units 04:58 Alkaline Phosphatase 189 H (41-126) U/L
[2022-07-29] MEDS: ASPIRIN 81 MG PO SCH (10:25)
[2022-07-29] MEDS: FUROSEMIDE 40 MG TAB PO SCH ×2 (10:25→15:52)
[2022-07-29] MEDS: PANTOPRAZOLE 40 MG TABLET PO SCH (10:26)
[2022-07-29] MEDS: SACUBITRIL/VALSARTAN 24 MG-26 MG TABLET PO SCH (10:26)
[2022-07-29] MEDS: SPIRONOLACTONE 25 MG TAB PO SCH (10:42)
[2022-07-29] MEDS: CYANOCOBALAMIN 500 MCG TAB PO SCH (13:10)
[2022-07-29 14:08] VITALS: RESP 20; TEMP 98.6
[2022-07-29 14:16] VITALS: BP 167/76; PULSE 67
--- NOTE | 2022-07-29 15:59 | P.DS ---
Providers Date of admission: 07/28/22 12:42 Attending physician: Kwan Ku Consults: 07/26/22 16:09 Consult Physician Routine Consulting Provider: Jay Norman Consult Reason/Comments: CHF Do you want consulting provider notified?: Yes Primary care physician: Zion Davalos [facility] Course: Final Diagnosis -Congestive heart failure chronic systolic dysfunction with acute exacerbation patient has EF of around 30% -Coronary artery disease history of stent placement in the past. -Ischemic cardiomyopathy -Hypertension -hypothyroidism -Gastroesophageal reflux disease -Generalized weakness Discharge Disposition Patient is cleared for discharge to subacute rehab. She has been cleared by cardiology. Patient will discharge on entresto, aldactone, and lasix. Recommend to repeat labs in 2 to 3 days. Patient will need to follow up with primary care in 1 to 2 days as well. Hospital Course 87-year-old pleasant female came in with complaints of bilateral leg swelling, doesn't use any oxygen at home requiring 2 L of oxygen was complaining of orthopnea, patient does have history of condition or failure chronic systolic dysfunction with an ejection fraction around 30%. Patient does have elevated JVD chest x-ray did not show any significant pulmonary edema but the her BNP is elevated to around 14,000 with previous BNP during her last auscultation and she was in heart failure exacerbation was 22,000. Patient does have bilateral lower extremity edema. Patient was diuresed well with IV Lasix and evaluate by cardiology. She was then transitioned to oral Lasix however she was requiring oxygen via nasal cannula had failed a walk oxygen test down to 84% with activity. For this reason she was monitored again overnight and medication changes were done by cardiology including the addition of Aldactone. Currently now she is not requiring oxygen and she is maintaining a saturation 91% with activity on room air. Patient was fairly PT therapy and recommended for subacute rehab on discharge. She does live at home with her who assists with basic functioning however she does have significant lower extremity weakness and patient feels as though her legs are going to give out on her. For this reason she was recommended for discharge to subacute rehab and she'll be discharged today. 07/29/2022 Patient's family today resting in bed. She reports feeling less short of breath and she is not requiring oxygen today. Her lungs are clear. S1-S2 are auscultated. She does have a systolic murmur. She does have a mildly weakness with some muscle atrophy. Today there is no lower extremity edema. Awake alert and oriented 3 with no focal neurological deficits noted. She has not any acute distress today. Did not seem to tolerate her protein supplement drink well today and did have an episode of mucoid emesis. She is reportedly feeling better since. Most recent labs show his sodium 136, potassium 3.5, BUN 7.2, creatinine 0.8, magnesium 1.9, alk phos is elevated at 154 and 189, AST and ALT are within normal limits. Troponin negative. White count. The patient is afebrile, heart rate 67, blood pressure 167/76, 95% room air. Please see medication reconciliation for a list of current medication. Thank you for allowing us to participate in the care of this patient. The impression and plan of care has been dictated by Ama Lemus, Nurse Practitioner as directed. Dr. Elmira MD I have performed a history and physical examination and medical decision making of this patient, discussed the same with the dictator, and agree with the dictators assessment and plan as written, documented as a scribe. Based on total visit time, I have performed more than 50% of this visit. Patient Condition at Discharge: Stable Plan - Discharge Summary New Discharge Prescriptions: New Spironolactone [Aldactone] 25 mg PO DAILY tab carvediloL [Coreg] 6.25 mg PO BID-W/MEALS tab Furosemide [Lasix] 40 mg PO BID@0900,1600 tab HYDROcodone/APAP 5-325MG [[place] 5-325] 1 each PO Q6HR PRN #3 tab PRN Reason: Pain Continue Levothyroxine Sodium [Synthroid] 25 mcg PO DAILY Aspirin EC [Ecotrin Low Dose] 81 mg PO DAILY Sertraline [Zoloft] 25 mg PO W/SUPPER Sacubitril/Valsartan [Entresto 24 mg-26 mg Tablet] 1 tab PO BID Cyanocobalamin [Vitamin B-12] 1,000 mcg PO DAILY@1200 Omeprazole 20 mg PO DAILY bisacodyL [Dulcolax] 5 mg PO BID Discontinued oxyCODONE-APAP 7.5-325MG [Percocet 7.5-325 mg] 1 tab PO Q4H PRN PRN Reason: Pain Metoprolol Tartrate [Lopressor] 25 mg PO BID Potassium Chloride ER [K-Dur 10] 10 meq PO BID@1200,1800 Furosemide [Lasix] 20 mg PO BID@0800,1200 Discharge Medication List Omeprazole 20 mg PO DAILY 02/26/21 [History] Levothyroxine Sodium [Synthroid] 25 mcg PO DAILY 12/14/21 [History] Aspirin EC [Ecotrin Low Dose] 81 mg PO DAILY 03/03/22 [History] Sertraline [Zoloft] 25 mg PO W/SUPPER 03/03/22 [History] Sacubitril/Valsartan [Entresto 24 mg-26 mg Tablet] 1 tab PO BID 05/19/22 [History] Cyanocobalamin [Vitamin B-12] 1,000 mcg PO DAILY@1200 07/26/22 [History] bisacodyL [Dulcolax] 5 mg PO BID 07/26/22 [History] Furosemide [Lasix] 40 mg PO BID@0900,1600 tab 07/29/22 [Rx] HYDROcodone/APAP 5-325MG [[place] 5-325] 1 each PO Q6HR PRN #3 tab 07/29/22 [Rx] Spironolactone [Aldactone] 25 mg PO DAILY tab 07/29/22 [Rx] carvediloL [Coreg] 6.25 mg PO BID-W/MEALS tab 07/29/22 [Rx] Follow up Appointment(s)/Referral(s): Beto Copeland MD [STAFF PHYSICIAN] - 1 Week rKunal Quinonez MD [STAFF PHYSICIAN] - [facility], [NON-STAFF] - 1 Week Zion Davalos MD [Primary Care Provider] - 1-2 days Ambulatory/Diagnostic Orders: Basic Metabolic Panel [LAB.AMB] Time Frame: 2 Days, Location: None Selected Discharge Disposition: TRANSFER TO SNF/ECF
== END 2022-07-29 16:30 | DRG 291 ==
LOC: EC 12:37 → 6NMEDSUR 14:46 → OBSVTOIN 07-28 12:42
PROVIDERS: ADMIT Internal Medicine; ATTEND Internal Medicine
DX: I11.0 Hypertensive heart disease with heart failure (principal); I50.23 Acute on chronic systolic (congestive) heart failure; C90.00 Multiple myeloma not having achieved remission; E03.9 Hypothyroidism, unspecified; I25.10 Atherosclerotic heart disease of native coronary artery without angina pectoris; I25.2 Old myocardial infarction; K21.9 Gastro-esophageal reflux disease without esophagitis; I25.5 Ischemic cardiomyopathy; I44.7 Left bundle-branch block, unspecified; Z79.82 Long term (current) use of aspirin; Z79.890 Hormone replacement therapy; Z79.899 Other long term (current) drug therapy; Z87.891 Personal history of nicotine dependence; Z95.5 Presence of coronary angioplasty implant and graft; Z96.653 Presence of artificial knee joint, bilateral; Z87.19 Personal history of other diseases of the digestive system; Z88.0 Allergy status to penicillin; Z91.013 Allergy to seafood
CPT/HCPCS: 36415; 71046; 80048; 80053; 83735; 83880; 84075; 84450; 84460; 84484; 85025; 85610; 85730; 93005; 96374; 96375; 99284

== ENCOUNTER 2022-08-01 07:14 | Inpatient (IN) | payer MEDICARE ==
--- NOTE | 2022-08-01 07:47 | ED ---
General Adult HPI - General Chief complaint: Shortness of Breath Stated complaint: sob, chest congestion Time Seen by Provider: 08/01/22 07:20 Source: patient Mode of arrival: ambulatory Limitations: no limitations - History of Present Illness Initial comments: Dictation was produced using [employer] dictation software. please excuse any grammatical, word or spelling errors. Chief Complaint: 87-year-old female presents to the emergency department for shortness of breath hypoxia History of Present Illness: 87-year-old female presents to the emergency department from local care home for hypoxia and shortness of breath. Patient is been feeling short of breath over the last 1-2 days. She is recently admitted for heart failure. Patient states that she feels congested in her chest. She told care home staff. EMS was called in to us that she was hypoxic into the mid and low 80s. She is put on supplemental oxygen with impr ovement of oxygenation. Patient denies any fever chills or other constitutional symptoms. No chest pain. She denies that her symptoms are worse with lying flat. The ROS documented in this emergency department record has been reviewed and confirmed by me. Those systems with pertinent positive or negative responses have been documented in the HPI. All other systems are other negative and/or n oncontributory. PHYSICAL EXAM: General Impression: Alert and oriented x3, mildly dyspneic HEENT: Normocephalic atraumatic, extra-ocular movements intact, pupils equal and reactive to light bilaterally, mucous membranes moist. Cardiovascular: Heart regular rate and rhythm Chest: Able to complete full sentences, no retractions, no tachypnea Abdomen: abdomen soft, non-tender, non-distended, no organomegaly Musculoskeletal: Pulses present and equal in all extremities, no peripheral edema Motor: no focal deficits noted Neurological: CN II-XII grossly intact, no focal motor or sensory deficits noted Skin: Intact with no visualized rashes Psych: Normal affect and mood ED course: 89-year-old female multiple comorbidities and recent admission for heart failure presents to the ER for hypoxia and shortness of breath. Vital signs upon arrival shows heart rate 116, 95% on 4 L nasal cannula. Nasal cannula was removed with reduction of oxygen levels to the high 80s. She is placed back on 4 L nasal cannula. Laboratory evaluation obtained showing mild leukocytosis, hemoglobin 10.1 which is around patient's baseline. Metabolic panel is within acceptable limits. Abdominal labs are within acceptable limits. Troponin elevated at 0.221 which is above patient's recent baseline. Suspect non-ST segment elevation ME. Patient started on heparin and given aspirin. Chest x-ray shows volume overload. Patient reevaluated at bedside at 8:40 AM found to be stable medical condition. She is satting well on 4 L nasal cannula. Patient given IV Lasix. She'll be admitted for further care. Case discussed with Ama, who is willing to accept patient's care on behalf of [facility] hospitalist group. Cardiology consulted. EKG interpretation: Ventricular rate 97, sinus rhythm,. 194, care is 60, QTC 423. No KS prolongation, no QTC prolongation, no ST or T-wave changes noted. EKG compared to 07/29/2022 showing no changes. Overall, this EKG is unremarkable - Related Data Home Medications Medication Instructions Recorded Confirmed Omeprazole 20 mg PO DAILY 02/26/21 07/26/22 Levothyroxine Sodium [Synthroid] 25 mcg PO DAILY 12/14/21 07/26/22 Aspirin EC [Ecotrin Low Dose] 81 mg PO DAILY 03/03/22 07/26/22 Sertraline [Zoloft] 25 mg PO W/SUPPER 03/03/22 07/26/22 Sacubitril/Valsartan [Entresto 24 1 tab PO BID 05/19/22 07/26/22 mg-26 mg Tablet] Cyanocobalamin [Vitamin B-12] 1,000 mcg PO DAILY@1200 07/26/22 07/26/22 bisacodyL [Dulcolax] 5 mg PO BID 07/26/22 07/26/22 Previous Rx's Medication Instructions Recorded Furosemide [Lasix] 40 mg PO BID@0900,1600 tab 07/29/22 HYDROcodone/APAP 5-325MG [[place] 1 each PO Q6HR PRN #3 tab 07/29/22 5-325] Spironolactone [Aldactone] 25 mg PO DAILY tab 07/29/22 carvediloL [Coreg] 6.25 mg PO BID-W/MEALS tab 07/29/22 Allergies Allergy/AdvReac Type Severity Reaction Status Date / Time Penicillins Allergy Swelling Verified 08/01/22 07:24 of entire body shellfish derived [Shellfish] AdvReac Nausea & Verified 08/01/22 07:24 Vomiting Review of Systems ROS Statement: Those systems with pertinent positive or pertinent negative responses have been documented in the HPI. ROS Other: All systems not noted in ROS Statement are negative. Past Medical History Past Medical History: Cancer, GERD/Reflux, Hypertension, Osteoarthritis (OA), Thyroid Disorder Additional Past Medical History / Comment(s): MULTIPLE MYELOMA- diagnosed in march 2021, two iv chem treatments so far, last treatment was 04/20/2021, Bone Cancer currently Last Myocardial Infarction Date:: 04/21/2021 History of Any Multi-Drug Resistant Organisms: None Reported Past Surgical History: Appendectomy, Joint Replacement, Tonsillectomy Additional Past Surgical History / Comment(s): BILAT TKA. BILAT CARARACTS REMOVED WITH LENS IMPLANTS. 1/2 OF THYROID REMOVED. FATTY TUMOR REMOVED FROM KNEE. COLONOSCOPY. Heart cath with stent 2020, CHF Past Anesthesia/Blood Transfusion Reactions: No Reported Reaction Past Psychological History: No Psychological Hx Reported Smoking Status: Former smoker Past Alcohol Use History: None Reported Past Drug Use History: None Reported - Past Family History Mother Family Medical History: Cancer General Exam Limitations: no limitations Course Vital Signs 08/01/22 08/01/22 08/01/22 07:16 07:41 08:27 Temperature 98 F Pulse Rate 116 H 101 H Respiratory 18 18 Rate Blood Pressure 159/97 168/107 O2 Sat by Pulse 95 89 L 94 L Oximetry 08/01/22 08:50 Temperature Pulse Rate 95 Respiratory 18 Rate Blood Pressure 174/97 O2 Sat by Pulse 96 Oximetry Medical Decision Making - Lab Data Result diagrams: 08/01/22 07:44 08/01/22 07:42 Lab Results 08/01/22 08/01/22 08/01/22 Range/Units 07:42 07:42 07:42 WBC (3.8-10.6) k/uL RBC (3.80-5.40) m/uL Hgb (11.4-16.0) gm/dL Hct (34.0-46.0) % MCV (80.0-100.0) fL MCH (25.0-35.0) pg MCHC (31.0-37.0) g/dL RDW (11.5-15.5) % Plt Count (150-450) k/uL MPV Neutrophils % % Lymphocytes % % Monocytes % % Eosinophils % % Basophils % % Neutrophils # (1.3-7.7) k/uL Lymphocytes # (1.0-4.8) k/uL Monocytes # (0-1.0) k/uL Eosinophils # (0-0.7) k/uL Basophils # (0-0.2) k/uL Sodium 136 L (137-145) mmol/L Potassium 4.6 (3.5-5.1) mmol/L Chloride 95 L (98-107) mmol/L Carbon Dioxide 28 (22-30) mmol/L Anion Gap 13 mmol/L BUN 36 H (7-17) mg/dL Creatinine 1.01 (0.52-1.04) mg/dL Est GFR (CKD-EPI)AfAm 59 (>60 ml/min/1.73 sqM) Est GFR (CKD-EPI)NonAf 51 (>60 ml/min/1.73 sqM) Glucose 122 H (74-99) mg/dL Plasma Lactic Acid Mart 1.7 (0.7-2.0) mmol/L Calcium 10.4 H (8.4-10.2) mg/dL Magnesium 2.0 (1.6-2.3) mg/dL Total Bilirubin 1.1 (0.2-1.3) mg/dL AST 44 H (14-36) U/L ALT 20 (4-34) U/L Alkaline Phosphatase 133 H (38-126) U/L Troponin I 0.221 H* (0.000-0.034) ng/mL Total Protein 8.3 H (6.3-8.2) g/dL Albumin 4.0 (3.5-5.0) g/dL Influenza Type A (PCR) (Not Detectd) Influenza Type B (PCR) (Not Detectd) RSV (PCR) (Not Detectd) SARS-CoV-2 (PCR) (Not Detectd) 08/01/22 08/01/22 Range/Units 07:44 07:55 WBC 14.0 H (3.8-10.6) k/uL RBC 3.12 L (3.80-5.40) m/uL Hgb 10.1 L (11.4-16.0) gm/dL Hct 30.3 L (34.0-46.0) % MCV 97.1 (80.0-100.0) fL MCH 32.4 (25.0-35.0) pg MCHC 33.3 (31.0-37.0) g/dL RDW 15.4 (11.5-15.5) % Plt Count 237 (150-450) k/uL MPV 8.2 Neutrophils % 89 % Lymphocytes % 6 % Monocytes % 4 % Eosinophils % 1 % Basophils % 0 % Neutrophils # 12.4 H (1.3-7.7) k/uL Lymphocytes # 0.9 L (1.0-4.8) k/uL Monocytes # 0.5 (0-1.0) k/uL Eosinophils # 0.1 (0-0.7) k/uL Basophils # 0.0 (0-0.2) k/uL Sodium (137-145) mmol/L Potassium (3.5-5.1) mmol/L Chloride (98-107) mmol/L Carbon Dioxide (22-30) mmol/L Anion Gap mmol/L BUN (7-17) mg/dL Creatinine (0.52-1.04) mg/dL Est GFR (CKD-EPI)AfAm (>60 ml/min/1.73 sqM) Est GFR (CKD-EPI)NonAf (>60 ml/min/1.73 sqM) Glucose (74-99) mg/dL Plasma Lactic Acid Mart (0.7-2.0) mmol/L Calcium (8.4-10.2) mg/dL Magnesium (1.6-2.3) mg/dL Total Bilirubin (0.2-1.3) mg/dL AST (14-36) U/L ALT (4-34) U/L Alkaline Phosphatase (38-126) U/L Troponin I (0.000-0.034) ng/mL Total Protein (6.3-8.2) g/dL Albumin (3.5-5.0) g/dL Influenza Type A (PCR) Not Detected (Not Detectd) Influenza Type B (PCR) Not Detected (Not Detectd) RSV (PCR) Not Detected (Not Detectd) SARS-CoV-2 (PCR) Not Detected (Not Detectd) Critical Care Time Critical Care Time: Yes Total Critical Care Time: 33 Disposition Clinical Impression: Hypoxia, Heart failure, NSTEMI (non-ST elevated myocardial infarction) Disposition: ADMITTED IP TO THIS HOSP Condition: Serious Decision Time: 08:38
[2022-08-01 08:05] LABS: Basophils % (A) 0 %; Eosinophils # (A) 0.1 k/uL (0-0.7); Eosinophils % (A) 1 %; HCT 30.3 % (34.0-46.0); HGB 10.1 gm/dL (11.4-16.0); Lymphocytes # (A) 0.9 k/uL (1.0-4.8); Lymphocytes % (A) 6 %; MCH 32.4 pg (25.0-35.0); MCHC 33.3 g/dL (31.0-37.0); MCV 97.1 fL (80.0-100.0); Mean Platelet Volume 8.2; Monocytes # (A) 0.5 k/uL (0-1.0); Monocytes % (A) 4 %; Neutrophils # (A) 12.4 k/uL (1.3-7.7); Neutrophils % (A) 89 %; Platelet Count 237 k/uL (150-450); RBC 3.12 m/uL (3.80-5.40); RDW 15.4 % (11.5-15.5)
--- NOTE | 2022-08-01 08:06 | XR ---
EXAMINATION TYPE: XR chest 2V DATE OF EXAM: 08/01/2022 COMPARISON: 07/26/2022 INDICATION: Hypoxia short of breath congestion, TECHNIQUE: Frontal and lateral views of the chest are obtained. FINDINGS: The heart size is enlarged. The pulmonary vasculature is somewhat prominent. Mild diffuse increased lung markings are present. Correlate for pulmonary edema. Minimal pleural effu sions are the costophrenic angles.. IMPRESSION: 1. Clinical consideration for mild congestive heart failure and pulmonary edema. Follow up exams can be performed 2. Small bilateral pleural effusions
[2022-08-01 08:19] LABS: Calcium 10.4 mg/dL (8.4-10.2); Total Bilirubin 1.1 mg/dL (0.2-1.3); Total Protein 8.3 g/dL (6.3-8.2)
[2022-08-01 08:22] LABS: Potassium 4.6 mmol/L (3.5-5.1)
[2022-08-01] MEDS ORDERED: NALOXONE 0.4 MG/ML 1 ML VIAL IV PRN (08:34)
[2022-08-01] MEDS ORDERED: FUROSEMIDE 10 MG/ML 4 ML VIAL IV STA (08:36)
[2022-08-01] MEDS: SODIUM CHLORIDE 0.9% 1,000 ML IV SCH (08:50)
[2022-08-01] MEDS ORDERED: ASPIRIN 81 MG PO STA (09:12)
[2022-08-01] MEDS ORDERED: HEPARIN SODIUM 1,000 UN/ML (10ML VL) IV ONE (09:13)
[2022-08-01] MEDS ORDERED: HEPARIN SODIUM 1,000 UN/ML (10ML VL) IV PRN (09:13)
[2022-08-01] MEDS ORDERED: HEPARIN SOD,PORK IN 0.45% NACL 25,000 UNIT in 0.45% NACL 1 250ML.BAG IV SCH (09:15)
[2022-08-01 10:41] LABS: Appearance,Urine Clear (Clear); Bilirubin,Urine Negative (Negative); Blood,Urine Negative (Negative); Color,Urine Yellow; Glucose,Urine (UA) Negative (Negative); Hyaline Casts,Urine 73 /lpf (0-2); Ketones,Urine Trace (Negative); Leukocyte Esterase,Urine Small (Negative); Mucus,Urine Rare /hpf; Nitrite,Urine Negative (Negative); PH, Urine 5.5 (5.0-8.0); Protein,Urine Trace (Negative); RBC,Urine 1 /hpf (0-5); Specific Gravity,Urine 1.013 (1.001-1.035); Squamous Epithelial Cell,Urine 1 /hpf (0-4); Urobilinogen,Urine <2.0 mg/dL (<2.0); WBC,Urine 8 /hpf (0-5)
[2022-08-01 10:48] LABS: INR 1.1 (<1.2); Prothrombin Time 11.4 sec (9.0-12.0)
[2022-08-01 10:50] LABS: Partial Thromboplastin Time 20.1 sec (22.0-30.0)
[2022-08-01] MEDS ORDERED: ONDANSETRON ODT 4 MG TAB PO PRN (12:54)
[2022-08-01] MEDS ORDERED: HYDROcodone/APAP 5-325MG 1 EACH TAB PO PRN (12:54)
--- NOTE | 2022-08-01 12:57 | P.HPIM ---
History of Present Illness Patient is a pleasant 87-year-old female was recently discharged from the hospital after she was treated for congestive heart failure, patient has an ejection fraction of further details and patient was discharged to alf patient is severely cachectic, malnourished second multiple myeloma with bony metastasis patient had a history of ischemic cardiomyopathy patient program overall prognosis is extremely poor patient came back with her shortness of breath and was hypoxic at the alf with saturations of around 80%. Patient had few episodes of diarrhea as well. Patient overall prognosis is externally poor patient is more appropriate for comfort care and hospice in the was discussed with with the patient and patient is DO NOT RESUSCITATE at this time after discussing with the patient. Patient states she is not ready for hospice yet but she she is willing to get more information about hospice. Patient is presently on 2 L of onset as per the patient patient was not discharged on oxygen although as per the documentation it appears patient was discharged in oxygen. Patient does have some crackles on exam with bilateral pleural effusions on the chest x-ray patient was discharged on 40 twice a day of oral Lasix along with Aldactone and Entresto. REVIEW OF SYSTEMS: CONSTITUTIONAL: No fever, no malaise, no fatigue. HEENT: No recent visual problems or hearing problems. Denied any sore throat. CARDIOVASCULAR: No chest pain, orthopnea, PND, no palpitations, no syncope. PULMONARY: no cough, no hemoptysis. GASTROINTESTINAL: No diarrhea, no nausea, no vomiting, no abdominal pain. NEUROLOGICAL: No headaches, no weakness, no numbness. HEMATOLOGICAL: Denies any bleeding or petechiae. GENITOURINARY: Denies any burning micturition, frequency, or urgency. MUSCULOSKELETAL/RHEUMATOLOGICAL: Denies any joint pain, swelling, or any muscle pain. ENDOCRINE: Denies any polyuria or polydipsia. The rest of the 14-point review of systems is negative. PHYSICAL EXAMINATION: GENERAL: The patient is alert and oriented x3, not in any acute distress. Thin built cachectic malnourished HEENT: Pupils are round and equally reacting to light. EOMI. No scleral icterus. No conjunctival pallor. Normocephalic, atraumatic. No pharyngeal erythema. No thyromegaly. CARDIOVASCULAR: S1 and S2 present. No murmurs, rubs, or gallops. PULMONARY: Coarse bilateral breath sounds may be bilateral basilar crackles and probably slight wheeze bilaterally ABDOMEN: Soft, nontender, nondistended, normoactive bowel sounds. No palpable organomegaly. MUSCULOSKELETAL: No joint swelling or deformity. EXTREMITIES: No cyanosis, clubbing, or pedal edema. NEUROLOGICAL: Gross neurological examination did not reveal any focal deficits. Symmetric and generalized weakness SKIN: No rashes. Assessment and plan -Congestive heart failure chronic systolic dysfunction with acute exacerbation patient will be continued on IV Lasix but patient overall prognosis is externally poor patient is probably more appropriate for hospice same thing was discussed with the patient. 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 -Depression -Gastroesophageal reflux disease -Hypothyroidism -Hypertension -Chronic hypoxic respiratory failure etiology is not clear -Leukocytosis reactive DVT prophylaxis: Presently on IV heparin secondary to elevated troponin CODE STATUS DO NOT RESUSCITATE, discussed with the patient Past Medical History Past Medical History: Cancer, GERD/Reflux, Hypertension, Osteoarthritis (OA), Thyroid Disorder Additional Past Medical History / Comment(s): MULTIPLE MYELOMA- diagnosed in march 2021, two iv chem treatments so far, last treatment was 04/20/2021, Bone Cancer currently Last Myocardial Infarction Date:: 04/21/2021 History of Any Multi-Drug Resistant Organisms: None Reported Past Surgical History: Appendectomy, Joint Replacement, Tonsillectomy Additional Past Surgical History / Comment(s): BILAT TKA. BILAT CARARACTS REMOVED WITH LENS IMPLANTS. 1/2 OF THYROID REMOVED. FATTY TUMOR REMOVED FROM KNEE. COLONOSCOPY. Heart cath with stent 2020, CHF Past Anesthesia/Blood Transfusion Reactions: No Reported Reaction Past Psychological History: No Psychological Hx Reported Smoking Status: Former smoker Past Alcohol Use History: None Reported Past Drug Use History: None Reported - Past Family History Mother Family Medical History: Cancer Medications and Allergies Home Medications Medication Instructions Recorded Confirmed Type Omeprazole 20 mg PO DAILY 02/26/21 07/26/22 History Levothyroxine Sodium [Synthroid] 25 mcg PO DAILY 12/14/21 07/26/22 History Aspirin EC [Ecotrin Low Dose] 81 mg PO DAILY 03/03/22 07/26/22 History Sertraline [Zoloft] 25 mg PO W/SUPPER 03/03/22 07/26/22 History Sacubitril/Valsartan [Entresto 24 1 tab PO BID 05/19/22 07/26/22 History mg-26 mg Tablet] Cyanocobalamin [Vitamin B-12] 1,000 mcg PO DAILY@1200 07/26/22 07/26/22 History Spironolactone [Aldactone] 25 mg PO DAILY tab 07/29/22 Rx Furosemide [Lasix] 40 mg PO BID 08/01/22 08/01/22 History HYDROcodone/APAP 5-325MG [[place] 1 tab PO Q6HR PRN 08/01/22 08/01/22 History 5-325] Ipratropium-Albuterol Nebulize 3 ml INHALATION RT-BID@0700,1600 08/01/22 08/01/22 History [Duoneb 0.5 mg-3 mg/3 ml Soln] Ondansetron Odt [Zofran Odt] 4 mg PO Q6H PRN 08/01/22 08/01/22 History carvediloL [Coreg] 6.25 mg PO BID 08/01/22 08/01/22 History Allergies Allergy/AdvReac Type Severity Reaction Status Date / Time Penicillins Allergy Swelling Verified 08/01/22 12:43 of entire body shellfish derived [Shellfish] AdvReac Nausea & Verified 08/01/22 12:43 Vomiting Physical Exam Vitals: Vital Signs Temp Pulse Pulse Resp BP BP Pulse Ox 08/01/22 12:00 98.6 F 110 H 18 178/92 92 L 08/01/22 08:50 95 18 174/97 96 08/01/22 08:27 101 H 18 168/107 94 L 08/01/22 07:41 89 L 08/01/22 07:16 98 F 116 H 18 159/97 95 Intake and Output 07/31/22 08/01/22 08/01/22 22:59 06:59 14:59 Other: Weight 40.234 kg Results CBC & Chem 7: 08/01/22 07:44 08/01/22 07:42 Labs: Abnormal Lab Results - Last 24 Hours (Table) 08/01/22 08/01/22 08/01/22 Range/Units 07:42 07:42 07:44 WBC 14.0 H (3.8-10.6) k/uL RBC 3.12 L (3.80-5.40) m/uL Hgb 10.1 L (11.4-16.0) gm/dL Hct 30.3 L (34.0-46.0) % Neutrophils # 12.4 H (1.3-7.7) k/uL Lymphocytes # 0.9 L (1.0-4.8) k/uL APTT (22.0-30.0) sec Sodium 136 L (137-145) mmol/L Chloride 95 L (98-107) mmol/L BUN 36 H (7-17) mg/dL Glucose 122 H (74-99) mg/dL Calcium 10.4 H (8.4-10.2) mg/dL AST 44 H (14-36) U/L Alkaline Phosphatase 133 H (38-126) U/L Troponin I 0.221 H* (0.000-0.034) ng/mL Total Protein 8.3 H (6.3-8.2) g/dL Urine Protein (Negative) Urine Ketones (Negative) Ur Leukocyte Esterase (Negative) Urine WBC (0-5) /hpf Hyaline Casts (0-2) /lpf Urine Mucus (None) /hpf 08/01/22 08/01/22 Range/Units 09:53 10:22 WBC (3.8-10.6) k/uL RBC (3.80-5.40) m/uL Hgb (11.4-16.0) gm/dL Hct (34.0-46.0) % Neutrophils # (1.3-7.7) k/uL Lymphocytes # (1.0-4.8) k/uL APTT 20.1 L (22.0-30.0) sec Sodium (137-145) mmol/L Chloride (98-107) mmol/L BUN (7-17) mg/dL Glucose (74-99) mg/dL Calcium (8.4-10.2) mg/dL AST (14-36) U/L Alkaline Phosphatase (38-126) U/L Troponin I (0.000-0.034) ng/mL Total Protein (6.3-8.2) g/dL Urine Protein Trace H (Negative) Urine Ketones Trace H (Negative) Ur Leukocyte Esterase Small H (Negative) Urine WBC 8 H (0-5) /hpf Hyaline Casts 73 H (0-2) /lpf Urine Mucus Rare H (None) /hpf
--- NOTE | 2022-08-01 14:20 | XR ---
EXAMINATION TYPE: XR abdomen 1V DATE OF EXAM: 08/01/2022 COMPARISON: None INDICATION: Nausea, history of multiple myeloma TECHNIQUE: Single view abdomen supine view FINDINGS: There is a paucity of bowel gas present. Psoas margins as visualized are normal. Scoliosis through th e degenerative lumbar spine. There is diffuse lytic areas throughout visualized pelvis and proximal f emurs. This appears to extend into the lumbar spine. Old pelvic fractures on the right are evident. IMPRESSION: 1. Diffuse osseous lytic areas can be compatible with the patient's history of myeloma. 2. Old pelvic fracture. 3. Limited evaluation of the abdomen. CT can be performed if additional evaluation would be of benefi t.
--- NOTE | 2022-08-01 15:07 | P.CRDCN ---
History of Present Illness Consult date: 08/01/22 Chief complaint: Shortness of breath History of present illness: This is a pleasant 87-year-old female patient was to before service from before with coronary artery disease and severe cardiomyopathy with an ejection fraction around 20% as well as valvular heart disease with known mitral regurgitation and also recurrent hospital admission with congestive heart failure who was admitted into the hospital with increasing shortness of breath. Currently the patient is residing at extended care facility. For the last week she has not been taking her medications regularly because she has been experiencing symptoms of nausea and vomiting. She presented because she woke up this morning complaining of shortness of breath. No symptoms of chest pain or chest discomfort. No cough or sputum production and no fever or chills. No dizziness or lightheadedness or presyncope or syncope. Ambulance was called and the patient was presented to the emergency department for further investigation. She underwent an EKG which showed sinus rhythm with sinus tachycardia. She underwent empty proBNP was came in to be elevated at 15,000. The chest x-ray showed findings consistent with heart failure. Clinically the patient is in overt heart failure with bilateral crackles and mild bilateral lower extremities edema. She does have JVD. She has significant systolic murmur and she is known to have severe mitral regurgitation based on echo was performed in 2020. Her pressure has been elevated as well. Her troponin came in to be slightly elevated Past Medical History Past Medical History: Cancer, GERD/Reflux, Hypertension, Osteoarthritis (OA), Thyroid Disorder Additional Past Medical History / Comment(s): MULTIPLE MYELOMA- diagnosed in march 2021, two iv chem treatments so far, last treatment was 04/20/2021, Bone Cancer currently Last Myocardial Infarction Date:: 04/21/2021 History of Any Multi-Drug Resistant Organisms: None Reported Past Surgical History: Appendectomy, Joint Replacement, Tonsillectomy Additional Past Surgical History / Comment(s): BILAT TKA. BILAT CARARACTS REMOVED WITH LENS IMPLANTS. 1/2 OF THYROID REMOVED. FATTY TUMOR REMOVED FROM KNEE. COLONOSCOPY. Heart cath with stent 2020, CHF Past Anesthesia/Blood Transfusion Reactions: No Reported Reaction Past Psychological History: No Psychological Hx Reported Smoking Status: Former smoker Past Alcohol Use History: None Reported Past Drug Use History: None Reported - Past Family History Mother Family Medical History: Cancer Medications and Allergies Home Medications Medication Instructions Recorded Confirmed Type Omeprazole 20 mg PO DAILY 02/26/21 08/01/22 History Levothyroxine Sodium [Synthroid] 25 mcg PO DAILY 12/14/21 08/01/22 History Aspirin EC [Ecotrin Low Dose] 81 mg PO HS 03/03/22 08/01/22 History Sertraline [Zoloft] 25 mg PO HS 03/03/22 08/01/22 History Sacubitril/Valsartan [Entresto 24 1 tab PO BID 05/19/22 08/01/22 History mg-26 mg Tablet] Cyanocobalamin [Vitamin B-12] 1,000 mcg PO HS 07/26/22 08/01/22 History Spironolactone [Aldactone] 25 mg PO DAILY tab 07/29/22 08/01/22 Rx Furosemide [Lasix] 40 mg PO BID 08/01/22 08/01/22 History HYDROcodone/APAP 5-325MG [[place] 1 tab PO Q6HR PRN 08/01/22 08/01/22 History 5-325] Ipratropium-Albuterol Nebulize 3 ml INHALATION RT-BID@0700,1600 08/01/22 08/01/22 History [Duoneb 0.5 mg-3 mg/3 ml Soln] Ondansetron Odt [Zofran Odt] 4 mg PO Q6H PRN 08/01/22 08/01/22 History carvediloL [Coreg] 6.25 mg PO BID 08/01/22 08/01/22 History Allergies Allergy/AdvReac Type Severity Reaction Status Date / Time Penicillins Allergy Swelling Verified 08/01/22 12:43 of entire body shellfish derived [Shellfish] AdvReac Nausea & Verified 08/01/22 12:43 Vomiting Physical Exam Vitals: Vital Signs Temp Pulse Pulse Resp BP BP Pulse Ox 08/01/22 12:00 98.6 F 110 H 18 178/92 92 L 08/01/22 08:50 95 18 174/97 96 08/01/22 08:27 101 H 18 168/107 94 L 08/01/22 07:41 89 L 08/01/22 07:16 98 F 116 H 18 159/97 95 Intake and Output 08/01/22 08/01/22 08/01/22 06:59 14:59 22:59 Other: Weight 40.234 kg - Constitutional General appearance: no acute distress - Respiratory Respiratory: bilateral: rales - Cardiovascular Rhythm: regular Heart sounds: normal: S1, S2 Abnormal Heart Sounds: systolic murmur Results 08/01/22 07:44 08/01/22 07:42 Cardiac Enzymes 08/01/22 08/01/22 Range/Units 07:42 07:42 AST 44 H (14-36) U/L Troponin I 0.221 H* (0.000-0.034) ng/mL Coagulation 08/01/22 Range/Units 10: PT 11.4 (9.0-12.0) sec APTT 20.1 L (22.0-30.0) sec CBC 08/01/22 Range/Units 07:44 WBC 14.0 H (3.8-10.6) k/uL RBC 3.12 L (3.80-5.40) m/uL Hgb 10.1 L (11.4-16.0) gm/dL Hct 30.3 L (34.0-46.0) % Plt Count 237 (150-450) k/uL Comprehensive Metabolic Panel 08/01/22 Range/Units 07:42 Sodium 136 L (137-145) mmol/L Potassium 4.6 (3.5-5.1) mmol/L Chloride 95 L (98-107) mmol/L Carbon Dioxide 28 (22-30) mmol/L BUN 36 H (7-17) mg/dL Creatinine 1.01 (0.52-1.04) mg/dL Glucose 122 H (74-99) mg/dL Calcium 10.4 H (8.4-10.2) mg/dL AST 44 H (14-36) U/L ALT 20 (4-34) U/L Alkaline Phosphatase 133 H (38-126) U/L Total Protein 8.3 H (6.3-8.2) g/dL Albumin 4.0 (3.5-5.0) g/dL Current Medications Generic Name Dose Route Start Last Admin Trade Name Freq PRN Reason Stop Dose Admin Hydrocodone Bitart/Acetaminophen 1 each 08/01/22 12:54 Hydrocodone/Apap 5-325mg 1 Each Tab PO Q6HR PRN Pain Albuterol/Ipratropium 3 ml 08/01/22 16:00 Ipratropium-Albuterol 3 Ml Neb INHALATION RT-BID@0700,1600 [facility] Aspirin 81 mg 08/01/22 21:00 Aspirin 81 Mg PO HS [facility] Carvedilol 6.25 mg 08/01/22 21:00 Carvedilol 6.25 Mg Tab PO BID [facility] Furosemide 40 mg 08/01/22 16:00 Furosemide 40 Mg Tab PO Q8HR [facility] Heparin Sodium (Porcine) 0 unit 08/01/22 09:13 Heparin Sodium 1,000 Un/Ml (10ml Vl) IV PER PROTOCOL PRN Low PTT Protocol Sodium Chloride 1,000 mls @ 20 mls/hr 08/01/22 08:45 08/01/22 08:50 Saline 0.9% IV 20 mls/hr .Q24H [facility] Administration Heparin Sodium/Sodium Chloride 250 mls @ 4.828 mls/hr 08/01/22 09:15 08/01/22 12:17 25,000 unit/ Sodium Chloride IV 12 units/kg/hr .Q24H [facility] 4.828 mls/hr Administration Protocol 12 UNITS/KG/HR Levothyroxine Sodium 25 mcg 08/02/22 06:30 Levothyroxine 25 Mcg Tab PO DAILY@0630 [facility] [place] Naloxone HCl 0.2 mg 08/01/22 08:34 Naloxone 0.4 Mg/Ml 1 Ml Vial IV Q2M PRN Opioid Reversal Ondansetron HCl 4 mg 08/01/22 12:54 Ondansetron Odt 4 Mg Tab PO Q6H PRN Nausea Pantoprazole Sodium 40 mg 08/02/22 07:30 Pantoprazole 40 Mg Tablet PO DAILY@0730 [facility] [place] Sacubitril/Valsartan 1 each 08/01/22 21:00 Sacubitril/Valsartan 24 Mg-26 Mg Tablet PO BID [facility] [place] Sertraline HCl 25 mg 08/01/22 21:00 Sertraline 25 Mg Tab PO HS [facility] [place] Spironolactone 25 mg 08/02/22 09:00 Spironolactone 25 Mg Tab PO DAILY [facility] Intake and Output 08/01/22 08/01/22 08/01/22 06:59 14:59 22:59 Other: Weight 40.234 kg Patient Weight 08/02/22 06:59 Weight 40.234 kg 08/01/22 07:44 08/01/22 07:42 Assessment and Plan Assessment: Assessment Hypertension crisis with hypertension emergency complicated by heart failure Heart failure with reduced ejection fraction exacerbation with evidence off left more than right heart failure Known severe cardiomyopathy Known severe mitral regurgitation Evidence of myocardial injury likely related to hypertension emergency and congestive heart failure. No evidence of ischemia Plan DC Lasix by mouth and start the patient on Lasix IV Add Aldactone to the current medical regimen Increase the dose of carvedilol Start heparin IV Follow-up with the patient
[2022-08-01] MEDS ORDERED: IPRATROPIUM-ALBUTEROL 3 ML NEB INHALATION SCH (16:00)
[2022-08-01] MEDS ORDERED: FUROSEMIDE 40 MG TAB PO SCH (16:00)
[2022-08-01] MEDS: carvediloL 12.5 MG TAB PO SCH (17:38)
[2022-08-01] MEDS: IPRATROPIUM-ALBUTEROL 3 ML NEB INHALATION SCH (19:26)
[2022-08-01] MEDS: SERTRALINE 25 MG TAB PO SCH (20:14)
[2022-08-01] MEDS: FUROSEMIDE 10 MG/ML 4 ML VIAL IV SCH (20:14)
[2022-08-01] MEDS: SACUBITRIL/VALSARTAN 24 MG-26 MG TABLET PO SCH (20:14)
[2022-08-01] MEDS: ASPIRIN 81 MG PO SCH (20:14)
[2022-08-01] MEDS ORDERED: carvediloL 6.25 MG TAB PO SCH (21:00)
[2022-08-02] MEDS: LEVOTHYROXINE 25 MCG TAB PO SCH (06:55)
[2022-08-02] MEDS: carvediloL 12.5 MG TAB PO SCH ×2 (06:55→17:29)
[2022-08-02] MEDS: PANTOPRAZOLE 40 MG TABLET PO SCH (06:55)
[2022-08-02] MEDS: IPRATROPIUM-ALBUTEROL 3 ML NEB INHALATION SCH ×2 (07:33→20:30)
[2022-08-02] MEDS: FUROSEMIDE 10 MG/ML 4 ML VIAL IV SCH ×2 (08:18→20:48)
[2022-08-02] MEDS: SPIRONOLACTONE 25 MG TAB PO SCH (08:18)
[2022-08-02] MEDS: SACUBITRIL/VALSARTAN 24 MG-26 MG TABLET PO SCH ×2 (08:18→20:48)
--- NOTE | 2022-08-02 11:29 | P.PN ---
Subjective Progress Note Date: 08/02/22 HISTORY OF PRESENT ILLNESS: This is a pleasant 87-year-old female patient was to before service from before with coronary artery disease and severe cardiomyopathy with an ejection fraction around 20% as well as valvular heart disease with known mitral regurgitation and also recurrent hospital admission with congestive heart failure who was admitted into the hospital with increasing shortness of breath. Currently the patient is residing at extended care facility. For the last week she has not been taking her medications regularly because she has been experiencing symptoms of nausea and vomiting. She presented because she woke up this morning complaining of shortness of breath. No symptoms of chest pain or chest discomfort. No cough or sputum production and no fever or chills. No dizziness or lightheadedness or presyncope or syncope. Ambulance was called and the patient was presented to the emergency department for further investigation. She underwent an EKG which showed sinus rhythm with sinus tachycardia. She underwent empty proBNP was came in to be elevated at 15,000. The chest x-ray showed findings consistent with heart failure. Clinically the patient is in overt heart failure with bilateral crackles and mild bilateral lower extremities edema. She does have JVD. She has significant systolic murmur and she is known to have severe mitral regurgit ation based on echo was performed in 2020. Her pressure has been elevated as well. Her troponin came in to be slightly elevated 08/02/2022 Patient examined this morning at the bedside. Patient is lethargic. She denies chest pain or pressure. Denies SOB. Vital signs are stable. She remains on IV lasix. Echo from 01/2022 in the office revealed ejection fraction 30%, moderate m itral regurgitation, trace to mild tricuspid regurgitation and moderate aortic regurgitation. PHYSICAL EXAM: VITAL SIGNS: Reviewed. GENERAL: Well-developed in no acute distress. NECK: Supple. No JVD or thyromegaly LUNGS: Respirations even and unlabored. Lungs diminished with rhonchi and bibasilar rales HEART: Regular rate and rhythm. S1 and S2 heard. + systolic murmur EXTREMITIES: Normal range of motion. No clubbing or cyanosis. Peripheral pulses intact. No lower extremity edema ASSESSMENT: Shortness of breath Acute on chronic heart failure with reduced ejection fraction Coronary artery disease with previous stenting to the LAD Ischemic cardiomyopathy, previously declining AICD Multiple myeloma Valvular heart disease PLAN: Continue IV Lasix Daily weights, accurate I&O, and monitoring of kidney function Continue additional cardiac medications Hospice has been consulted for evaluation Prognosis remains poor Further recommendations pending patient course. Follow up outpatient with Dr. Copeland Nurse practitioner note has been reviewed by physician. Signing provider agrees with the documented findings, assessment, and plan of care. Objective - Vital Signs Vital signs: Vital Signs Temp 98.0 F 08/02/22 08:00 Pulse 80 08/02/22 08:00 Resp 18 08/02/22 08:00 BP 149/70 08/02/22 08:00 Pulse Ox 99 08/02/22 08:00 FiO2 Intake & Output 08/01/22 08/02/22 08/02/22 18:59 06:59 18:59 Weight 40.234 kg 37.6 kg Other: Voiding Method Toilet # Voids 1 0 1 # Bowel Movements 0 - Labs CBC & Chem 7: 08/01/22 07:44 08/01/22 07:42
[2022-08-02 15:34] VITALS: BMI 18.6
[2022-08-02] MEDS: SERTRALINE 25 MG TAB PO SCH (20:47)
[2022-08-02] MEDS: ASPIRIN 81 MG PO SCH (20:47)
[2022-08-02] MEDS: SODIUM CHLORIDE 0.9% 1,000 ML IV SCH (20:50)
[2022-08-03] MEDS: PANTOPRAZOLE 40 MG TABLET PO SCH (06:35)
[2022-08-03] MEDS: LEVOTHYROXINE 25 MCG TAB PO SCH (06:35)
[2022-08-03] MEDS: carvediloL 12.5 MG TAB PO SCH ×2 (06:35→16:01)
[2022-08-03] MEDS: IPRATROPIUM-ALBUTEROL 3 ML NEB INHALATION SCH ×2 (07:50→20:07)
--- NOTE | 2022-08-03 08:07 | P.PN ---
Subjective Progress Note Date: 08/02/22 Patient is a pleasant 87-year-old female was recently discharged from the hospital after she was treated for congestive heart failure, patient has an ejection fraction of further details and patient was discharged to care home patient is severely cachectic, malnourished second multiple myeloma with bony metastasis patient had a history of ischemic cardiomyopathy patient program overall prognosis is extremely poor patient came back with her shortness of breath and was hypoxic at the care home with saturations of around 80%. Patient had few episodes of diarrhea as well. Patient overall prognosis is externally poor patient is more appropriate for comfort care and hospice in the was discussed with with the patient and patient is DO NOT RESUSCITATE at this time after discussing with the patient. Patient states she is not ready for hospice yet but she she is willing to get more information about hospice. Patient is presently on 2 L of onset as per the patient patient was not discharged on oxygen although as per the documentation it appears patient was discharged in oxygen. Patient does have some crackles on exam with bilateral pleural effusions on the chest x-ray patient was discharged on 40 twice a day of oral Lasix along with Aldactone and Entresto. 08/02/2022 Patient is evaluated today states overall she is feeling better and denies shortness of breath at rest. Continues with faint bibasilar crackles and is continued on IV lasix 40 mg Q12 at this time. No acute events overnight. Cardiology is following the patient. She is afebrile, heart rate 77, blood pressure 157/75, 96% on 4L nasal cannula. Hospice has been consulted and pending currently. Patient stated not ready for hospice but interested in more information. Review of Systems Constitutional: Denied any fatigue denied any fever. Cardio vascular: denied any chest pain, palpitations Gastrointestinal: denied any nausea, vomiting, diarrhea Pulmonary: Denied any shortness of breath cough Neurologic denied any new focal deficits All inpatient medications were reviewed and appropriate changes in these medica tions as dictated in the interval history and assessment and plan. PHYSICAL EXAMINATION: GENERAL: The patient is alert and oriented x3, not in any acute distress. Thin built cachectic malnourished HEENT: Pupils are round and equally reacting to light. EOMI. No scleral icterus. No conjunctival pallor. Normocephalic, atraumatic. No pharyngeal erythema. No thyromegaly. CARDIOVASCULAR: S1 and S2 present. systolic murmur present PULMONARY: Coarse bilateral breath sounds may be bilateral basilar crackles no wheezing noted today. ABDOMEN: Soft, nontender, nondistended, normoactive bowel sounds. No palpable organomegaly. MUSCULOSKELETAL: No joint swelling or deformity. EXTREMITIES: No cyanosis, clubbing, or pedal edema. NEUROLOGICAL: Gross neurological examination did not reveal any focal deficits. Symmetric and generalized weakness SKIN: No rashes. Assessment and plan -Congestive heart failure chronic systolic dysfunction with acute exacerbation patient will be continued on IV Lasix but patient overall prognosis is externally poor. Pending hospice consultation with patient. 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 Dr. Elmira MD I have performed a history and physical examination and medical decision making of this patient, discussed the same with the dictator, and agree with the dictators assessment and plan as written, documented as a scribe. Based on total visit time, I have performed more than 50% of this visit. Objective - Vital Signs Vital signs: Vital Signs Temp 98.0 F 08/02/22 08:00 Pulse 77 08/02/22 11:52 Resp 18 08/02/22 11:52 BP 157/75 08/02/22 11:52 Pulse Ox 96 08/02/22 11:52 FiO2 Intake & Output 08/01/22 08/02/22 08/02/22 18:59 06:59 18:59 Weight 40.234 kg 37.6 kg Other: Voiding Method Toilet # Voids 1 0 1 # Bowel Movements 0 - Labs CBC & Chem 7: 08/01/22 07:44 08/01/22 07:42 Assessment and Plan Time with Patient: Less than 30
[2022-08-03] MEDS: SACUBITRIL/VALSARTAN 24 MG-26 MG TABLET PO SCH ×2 (09:01→21:03)
[2022-08-03] MEDS: SPIRONOLACTONE 25 MG TAB PO SCH (09:01)
[2022-08-03] MEDS: FUROSEMIDE 10 MG/ML 4 ML VIAL IV SCH (09:01)
[2022-08-03 11:06] LABS: Basophils % (A) 0 %; Eosinophils % (A) 0 %; HCT 23.7 % (34.0-46.0); Lymphocytes # (A) 0.5 k/uL (1.0-4.8); Lymphocytes % (A) 8 %; MCH 32.2 pg (25.0-35.0); MCHC 32.6 g/dL (31.0-37.0); MCV 98.8 fL (80.0-100.0); Macrocytosis Slight; Mean Platelet Volume 8.9; Monocytes # (A) 0.3 k/uL (0-1.0); Monocytes % (A) 4 %; Neutrophils # (A) 5.8 k/uL (1.3-7.7); Neutrophils % (A) 87 %; Platelet Count 173 k/uL (150-450); RDW 15.9 % (11.5-15.5); WBC 6.7 k/uL (3.8-10.6)
[2022-08-03 11:08] LABS: HGB 7.7 gm/dL (11.4-16.0)
[2022-08-03 12:00] LABS: Calcium 9.5 mg/dL (8.4-10.2)
[2022-08-03 12:04] LABS: Potassium 2.6 mmol/L (3.5-5.1)
[2022-08-03] MEDS ORDERED: Potassium Replacement Protocol 1 EACH MISC MISCELLANE PRN (13:27)
--- NOTE | 2022-08-03 13:28 | P.PN ---
Subjective Progress Note Date: 08/03/22 HISTORY OF PRESENT ILLNESS: This is a pleasant 87-year-old female patient was to before service from before with coronary artery disease and severe cardiomyopathy with an ejection fraction around 20% as well as valvular heart disease with known mitral regurgitation and also recurrent hospital admission with congestive heart failure who was admitted into the hospital with increasing shortness of breath. Currently the patient is residing at extended care facility. For the last week she has not been taking her medications regularly because she has been experiencing symptoms of nausea and vomiting. She presented because she woke up this morning complaining of shortness of breath. No symptoms of chest pain or chest discomfort. No cough or sputum production and no fever or chills. No dizziness or lightheadedness or presyncope or syncope. Ambulance was called and the patient was presented to the emergency department for further investigation. She underwent an EKG which showed sinus rhythm with sinus tachycardia. She underwent empty proBNP was came in to be elevated at 15,000. The chest x-ray showed findings consistent with heart failure. Clinically the patient is in overt heart failure with bilateral crackles and mild bilateral lower extremities edema. She does have JVD. She has significant systolic murmur and she is known to have severe mitral regurgit ation based on echo was performed in 2020. Her pressure has been elevated as well. Her troponin came in to be slightly elevated 08/02/2022 Patient examined this morning at the bedside. Patient is lethargic. She denies chest pain or pressure. Denies SOB. Vital signs are stable. She remains on IV lasix. Echo from 01/2022 in the office revealed ejection fraction 30%, moderate m itral regurgitation, trace to mild tricuspid regurgitation and moderate aortic regurgitation. 08/03/2022 Patient examined this morning at the bedside. Patient remains lethargic. She appears to be comfortable. She is on nasal cannula to maintain oxygen saturations greater than 92%. She remains on IV lasix. Hospice has been consulted. PHYSICAL EXAM: VITAL SIGNS: Reviewed. GENERAL: Well-developed in no acute distress. NECK: Supple. No JVD or thyromegaly LUNGS: Respirations even and unlabored. Lungs diminished with rhonchi present. HEART: Regular rate and rhythm. S1 and S2 heard. + systolic murmur EXTREMITIES: Normal range of motion. No clubbing or cyanosis. Peripheral pulses intact. No lower extremity edema ASSESSMENT: Shortness of breath Acute on chronic heart failure with reduced ejection fraction Coronary artery disease with previous stenting to the LAD Ischemic cardiomyopathy, previously declining AICD Multiple myeloma Valvular heart disease PLAN: Discontinue IV lasix. Begin oral lasix. Daily weights, accurate I&O, and monitoring of kidney function Continue additional cardiac medications Hospice has been consulted for evaluation Prognosis remains poor Further recommendations pending patient course. Follow up outpatient with Dr. Copeland We will sign off. Please reconsult if needed Nurse practitioner note has been reviewed by physician. Signing provider agrees with the documented findings, assessment, and plan of care. Objective - Vital Signs Vital signs: Vital Signs Temp 97.9 F 08/03/22 03:46 Pulse 70 08/03/22 08:03 Resp 16 08/03/22 08:00 BP 128/61 08/03/22 08:00 Pulse Ox 97 08/03/22 08:00 FiO2 Intake & Output 08/02/22 08/03/22 08/03/22 18:59 06:59 18:59 Output Total 425 Balance -425 Weight 37.6 kg Output: Urine 425 Other: Voiding Method Toilet # Voids 1 1 - Labs CBC & Chem 7: 08/03/22 10:24 08/03/22 10:59 Labs: Abnormal Lab Results - Last 24 Hours (Table) 08/03/22 08/03/22 Range/Units 10:24 10:59 RBC 2.40 L (3.80-5.40) m/uL Hgb 7.7 L D (11.4-16.0) gm/dL Hct 23.7 L (34.0-46.0) % RDW 15.9 H (11.5-15.5) % Lymphocytes # 0.5 L (1.0-4.8) k/uL Potassium 2.6 L* (3.5-5.1) mmol/L Carbon Dioxide 32 H (22-30) mmol/L BUN 64 H (7-17) mg/dL Creatinine 1.70 H (0.52-1.04) mg/dL Glucose 165 H (74-99) mg/dL
[2022-08-03] MEDS: POTASSIUM CHLORIDE 10 MEQ in WATER FOR INJECTION 1 100ML.BAG IVPB SCH ×6 (16:01→22:08)
[2022-08-03] MEDS: FUROSEMIDE 40 MG TAB PO SCH (16:01)
[2022-08-03] MEDS: ASPIRIN 81 MG PO SCH (21:03)
[2022-08-03] MEDS: SERTRALINE 25 MG TAB PO SCH (21:03)
[2022-08-03] MEDS: SODIUM CHLORIDE 0.9% 1,000 ML IV SCH (21:08)
--- NOTE | 2022-08-03 22:28 | P.PN ---
Subjective Progress Note Date: 08/03/22 Patient is a pleasant 87-year-old female was recently discharged from the hospital after she was treated for congestive heart failure, patient has an ejection fraction of further details and patient was discharged to intermediate patient is severely cachectic, malnourished second multiple myeloma with bony metastasis patient had a history of ischemic cardiomyopathy patient program overall prognosis is extremely poor patient came back with her shortness of breath and was hypoxic at the intermediate with saturations of around 80%. Patient had few episodes of diarrhea as well. Patient overall prognosis is externally poor patient is more appropriate for comfort care and hospice in the was discussed with with the patient and patient is DO NOT RESUSCITATE at this time after discussing with the patient. Patient states she is not ready for hospice yet but she she is willing to get more information about hospice. Patient is presently on 2 L of onset as per the patient patient was not discharged on oxygen although as per the documentation it appears patient was discharged in oxygen. Patient does have some crackles on exam with bilateral pleural effusions on the chest x-ray patient was discharged on 40 twice a day of oral Lasix along with Aldactone and Entresto. 08/02/2022 Patient is evaluated today states overall she is feeling better and denies shortness of breath at rest. Continues with faint bibasilar crackles and is continued on IV lasix 40 mg Q12 at this time. No acute events overnight. Cardiology is following the patient. She is afebrile, heart rate 77, blood pressure 157/75, 96% on 4L nasal cannula. Hospice has been consulted and pending currently. Patient stated not ready for hospice but interested in more information. 08/03/2022 Patient evaluated today resting in bed. Appears more fatigued than yesterday. She does report feeling less short of breath and she continues on oxygen support. Potassium today found to be 2.9 and also her creatinine has increased up to 1.70 suspect secondary to diuresis and she has been changed back to oral lasix today. Carvedilol has also been increased. Potassium will be replaced with IV and oral electrolytes and will repeat potassium level later today. Patient would like to be discharged with hospice services and this will most likely happen tomorrow. Blood pressure 153/71, afebrile, heart rate 68, blood pressure today 153/71. Review of Systems Constitutional: Denied any fatigue denied any fever. Cardio vascular: denied any chest pain, palpitations Gastrointestinal: denied any nausea, vomiting, diarrhea Pulmonary: Denied any shortness of breath cough Neurologic denied any new focal deficits All inpatient medications were reviewed and appropriate changes in these medications as dictated in the interval history and assessment and plan. PHYSICAL EXAMINATION: GENERAL: The patient is alert and oriented x3, not in any acute distress. Thin built cachectic malnourished HEENT: Pupils are round and equally reacting to light. EOMI. No scleral icterus. No conjunctival pallor. Normocephalic, atraumatic. No pharyngeal erythema. No thyromegaly. CARDIOVASCULAR: S1 and S2 present. systolic murmur present PULMONARY: Coarse bilateral breath sounds may be bilateral basilar crackles no wheezing noted today. ABDOMEN: Soft, nontender, nondistended, normoactive bowel sounds. No palpable organomegaly. MUSCULOSKELETAL: No joint swelling or deformity. EXTREMITIES: No cyanosis, clubbing, or pedal edema. NEUROLOGICAL: Gross neurological examination did not reveal any focal deficits. Symmetric and generalized weakness SKIN: No rashes. Assessment and plan -Congestive heart failure chronic systolic dysfunction with acute exacerbation patient transitioned to oral lasix today. 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 GI prophylaxis protonix CODE STATUS DO NOT RESUSCITATE, discussed with the patient Plan Patient has been transitioned back to oral lasix today. Potassium will be replaced with IV potassium and also will repeat potassium level later today and replace per protocol. Plan is for possible discharge home with hospice services. The impression and plan of care has been dictated by Ama Lemus, Nurse Practitioner as directed. Dr. Elmira MD I have performed a history and physical examination and medical decision making of this patient, discussed the same with the dictator, and agree with the dictators assessment and plan as written, documented as a scribe. Based on total visit time, I have performed more than 50% of this visit. Objective - Vital Signs Vital signs: Vital Signs Temp 98.1 F 08/03/22 20:00 Pulse 68 08/03/22 20:21 Resp 16 08/03/22 20:00 BP 153/71 08/03/22 20:00 Pulse Ox 96 08/03/22 20:00 FiO2 Intake & Output 08/03/22 08/03/22 08/04/22 06:59 18:59 06:59 Intake Total 360 Output Total 425 300 Balance -425 360 -300 Intake: Oral 360 Output: Urine 425 300 Other: Voiding Method Toilet Toilet # Voids 1 - Labs CBC & Chem 7: 08/03/22 10:24 08/03/22 10:59 Labs: Abnormal Lab Results - Last 24 Hours (Table) 08/03/22 08/03/22 Range/Units 10:24 10:59 RBC 2.40 L (3.80-5.40) m/uL Hgb 7.7 L D (11.4-16.0) gm/dL Hct 23.7 L (34.0-46.0) % RDW 15.9 H (11.5-15.5) % Lymphocytes # 0.5 L (1.0-4.8) k/uL Potassium 2.6 L* (3.5-5.1) mmol/L Carbon Dioxide 32 H (22-30) mmol/L BUN 64 H (7-17) mg/dL Creatinine 1.70 H (0.52-1.04) mg/dL Glucose 165 H (74-99) mg/dL Assessment and Plan Time with Patient: Less than 30
[2022-08-04] MEDS: POTASSIUM CHLORIDE 10 MEQ in WATER FOR INJECTION 1 100ML.BAG IVPB SCH (00:02)
[2022-08-04 04:30] VITALS: RESP 16
[2022-08-04] MEDS: LEVOTHYROXINE 25 MCG TAB PO SCH (06:47)
[2022-08-04] MEDS: carvediloL 12.5 MG TAB PO SCH (06:47)
[2022-08-04] MEDS: PANTOPRAZOLE 40 MG TABLET PO SCH (06:47)
[2022-08-04] MEDS: FUROSEMIDE 40 MG TAB PO SCH (08:40)
[2022-08-04] MEDS: SACUBITRIL/VALSARTAN 24 MG-26 MG TABLET PO SCH (08:40)
[2022-08-04] MEDS: SPIRONOLACTONE 25 MG TAB PO SCH (08:40)
[2022-08-04 08:53] VITALS: BP 130/58; TEMP 97.4
[2022-08-04] MEDS ORDERED: HEPARIN SODIUM,PORCINE/PF 5,000 UNIT/0.5 ML SYRINGE SQ SCH (09:00)
[2022-08-04] MEDS: IPRATROPIUM-ALBUTEROL 3 ML NEB INHALATION SCH (09:26)
[2022-08-04 09:34] VITALS: PULSE 68
--- NOTE | 2022-08-04 11:20 | P.DS ---
Providers Date of admission: 08/01/22 08:34 Attending physician: Breanna Sales Primary care physician: Zion Davalos Hospital Course: Final Diagnosis -Congestive heart failure chronic systolic dysfunction with acute exacerbation patient transitioned to oral lasix today. 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 Plan is to discharge home via EMS. Patient has diffuse generalized weakness. Recommend to follow up with her primary care in 1 to 2 days and hospice services will continue to follow with patient on discharge. Hospital Course This is a pleasant 87 year old female who follows with Dr Zion Davalos, medical history includes depression, hypothyroidism, hypertension, multiple myeloma, chronic systolic heart failure with ischemic cardiomyopathy, GERD. Patient was recently admitted to this hospital from 07/28/22 to 07/29/22 for acute pulmonary edema and was evaluated by cardiology. Medications were adjusted and patient was discharged to subacute rehab on entresto, aldactone, oral lasix. Patient returned to hospital with shortness of breath and was found to be in acute heart failure with proBNP elevated at 51,500. Cardiology was consulted, She was treated with IV lasix. Patient also had mild leukocytosis that resolved. She diuresed well and symptoms improved. Patient did have drop in potassium secondary to diuresis and this was treated with electrolyte replacement. She was transitioned to oral lasix as creatinine increased from 1.01 on admission to 1.70. Today her creatinine has improved to 1.37. Potassium 3.0 and will receive 2 bags of IVPB potassium and also 80 meq of oral potassium prior to discharge. She will be discharged on oral potassium as well. Patient has diffuse generalized weakness and after discussion with patient and family patient has opted for hospice services and plan to return home with hospice in place today. Patient does have family support. Hospice services arranging discharge via EMS. 08/04/22 Patient is evaluated today resting in bed. She is fatigued. Alert and oriented. She continues on 2 L of oxygen via nasal cannula. Denies shortness of breath, denies chest pain. Potassium 3.0 today and she will receive electrolyte replacement and can repeat labs in 2 days if she desires. Script will be given. Otherwise her lungs are clearing. S1 S2 auscultated, she does have bound heart rate and jugular vein distention more so on the right. Creatinine has improved to 1.37 and also script for BMP will recheck this in 2 days. Hemoglobin did drop to 7.7 from 10.1 no signs of acute bleeding and will repeat this outpatient. Patient has opted to discharge home with hospice services in place to be with her she does not wish to return to rehab facility. Patient will be discharged today. Afebrile 97.4, heart rate 68, blood pressure 130/58, 100% 2 L nasal cannula. Please see medication reconciliation for a list of current medication. Thank you for allowing us to participate in the care of this patient. Total time taken in discharge planning greater than 35 minutes. The impression and plan of care has been dictated by Ama Lemus, Nurse Practitioner as directed. Dr. Elmira MD I have performed a history and physical examination and medical decision making of this patient, discussed the same with the dictator, and agree with the dictators assessment and plan as written, documented as a scribe. Based on total visit time, I have performed more than 50% of this visit. Patient Condition at Discharge: Fair Plan - Discharge Summary New Discharge Prescriptions: New carvediloL [Coreg*] 12.5 mg PO BID-W/MEALS #60 tab Continue Levothyroxine Sodium [Synthroid] 25 mcg PO DAILY Aspirin EC [Ecotrin Low Dose] 81 mg PO HS Sertraline [Zoloft] 25 mg PO HS Sacubitril/Valsartan [Entresto 24 mg-26 mg Tablet] 1 tab PO BID Cyanocobalamin [Vitamin B-12] 1,000 mcg PO HS Spironolactone [Aldactone] 25 mg PO DAILY tab Ipratropium-Albuterol Nebulize [Duoneb 0.5 mg-3 mg/3 ml Soln] 3 ml INHALATION RT-BID@0700,1600 Furosemide [Lasix] 40 mg PO BID Omeprazole 20 mg PO DAILY Ondansetron Odt [Zofran ODT] 4 mg PO Q6H PRN PRN Reason: Nausea HYDROcodone/APAP 5-325MG [[place] 5-325] 1 tab PO Q6HR PRN PRN Reason: Pain Discontinued carvediloL [Coreg] 6.25 mg PO BID Discharge Medication List Omeprazole 20 mg PO DAILY 02/26/21 [History] Levothyroxine Sodium [Synthroid] 25 mcg PO DAILY 12/14/21 [History] Aspirin EC [Ecotrin Low Dose] 81 mg PO HS 03/03/22 [History] Sertraline [Zoloft] 25 mg PO HS 03/03/22 [History] Sacubitril/Valsartan [Entresto 24 mg-26 mg Tablet] 1 tab PO BID 05/19/22 [History] Cyanocobalamin [Vitamin B-12] 1,000 mcg PO HS 07/26/22 [History] Spironolactone [Aldactone] 25 mg PO DAILY tab 07/29/22 [Rx] Furosemide [Lasix] 40 mg PO BID 08/01/22 [History] HYDROcodone/APAP 5-325MG [[place] 5-325] 1 tab PO Q6HR PRN 08/01/22 [History] Ipratropium-Albuterol Nebulize [Duoneb 0.5 mg-3 mg/3 ml Soln] 3 ml INHALATION RT-BID@0700,1600 08/01/22 [History] Ondansetron Odt [Zofran ODT] 4 mg PO Q6H PRN 08/01/22 [History] carvediloL [Coreg*] 12.5 mg PO BID-W/MEALS #60 tab 08/03/22 [Rx] Potassium Chloride [Potassium Chloride ER] 20 meq PO DAILY #30 tab 08/04/22 [Rx] Follow up Appointment(s)/Referral(s): Zion Davalos MD [Primary Care Provider] - 1-2 days Activity/Diet/Wound Care/Special Instructions: Patient has met with hospice services and would like to discharge home to be with her and will discharge home with hospice today. Discharge Disposition: HOME WITH HOSPICE
[2022-08-04] MEDS ORDERED: POTASSIUM CHLORIDE 20 MEQ in WATER FOR INJECTION 1 100ML.BAG IVPB ONE (11:30)
[2022-08-04] MEDS: POTASSIUM CHLORIDE ER 20 MEQ TAB.ER PO SCH ×2 (13:20→14:36)
--- NOTE | 2022-08-05 21:51 | CDI ---
Documentation Clarification Form Date: 08/05/2022 09:36:08 PM From: Crys Beyer Phone: Admit Date: 08/01/2022 08:34:00 AM Patient Name: Liberty Coles Visit Number: [id number] Discharge Date: 08/04/2022 02:34:00 PM ATTENTION: The Clinical Documentation Specialists (CDI) and [facility] Coding Staff appreciate your assistance in clarifying documentation. Please respond to the clarification below the line at the bottom and electronically sign. The CDI & [facility] Coding staff will review the response and follow-up if needed. Please note: Queries are made part of the Legal Health Record. If you have any questions, please contact the author of this message via ITS. Dr. Kwan Ku Myocardial injury is documented Consult Note 08/01/22. Additional clarification regarding the etiology is requested. Patient History/Risk Factors: 87yo F, A/CSHF, severe PCM, HTN emergency, ICM, CAD w stents, Multiple myeloma, CHRF, Hx [place], RONNY, [place], [place], TR Clinical Indicators: Troponin: 0.221 EKG Results: EKG interpretation: Ventricular rate 97, sinus rhythm, 194, care is 60, QTC 423. No VA prolongation, no QTC prolongation, no ST or T-wave changes noted. EKG compared to 07/29/2022 showing no changes. Overall, this EKG is unremarkable Consult 08/01/22: Evidence of myocardial injury likely related to HTN emergency and CHF. No evidence of ischemia Treatment: started on heparin and given aspirin Please clarify the type of [place], if known: [ ] NSTEMI (non-ST elevated myocardial infarction) [ x] Type 2 [place] due to Exacerbation f Chronic Systolic CHF [ ] Unable to determine [ ] Other Condition, please specify (Template Last Revised: December 2020) MTDD
== END 2022-08-04 14:34 | disposition hospice, home (50) | DRG 280 ==
LOC: EC 07:14 → 3SCARD 08:34
PROVIDERS: ADMIT Hospitalist; ATTEND Hospitalist
DX: I11.0 Hypertensive heart disease with heart failure (principal); E43 Unspecified severe protein-calorie malnutrition; I21.A1 Myocardial infarction type 2; I50.23 Acute on chronic systolic (congestive) heart failure; N17.9 Acute kidney failure, unspecified; J96.11 Chronic respiratory failure with hypoxia; R71.0 Precipitous drop in hematocrit; C90.00 Multiple myeloma not having achieved remission; Z68.1 Body mass index [BMI] 19.9 or less, adult; I16.1 Hypertensive emergency; F32.A Depression, unspecified; E03.9 Hypothyroidism, unspecified; I08.3 Combined rheumatic disorders of mitral, aortic and tricuspid valves; I25.2 Old myocardial infarction; I25.5 Ischemic cardiomyopathy; K21.9 Gastro-esophageal reflux disease without esophagitis; D72.828 Other elevated white blood cell count; I25.10 Atherosclerotic heart disease of native coronary artery without angina pectoris; Z66 Do not resuscitate; Z51.5 Encounter for palliative care; T50.916A Underdosing of multiple unspecified drugs, medicaments and biological substances, initial encounter; R00.0 Tachycardia, unspecified; T50.2X5A Adverse effect of carbonic-anhydrase inhibitors, benzothiadiazides and other diuretics, initial encounter; Z96.653 Presence of artificial knee joint, bilateral; Z20.822 Contact with and (suspected) exposure to COVID-19; Z79.899 Other long term (current) drug therapy; Z79.82 Long term (current) use of aspirin; Z79.890 Hormone replacement therapy; Z88.0 Allergy status to penicillin; Z91.013 Allergy to seafood; Z92.21 Personal history of antineoplastic chemotherapy; Z87.891 Personal history of nicotine dependence; Z28.310 Unvaccinated for COVID-19; Z91.128 Patient's intentional underdosing of medication regimen for other reason; Z95.5 Presence of coronary angioplasty implant and graft
CPT/HCPCS: 36415; 71046; 74018; 80048; 80053; 81001; 83605; 83735; 83880; 84132; 84484; 85025; 85610; 85730; 87636; 93005; 94640; 94760; 96374; 96376; 99291